=== PATIENT | male | born 1945 | race Caucasian/White ===

== ENCOUNTER 2022-08-08 15:52 | Inpatient (IN) | payer MEDICARE, MEDICAID, SELFPAY ==
--- NOTE | ~2022-08-08 | XR_ITS ---
EXAMINATION: XR chest 1V CLINICAL INFORMATION: Reason for Exam shortness of breat COMPARISON: Chest radiograph 08/12/2022 TECHNIQUE: One view of the chest XR/XR chest 1V FINDINGS/IMPRESSION: * Hazy asymmetric opacification of the right lung, unclear if this could be due to patient rotation, asymmetric parenchymal opacities or small layering pleural effusion. Consider repeat PA and lateral radiographs. * Blunting of the bilateral costophrenic angles may reflect trace pleural effusions. No pneumothorax. * Unchanged cardiomediastinal silhouette. * Incidental note of upper abdominal surgical clips.
--- NOTE | ~2022-08-08 | XR_ITS ---
EXAMINATION: XR CHEST CLINICAL INFORMATION: Hypoxic COMPARISON: Chest x-ray 12/05/2016 TECHNIQUE: Frontal view of the chest was obtained. FINDINGS: No airspace consolidation. No pleural effusion or pneumothorax. Small sub-5 mm calcified granuloma in the peripheral right midlung, unchanged. Normal cardiomediastinal silhouette. No evidence of pulmonary edema. No acute osseous injury. XR/XR chest 1V IMPRESSION: 1. No acute pulmonary process.
--- NOTE | ~2022-08-08 | XR_ITS ---
EXAMINATION: XR CHEST CLINICAL INFORMATION: Hypoxia COMPARISON: Previous chest x-ray most recent 08/08/2022 TECHNIQUE: Frontal view of the chest was obtained. FINDINGS: The cardiac silhouette does not appear enlarged. The thoracic aorta is calcified. There are surgical clips at the GE junction region. Hilar and mediastinal contours are otherwise unremarkable. There is mild biapical pleural thickening.. There is a small nodule in the right mid lung that is stable. There is minimal subsegmental atelectasis at the left lateral costophrenic angle. The lungs are otherwise clear. There is no pleural effusion or pneumothorax. There are degenerative changes of the spine. XR/XR chest 1V IMPRESSION: New subsegmental atelectasis at the left lung base.
--- NOTE | ~2022-08-08 | XR_ITS ---
EXAMINATION: XR CHEST CLINICAL INFORMATION: Shortness of breath COMPARISON: 09/01/2022 TECHNIQUE: Frontal view of the chest was obtained. FINDINGS: No significant abnormality is noted involving the heart, lungs, mediastinum, bony thorax or soft tissues. XR/XR chest 1V IMPRESSION: Unremarkable examination.
--- NOTE | ~2022-08-08 | XR_ITS ---
EXAMINATION: XR CHEST CLINICAL INFORMATION: Cough and shortness of breath COMPARISON: CTA chest dated 08/10/2022 TECHNIQUE: Frontal view of the chest was obtained. FINDINGS: The emphysema. No acute pulmonary parenchymal abnormalities. Normal heart size and pulmonary vascularity. Aorta is atherosclerotic. No acute osseous abnormalities. XR/XR chest 1V IMPRESSION: No focal consolidation.
--- NOTE | ~2022-08-08 | CT_ITS ---
EXAMINATION: CT CHEST ANGIOGRAM PE PROTOCOL CLINICAL INFORMATION: , Reason for Exam Hypoxia. Elevated D-dimer COMPARISON: None TECHNIQUE: Volumetric imaging was performed through the chest. Reformatted coronal and sagittal imaging was performed. 3-D MIP images performed at a dedicated separate workstation. This CT examination was performed using dose optimization techniques as appropriate, variously including the following: *Automated exposure control *Adjustment of mA and/or kV according to patient size (this includes techniques or standardized protocols for targeted exams where dose is matched to indication/reason for exam; i.e. extremities or head) *Use of iterative reconstruction technique CONTRAST: Approximately 65 mL Omnipaque 350 injected DLP: 429 FINDINGS: PULMONARY ARTERIES: There is proper opacification of the pulmonary artery and its main branches. No CT evidence of pulmonary emboli. LINES/TUBES: None LUNGS: Lung Parenchyma: Mild pulmonary emphysema right apical pleural-based scarring, no infiltrates or failure. Lung Nodules:No lung mass or suspicious spiculated nodules, there are few scattered tiny nonspecific calcified and noncalcified lung nodular densities measuring up to 3 mm or less. AIRWAYS: Trachea and bronchi are normal. PLEURA: No pleural effusion or pneumothorax. MEDIASTINUM AND KRYS: The visualized thyroid gland is unremarkable. No mediastinal, hilar or axillary lymphadenopathy. There is no mediastinal mass. VESSELS: Thoracic aorta is normal in size. HEART AND PERICARDIUM: Heart is normal in size. There is no pericardial effusion. There are coronary calcifications. CHEST WALL, LOWER NECK, SURROUNDING SOFT TISSUES: Normal VISUALIZED ABDOMEN: Unremarkable BONES: The visualized bony thorax is within normal limits. CT/CT angio chest PE protocol IMPRESSION: 1. No CT evidence of pulmonary emboli. 2. No lung mass or suspicious spiculated nodules, there are few scattered tiny nonspecific lung calcified and noncalcified nodular densities measuring up to 3 mm or less. 3. Coronary calcifications. 4. Pulmonary emphysema. Various management parameters for solitary pulmonary nodules are in the literature. According to the UPDATED 2017 Fleischner Society recommendations, the advised follow-up imaging for solid nodules < 6 mm is: LOW RISK PATIENT: No routine follow-up. HIGH RISK PATIENT: Optional CT at 12 months. Reference: Guidelines for Management of Incidental Pulmonary Nodules Detected on CT Images: From the Fleischner Society 2017.
--- NOTE | ~2022-08-08 | XR_ITS ---
EXAMINATION: XR CHEST CLINICAL INFORMATION: SOB COMPARISON: Chest 08/31/2022 TECHNIQUE: Frontal view of the chest was obtained. FINDINGS: The lungs are well-expanded and clear with no acute pneumonic process seen. The heart size and pulmonary vascularity is normal. There is no gross bony abnormality. XR/XR chest 1V IMPRESSION: Unremarkable chest examination.
[2022-08-08 16:09] VITALS: BP 144/96; BP 154/90; PULSE 100; PULSE 94; RESP 12; TEMP 36.9; O2SAT 94; BMI 28.3
[2022-08-08 16:15] VITALS: BP 142/61; PULSE 90; RESP 24; TEMP 36.9; O2SAT 94
--- NOTE | 2022-08-08 16:29 | ED.AMS ---
HPI - Altered Mental Status General Chief Complaint: Altered Mental Status Stated Complaint: section 12 Time Seen by Provider: 08/08/22 16:08 Source: patient Mode of arrival: ambulatory Limitations: no limitations History of Present Illness HPI narrative: 76-year-old male history of bipolar disorder schizophrenia at a senior care has had increased agitation aggression towards staff and other members of the senior care. Was sent here they state that his ammonia level will get elevated there is no documented history liver disease he does not take any medications that would elevate his ammonia level they also stated that his sodium consumption hives be abnormal as well. MD complaint: altered mental status and confusion Related Data Allergies Allergy/AdvReac Type Severity Reaction Status Date / Time Penicillins [PENICILLINS] Allergy Intermediate RASH Unverified 08/02/20 16:41 Iodinated Contrast Media Allergy Mild HIVES Unverified 08/02/20 16:41 [IV Dye, Iodine Containing Contrast ] penicillin V Allergy Unknown Verified 07/05/18 00:00 Review of Systems Review of Systems: Review of systems: General: Patient denies any fever chills recent illness or falls Musculoskeletal: Denies back pain or body aches or other injuries HEENT: denies headache, runny nose, ear pain Respiratory: denies shortness of breath, cough Cardiovascular: no chest pain or palpitations : denies dysuria, frequency Abdomen: no nausea vomiting denies abdominal pain Extremities: no swelling, no pain Skin: no diaphoresis Yes all other systems are reviewed and are negative PMFSH Social History Social History Advance Directives: No Advance Directives Information Provided: Yes Physical Exam ED Vital Signs: Vital Signs - 24 hr 08/08/22 16:09 08/08/22 16:15 Temperature 98.5 F 98.5 F Pulse Rate 94 90 Respiratory Rate 12 24 H Blood Pressure 154/90 H 142/61 H Pulse Oximetry 94 94 Oxygen Delivery Method Room Air Room Air BMI result Body Mass Index 28.3 Neurological exam: CN II- XII tested. Patient is alert and oriented to person place and time. Patient has no dysphagia or dysarthia, denies good vision in all four vision smith no nystagmus on exam, good strength to upper and lower extremities with normal reflexes to brachioradialis, wrist, patella and achilles.? Negative romberg, good finger to nose and heel to ortiz.?? General: Well-appearing well-nourished in no signs of distress HEENT: Normocephalic atraumatic? Neck: No signs of JVD, no masses no tenderness or lymphadenopathy Cardiovascular: Regular rate and rhythm Respiratory: Clear to auscultation bilaterally Abdomen: Soft nontender no masses Extremities: Normal pedal pulses no signs of edema Skin: Dry warm no rashes Back: No tenderness full ROM Patient is minimally redirectable continually seeing states that his knee hurt has no other new injuries. The past he immediately upon arrival to bed. MDM - Altered Mental Status MDM Narrative Medical decision making narrative: 76-year-old with specific request check his sodium ammonia level which will be sent items he resume his ammonia level be elevated his abdominal labs were labs were reason but since he was specifically requested I will send off an ammonia level. I will check the labs if I get the patient medically cleared Patient shows signs of dehydration with mildly elevated BUN and creatinine will give patient a L of fluids patient's O2 does not appear to be to elevate I do not have history of his labs he has never been here before so concerned this new patient with her food repeat his BMP. After one liter of fluid he is eating and drinking and closer to baseline. I will medically clear the patient. Differential Diagnosis Differential diagnosis: Likely altered mental status, delirium, encephalopathy, hypoglycemia, hyponatremia and renal failure Medical Records Attestation: I reviewed the patient's medical records. Lab Data Attestation: I reviewed the patient's lab results. Result diagrams: 08/08/22 16:57 08/08/22 21:59 Labs: Lab Results 08/08/22 08/08/22 08/08/22 Range/Units 16:57 16:57 16:57 WBC 15.4 H (4.8-10.8) X10*3/uL RBC 4.13 L (4.60-5.80) X10*6/uL Hgb 13.1 L (14.0-18.0) g/dl Hct 38.4 L (42.0-52.0) % MCV 93.0 (80.0-98.0) fL MCH 31.7 (27.0-33.0) pg MCHC 34.1 (31.0-36.0) g/dl RDW 13.2 (11.0-16.0) % Plt Count 254 (160-400) X10*3/uL MPV 9.2 L (9.4-12.4) fL Immature Gran % (Auto) 4.1 H (0.0-0.4) % Neut % (Auto) 68.4 (45-73) % Lymph % (Auto) 16.8 L (20-40) % [place] % (Auto) 9.2 (2-11) % Eos % (Auto) 1.0 (0-4) % Baso % (Auto) 0.5 (0-2) % Lymph # (Auto) 2.6 (1.2-4.9) X10*3/uL [place] # (Auto) 1.4 H (0.1-1.2) X10*3/uL Eos # (Auto) 0.2 (0.0-0.4) X10*3/uL Baso # (Auto) 0.1 (0.0-0.2) X10*3/uL Abs Immat Gran (auto) 0.63 H (0.00-0.03) X10*3/uL Absolute Neuts (auto) 10.5 H (2.0-8.3) x10*3/uL Absolute Nucleated RBC 0.000 (0.0-0.012) X10*3/uL Nucleated RBC % (auto) 0.0 (0.0-0.2) /100WBC Sodium 129 L (135-145) mmol/L Potassium 5.6 H (3.3-5.1) mmol/L Chloride 93 L (96-108) mmol/L Carbon Dioxide 25 (22-29) mmol/L Anion Gap 17 (12-20) BUN 31 H (9-16) mg/dL Creatinine 1.62 H (0.5-1.4) mg/dL Estim Creat Clear Calc 36.5 Estimated GFR 42 Random Glucose 127 H (60-115) mg/dL Calcium 8.7 (8.4-10.2) mg/dL Total Bilirubin 0.3 (0.0-1.0) mg/dL Direct Bilirubin < 0.2 (0.0-0.5) mg/dL AST 24 (5-37) U/L ALT 23 (0-40) U/L Alkaline Phosphatase 101 (39-117) U/L Ammonia 49 (13-55) umol/L Total Protein 6.8 (6.5-8.0) g/dL Albumin 4.1 (3.5-5.0) g/dL Lipase 50 (8-78) U/L Urine Color Urine Appearance Urine pH (5.0-9.0) Ur Specific [place] (1.005-1.025) Urine Protein (Neg-Trace) mg/dL Urine Glucose (UA) (Negative) mg/dL Urine Ketones (Negative) mg/dL Urine Blood (Negative) Urine Nitrite (Negative) Ur Leukocyte Esterase (Negative) Urine RBC (0-2) /HPF Urine WBC (0-5) /HPF Ur Squamous Epith Cells (0-2) /HPF Urine Bacteria (None Seen) Hyaline Casts (0-2) /LPF Urine Opiates Screen (Not Detect) Urine Fentanyl Screen (Not Detect) Ur Barbiturates Screen (Not Detect) Ur Phencyclidine Scrn (Not Detect) Ur Amphetamines Screen (Not Detect) U Benzodiazepines Scrn (Not Detect) Urine Cocaine Screen (Not Detect) U Marijuana (THC) Screen (Not Detect) COVID-19 (MISTY) (Negative) COVID-19 Clin Com 08/08/22 08/08/22 08/08/22 Range/Units 17:19 18:20 18:20 WBC (4.8-10.8) X10*3/uL RBC (4.60-5.80) X10*6/uL Hgb (14.0-18.0) g/dl Hct (42.0-52.0) % MCV (80.0-98.0) fL MCH (27.0-33.0) pg MCHC (31.0-36.0) g/dl RDW (11.0-16.0) % Plt Count (160-400) X10*3/uL MPV (9.4-12.4) fL Immature Gran % (Auto) (0.0-0.4) % Neut % (Auto) (45-73) % Lymph % (Auto) (20-40) % [place] % (Auto) (2-11) % Eos % (Auto) (0-4) % Baso % (Auto) (0-2) % Lymph # (Auto) (1.2-4.9) X10*3/uL [place] # (Auto) (0.1-1.2) X10*3/uL Eos # (Auto) (0.0-0.4) X10*3/uL Baso # (Auto) (0.0-0.2) X10*3/uL Abs Immat Gran (auto) (0.00-0.03) X10*3/uL Absolute Neuts (auto) (2.0-8.3) x10*3/uL Absolute Nucleated RBC (0.0-0.012) X10*3/uL Nucleated RBC % (auto) (0.0-0.2) /100WBC Sodium (135-145) mmol/L Potassium (3.3-5.1) mmol/L Chloride (96-108) mmol/L Carbon Dioxide (22-29) mmol/L Anion Gap (12-20) BUN (9-16) mg/dL Creatinine (0.5-1.4) mg/dL Estim Creat Clear Calc Estimated GFR Random Glucose (60-115) mg/dL Calcium (8.4-10.2) mg/dL Total Bilirubin (0.0-1.0) mg/dL Direct Bilirubin (0.0-0.5) mg/dL AST (5-37) U/L ALT (0-40) U/L Alkaline Phosphatase (39-117) U/L Ammonia (13-55) umol/L Total Protein (6.5-8.0) g/dL Albumin (3.5-5.0) g/dL Lipase (8-78) U/L Urine Color RED Urine Appearance Hazy Urine pH 7.0 (5.0-9.0) Ur Specific [place] <= 1.005 (1.005-1.025) Urine Protein 30 (1+) H (Neg-Trace) mg/dL Urine Glucose (UA) Negative (Negative) mg/dL Urine Ketones Negative (Negative) mg/dL Urine Blood Large (3+) H (Negative) Urine Nitrite Negative (Negative) Ur Leukocyte Esterase Trace H (Negative) Urine RBC >20 H (0-2) /HPF Urine WBC 0-5 (0-5) /HPF Ur Squamous Epith Cells 0-2 (0-2) /HPF Urine Bacteria None Seen (None Seen) Hyaline Casts 0-2 (0-2) /LPF Urine Opiates Screen Not Detected (Not Detect) Urine Fentanyl Screen Not Detected (Not Detect) Ur Barbiturates Screen Not Detected (Not Detect) Ur Phencyclidine Scrn Not Detected (Not Detect) Ur Amphetamines Screen Not Detected (Not Detect) U Benzodiazepines Scrn Not Detected (Not Detect) Urine Cocaine Screen Not Detected (Not Detect) U Marijuana (THC) Screen Not Detected (Not Detect) COVID-19 (MISTY) Negative (Negative) COVID-19 Clin Com See Note 08/08/22 Range/Units 21:59 WBC (4.8-10.8) X10*3/uL RBC (4.60-5.80) X10*6/uL Hgb (14.0-18.0) g/dl Hct (42.0-52.0) % MCV (80.0-98.0) fL MCH (27.0-33.0) pg MCHC (31.0-36.0) g/dl RDW (11.0-16.0) % Plt Count (160-400) X10*3/uL MPV (9.4-12.4) fL Immature Gran % (Auto) (0.0-0.4) % Neut % (Auto) (45-73) % Lymph % (Auto) (20-40) % [place] % (Auto) (2-11) % Eos % (Auto) (0-4) % Baso % (Auto) (0-2) % Lymph # (Auto) (1.2-4.9) X10*3/uL [place] # (Auto) (0.1-1.2) X10*3/uL Eos # (Auto) (0.0-0.4) X10*3/uL Baso # (Auto) (0.0-0.2) X10*3/uL Abs Immat Gran (auto) (0.00-0.03) X10*3/uL Absolute Neuts (auto) (2.0-8.3) x10*3/uL Absolute Nucleated RBC (0.0-0.012) X10*3/uL Nucleated RBC % (auto) (0.0-0.2) /100WBC Sodium 130 L (135-145) mmol/L Potassium 5.4 H (3.3-5.1) mmol/L Chloride 95 L (96-108) mmol/L Carbon Dioxide 25 (22-29) mmol/L Anion Gap 15 (12-20) BUN 26 H (9-16) mg/dL Creatinine 1.22 (0.5-1.4) mg/dL Estim Creat Clear Calc 48.5 Estimated GFR 58 Random Glucose 107 (60-115) mg/dL Calcium 8.6 (8.4-10.2) mg/dL Total Bilirubin (0.0-1.0) mg/dL Direct Bilirubin (0.0-0.5) mg/dL AST (5-37) U/L ALT (0-40) U/L Alkaline Phosphatase (39-117) U/L Ammonia (13-55) umol/L Total Protein (6.5-8.0) g/dL Albumin (3.5-5.0) g/dL Lipase (8-78) U/L Urine Color Urine Appearance Urine pH (5.0-9.0) Ur Specific [place] (1.005-1.025) Urine Protein (Neg-Trace) mg/dL Urine Glucose (UA) (Negative) mg/dL Urine Ketones (Negative) mg/dL Urine Blood (Negative) Urine Nitrite (Negative) Ur Leukocyte Esterase (Negative) Urine RBC (0-2) /HPF Urine WBC (0-5) /HPF Ur Squamous Epith Cells (0-2) /HPF Urine Bacteria (None Seen) Hyaline Casts (0-2) /LPF Urine Opiates Screen (Not Detect) Urine Fentanyl Screen (Not Detect) Ur Barbiturates Screen (Not Detect) Ur Phencyclidine Scrn (Not Detect) Ur Amphetamines Screen (Not Detect) U Benzodiazepines Scrn (Not Detect) Urine Cocaine Screen (Not Detect) U Marijuana (THC) Screen (Not Detect) COVID-19 (MISTY) (Negative) COVID-19 Clin Com ECG Data ECG #1: Attestation: I personally reviewed and interpreted this ECG as follows: ECG interpretation date: 08/08/22 ECG interpretation time: 18:37 Interpretation: Rate 101 sinus tachycardia normal intervals no peaked T-waves Procedures EJ/Peripheral Line Arm R: Time Out Performed: Yes Skin Cleansed in Sterile Fashion: Yes Size (gauge): 20 IV Secured and Dressing Applied: Yes Patient Tolerated Procedure: well Additional Comments: Attempted 2 times on the left and 3 times longer before securing a right AC line patient tolerated procedure well IV was placed under ultrasound guidance Discharge Plan Discharge Clinical Impression: Dementia, Schizophrenia, Acute dehydration, Acute kidney failure, Acute hyperkalemia Patient Disposition: Still a Patient
[2022-08-08 17:02] LABS: MANUAL DIFF FLAG NO
[2022-08-08 17:03] LABS: Basophils Absolute Auto 0.1 X10*3/uL (0.0-0.2); Basophils Percent Auto 0.5 % (0-2); Eosinophils Absolute Auto 0.2 X10*3/uL (0.0-0.4); Hematocrit 38.4 % (42.0-52.0); Hemoglobin 13.1 g/dl (14.0-18.0); Imm Gran Abs Auto 0.63 X10*3/uL (0.00-0.03); Imm Gran Pct Auto 4.1 % (0.0-0.4); Lymphocytes Absolute Auto 2.6 X10*3/uL (1.2-4.9); Lymphocytes Percent Auto 16.8 % (20-40); Mean Corpuscular HGB Conc 34.1 g/dl (31.0-36.0); Mean Corpuscular Hemoglobin 31.7 pg (27.0-33.0); Mean Platelet Volume 9.2 fL (9.4-12.4); Monocytes Absolute Auto 1.4 X10*3/uL (0.1-1.2); Monocytes Percent Auto 9.2 % (2-11); Neutrophils Absolute Auto 10.5 x10*3/uL (2.0-8.3); Neutrophils Percent Auto 68.4 % (45-73); Platelet Count 254 X10*3/uL (160-400); Red Blood Count 4.13 X10*6/uL (4.60-5.80); Red Cell Distribution Width 13.2 % (11.0-16.0); White Blood Count 15.4 X10*3/uL (4.8-10.8)
[2022-08-08 17:14] LABS: Ammonia 49 umol/L (13-55)
--- NOTE | 2022-08-08 17:15 | PC.NURSE ---
PATIENT CAME IN ,DRENCH OF URINE ,CARE GIVEN AND BEDDING CHANGE .
[2022-08-08 17:22] LABS: Alanine Aminotransferase 23 U/L (0-40); Albumin Level 4.1 g/dL (3.5-5.0); Alkaline Phosphatase 101 U/L (39-117); Anion Gap 17 (12-20); Aspartate Amino Transferase 24 U/L (5-37); Bilirubin Direct < 0.2 mg/dL (0.0-0.5); Bilirubin Total 0.3 mg/dL (0.0-1.0); Blood Urea Nitrogen 31 mg/dL (9-16); Calcium 8.7 mg/dL (8.4-10.2); Carbon Dioxide 25 mmol/L (22-29); Chloride 93 mmol/L (96-108); Creatinine Clr Calc Pharmacy 36.5; Estimated Glomerular Filt Rate 42; Glucose Random 127 mg/dL (60-115); Lipase 50 U/L (8-78); Potassium 5.6 mmol/L (3.3-5.1); Sodium 129 mmol/L (135-145); Total Protein 6.8 g/dL (6.5-8.0)
[2022-08-08 17:41] LABS: COVID-19 Test Negative (Negative); IDNOW Serial# 55D5AD1C
--- NOTE | 2022-08-08 17:46 | ECG_ITS ---
Test Reason : AMS Blood Pressure : / mmHG Vent. Rate : 101 BPM Atrial Rate : 101 BPM P-R Int : 138 ms QRS Dur : 130 ms QT Int : 358 ms P-R-T Axes : 085 -60 058 degrees QTc Int : 464 ms Sinus tachycardia Right bundle branch block Left anterior fascicular block Bifascicular block Abnormal ECG When compared with ECG of 03-APR-2017 06:50, (RBBB and left anterior fascicular block) is now Present Heart rate has increased Referred By: Bertin Valencia Electronically Signed By:KRISTOPHER VALERO
[2022-08-08 18:29] LABS: Appearance Urine Hazy; Color Urine RED; Glucose Urine UA Negative (Negative); Leukocyte Esterase Urine Trace (Negative); Nitrite Urine Negative (Negative); Specific Gravity - Urine <= 1.005 (1.005-1.025); UMIC TRIGGER UACC YES; Urine Blood Large (3+) (Negative); Urine Ketones Negative (Negative); Urine Protein 30 (1+) mg/dL (Neg-Trace)
[2022-08-08 18:43] LABS: RBC Urine >20 /HPF (0-2); Squamous Epithelial Cell Urine 0-2 /HPF (0-2); WBC Urine 0-5 /HPF (0-5)
[2022-08-08 18:44] LABS: Bacteria Urine None Seen (None Seen); Hyaline Casts Urine 0-2 /LPF (0-2)
[2022-08-08 18:46] LABS: Amphetamine Screen Urine Not Detected (Not Detect); Barbiturates, Urine Not Detected (Not Detect); Benzodiazepines Screen Urine Not Detected (Not Detect); Cannabinoid Screen Urine Not Detected (Not Detect); Cocaine Screen Urine Not Detected (Not Detect); Fentanyl, urine Not Detected (Not Detect); Opiate Screen Urine Not Detected (Not Detect); Phencyclidine Screen Urine Not Detected (Not Detect)
[2022-08-08] MEDS: 0.9 % Sodium Chloride 1,000 ML 999 ML IV (20:31)
--- NOTE | 2022-08-08 22:10 | PC.NURSE ---
No IV access, after many attempts.
[2022-08-08 22:19] LABS: Anion Gap 15 (12-20); Blood Urea Nitrogen 26 mg/dL (9-16); Calcium 8.6 mg/dL (8.4-10.2); Carbon Dioxide 25 mmol/L (22-29); Chloride 95 mmol/L (96-108); Creatinine Clr Calc Pharmacy 48.5; Estimated Glomerular Filt Rate 58; Glucose Random 107 mg/dL (60-115); Potassium 5.4 mmol/L (3.3-5.1); Sodium 130 mmol/L (135-145)
[2022-08-08 22:32] VITALS: BP 171/67; PULSE 89; RESP 16; O2SAT 93
[2022-08-09] VITALS (9 sets, daily range): BP systolic 101–191; BP diastolic 63–76; PULSE 71–88; RESP 15–20; TEMP 36.2–37.2; O2SAT 92–97
--- NOTE | 2022-08-09 05:42 | PC.NURSE ---
[facility] referral completed.
--- NOTE | 2022-08-09 08:51 | PC.NURSE ---
[facility] Director Rachel iL needs to be notified if discharged. Health Care Proxy:Tia Arellano,
[2022-08-09 11:47] LABS: MANUAL DIFF FLAG NO
[2022-08-09 11:51] LABS: Basophils Absolute Auto 0.1 X10*3/uL (0.0-0.2); Basophils Percent Auto 0.4 % (0-2); Eosinophils Absolute Auto 0.1 X10*3/uL (0.0-0.4); Eosinophils Percent Auto 0.4 % (0-4); Hematocrit 38.2 % (42.0-52.0); Hemoglobin 12.9 g/dl (14.0-18.0); Imm Gran Pct Auto 3.6 % (0.0-0.4); Lymphocytes Absolute Auto 2.2 X10*3/uL (1.2-4.9); Lymphocytes Percent Auto 15.6 % (20-40); Mean Corpuscular HGB Conc 33.8 g/dl (31.0-36.0); Mean Corpuscular Hemoglobin 31.9 pg (27.0-33.0); Mean Corpuscular Volume 94.3 fL (80.0-98.0); Mean Platelet Volume 9.2 fL (9.4-12.4); Monocytes Absolute Auto 1.2 X10*3/uL (0.1-1.2); Monocytes Percent Auto 8.3 % (2-11); Neutrophils Percent Auto 71.7 % (45-73); Platelet Count 284 X10*3/uL (160-400); Red Blood Count 4.05 X10*6/uL (4.60-5.80); Red Cell Distribution Width 13.2 % (11.0-16.0); White Blood Count 13.9 X10*3/uL (4.8-10.8)
[2022-08-09] MEDS: Labetalol HCL 100 MG/20 ML VIAL 10 MG IVPUSH (14:41)
[2022-08-09] MEDS: cloNIDine HCL 0.1 MG TABLET PO (14:42)
[2022-08-09] MEDS: amLODIPine Besylate 5 MG TABLET PO (14:42)
[2022-08-09] MEDS: lisinopriL 10 MG TABLET PO (14:42)
[2022-08-09 15:26] LABS: Alanine Aminotransferase 21 U/L (0-40); Albumin Level 4.1 g/dL (3.5-5.0); Alkaline Phosphatase 104 U/L (39-117); Anion Gap 17 (12-20); Aspartate Amino Transferase 22 U/L (5-37); Bilirubin Total 0.3 mg/dL (0.0-1.0); Blood Urea Nitrogen 19 mg/dL (9-16); Calcium 8.9 mg/dL (8.4-10.2); Carbon Dioxide 23 mmol/L (22-29); Chloride 95 mmol/L (96-108); Estimated Glomerular Filt Rate > 60; Glucose Random 121 mg/dL (60-115); Potassium 5.3 mmol/L (3.3-5.1); Sodium 130 mmol/L (135-145); Total Protein 6.9 g/dL (6.5-8.0)
[2022-08-09] MEDS: 0.9 % Sodium Chloride 1,000 ML 999 ML IVCONT (17:00)
[2022-08-09] MEDS: Sodium Polystyrene Sulfon/Sorb 15 GM/60 ML ORAL.SUSP 45 GM PO (18:11)
--- NOTE | 2022-08-09 21:56 | PC.NURSE ---
Pt was incontinent of stool and urine, cleaned up, repositioned and all new linen was placed @[id number]
[2022-08-10] VITALS (10 sets, daily range): BP systolic 121–177; BP diastolic 53–74; PULSE 69–114; RESP 14–20; TEMP 36.7–36.9; O2SAT 89–96
[2022-08-10] MEDS: QUEtiapine Fumarate 50 MG TABLET PO ×3 (07:34→20:45)
--- NOTE | 2022-08-10 10:02 | PC.NURSE ---
[facility] came to re evaluate patient, remains gretel bed search.
[2022-08-10 11:08] LABS: MANUAL DIFF FLAG NO
[2022-08-10 11:10] LABS: Basophils Percent Auto 0.3 % (0-2); Eosinophils Absolute Auto 0.1 X10*3/uL (0.0-0.4); Eosinophils Percent Auto 0.7 % (0-4); Hemoglobin 12.2 g/dl (14.0-18.0); Imm Gran Pct Auto 2.3 % (0.0-0.4); Lymphocytes Absolute Auto 2.3 X10*3/uL (1.2-4.9); Lymphocytes Percent Auto 17.6 % (20-40); Mean Corpuscular Hemoglobin 31.5 pg (27.0-33.0); Mean Corpuscular Volume 95.6 fL (80.0-98.0); Mean Platelet Volume 8.8 fL (9.4-12.4); Monocytes Percent Auto 7.7 % (2-11); Neutrophils Absolute Auto 9.3 x10*3/uL (2.0-8.3); Neutrophils Percent Auto 71.4 % (45-73); Platelet Count 250 X10*3/uL (160-400); Red Blood Count 3.87 X10*6/uL (4.60-5.80); Red Cell Distribution Width 13.2 % (11.0-16.0)
[2022-08-10 11:18] LABS: D Dimer High Sensitivity 267 NG/ML
[2022-08-10 11:23] LABS: Anion Gap 15 (12-20); Blood Urea Nitrogen 18 mg/dL (9-16); Calcium 8.2 mg/dL (8.4-10.2); Carbon Dioxide 24 mmol/L (22-29); Chloride 99 mmol/L (96-108); Creatinine Clr Calc Pharmacy 68.1; Estimated Glomerular Filt Rate > 60; Glucose Random 110 mg/dL (60-115); Sodium 134 mmol/L (135-145)
[2022-08-10] MEDS: Albuterol/Iprat 2.5/0.5MG 3 ML AMPUL.NEB INHALE ×2 (11:26→14:35)
[2022-08-10] MEDS: methylPREDNISolone Sod Succ 125 MG/2 ML VIAL IVPUSH (13:30)
[2022-08-10] MEDS: diphenhydrAMINE HCL 50 MG/ML VIAL IVPUSH (13:30)
[2022-08-10 13:54] LABS: B Type Natriuretic Peptide 19 pg/mL (<100)
[2022-08-10] MEDS: Albuterol Sulfate 2.5 MG/0.5 ML VIAL.NEB 5 MG INHALE (14:35)
[2022-08-10] MEDS: iohexoL 350 MG/ML 100 ML INFUS..BTL IV (14:37)
[2022-08-10] MEDS: cefEPime HCl 2 GM in 0.9 % Sodium Chloride 50 ML IV (16:38)
--- NOTE | 2022-08-10 17:03 | PM.EVENT ---
Event Note Date of Service: 08/10/22 Event Note: call to admit patient was initially seen in the emergency room on 08/05 waiting for [facility] placement today noted to have a hypoxia 91% on room air with no prior history of COPD or O2 requirement a chest x-ray showed atelectasis is CT chest showed no PE PA called to admit patient for hypoxia with finger oximetry of 89% went to see patient he is awake alert denies shortness of breath denies chest pain denies nausea vomiting, no headache no dizziness lungs diminished breath sound at bases general no acute distress oxygenation 91% on room air blood pressure 167/53, heart rate 103 no hypoxia noted most likely low oxygenation related to atelectasis ordered incentive spirometry reviewed med reconciliation patient is on clonidine 0.1 mg t.i.d., amlodipine 5 mg daily, lisinopril 10 mg daily and multiple other psych medication spoke with patient's ER provider Layla Mendez recommended her to resume home antihypertensive medications, spoke with respiratory therapist recommended incentive spirometry informed ER provider the patient at this time does not qualify for hospitalization continue [facility] search.
[2022-08-10] MEDS: Albuterol Sulfate (0.083%) 2.5 MG/3 ML VIAL.NEB INHALE (17:10)
--- NOTE | 2022-08-10 19:24 | PC.NURSE ---
assumed care of pt at 1900. report received from Krystyna NORMAN. pt sitting up eating dinner. no apparent distress. will continue to monitor
[2022-08-10] MEDS: Tamsulosin HCL 0.4 MG CAPSULE PO ×2 (20:45)
[2022-08-11] VITALS (7 sets, daily range): BP systolic 144–181; BP diastolic 58–79; PULSE 100–109; RESP 16–20; TEMP 36.8–37.4; O2SAT 87–95
[2022-08-11] MEDS: QUEtiapine Fumarate 50 MG TABLET PO ×2 (08:11→22:02)
--- NOTE | 2022-08-11 08:43 | PC.NURSE ---
wash patient clean room
--- NOTE | 2022-08-11 20:52 | PC.NURSE ---
Assumed care of pt. at 1900. Pt. awaiting transfer to health system, resting quietly in hines stretcher.
[2022-08-11] MEDS: Clindamycin HCL 150 MG CAPSULE 450 MG PO (22:02)
[2022-08-11] MEDS: Tamsulosin HCL 0.4 MG CAPSULE PO (22:03)
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
[2022-08-12] MEDS: Clindamycin HCL 150 MG CAPSULE 450 MG PO ×2 (04:15→10:30)
[2022-08-12 08:15] LABS: Estimated Average Glucose 123 mg/dL; Hemoglobin A1c % 5.9 %
[2022-08-12 08:24] LABS: Cholesterol 147 mg/dL; HDL Cholesterol 63 mg/dL; LDL Cholesterol Calculated 74 mg/dl; Triglycerides 52 mg/dL
[2022-08-12 08:47] LABS: Free T4 (Free Thyroxine) 1.25 ng/dL (0.71-1.85); Thyroid Stimulating Hormone 2.08 uIU/mL (0.32-4.0)
--- NOTE | 2022-08-12 09:00 | ECG_ITS ---
Test Reason : hypoxia Blood Pressure : / mmHG Vent. Rate : 111 BPM Atrial Rate : 111 BPM P-R Int : 130 ms QRS Dur : 126 ms QT Int : 354 ms P-R-T Axes : 085 -66 074 degrees QTc Int : 481 ms Sinus tachycardia Right bundle branch block Left anterior fascicular block Bifascicular block Minimal voltage criteria for LVH, may be normal variant ( R in aVL ) Abnormal ECG When compared with ECG of 08-AUG-2022 18:28, No significant change was found Referred By: Adriana Bentley Electronically Signed By:KRISTOPHER VALERO
[2022-08-12 09:12] LABS: Folate 6.3 ng/mL (> or = 4.0); Vitamin B12 308 pg/mL (200-900)
[2022-08-12 09:30] VITALS: BP 179/73; PULSE 98; RESP 18; TEMP 36.8; O2SAT 96
[2022-08-12] MEDS: QUEtiapine Fumarate 50 MG TABLET PO ×2 (09:40→20:56)
--- NOTE | 2022-08-12 11:38 | HO.PM.IMCN ---
History of Present Illness Data of Consult Service Date: 08/12/22 Requesting physician: Adriana Bentley Primary Care Provider: Unknown Physician HPI Reason for consult: hypoxia and skin eval 76 year old male with history htn, COPD, BPH, schizophrenia, and dementia admitted to psychiatry being consulted on for sob and for skin evaluation. Pt boarded in ED for 4 days prior to admission to Geripsych unit. He was incontinent while in ED per nursing and developed dusky hypopigmentation on the buttock. He also had oximetry down to 91% in ED. CXR showed left base atelectasis. Pt started on cefuroxime. CTA chest negative for PE, suspicious nodules, focal consolidations, but did show pulmonary emphysema. Has had intermittent tachycardia to 111 yesterday. Last WBC was 13.0 two days ago. Today, pt is reporting some sob. Currently 96% on RA, however is noted to desaturate to 88% on ambulation. He has been using incentive spirometry to improve lung volumes. He is afebrile. Review of Systems Review of Systems: General: No fevers, malaise, unintentional weight loss Cardiovascular: No chest pain, palpitations, or leg edema Respiratory: +sob, +cough. No wheezing GI: No abdominal pain, nausea, vomiting, diarrhea, constipation, melena, hematochezia : +incontinence. No dysuria, hematuria Neuro: No headaches, weakness, paresthesias Skin: +skin discoloration. No other rashes or lesions PMFSH Social History Household Members: Unknown / Unable to assess Housing: Assisted Living Facility Do you presently have visiting nurse or other home services: No Unable to assess alcohol history related to: Unable to respond and Unknown Patient Tobacco Use Status: Current everyday Tobacco user Cigarettes Per Day: 2 Smoked in Last 30 Days: Yes Patient Interested in Nicotine Replacement: Yes Patient Given Instructions on How to Stop Smoking: No Use of substances other than those prescribed or required for medical reasons: Unable to respond Currently Displaying Signs/Symptoms of Drug Intoxication Withdrawal: No Advance Directives: No Advance Directives Information Provided: Yes Do you have thoughts of harming others: None Do you have a plan to hurt others: No Plan Recently lost weight without trying: Unsure How much weight loss: Unsure Eating poorly because of decreased appetite: No Nutrition screen score: 4 Nutrition Risks: No Nutritional Risk service: No Sexual orientation: Straight/Heterosexual Meds Allergies Allergy/AdvReac Type Severity Reaction Status Date / Time Penicillins [PENICILLINS] Allergy Intermediate RASH Unverified 08/02/20 16:41 Iodinated Contrast Media Allergy Mild HIVES Unverified 08/02/20 16:41 [IV Dye, Iodine Containing Contrast ] penicillin V Allergy Unknown Verified 07/05/18 00:00 Active Medications: Current Medications Acetaminophen (Acetaminophen 325 Mg Tablet) 650 mg PO Q6H PRN PRN Reason: Headache/Pain Mild Scale (1-3) Al Hydroxide/Mg Hydroxide (Magnesium Hydrox/Alum Hydrox 30 Ml Oral.Susp) 30 ml PO Q6H PRN PRN Reason: Heartburn/Nausea Cefuroxime Axetil (Cefuroxime Axetil 500 Mg Tablet) 500 mg PO BID [facility] Last Admin: 08/12/22 09:40 Dose: 500 mg Clindamycin HCl (Clindamycin Hcl 150 Mg Capsule) 450 mg PO Q8H [facility] Stop: 08/18/22 17:59 Last Admin: 08/12/22 10:30 Dose: 450 mg Magnesium Hydroxide (Milk Of Magnesia 30 Ml Oral.Susp) 30 ml PO DAILY PRN PRN Reason: Constipation Pharmacy Consult (Consult Rx Perform Med Rec) 1 each MISCELLANE ONCE PRN PRN Reason: Consult order Quetiapine Fumarate (Quetiapine Fumarate 50 Mg Tablet) 50 mg PO BID [facility] Last Admin: 08/12/22 09:40 Dose: 50 mg Tamsulosin HCl (Tamsulosin Hcl 0.4 Mg Capsule) 0.4 mg PO BEDTIME [facility] Last Admin: 08/11/22 22:03 Dose: 0.4 mg Home Medications Medication Instructions Recorded Confirmed Last Taken Type amlodipine 5 mg tablet 1 tab PO DAILY 08/09/22 08/09/22 Unknown History aripiprazole 20 mg tablet 1 tab PO DAILY 08/09/22 08/09/22 Unknown History atorvastatin 20 mg tablet 1 tab PO BEDTIME 08/09/22 08/09/22 Unknown History clonidine HCl 0.1 mg tablet 1 tab PO TID 08/09/22 08/09/22 Unknown History fluticasone fur. 200 mcg-umeclid 1 puff inhalation DAILY 08/09/22 08/09/22 Unknown History 62.5 mcg-vilant 25 mcg inhalat.powder (Trelegy Ellipta) lisinopril 10 mg tablet 1 tab PO DAILY 08/09/22 08/09/22 Unknown History oxcarbazepine 300 mg tablet 1 tab PO BID 08/09/22 08/09/22 Unknown History quetiapine 50 mg tablet 1 tab PO BID 08/09/22 08/09/22 Unknown History tamsulosin 0.4 mg capsule 1 cap PO BEDTIME 08/09/22 08/09/22 Unknown History Vitamin D3 50,000 unit PO QMONTH 08/12/22 08/12/22 Unknown History acetaminophen 650 mg PO Q6H PRN Pain 08/12/22 08/12/22 Unknown History Physical Exam Vital Signs and Narrative: Vital Signs: Last Vital Signs Temp 98.2 F 08/12/22 09:30 Pulse 98 08/12/22 09:30 Resp 18 08/12/22 09:30 BP 179/73 H 08/12/22 09:30 Pulse Ox 96 08/12/22 09:30 O2 Del Method 08/12/22 09:30 O2 Flow Rate 2 08/10/22 10:10 BMI result Body Mass Index 28.3 Constitutional - Awake and Alert, No apparent distress Eyes - PERRLA, EOMI Cardiovascular - S1S2, RRR, No edema Respiratory - Scattered wheezing with rhonchi lll. Normal lung expansion, Normal respiratory effort, No respiratory distress Gastrointestinal - NT / ND; +BS; No rebound or guarding Extremities - no calf tenderness bilaterally, no swelling Skin - Warm/Dry. Slight dusky erythema around the gluteal cleft b/l, see photo Neurological - Alert & oriented x3, No focal deficit Psychological - Appropriate affect Results Labs CBC and Chem 7: 08/22/22 15:44 08/25/22 17:13 Labs: Laboratory Results - last 24 hr 08/12/22 08/12/22 08/12/22 07:53 07:53 07:53 Estimat Average Glucose 123 Hemoglobin A1c % 5.9 Triglycerides 52 Cholesterol 147 LDL Cholesterol, Calc 74 HDL Cholesterol 63 Vitamin B12 308 Folate 6.3 TSH 2.08 Free T4 1.25 Imaging Radiologist's Impressions: Impressions Chest X-Ray 08/12/22 03:50 IMPRESSION: No focal consolidation. Assessment and Plan (1) Schizophrenia: Status: Acute (2) Dementia: Status: Acute Plan 76 year old male with history htn, COPD, BPH, schizophrenia, and dementia admitted to psychiatry with consult placed for SOB, hypoxia with ambulation, and skin evaluation. 1-Schizophrenia -plan per psychiatry 2- Dementia -Plan per psycyhiatry 3-Ambulatory hypoxia- likely secondary to low lung volumes vs COPD exaceration -Oximetry 96% currently -CXR and CTA chest negative for pneumonia -Continue oximetry -Treat COPD exacerbation as above 4-Acute COPD exacerbation -No hypoxia at rest. Desat to 86-88% on ambulation -Recheck CBC. Leukocytosis several days ago in ED. Monitor vitals -Resume home trelegy ellipta -CXR and CTA negative for pneumonia. Dc cefuroxime and clindamycin. Start doxycline -Duonebs q4h x5 days -Prednisone 40mg x5 days -COVID-19 negative in ED. Recheck COVID-19 and influenza and RSV 5-Pulmonary nodules seen on chest CT -Needs outpt follow up CT in 1 year 6-Skin discoloration -Mild erythema around gluteal cleft likely from being bed bound in ED with urinary incontinence. No evidence of pressure ulceration. Discoloration is already resolving. Recommend barrier cream, changing brief often if urinary incontinence, and getting out of bed at least every shift Recommend all home bp meds be resumed. Will continue to follow.
[2022-08-12] MEDS: predniSONE 20 MG TABLET 40 MG PO (12:55)
[2022-08-12 13:20] LABS: MANUAL DIFF FLAG NO
[2022-08-12 13:25] LABS: Basophils Percent Auto 0.2 % (0-2); Eosinophils Absolute Auto 0.1 X10*3/uL (0.0-0.4); Eosinophils Percent Auto 0.5 % (0-4); Hemoglobin 11.5 g/dl (14.0-18.0); Imm Gran Abs Auto 0.36 X10*3/uL (0.00-0.03); Imm Gran Pct Auto 2.1 % (0.0-0.4); Lymphocytes Absolute Auto 2.9 X10*3/uL (1.2-4.9); Lymphocytes Percent Auto 16.9 % (20-40); Mean Corpuscular HGB Conc 32.9 g/dl (31.0-36.0); Mean Corpuscular Hemoglobin 31.4 pg (27.0-33.0); Mean Corpuscular Volume 95.6 fL (80.0-98.0); Mean Platelet Volume 9.2 fL (9.4-12.4); Monocytes Absolute Auto 1.1 X10*3/uL (0.1-1.2); Monocytes Percent Auto 6.2 % (2-11); Neutrophils Absolute Auto 12.7 x10*3/uL (2.0-8.3); Neutrophils Percent Auto 74.1 % (45-73); Platelet Count 283 X10*3/uL (160-400); Red Blood Count 3.66 X10*6/uL (4.60-5.80); Red Cell Distribution Width 13.2 % (11.0-16.0); White Blood Count 17.2 X10*3/uL (4.8-10.8)
[2022-08-12 14:19] VITALS: PULSE 103; RESP 20; O2SAT 93
[2022-08-12 14:53] LABS: Influenza A PCR NEGATIVE (Negative); Influenza B PCR NEGATIVE (Negative); Resp Syncy Virus RNA Qual PCR NEGATIVE (Negative); SARS COV2 PCR INHOUSE NEGATIVE (Negative)
--- NOTE | 2022-08-12 15:54 | P.HPPS_ITS ---
HPI Date of Service: 08/12/22 Chief Complaint: Schizophrenia,Dementia Sources of Information: patient interviewed, chart reviewed and crisis/core team assessment reviewed HPI Subjective Notes: [place] Warning and Conditional Voluntary Narrative: The patient is a 76-year-old [place] Citizen male, resident of a ch[facility] referred to the emergency room for exacerbation of psychosis, disorganized behavior and threatening staff in the ch[facility]. The patient carries a diagnosis of schizoaffective disorder bipolar type and he has several admissions into the hospital for similar presentations. According to staff of the chcf, Trileptal was discontinue recently. On interview, the patient was a very poor historian he was pleasant and cooperative, he was mostly Citizen [place]-speaking and stated that he was doing fine. He was unable to disclose why he was brought here, he denies active suicidal ideation and he was able to contract for safety. The patient was unable to disclose what can on medications he was taking. Past Psychiatric History: Several admissions into the hospital for psychotic decompensation, the patient has been placed on an a [facility]. Medical Evaluation Reviewed: Yes PMFSH Family History: Denies Social History: chronically mentally ill, recently placing a chcf. According to the chart the patient was to have several step children, he denies having biological children. Unemployed on disability. Substance History: Denies Trauma History: unknown Diagnostics Vital Signs (24Hr): Vital Signs - 24 hr 08/11/22 20:30 08/11/22 21:54 08/11/22 23:18 Temperature 99.4 F 98.3 F Pulse Rate 109 H 100 Respiratory Rate 19 20 Blood Pressure 163/79 H 144/77 H Pulse Oximetry 92 87 L 91 L Oxygen Delivery Method Room Air Room Air 08/12/22 09:30 08/12/22 14:19 Temperature 98.2 F Pulse Rate 98 103 H Respiratory Rate 18 20 Blood Pressure 179/73 H Pulse Oximetry 96 Oxygen Delivery Method Room Air BMI result Body Mass Index 28.3 Labs Results: 08/12/22 13:14 08/10/22 11:04 Labs: Laboratory Results - last 48 hr 08/12/22 08/12/22 08/12/22 07:53 07:53 07:53 WBC RBC Hgb Hct MCV MCH MCHC RDW Plt Count MPV Immature Gran % (Auto) Neut % (Auto) Lymph % (Auto) [place] % (Auto) Eos % (Auto) Baso % (Auto) Lymph # (Auto) [place] # (Auto) Eos # (Auto) Baso # (Auto) Abs Immat Gran (auto) Absolute Neuts (auto) Absolute Nucleated RBC Nucleated RBC % (auto) Estimat Average Glucose 123 Hemoglobin A1c % 5.9 Triglycerides 52 Cholesterol 147 LDL Cholesterol, Calc 74 HDL Cholesterol 63 Vitamin B12 308 Folate 6.3 TSH 2.08 Free T4 1.25 Influenza Type A (PCR) Influenza Type B (PCR) RSV RNA Qual (PCR) SARS-CoV-2 RNA (RT-PCR) 08/12/22 08/12/22 13:14 14:00 WBC 17.2 H RBC 3.66 L Hgb 11.5 L Hct 35.0 L MCV 95.6 MCH 31.4 MCHC 32.9 RDW 13.2 Plt Count 283 MPV 9.2 L Immature Gran % (Auto) 2.1 H Neut % (Auto) 74.1 H Lymph % (Auto) 16.9 L [place] % (Auto) 6.2 Eos % (Auto) 0.5 Baso % (Auto) 0.2 Lymph # (Auto) 2.9 [place] # (Auto) 1.1 Eos # (Auto) 0.1 Baso # (Auto) 0.0 Abs Immat Gran (auto) 0.36 H Absolute Neuts (auto) 12.7 H Absolute Nucleated RBC 0.000 Nucleated RBC % (auto) 0.0 Estimat Average Glucose Hemoglobin A1c % Triglycerides Cholesterol LDL Cholesterol, Calc HDL Cholesterol Vitamin B12 Folate TSH Free T4 Influenza Type A (PCR) NEGATIVE Influenza Type B (PCR) NEGATIVE RSV RNA Qual (PCR) NEGATIVE SARS-CoV-2 RNA (RT-PCR) NEGATIVE Imaging Radiology Impressions: ITS Impressions Chest X-Ray 08/08/22 16:36 IMPRESSION: 1. No acute pulmonary process. Chest X-Ray 08/10/22 10:25 IMPRESSION: New subsegmental atelectasis at the left lung base. Chest CTA 08/10/22 14:35 IMPRESSION: 1. No CT evidence of pulmonary emboli. 2. No lung mass or suspicious spiculated nodules, there are few scattered tiny nonspecific lung calcified and noncalcified nodular densities measuring up to 3 mm or less. 3. Coronary calcifications. 4. Pulmonary emphysema. Various management parameters for solitary pulmonary nodules are in the literature. According to the UPDATED 2017 Fleischner Society recommendations, the advised follow-up imaging for solid nodules < 6 mm is: LOW RISK PATIENT: No routine follow-up. HIGH RISK PATIENT: Optional CT at 12 months. Reference: Guidelines for Management of Incidental Pulmonary Nodules Detected on CT Images: From the Fleischner Society 2017. Chest X-Ray 08/12/22 03:50 IMPRESSION: No focal consolidation. Meds/Allergies Meds Home Medications Medication Instructions Recorded Confirmed Type amlodipine 5 mg tablet 1 tab PO DAILY 08/09/22 08/09/22 History aripiprazole 20 mg tablet 1 tab PO DAILY 08/09/22 08/09/22 History atorvastatin 20 mg tablet 1 tab PO BEDTIME 08/09/22 08/09/22 History clonidine HCl 0.1 mg tablet 1 tab PO TID 08/09/22 08/09/22 History fluticasone fur. 200 mcg-umeclid 1 puff inhalation DAILY 08/09/22 08/09/22 History 62.5 mcg-vilant 25 mcg inhalat.powder (Trelegy Ellipta) lisinopril 10 mg tablet 1 tab PO DAILY 08/09/22 08/09/22 History oxcarbazepine 300 mg tablet 1 tab PO BID 08/09/22 08/09/22 History quetiapine 50 mg tablet 1 tab PO BID 08/09/22 08/09/22 History tamsulosin 0.4 mg capsule 1 cap PO BEDTIME 08/09/22 08/09/22 History Vitamin D3 50,000 unit PO QMONTH 08/12/22 08/12/22 History acetaminophen 650 mg PO Q6H PRN Pain 08/12/22 08/12/22 History Allergies Allergies Allergy/AdvReac Type Severity Reaction Status Date / Time Penicillins [PENICILLINS] Allergy Intermediate RASH Unverified 08/02/20 16:41 Iodinated Contrast Media Allergy Mild HIVES Unverified 08/02/20 16:41 [IV Dye, Iodine Containing Contrast ] penicillin V Allergy Unknown Verified 07/05/18 00:00 Mental Status Exam Mental Status Exam Patient Appearance: Appropriate Patient Orientation: Person Level of Consciousness: Awake Patient Behavior: Guarded and Passive Mood Description: Withdrawn Affect Description: Calm Patient Cognition Impaired: Yes Ability to Follow Directions: Fair Speech Pattern: Clear Hallucinations: None Delusions: Paranoid Ideation Thought Process: Distracted Thought Content: positive for Disoriented and positive for [place] Judgement: Poor Assessment & Plan Assessment & Plan (1) Schizophrenia: Status: Acute Code(s): F20.9 - Schizophrenia, unspecified (2) Dementia: Status: Acute Code(s): F03.90 - Unspecified dementia without behavioral disturbance (3) Acute dehydration: Status: Acute Code(s): E86.0 - Dehydration Plan the patient is an elderly male with a long history of psychosis admitted for exacerbation of violence and disorganized behavior. The patient has been chronically institutionalized and he is impaired, and unable to provide further details. Plan 1. Gather collateral information, we will contact staff of his ch[facility] to find out any changes recently on his medication management or stressors. 2. Continue same treatment as medication reconciliation form. Patient educated on: therapeutic strategies Informed Consent: further education needed Reason for continued inpatient stay Substantial Risk for: harm to others, inability to function, rapid decompensation and med/psych decompensation
[2022-08-12 16:50] VITALS: BP 188/79; PULSE 92; O2SAT 94
[2022-08-12] MEDS: cloNIDine HCL 0.1 MG TABLET PO ×2 (16:54→20:56)
[2022-08-12] MEDS: lisinopriL 10 MG TABLET PO (16:55)
[2022-08-12] MEDS: amLODIPine Besylate 5 MG TABLET PO (16:55)
[2022-08-12 18:00] VITALS: BP 152/60; PULSE 92; RESP 16; TEMP 37.3; O2SAT 92
[2022-08-12] MEDS: Atorvastatin Calcium 20 MG TABLET PO (20:56)
[2022-08-12] MEDS: Tamsulosin HCL 0.4 MG CAPSULE PO (20:56)
--- NOTE | 2022-08-12 21:15 | PC.NURSE ---
Patient received flu vaccine this shift. Administered L deltoid. Patient consent was given.
[2022-08-13] MEDS: Acetaminophen 325 MG TABLET 650 MG PO (01:38)
[2022-08-13 08:06] LABS: Basophils Percent Auto 0.2 % (0-2); Eosinophils Percent Auto 0.2 % (0-4); Hemoglobin 11.9 g/dl (14.0-18.0); Imm Gran Abs Auto 0.57 X10*3/uL (0.00-0.03); Imm Gran Pct Auto 3.2 % (0.0-0.4); Lymphocytes Absolute Auto 2.6 X10*3/uL (1.2-4.9); Lymphocytes Percent Auto 14.8 % (20-40); MANUAL DIFF FLAG SCAN; Mean Corpuscular Hemoglobin 31.5 pg (27.0-33.0); Mean Corpuscular Volume 92.6 fL (80.0-98.0); Monocytes Absolute Auto 1.5 X10*3/uL (0.1-1.2); Monocytes Percent Auto 8.2 % (2-11); Neutrophils Absolute Auto 12.9 x10*3/uL (2.0-8.3); Neutrophils Percent Auto 73.4 % (45-73); PLT CLUMP 1; Red Blood Count 3.78 X10*6/uL (4.60-5.80); Red Cell Distribution Width 12.8 % (11.0-16.0); SCAN SMEAR FLAG 1
[2022-08-13 08:58] LABS: Platelet Count 322 X10*3/uL (160-400); SLIDE REVIEW VERIFIED; White Blood Count 17.6 X10*3/uL (4.8-10.8)
[2022-08-13] MEDS: Albuterol/Iprat 2.5/0.5MG 3 ML AMPUL.NEB INHALE (09:13)
[2022-08-13 09:16] VITALS: PULSE 111; RESP 18; O2SAT 91
[2022-08-13] MEDS: lisinopriL 10 MG TABLET PO (09:40)
[2022-08-13] MEDS: predniSONE 20 MG TABLET 40 MG PO (09:40)
[2022-08-13] MEDS: QUEtiapine Fumarate 50 MG TABLET PO ×4 (09:40→20:31)
[2022-08-13] MEDS: ARIPiprazole 20 MG TABLET PO (09:41)
[2022-08-13] MEDS: amLODIPine Besylate 5 MG TABLET PO (09:41)
[2022-08-13] MEDS: cloNIDine HCL 0.1 MG TABLET PO ×3 (09:41→20:31)
[2022-08-13 10:56] VITALS: BP 168/75; PULSE 105; RESP 20; TEMP 36.9; O2SAT 93
--- NOTE | 2022-08-13 13:35 | MHC.CLN ---
NUTRITION ALERTED BY SMOKING PIPE COATER THAT PATIENT IS PICKING AT FOOD OR REFUSING TO EAT. ADDING ENSURE TID TO PROMOTE NUTRITIONAL INTAKE. PROVIDES ADDITIONAL 1050 KCALS, 60 G PROTEIN. FOLLOW FOR SMOKING PIPE COATER RECS AND INTAKE.
--- NOTE | 2022-08-13 13:40 | MHC.SLORD ---
Addendum entered and electronically signed by Rubina Evans MA, [facility]CANDY DECORATOR 08/13/22 16:12: D.S. Original Note: Speech Language Pathology Order Status: CANDY DECORATOR attempted to see pt for bedside swallow evaluation. Pt was awake and sitting up in bed upon arrival. CANDY DECORATOR introduced herself, the reason for the visit, and what would happen. Pt immediately stated no. CANDY DECORATOR attempted oral mech. Pt followed command to stick out tongue and responded no to other commands. Pt presents with reduced lingual ROM anteriorly. Pt did not open mouth to allow CANDY DECORATOR to observe dentition. Pt reports he has all his teeth. Staff reports pt has dentures. Pt was offered yogurt, applesauce, juice, water. Initially, pt responded no and then inquired about the yogurt. Pt willingly took container of yogurt from CANDY DECORATOR. CANDY DECORATOR offered spoon and pt declined. Pt took one sip of yogurt and refused additional PO. Pt was cued to open mouth to check for residue, pt responded no. Pt reported ya comi (I already ate) and reported eating a sandwich. Staff reports pt did not eat lunch. Staff reports pt is not really eating much and is not providing insight on what he wants to eat. Reports that pt picks at food (ate tomato and lettuce off burger, tore up meat into small pieces, left the bun). Staff reports no coughing with liquids. CANDY DECORATOR will continue to follow and evaluate when appropriate.
--- NOTE | 2022-08-13 14:25 | HO.PSYCHPN ---
Subjective Subjective Date of Service: 08/13/22 Reason For Visit: Schizophrenia,Dementia Subjective Notes: Conditional Voluntary Interim History: the nursing staff reported the patient has been more confused in the afternoon. The staff has noticed that he has been placing everyone in the unit and he looked confused at times. He slept only 4 hours last night. On interview the patient denies new symptoms he is pleasantly confused and cheerful at times. We will try to gather collateral information. The social security benefits interviewer contacted the staff of her senior living and he had electrolyte imbalance due to Trileptal. Mental Status Exam Mental Status Exam Patient Appearance: Well Grooomed Patient Orientation: Person Level of Consciousness: Awake Patient Behavior: Cooperative Mood Description: Calm Affect Description: Labile Patient Cognition Impaired: Yes Ability to Follow Directions: Good Speech Pattern: Clear Hallucinations: None Delusions: Not Present Thought Process: Distracted and Evasive Thought Content: positive for Poverty of Content Judgement: Fair Diagnostics Vital Signs (24Hr): Vital Signs - 24 hr 08/12/22 16:50 08/12/22 18:00 08/13/22 09:16 Temperature 99.1 F Pulse Rate 92 92 111 H Respiratory Rate 16 18 Blood Pressure 188/79 H 152/60 H Pulse Oximetry 94 92 Oxygen Delivery Method Room Air Room Air 08/13/22 10:56 Temperature 98.4 F Pulse Rate 105 H Respiratory Rate 20 Blood Pressure 168/75 H Pulse Oximetry 93 Oxygen Delivery Method Room Air BMI result Body Mass Index 28.3 Labs Results: 08/13/22 07:59 08/10/22 11:04 Labs: Laboratory Results - last 48 hr 08/12/22 08/12/22 08/12/22 07:53 07:53 07:53 WBC RBC Hgb Hct MCV MCH MCHC RDW Plt Count MPV Immature Gran % (Auto) Neut % (Auto) Lymph % (Auto) [place] % (Auto) Eos % (Auto) Baso % (Auto) Lymph # (Auto) [place] # (Auto) Eos # (Auto) Baso # (Auto) Abs Immat Gran (auto) Absolute Neuts (auto) Absolute Nucleated RBC Nucleated RBC % (auto) Smear Tech's Comments Estimat Average Glucose 123 Hemoglobin A1c % 5.9 Triglycerides 52 Cholesterol 147 LDL Cholesterol, Calc 74 HDL Cholesterol 63 Vitamin B12 308 Folate 6.3 TSH 2.08 Free T4 1.25 Influenza Type A (PCR) Influenza Type B (PCR) RSV RNA Qual (PCR) SARS-CoV-2 RNA (RT-PCR) 08/12/22 08/12/22 08/13/22 13:14 14:00 07:59 WBC 17.2 H 17.6 H RBC 3.66 L 3.78 L Hgb 11.5 L 11.9 L Hct 35.0 L 35.0 L MCV 95.6 92.6 MCH 31.4 31.5 MCHC 32.9 34.0 RDW 13.2 12.8 Plt Count 283 322 MPV 9.2 L Not Reportable Immature Gran % (Auto) 2.1 H 3.2 H Neut % (Auto) 74.1 H 73.4 H Lymph % (Auto) 16.9 L 14.8 L [place] % (Auto) 6.2 8.2 Eos % (Auto) 0.5 0.2 Baso % (Auto) 0.2 0.2 Lymph # (Auto) 2.9 2.6 [place] # (Auto) 1.1 1.5 H Eos # (Auto) 0.1 0.0 Baso # (Auto) 0.0 0.0 Abs Immat Gran (auto) 0.36 H 0.57 H Absolute Neuts (auto) 12.7 H 12.9 H Absolute Nucleated RBC 0.000 0.000 Nucleated RBC % (auto) 0.0 0.0 Smear Tech's Comments VERIFIED Estimat Average Glucose Hemoglobin A1c % Triglycerides Cholesterol LDL Cholesterol, Calc HDL Cholesterol Vitamin B12 Folate TSH Free T4 Influenza Type A (PCR) NEGATIVE Influenza Type B (PCR) NEGATIVE RSV RNA Qual (PCR) NEGATIVE SARS-CoV-2 RNA (RT-PCR) NEGATIVE Imaging Radiology Impressions: ITS Impressions Chest X-Ray 08/08/22 16:36 IMPRESSION: 1. No acute pulmonary process. Chest X-Ray 08/10/22 10:25 IMPRESSION: New subsegmental atelectasis at the left lung base. Chest CTA 08/10/22 14:35 IMPRESSION: 1. No CT evidence of pulmonary emboli. 2. No lung mass or suspicious spiculated nodules, there are few scattered tiny nonspecific lung calcified and noncalcified nodular densities measuring up to 3 mm or less. 3. Coronary calcifications. 4. Pulmonary emphysema. Various management parameters for solitary pulmonary nodules are in the literature. According to the UPDATED 2017 Fleischner Society recommendations, the advised follow-up imaging for solid nodules < 6 mm is: LOW RISK PATIENT: No routine follow-up. HIGH RISK PATIENT: Optional CT at 12 months. Reference: Guidelines for Management of Incidental Pulmonary Nodules Detected on CT Images: From the Fleischner Society 2017. Chest X-Ray 08/12/22 03:50 IMPRESSION: No focal consolidation. Medications Medications Current Medications Acetaminophen (Acetaminophen 325 Mg Tablet) 650 mg PO Q6H PRN PRN Reason: Headache/Pain Mild Scale (1-3) Last Admin: 08/13/22 01:38 Dose: 650 mg Al Hydroxide/Mg Hydroxide (Magnesium Hydrox/Alum Hydrox 30 Ml Oral.Susp) 30 ml PO Q6H PRN PRN Reason: Heartburn/Nausea Albuterol/Ipratropium (Albuterol/Iprat 2.5/0.5mg 3 Ml Ampul.Neb) 3 ml INHALE RQ6H WHILE AWAKE PRN PRN Reason: Wheezing Last Admin: 08/13/22 09:13 Dose: 3 ml Amlodipine Besylate (Amlodipine Besylate 5 Mg Tablet) 5 mg PO DAILY [facility]; Protocol Last Admin: 08/13/22 09:41 Dose: 5 mg Aripiprazole (Aripiprazole 20 Mg Tablet) 20 mg PO DAILY [facility] Last Admin: 08/13/22 09:41 Dose: 20 mg Atorvastatin Calcium (Atorvastatin Calcium 20 Mg Tablet) 20 mg PO BEDTIME [facility] Last Admin: 08/12/22 20:56 Dose: 20 mg Clonidine HCl (Clonidine Hcl 0.1 Mg Tablet) 0.1 mg PO TID [facility]; Protocol Last Admin: 08/13/22 09:41 Dose: 0.1 mg Doxycycline Hyclate (Doxycycline Hyclate 100 Mg Tablet) 100 mg PO Q12H [facility] Last Admin: 08/13/22 05:08 Dose: 100 mg Lisinopril (Lisinopril 10 Mg Tablet) 10 mg PO DAILY [facility]; Protocol Last Admin: 08/13/22 09:40 Dose: 10 mg Magnesium Hydroxide (Milk Of Magnesia 30 Ml Oral.Susp) 30 ml PO DAILY PRN PRN Reason: Constipation Non-Formulary Medication ([id number] [Trelegy Ellipta]) 1 puff INHALE DAILY [facility] Non-Formulary Medication (Vitamin D3) 50,000 unit PO Q30D [facility] Pharmacy Consult (Consult Rx Perform Med Rec) 1 each MISCELLANE ONCE PRN PRN Reason: Consult order Prednisone (Prednisone 20 Mg Tablet) 40 mg PO DAILY [facility] Stop: 08/16/22 09:01 Last Admin: 08/13/22 09:40 Dose: 40 mg Quetiapine Fumarate (Quetiapine Fumarate 50 Mg Tablet) 50 mg PO BID [facility] Last Admin: 08/13/22 09:40 Dose: 50 mg Tamsulosin HCl (Tamsulosin Hcl 0.4 Mg Capsule) 0.4 mg PO BEDTIME [facility] Last Admin: 08/12/22 20:56 Dose: 0.4 mg Allergies Allergies Allergy/AdvReac Type Severity Reaction Status Date / Time Penicillins [PENICILLINS] Allergy Intermediate RASH Unverified 08/02/20 16:41 Iodinated Contrast Media Allergy Mild HIVES Unverified 08/02/20 16:41 [IV Dye, Iodine Containing Contrast ] penicillin V Allergy Unknown Verified 07/05/18 00:00 Assessment & Plan Assessment & Plan (1) Schizophrenia: Status: Acute Code(s): F20.9 - Schizophrenia, unspecified (2) Dementia: Status: Acute Code(s): F03.90 - Unspecified dementia without behavioral disturbance (3) Acute dehydration: Status: Acute Code(s): E86.0 - Dehydration Plan the patient is an elderly male with a long history of psychosis admitted for exacerbation of violence and disorganized behavior. The patient has been chronically institutionalized and he is impaired, and unable to provide further details. Plan 1. Gather collateral information, we will contact staff of his senior living to find out any changes recently on his medication management or stressors. 2. Continue same treatment as medication reconciliation form. I spent ___20___ minutes with the patient and/or on the patient floor today, greater than?50% of which was spent counseling/coordinating care. Reason for contiued inpatient stay Substantial Risk for: inability to function, rapid decompensation and med/psych decompensation
--- NOTE | 2022-08-13 16:12 | P.PNIM_ITS ---
Subjective Subjective Date of Service: 08/13/22 <PADMINI Cox - Last Filed: 08/13/22 16:26> 08/31/22 <Eugene Alfaro MD - Last Filed: 08/31/22 16:44> Interval History: Pt seen in follow up for COPD exacerbation. The patient is confused and initially refuses examination. However, upon reexamination, denies cough, sob, wheezing. Nursing staff reports he has had some productive cough following nebulizer treatments. <PADMINI Cox - Last Filed: 08/13/22 16:26> Review of Systems Pt not reliable historian but does provide some ROS General: No fevers, malaise Cardiovascular: No chest pain, palpitations, or leg edema Respiratory: No shortness of breath, wheezing, cough <PADMINI Cox - Last Filed: 08/13/22 16:26> Physical Exam Vital Signs: Vital Signs: Last Vital Signs Temp 98.4 F 08/13/22 10:56 Pulse 105 H 08/13/22 10:56 Resp 20 08/13/22 10:56 BP 168/75 H 08/13/22 10:56 Pulse Ox 93 08/13/22 10:56 O2 Del Method 08/13/22 10:56 O2 Flow Rate 2 08/10/22 10:10 BMI result Body Mass Index 28.3 <PADMINI Cox - Last Filed: 08/13/22 16:26> Constitutional - Awake and Alert, No apparent distress Eyes - PERRLA, EOMI Cardiovascular - S1S2, RRR, No edema Respiratory - Normal lung expansion, Normal respiratory effort, No respiratory distress, CTA bilaterally Extremities - no calf tenderness bilaterally, no swelling Skin - Warm/Dry Neurological - Alert & oriented and place <PADMINI Cox - Last Filed: 08/13/22 16:26> Objective Data Active Medications Acetaminophen (Acetaminophen 325 Mg Tablet) 650 mg PO Q6H PRN PRN Reason: Headache/Pain Mild Scale (1-3) Last Admin: 08/13/22 01:38 Dose: 650 mg Documented By: MOISE Al Hydroxide/Mg Hydroxide (Magnesium Hydrox/Alum Hydrox 30 Ml Oral.Susp) 30 ml PO Q6H PRN PRN Reason: Heartburn/Nausea Albuterol/Ipratropium (Albuterol/Iprat 2.5/0.5mg 3 Ml Ampul.Neb) 3 ml INHALE RQ6H WHILE AWAKE PRN PRN Reason: Wheezing Last Admin: 08/13/22 09:13 Dose: 3 ml Documented By: JONI Amlodipine Besylate (Amlodipine Besylate 5 Mg Tablet) 5 mg PO DAILY [facility]; Protocol Last Admin: 08/13/22 09:41 Dose: 5 mg Documented By: JAMAR Aripiprazole (Aripiprazole 20 Mg Tablet) 20 mg PO DAILY [facility] Last Admin: 08/13/22 09:41 Dose: 20 mg Documented By: JAMAR Atorvastatin Calcium (Atorvastatin Calcium 20 Mg Tablet) 20 mg PO BEDTIME [facility] Last Admin: 08/12/22 20:56 Dose: 20 mg Documented By: CARMEN Clonidine HCl (Clonidine Hcl 0.1 Mg Tablet) 0.1 mg PO TID [facility]; Protocol Last Admin: 08/13/22 09:41 Dose: 0.1 mg Documented By: JAMAR Doxycycline Hyclate (Doxycycline Hyclate 100 Mg Tablet) 100 mg PO Q12H [facility] Last Admin: 08/13/22 05:08 Dose: 100 mg Documented By: MOISE Lisinopril (Lisinopril 10 Mg Tablet) 10 mg PO DAILY [facility]; Protocol Last Admin: 08/13/22 09:40 Dose: 10 mg Documented By: JAMAR Magnesium Hydroxide (Milk Of Magnesia 30 Ml Oral.Susp) 30 ml PO DAILY PRN PRN Reason: Constipation Non-Formulary Medication (Eoothwpzcqd-Xufmboiqo-Ojfkmrgs [Trelegy Ellipta]) 1 puff INHALE DAILY [facility] Non-Formulary Medication (Vitamin D3) 50,000 unit PO Q30D [facility] Pharmacy Consult (Consult Rx Perform Med Rec) 1 each MISCELLANE ONCE PRN PRN Reason: Consult order Prednisone (Prednisone 20 Mg Tablet) 40 mg PO DAILY [facility] Stop: 08/16/22 09:01 Last Admin: 08/13/22 09:40 Dose: 40 mg Documented By: JAMAR Quetiapine Fumarate (Quetiapine Fumarate 50 Mg Tablet) 50 mg PO BID [facility] Last Admin: 08/13/22 09:40 Dose: 50 mg Documented By: JAMAR Tamsulosin HCl (Tamsulosin Hcl 0.4 Mg Capsule) 0.4 mg PO BEDTIME [facility] Last Admin: 08/12/22 20:56 Dose: 0.4 mg Documented By: CARMEN <PADMINI Cox - Last Filed: 08/13/22 16:26> Labs CBC & Chem 7: : 08/22/22 15:44 08/25/22 17:13 <PADMINI Cox - Last Filed: 08/13/22 16:26> Labs: Laboratory Results - last 24 hr 08/13/22 07:59 MCV 92.6 MCH 31.5 MCHC 34.0 RDW 12.8 Plt Count 322 MPV Not Reportable Immature Gran % (Auto) 3.2 H Neut % (Auto) 73.4 H Lymph % (Auto) 14.8 L [place] % (Auto) 8.2 Eos % (Auto) 0.2 Baso % (Auto) 0.2 Lymph # (Auto) 2.6 [place] # (Auto) 1.5 H Eos # (Auto) 0.0 Baso # (Auto) 0.0 Abs Immat Gran (auto) 0.57 H Absolute Neuts (auto) 12.9 H Absolute Nucleated RBC 0.000 Nucleated RBC % (auto) 0.0 Smear Tech's Comments VERIFIED <PADMINI Cox - Last Filed: 08/13/22 16:26> Assessment and Plan (1) Schizophrenia: Status: Acute <PADMINI Cox - Last Filed: 08/13/22 16:26> (2) Dementia: Status: Acute <PADMINI Cox - Last Filed: 08/13/22 16:26> Assessment and Plan: 76 year old male with history htn, COPD, BPH, schizophrenia, and dementia admitted to psychiatry with consult placed for COPD exacerbation. Acute COPD exacerbation- -Clinically improving. Lungs clear -HR 80 when checked manually on exam. Continue following HR. Mild intermittent tachycardia possibly r/t anxiety vs albuterol use -Leukocytosis 17.6 on prednisone. Has remained stable. Continue following CBC -Continue doxycycline -Continue prednisone -Duonebs prn -Last CXR negative, CTA chest negative for PE. Will continue to follow. <PADMINI Cox - Last Filed: 08/13/22 16:26> Quality Stroke Does the patient have a stroke diagnosis?: No <PADMINI Cox - Last Filed: 08/13/22 16:26> VTE Prior VTE?: No <PADMINI Cox - Last Filed: 08/13/22 16:26> VTE Risk Level:: Medical - low <PADMINI Cox - Last Filed: 08/13/22 16:26> VTE Device Contraindication: Treatment Not Indicated <PADMINI Cox - Last Filed: 08/13/22 16:26> VTE Drug Contraindication: Treatment Not Indicated <PADMINI Cox - Last Filed: 08/13/22 16:26>
[2022-08-13 18:00] VITALS: BP 158/64; PULSE 93; RESP 16; TEMP 36.4
--- NOTE | 2022-08-13 18:19 | PC.ADMIT ---
Isolative to room at lunch time. Irritable when approached by Karen Gibbs LIBRARY AIDE to listen to lung sounds. Refused to allow auscultation. Refused to participate in swallow evaluation by Speech. Remained isolative to room and approached again at supper time. Incontinent of urine and agitation noted when staff attempted to assist with change of clothing. Attempted to strike at female staff member. Threw all linen and toiletries on floor for staff to remove from room. interpreter for the deaf utilized and pt stated he was not afraid/paranoid of staff. Stated he would change himself. Pt has been in pleasant, cooperative mood since admission. Hx of aggressive behaviors in [facility] prior to admission and in ED prior to admission. Prednisone started yesterday by Karen Gibbs LIBRARY AIDE for respiratory status. Dr Aponte and Karen Gibbs notified of agitation, hx of agitation and recent Prednisone order. Seroquel 50 mg prn ordered by Dr Aponte and given at 1745 with effects pending.
[2022-08-13] MEDS: LORazepam 1 MG TABLET PO (19:38)
[2022-08-13] MEDS: diphenhydrAMINE HCL 25 MG TABLET 50 MG PO (19:38)
--- NOTE | 2022-08-13 19:43 | PC.NURSE ---
Continued agitation noted. Pulled call novak alarm white box from wall and refused to give to staff. Call novak continued ringing due to being removed from wall. Pt attempting to strike staff who attempted to retrieve. Pt left to calm, Dr Aponte informed at 192. Now orders received for Ativan 1mg, Seroquel 5o mg, Benadryl 50 mg po. Pt accepted po meds at 193 with effects pending.
[2022-08-13] MEDS: Atorvastatin Calcium 20 MG TABLET PO (20:31)
[2022-08-13] MEDS: Tamsulosin HCL 0.4 MG CAPSULE PO (20:31)
[2022-08-14 07:00] VITALS: BMI 27.6
--- NOTE | 2022-08-14 08:09 | P.PNIM_ITS ---
Subjective Subjective Date of Service: 08/14/22 <PADMINI Cox - Last Filed: 08/14/22 11:04> 08/31/22 <Eugene Alfaro MD - Last Filed: 08/31/22 16:45> Interval History: Pt seen in follow up for COPD exacerbation. The patient is confused but tells me he is doing well, denies sob. Nursing staff reported some aggitation yesterday, pt throwing incentive spirometer which was subsequently taken away. <PADMINI Cox - Last Filed: 08/14/22 11:04> Review of Systems Pt not reliable historian but does provide some ROS General: No fevers, malaise Cardiovascular: No chest pain, palpitations, or leg edema Respiratory: No shortness of breath, wheezing, cough <PADMINI Cox - Last Filed: 08/14/22 11:04> Physical Exam Vital Signs: Vital Signs: Last Vital Signs Temp 97.6 F 08/13/22 18:00 Pulse 93 08/13/22 18:00 Resp 16 08/13/22 18:00 BP 158/64 H 08/13/22 18:00 Pulse Ox 93 08/13/22 10:56 O2 Del Method 08/13/22 10:56 O2 Flow Rate 2 08/10/22 10:10 BMI result Body Mass Index 28.3 <PADMINI Cox - Last Filed: 08/14/22 11:04> Constitutional - Awake and Alert, No apparent distress Eyes - PERRLA, EOMI Cardiovascular - S1S2, RRR, No edema Respiratory - Normal lung expansion, Normal respiratory effort, No respiratory distress, CTA bilaterally Extremities - no calf tenderness bilaterally, no swelling Skin - Warm/Dry Neurological - Alert & oriented self and place <PADMINI Cox - Last Filed: 08/14/22 11:04> Objective Data Active Medications Acetaminophen (Acetaminophen 325 Mg Tablet) 650 mg PO Q6H PRN PRN Reason: Headache/Pain Mild Scale (1-3) Last Admin: 08/13/22 01:38 Dose: 650 mg Documented By: MOISE Al Hydroxide/Mg Hydroxide (Magnesium Hydrox/Alum Hydrox 30 Ml Oral.Susp) 30 ml PO Q6H PRN PRN Reason: Heartburn/Nausea Albuterol/Ipratropium (Albuterol/Iprat 2.5/0.5mg 3 Ml Ampul.Neb) 3 ml INHALE RQ6H WHILE AWAKE PRN PRN Reason: Wheezing Last Admin: 08/13/22 09:13 Dose: 3 ml Documented By: JONI Amlodipine Besylate (Amlodipine Besylate 5 Mg Tablet) 5 mg PO DAILY [facility]; Protocol Last Admin: 08/13/22 09:41 Dose: 5 mg Documented By: JAMAR Aripiprazole (Aripiprazole 20 Mg Tablet) 20 mg PO DAILY [facility] Last Admin: 08/13/22 09:41 Dose: 20 mg Documented By: JAMAR Atorvastatin Calcium (Atorvastatin Calcium 20 Mg Tablet) 20 mg PO BEDTIME [facility] Last Admin: 08/13/22 20:31 Dose: 20 mg Documented By: HILDA Clonidine HCl (Clonidine Hcl 0.1 Mg Tablet) 0.1 mg PO TID [facility]; Protocol Last Admin: 08/13/22 20:31 Dose: 0.1 mg Documented By: HILDA Doxycycline Hyclate (Doxycycline Hyclate 100 Mg Tablet) 100 mg PO Q12H [facility] Last Admin: 08/14/22 05:31 Dose: 100 mg Documented By: HILDA Lisinopril (Lisinopril 10 Mg Tablet) 10 mg PO DAILY [facility]; Protocol Last Admin: 08/13/22 09:40 Dose: 10 mg Documented By: JAMAR Magnesium Hydroxide (Milk Of Magnesia 30 Ml Oral.Susp) 30 ml PO DAILY PRN PRN Reason: Constipation Non-Formulary Medication (Dsddpdxkdxv-Aohgfofda-Qwhpybvo [Trelegy Ellipta]) 1 puff INHALE DAILY [facility] Non-Formulary Medication (Vitamin D3) 50,000 unit PO Q30D [facility] Prednisone (Prednisone 20 Mg Tablet) 40 mg PO DAILY [facility] Stop: 08/16/22 09:01 Last Admin: 08/13/22 09:40 Dose: 40 mg Documented By: JAMAR Quetiapine Fumarate (Quetiapine Fumarate 50 Mg Tablet) 50 mg PO BID [facility] Last Admin: 08/13/22 20:31 Dose: 50 mg Documented By: HILDA Quetiapine Fumarate (Quetiapine Fumarate 50 Mg Tablet) 50 mg PO Q6H PRN PRN Reason: agitation Last Admin: 08/13/22 17:45 Dose: 50 mg Documented By: JAMAR Tamsulosin HCl (Tamsulosin Hcl 0.4 Mg Capsule) 0.4 mg PO BEDTIME [facility] Last Admin: 08/13/22 20:31 Dose: 0.4 mg Documented By: HILDA <PADMINI Cox - Last Filed: 08/14/22 11:04> Labs CBC & Chem 7: : 08/22/22 15:44 08/25/22 17:13 <PADMINI Cox - Last Filed: 08/14/22 11:04> Labs: Laboratory Results - last 24 hr 08/13/22 07:59 MCV 92.6 MCH 31.5 MCHC 34.0 RDW 12.8 Plt Count 322 MPV Not Reportable Immature Gran % (Auto) 3.2 H Neut % (Auto) 73.4 H Lymph % (Auto) 14.8 L [place] % (Auto) 8.2 Eos % (Auto) 0.2 Baso % (Auto) 0.2 Lymph # (Auto) 2.6 [place] # (Auto) 1.5 H Eos # (Auto) 0.0 Baso # (Auto) 0.0 Abs Immat Gran (auto) 0.57 H Absolute Neuts (auto) 12.9 H Absolute Nucleated RBC 0.000 Nucleated RBC % (auto) 0.0 Smear Tech's Comments VERIFIED <PADMINI Cox - Last Filed: 08/14/22 11:04> Assessment and Plan (1) Schizophrenia: Status: Acute <PADMINI Cox - Last Filed: 08/14/22 11:04> (2) Dementia: Status: Acute <PADMINI Cox - Last Filed: 08/14/22 11:04> Assessment and Plan: 76 year old male with history htn, COPD, BPH, schizophrenia, and dementia admitted to psychiatry with consult placed for COPD exacerbation. Acute COPD exacerbation- -Clinically improving, no hypoxia. Lungs clear -HR 80 when checked manually on exam. HR fluctuates greatly, has had tachycardia. Likely more from anxiety rather than infection Continue following HR. Mild intermittent tachycardia possibly r/t anxiety vs albuterol use -Leukocytosis 17.6 on prednisone. Has remained stable. Continue following CBC -Continue doxycycline -Continue prednisone -Duonebs prn -Last CXR negative, CTA chest negative for PE. -Continue incentive spirometry with supervision Will continue to follow. <PADMINI Cox - Last Filed: 08/14/22 11:04> Quality Stroke Does the patient have a stroke diagnosis?: No <PADMINI Cox - Last Filed: 08/14/22 11:04> VTE Prior VTE?: No <PADMINI Cox - Last Filed: 08/14/22 11:04> VTE Risk Level:: Medical - low <PADMINI Cox - Last Filed: 08/14/22 11:04> VTE Device Contraindication: Treatment Not Indicated <PADMINI Cox - Last Filed: 08/14/22 11:04> VTE Drug Contraindication: Treatment Not Indicated <PADMINI Cox - Last Filed: 08/14/22 11:04>
[2022-08-14] MEDS: predniSONE 20 MG TABLET 40 MG PO (08:21)
[2022-08-14] MEDS: ARIPiprazole 20 MG TABLET PO (08:21)
[2022-08-14] MEDS: lisinopriL 10 MG TABLET PO (08:21)
[2022-08-14] MEDS: cloNIDine HCL 0.1 MG TABLET PO ×3 (08:22→20:43)
[2022-08-14] MEDS: QUEtiapine Fumarate 50 MG TABLET PO ×2 (08:22→20:43)
[2022-08-14] MEDS: amLODIPine Besylate 5 MG TABLET PO (08:22)
[2022-08-14 08:45] VITALS: BP 174/74; PULSE 80; RESP 14; TEMP 36.6; O2SAT 95
--- NOTE | 2022-08-14 10:41 | PC.NURSE ---
Pt. declines nicotine replacement at this time.
[2022-08-14 10:48] LABS: Appearance Urine Clear; Color Urine Yellow; Glucose Urine UA Negative (Negative); Leukocyte Esterase Urine Negative (Negative); Nitrite Urine Negative (Negative); Specific Gravity - Urine 1.015 (1.005-1.025); UMIC TRIGGER UACC YES; Urine Blood Moderate (2+) (Negative); Urine Ketones Negative (Negative); Urine Protein 100 (2+) mg/dL (Neg-Trace)
[2022-08-14 10:50] LABS: Bacteria Urine None Seen (None Seen); Hyaline Casts Urine 0-2 /LPF (0-2); Squamous Epithelial Cell Urine 0-2 /HPF (0-2); WBC Urine 0-5 /HPF (0-5)
--- NOTE | 2022-08-14 13:01 | P.PNPSI_ITS ---
Subjective Subjective Date of Service: 08/14/22 Reason For Visit: Schizophrenia,Dementia Subjective Notes: Conditional Voluntary Interim History: the nursing staff reported the patient refused to participate in this patient's all way evaluation. She has been resistant to care at times and he has been disorganized ripping papers but redirectable. He has been med compliant. According to the chart, the emergency department a started on prednisone for COPD. The social media executive talk with the [facility] staff and apparently they want him back on Trileptal since his behavior was better on this medication but they had to stop it due to hyponatremia. I discussed with the patient treatment options and he agreed to rechallenge Trileptal. We will do blood work with basic metabolic panel next Thursday. Mental Status Exam Mental Status Exam Patient Appearance: Well Grooomed Patient Orientation: Person and Situation Level of Consciousness: Awake Patient Behavior: Cooperative Mood Description: Constricted Affect Description: Calm Patient Cognition Impaired: Yes Ability to Follow Directions: Good Speech Pattern: Appropriate Hallucinations: None Delusions: Paranoid Ideation Thought Process: Distracted Thought Content: positive for Disoriented Judgement: Poor Diagnostics Vital Signs (24Hr): Vital Signs - 24 hr 08/13/22 18:00 08/14/22 08:45 Temperature 97.6 F 97.9 F Pulse Rate 93 80 Respiratory Rate 16 14 Blood Pressure 158/64 H 174/74 H Pulse Oximetry 95 Oxygen Delivery Method Room Air BMI result Body Mass Index 28.3 Labs Results: 08/13/22 07:59 08/10/22 11:04 Labs: Laboratory Results - last 48 hr 08/12/22 08/12/22 08/13/22 13:14 14:00 07:59 WBC 17.2 H 17.6 H RBC 3.66 L 3.78 L Hgb 11.5 L 11.9 L Hct 35.0 L 35.0 L MCV 95.6 92.6 MCH 31.4 31.5 MCHC 32.9 34.0 RDW 13.2 12.8 Plt Count 283 322 MPV 9.2 L Not Reportable Immature Gran % (Auto) 2.1 H 3.2 H Neut % (Auto) 74.1 H 73.4 H Lymph % (Auto) 16.9 L 14.8 L [place] % (Auto) 6.2 8.2 Eos % (Auto) 0.5 0.2 Baso % (Auto) 0.2 0.2 Lymph # (Auto) 2.9 2.6 [place] # (Auto) 1.1 1.5 H Eos # (Auto) 0.1 0.0 Baso # (Auto) 0.0 0.0 Abs Immat Gran (auto) 0.36 H 0.57 H Absolute Neuts (auto) 12.7 H 12.9 H Absolute Nucleated RBC 0.000 0.000 Nucleated RBC % (auto) 0.0 0.0 Smear Tech's Comments VERIFIED Urine Color Urine Appearance Urine pH Ur Specific [place] Urine Protein Urine Glucose (UA) Urine Ketones Urine Blood Urine Nitrite Ur Leukocyte Esterase Urine RBC Urine WBC Ur Squamous Epith Cells Urine Bacteria Hyaline Casts Influenza Type A (PCR) NEGATIVE Influenza Type B (PCR) NEGATIVE RSV RNA Qual (PCR) NEGATIVE SARS-CoV-2 RNA (RT-PCR) NEGATIVE 08/14/22 10:15 WBC RBC Hgb Hct MCV MCH MCHC RDW Plt Count MPV Immature Gran % (Auto) Neut % (Auto) Lymph % (Auto) [place] % (Auto) Eos % (Auto) Baso % (Auto) Lymph # (Auto) [place] # (Auto) Eos # (Auto) Baso # (Auto) Abs Immat Gran (auto) Absolute Neuts (auto) Absolute Nucleated RBC Nucleated RBC % (auto) Smear Tech's Comments Urine Color Yellow Urine Appearance Clear Urine pH 6.0 Ur Specific [place] 1.015 Urine Protein 100 (2+) H Urine Glucose (UA) Negative Urine Ketones Negative Urine Blood Moderate (2+) H Urine Nitrite Negative Ur Leukocyte Esterase Negative Urine RBC 6-10 H Urine WBC 0-5 Ur Squamous Epith Cells 0-2 Urine Bacteria None Seen Hyaline Casts 0-2 Influenza Type A (PCR) Influenza Type B (PCR) RSV RNA Qual (PCR) SARS-CoV-2 RNA (RT-PCR) Imaging Radiology Impressions: ITS Impressions Chest X-Ray 08/08/22 16:36 IMPRESSION: 1. No acute pulmonary process. Chest X-Ray 08/10/22 10:25 IMPRESSION: New subsegmental atelectasis at the left lung base. Chest CTA 08/10/22 14:35 IMPRESSION: 1. No CT evidence of pulmonary emboli. 2. No lung mass or suspicious spiculated nodules, there are few scattered tiny nonspecific lung calcified and noncalcified nodular densities measuring up to 3 mm or less. 3. Coronary calcifications. 4. Pulmonary emphysema. Various management parameters for solitary pulmonary nodules are in the literature. According to the UPDATED 2017 Fleischner Society recommendations, the advised follow-up imaging for solid nodules < 6 mm is: LOW RISK PATIENT: No routine follow-up. HIGH RISK PATIENT: Optional CT at 12 months. Reference: Guidelines for Management of Incidental Pulmonary Nodules Detected on CT Images: From the Fleischner Society 2017. Chest X-Ray 08/12/22 03:50 IMPRESSION: No focal consolidation. Medications Medications Current Medications Acetaminophen (Acetaminophen 325 Mg Tablet) 650 mg PO Q6H PRN PRN Reason: Headache/Pain Mild Scale (1-3) Last Admin: 08/13/22 01:38 Dose: 650 mg Al Hydroxide/Mg Hydroxide (Magnesium Hydrox/Alum Hydrox 30 Ml Oral.Susp) 30 ml PO Q6H PRN PRN Reason: Heartburn/Nausea Albuterol/Ipratropium (Albuterol/Iprat 2.5/0.5mg 3 Ml Ampul.Neb) 3 ml INHALE RQ6H WHILE AWAKE PRN PRN Reason: Wheezing Last Admin: 08/13/22 09:13 Dose: 3 ml Amlodipine Besylate (Amlodipine Besylate 5 Mg Tablet) 5 mg PO DAILY [facility]; Protocol Last Admin: 08/14/22 08:22 Dose: 5 mg Aripiprazole (Aripiprazole 20 Mg Tablet) 20 mg PO DAILY [facility] Last Admin: 08/14/22 08:21 Dose: 20 mg Atorvastatin Calcium (Atorvastatin Calcium 20 Mg Tablet) 20 mg PO BEDTIME [facility] Last Admin: 08/13/22 20:31 Dose: 20 mg Clonidine HCl (Clonidine Hcl 0.1 Mg Tablet) 0.1 mg PO TID [facility]; Protocol Last Admin: 08/14/22 08:22 Dose: 0.1 mg Doxycycline Hyclate (Doxycycline Hyclate 100 Mg Tablet) 100 mg PO Q12H [facility] Last Admin: 08/14/22 05:31 Dose: 100 mg Lisinopril (Lisinopril 10 Mg Tablet) 10 mg PO DAILY [facility]; Protocol Last Admin: 08/14/22 08:21 Dose: 10 mg Magnesium Hydroxide (Milk Of Magnesia 30 Ml Oral.Susp) 30 ml PO DAILY PRN PRN Reason: Constipation Non-Formulary Medication (Vwspxmnjprl-Okyuflyts-Nzfadnap [Trelegy Ellipta]) 1 puff INHALE DAILY [facility] Non-Formulary Medication (Vitamin D3) 50,000 unit PO Q30D [facility] Oxcarbazepine (Oxcarbazepine 150 Mg Tablet) 150 mg PO BID [facility] Prednisone (Prednisone 20 Mg Tablet) 40 mg PO DAILY [facility] Stop: 08/16/22 09:01 Last Admin: 08/14/22 08:21 Dose: 40 mg Quetiapine Fumarate (Quetiapine Fumarate 50 Mg Tablet) 50 mg PO BID [facility] Last Admin: 08/14/22 08:22 Dose: 50 mg Quetiapine Fumarate (Quetiapine Fumarate 50 Mg Tablet) 50 mg PO Q6H PRN PRN Reason: agitation Last Admin: 08/13/22 17:45 Dose: 50 mg Tamsulosin HCl (Tamsulosin Hcl 0.4 Mg Capsule) 0.4 mg PO BEDTIME [facility] Last Admin: 08/13/22 20:31 Dose: 0.4 mg Allergies Allergies Allergy/AdvReac Type Severity Reaction Status Date / Time Penicillins [PENICILLINS] Allergy Intermediate RASH Unverified 08/02/20 16:41 Iodinated Contrast Media Allergy Mild HIVES Unverified 08/02/20 16:41 [IV Dye, Iodine Containing Contrast ] penicillin V Allergy Unknown Verified 07/05/18 00:00 Assessment & Plan Assessment & Plan (1) Schizophrenia: Status: Acute Code(s): F20.9 - Schizophrenia, unspecified (2) Dementia: Status: Acute Code(s): F03.90 - Unspecified dementia without behavioral disturbance Plan 76 year old male with history htn, COPD, BPH, schizophrenia, and dementia admitted to psychiatry with consult placed for COPD exacerbation. Acute COPD exacerbation- -Clinically improving, no hypoxia. Lungs clear -HR 80 when checked manually on exam. HR fluctuates greatly, has had tachycardia. Likely more from anxiety rather than infection Continue following HR. Mild intermittent tachycardia possibly r/t anxiety vs albuterol use -Leukocytosis 17.6 on prednisone. Has remained stable. Continue following CBC -Continue doxycycline -Continue prednisone -Duonebs prn -Last CXR negative, CTA chest negative for PE. -Continue incentive spirometry with supervision Psychiatry Trileptal 150 mg p.o. b.i.d.. Basic metabolic panel for next Thursday. We will called Rachel Vega at [phone] for further details I spent ___20___ minutes with the patient and/or on the patient floor today, greater than?50% of which was spent counseling/coordinating care. Reason for contiued inpatient stay Substantial Risk for: inability to function, rapid decompensation and med/psych decompensation
[2022-08-14 15:30] VITALS: BP 224/96; PULSE 111
[2022-08-14 16:08] VITALS: BP 170/68; PULSE 80
--- NOTE | 2022-08-14 17:30 | MHC.SL.SWA ---
Speech Pathologist Impression: Risk of Aspiration Due to: Poor PO Intake Dysphasia Diet Status: Liquid Consistency and Strategies for Safe Swallow: Liquid Intake Recommendation: Thin Liquid Intake Strategies: Small Sips Solid Food Consistency: Dietary Recommendations: Chopped/Advanced (NDD3) Additional Modifications to Solid Foods: Patient would benefit from supervision during meal, assistance with opening containers, encouragement to eat. Oral Medication Intake: Whole with Puree Please contact the pharmacy regarding appropriate crushable or liquid drug formulations that are available whenever modified delivery is recommended. Compensatory Strategies and Precautions to be Taken for Safe Swallow: Sitting Upright (90 deg) Liquids from Cup Small Bites and Sips Alternate Liquids/Solids Supervision While Eating and Drinking for Safe Swallow: Total Supervision (1:1) Foods to Avoid: Avoid hard, difficult to chew solids Swallowing Recommended Treatments: Compens. Strategy Educat. Recommendation for Speech: Inpatient Speech Therapy Comment: Patient presents, generally, with swallow WFL, however patient demonstrated highly unusual behavior while eating, including wretching/regurgitating up partially swallowed food and spitting it out (hard solids observed X 2 during meal). Patient also evidenced confusion, impulsiveness during meal, and ultimately ate very little of large amount of food that was presented during the lunch meal observed. Question if there is esophogeal/upper GI issue that is source of regurgitation issue v. behavioral source. Recommend downgrading diet to Chopped/Advanced for easier management of meal. Recommend medical team consider GI consult to rule out esophogeal/upper GI issue. Recommendations communicated by secure text to JOSH PARRISH and given in person to nursing. POSITION DESCRIPTION MANAGER to F/U one time to assess toleration of diet. Frequency/Duration: 1 f/u Date Range for Service Req: Timeline to reassess: Test Kitchen Home Economist Clinican/Clinical Fellow: No Supervisory Statement: I have reviewed and agree with the student/clinical fellow's documentation: N/A Speech Language Pathologist: Bridgette Marcos M.A., CCC-POSITION DESCRIPTION MANAGER
[2022-08-14 18:00] VITALS: BP 183/86; PULSE 102; RESP 19; TEMP 36.7; O2SAT 93
[2022-08-14] MEDS: Atorvastatin Calcium 20 MG TABLET PO (20:42)
[2022-08-14] MEDS: OXcarbazepine 150 MG TABLET PO (20:43)
[2022-08-14] MEDS: Tamsulosin HCL 0.4 MG CAPSULE PO (20:44)
[2022-08-15 07:30] VITALS: BP 206/85; PULSE 112; RESP 14; TEMP 36.9; O2SAT 93
[2022-08-15 08:14] VITALS: BP 144/80
[2022-08-15 08:47] LABS: Basophils Percent Auto 0.3 % (0-2); Eosinophils Percent Auto 0.2 % (0-4); Hematocrit 34.9 % (42.0-52.0); Hemoglobin 11.8 g/dl (14.0-18.0); Imm Gran Abs Auto 0.62 X10*3/uL (0.00-0.03); Imm Gran Pct Auto 4.2 % (0.0-0.4); Lymphocytes Absolute Auto 2.2 X10*3/uL (1.2-4.9); Lymphocytes Percent Auto 15.3 % (20-40); Mean Corpuscular HGB Conc 33.8 g/dl (31.0-36.0); Mean Corpuscular Hemoglobin 31.8 pg (27.0-33.0); Mean Corpuscular Volume 94.1 fL (80.0-98.0); Mean Platelet Volume 9.3 fL (9.4-12.4); Monocytes Absolute Auto 0.8 X10*3/uL (0.1-1.2); Monocytes Percent Auto 5.6 % (2-11); Neutrophils Absolute Auto 10.9 x10*3/uL (2.0-8.3); Neutrophils Percent Auto 74.4 % (45-73); Platelet Count 331 X10*3/uL (160-400); Red Blood Count 3.71 X10*6/uL (4.60-5.80); Red Cell Distribution Width 12.7 % (11.0-16.0); White Blood Count 14.6 X10*3/uL (4.8-10.8)
[2022-08-15 08:50] LABS: MANUAL DIFF FLAG NO
[2022-08-15] MEDS: Fluticasone/Vilanterol 200/25 BLST.W.DEV 1 PUFF INHALE (09:23)
[2022-08-15] MEDS: amLODIPine Besylate 5 MG TABLET PO (09:25)
[2022-08-15] MEDS: ARIPiprazole 20 MG TABLET PO (09:25)
[2022-08-15] MEDS: predniSONE 20 MG TABLET 40 MG PO (09:25)
[2022-08-15] MEDS: lisinopriL 10 MG TABLET PO (09:25)
[2022-08-15] MEDS: cloNIDine HCL 0.1 MG TABLET PO ×2 (09:25→21:34)
[2022-08-15] MEDS: QUEtiapine Fumarate 50 MG TABLET PO ×2 (09:26→21:34)
--- NOTE | 2022-08-15 12:22 | MHC.CLN ---
F/U SEEN BY DIABETES MANAGER WITH CONSISTENCY CHANGE TO NDD3. CONTINUE ENSURE TID TO PROMOTE NUTRITIONAL INTAKE. PROVIDES ADDITIONAL 1050 KCALS, 60 G PROTEIN. CONTINUES TO EAT SMALL AMOUNTS. FOLLOW UP WEEKLY FOR INTAKE.
--- NOTE | 2022-08-15 14:26 | HO.PSYCHPN ---
Subjective Subjective Date of Service: 08/15/22 Reason For Visit: Schizophrenia,Dementia Subjective Notes: Conditional Voluntary Interim History: the nursing staff reported the patient has been compliant with treatment, he denies new symptoms. He was started on treatment for COPD exacerbation with corticoids and so far he is doing much better. On interview he denies new symptoms he states that he is doing fine. Mental Status Exam Mental Status Exam Patient Appearance: Well Grooomed Patient Orientation: Person and Situation Level of Consciousness: Awake Patient Behavior: Cooperative Mood Description: Constricted Affect Description: Labile Patient Cognition Impaired: Yes Ability to Follow Directions: Good Speech Pattern: Appropriate Hallucinations: None Delusions: Not Present Thought Process: Illogical Judgement: Fair Diagnostics Vital Signs (24Hr): Vital Signs - 24 hr 08/14/22 15:30 08/14/22 16:08 08/14/22 18:00 Temperature 98.1 F Pulse Rate 111 H 80 102 H Respiratory Rate 19 Blood Pressure 224/96 H 170/68 H 183/86 H Pulse Oximetry 93 Oxygen Delivery Method Room Air 08/15/22 07:30 08/15/22 08:14 Temperature 98.5 F Pulse Rate 112 H Respiratory Rate 14 Blood Pressure 206/85 H 144/80 H Pulse Oximetry 93 Oxygen Delivery Method Room Air BMI result Body Mass Index 27.6 Labs Results: 08/15/22 08:39 08/10/22 11:04 Labs: Laboratory Results - last 48 hr 08/14/22 08/15/22 10:15 08:39 WBC 14.6 H RBC 3.71 L Hgb 11.8 L Hct 34.9 L MCV 94.1 MCH 31.8 MCHC 33.8 RDW 12.7 Plt Count 331 MPV 9.3 L Immature Gran % (Auto) 4.2 H Neut % (Auto) 74.4 H Lymph % (Auto) 15.3 L [place] % (Auto) 5.6 Eos % (Auto) 0.2 Baso % (Auto) 0.3 Lymph # (Auto) 2.2 [place] # (Auto) 0.8 Eos # (Auto) 0.0 Baso # (Auto) 0.0 Abs Immat Gran (auto) 0.62 H Absolute Neuts (auto) 10.9 H Absolute Nucleated RBC 0.000 Nucleated RBC % (auto) 0.0 Urine Color Yellow Urine Appearance Clear Urine pH 6.0 Ur Specific [place] 1.015 Urine Protein 100 (2+) H Urine Glucose (UA) Negative Urine Ketones Negative Urine Blood Moderate (2+) H Urine Nitrite Negative Ur Leukocyte Esterase Negative Urine RBC 6-10 H Urine WBC 0-5 Ur Squamous Epith Cells 0-2 Urine Bacteria None Seen Hyaline Casts 0-2 Imaging Radiology Impressions: ITS Impressions Chest X-Ray 08/08/22 16:36 IMPRESSION: 1. No acute pulmonary process. Chest X-Ray 08/10/22 10:25 IMPRESSION: New subsegmental atelectasis at the left lung base. Chest CTA 08/10/22 14:35 IMPRESSION: 1. No CT evidence of pulmonary emboli. 2. No lung mass or suspicious spiculated nodules, there are few scattered tiny nonspecific lung calcified and noncalcified nodular densities measuring up to 3 mm or less. 3. Coronary calcifications. 4. Pulmonary emphysema. Various management parameters for solitary pulmonary nodules are in the literature. According to the UPDATED 2017 Fleischner Society recommendations, the advised follow-up imaging for solid nodules < 6 mm is: LOW RISK PATIENT: No routine follow-up. HIGH RISK PATIENT: Optional CT at 12 months. Reference: Guidelines for Management of Incidental Pulmonary Nodules Detected on CT Images: From the Fleischner Society 2017. Chest X-Ray 08/12/22 03:50 IMPRESSION: No focal consolidation. Medications Medications Current Medications Acetaminophen (Acetaminophen 325 Mg Tablet) 650 mg PO Q6H PRN PRN Reason: Headache/Pain Mild Scale (1-3) Last Admin: 08/13/22 01:38 Dose: 650 mg Al Hydroxide/Mg Hydroxide (Magnesium Hydrox/Alum Hydrox 30 Ml Oral.Susp) 30 ml PO Q6H PRN PRN Reason: Heartburn/Nausea Albuterol/Ipratropium (Albuterol/Iprat 2.5/0.5mg 3 Ml Ampul.Neb) 3 ml INHALE RQ6H WHILE AWAKE PRN PRN Reason: Wheezing Last Admin: 08/13/22 09:13 Dose: 3 ml Amlodipine Besylate (Amlodipine Besylate 5 Mg Tablet) 5 mg PO DAILY [facility]; Protocol Last Admin: 08/15/22 09:25 Dose: 5 mg Aripiprazole (Aripiprazole 20 Mg Tablet) 20 mg PO DAILY [facility] Last Admin: 08/15/22 09:25 Dose: 20 mg Atorvastatin Calcium (Atorvastatin Calcium 20 Mg Tablet) 20 mg PO BEDTIME [facility] Last Admin: 08/14/22 20:42 Dose: 20 mg Clonidine HCl (Clonidine Hcl 0.1 Mg Tablet) 0.1 mg PO TID [facility]; Protocol Last Admin: 08/15/22 09:25 Dose: 0.1 mg Doxycycline Hyclate (Doxycycline Hyclate 100 Mg Tablet) 100 mg PO Q12H [facility] Last Admin: 08/15/22 09:26 Dose: 100 mg Fluticasone/Vilanterol (Fluticasone/Vilanterol 200/25 Blst.W.Dev) 1 puff INHALE RDAILY [facility] Last Admin: 08/15/22 09:23 Dose: 1 puff Lisinopril (Lisinopril 10 Mg Tablet) 10 mg PO DAILY [facility]; Protocol Last Admin: 08/15/22 09:25 Dose: 10 mg Magnesium Hydroxide (Milk Of Magnesia 30 Ml Oral.Susp) 30 ml PO DAILY PRN PRN Reason: Constipation Oxcarbazepine (Oxcarbazepine 150 Mg Tablet) 150 mg PO BID [facility] Last Admin: 08/14/22 20:43 Dose: 150 mg Prednisone (Prednisone 20 Mg Tablet) 40 mg PO DAILY [facility] Stop: 08/16/22 09:01 Last Admin: 08/15/22 09:25 Dose: 40 mg Quetiapine Fumarate (Quetiapine Fumarate 50 Mg Tablet) 50 mg PO BID [facility] Last Admin: 08/15/22 09:26 Dose: 50 mg Quetiapine Fumarate (Quetiapine Fumarate 50 Mg Tablet) 50 mg PO Q6H PRN PRN Reason: agitation Last Admin: 08/13/22 17:45 Dose: 50 mg Tamsulosin HCl (Tamsulosin Hcl 0.4 Mg Capsule) 0.4 mg PO BEDTIME [facility] Last Admin: 08/14/22 20:44 Dose: 0.4 mg Tiotropium [place] (Tiotropium [place] 18 Mcg Cap.W.Dev) 1 puff INHALE RDAILY [facility] Last Admin: 08/15/22 09:23 Dose: 1 puff Allergies Allergies Allergy/AdvReac Type Severity Reaction Status Date / Time Penicillins [PENICILLINS] Allergy Intermediate RASH Unverified 08/02/20 16:41 Iodinated Contrast Media Allergy Mild HIVES Unverified 08/02/20 16:41 [IV Dye, Iodine Containing Contrast ] penicillin V Allergy Unknown Verified 07/05/18 00:00 Assessment & Plan Assessment & Plan (1) Schizophrenia: Status: Acute Code(s): F20.9 - Schizophrenia, unspecified (2) Dementia: Status: Acute Code(s): F03.90 - Unspecified dementia without behavioral disturbance Plan 76 year old male with history htn, COPD, BPH, schizophrenia, and dementia admitted to psychiatry with consult placed for COPD exacerbation. Acute COPD exacerbation- -Clinically improving, no hypoxia. Lungs clear -HR 80 when checked manually on exam. HR fluctuates greatly, has had tachycardia. Likely more from anxiety rather than infection Continue following HR. Mild intermittent tachycardia possibly r/t anxiety vs albuterol use -Leukocytosis 17.6 on prednisone. Has remained stable. Continue following CBC -Continue doxycycline -Continue prednisone -Duonebs prn -Last CXR negative, CTA chest negative for PE. -Continue incentive spirometry with supervision Psychiatry Trileptal 150 mg p.o. b.i.d.. Basic metabolic panel for next Thursday. We will called Rachel Vega at [phone] for further details I spent ___20___ minutes with the patient and/or on the patient floor today, greater than?50% of which was spent counseling/coordinating care. Reason for contiued inpatient stay Substantial Risk for: inability to function, rapid decompensation and med/psych decompensation
--- NOTE | 2022-08-15 17:12 | P.PNIM_ITS ---
Subjective Subjective Date of Service: 08/15/22 Interval History: seen and examined this morning follow up for copd exacerbation denies sob, cough Review of Systems Review of Systems: Yes all other systems are reviewed and are negative Constitutional Constitutional: Denies chills and Denies fever(s) Cardiovascular Cardiovascular: Denies chest pain, Denies palpitations and Denies dyspnea Respiratory Respiratory: Denies cough and Denies dyspnea Endocrine Endocrine: Denies palpitations Physical Exam Vital Signs: Vital Signs: Last Vital Signs Temp 98.5 F 08/15/22 07:30 Pulse 112 H 08/15/22 07:30 Resp 14 08/15/22 07:30 BP 144/80 H 08/15/22 08:14 Pulse Ox 93 08/15/22 07:30 O2 Del Method 08/15/22 07:30 O2 Flow Rate 2 08/10/22 10:10 BMI result Body Mass Index 27.6 Const: General: no acute distress, alert and awake Nutritional Appearance: average body habitus Resp: Effort & Inspection: normal respiratory effort and able to speak in complete sentences Auscultation: clear to auscultation bilaterally Cardio: Rate: regular rate Heart sounds: S1 normal heart sound present and S2 normal heart sound present GI: Inspection: No distended Palpation (GI): Soft to palpation Extrem: General: Yes no pedal edema Objective Data Active Medications Acetaminophen (Acetaminophen 325 Mg Tablet) 650 mg PO Q6H PRN PRN Reason: Headache/Pain Mild Scale (1-3) Last Admin: 08/13/22 01:38 Dose: 650 mg Documented By: MOISE Al Hydroxide/Mg Hydroxide (Magnesium Hydrox/Alum Hydrox 30 Ml Oral.Susp) 30 ml PO Q6H PRN PRN Reason: Heartburn/Nausea Albuterol/Ipratropium (Albuterol/Iprat 2.5/0.5mg 3 Ml Ampul.Neb) 3 ml INHALE RQ6H WHILE AWAKE PRN PRN Reason: Wheezing Last Admin: 08/13/22 09:13 Dose: 3 ml Documented By: JONI Amlodipine Besylate (Amlodipine Besylate 5 Mg Tablet) 5 mg PO DAILY [facility]; Protocol Last Admin: 08/15/22 09:25 Dose: 5 mg Documented By: RUMA Aripiprazole (Aripiprazole 20 Mg Tablet) 20 mg PO DAILY [facility] Last Admin: 08/15/22 09:25 Dose: 20 mg Documented By: RUMA Atorvastatin Calcium (Atorvastatin Calcium 20 Mg Tablet) 20 mg PO BEDTIME [facility] Last Admin: 08/14/22 20:42 Dose: 20 mg Documented By: MOISE Clonidine HCl (Clonidine Hcl 0.1 Mg Tablet) 0.1 mg PO TID [facility]; Protocol Last Admin: 08/15/22 09:25 Dose: 0.1 mg Documented By: RUMA Doxycycline Hyclate (Doxycycline Hyclate 100 Mg Tablet) 100 mg PO Q12H [facility] Last Admin: 08/15/22 09:26 Dose: 100 mg Documented By: RUMA Fluticasone/Vilanterol (Fluticasone/Vilanterol 200/25 Blst.W.Dev) 1 puff INHALE RDAILY [facility] Last Admin: 08/15/22 09:23 Dose: 1 puff Documented By: RUMA Lisinopril (Lisinopril 10 Mg Tablet) 10 mg PO DAILY [facility]; Protocol Last Admin: 08/15/22 09:25 Dose: 10 mg Documented By: RUMA Magnesium Hydroxide (Milk Of Magnesia 30 Ml Oral.Susp) 30 ml PO DAILY PRN PRN Reason: Constipation Oxcarbazepine (Oxcarbazepine 150 Mg Tablet) 150 mg PO BID [facility] Last Admin: 08/14/22 20:43 Dose: 150 mg Documented By: MOISE Prednisone (Prednisone 20 Mg Tablet) 40 mg PO DAILY [facility] Stop: 08/16/22 09:01 Last Admin: 08/15/22 09:25 Dose: 40 mg Documented By: RUMA Quetiapine Fumarate (Quetiapine Fumarate 50 Mg Tablet) 50 mg PO BID [facility] Last Admin: 08/15/22 09:26 Dose: 50 mg Documented By: RUMA Quetiapine Fumarate (Quetiapine Fumarate 50 Mg Tablet) 50 mg PO Q6H PRN PRN Reason: agitation Last Admin: 08/13/22 17:45 Dose: 50 mg Documented By: JAMAR Tamsulosin HCl (Tamsulosin Hcl 0.4 Mg Capsule) 0.4 mg PO BEDTIME [facility] Last Admin: 08/14/22 20:44 Dose: 0.4 mg Documented By: MOISE Tiotropium [place] (Tiotropium [place] 18 Mcg Cap.W.Dev) 1 puff INHALE RDAILY [facility] Last Admin: 08/15/22 09:23 Dose: 1 puff Documented By: RUMA Labs CBC & Chem 7: 08/15/22 08:39 08/10/22 11:04 Labs: Laboratory Results - last 24 hr 08/15/22 08:39 MCV 94.1 MCH 31.8 MCHC 33.8 RDW 12.7 Plt Count 331 MPV 9.3 L Immature Gran % (Auto) 4.2 H Neut % (Auto) 74.4 H Lymph % (Auto) 15.3 L [place] % (Auto) 5.6 Eos % (Auto) 0.2 Baso % (Auto) 0.3 Lymph # (Auto) 2.2 [place] # (Auto) 0.8 Eos # (Auto) 0.0 Baso # (Auto) 0.0 Abs Immat Gran (auto) 0.62 H Absolute Neuts (auto) 10.9 H Absolute Nucleated RBC 0.000 Nucleated RBC % (auto) 0.0 Assessment and Plan (1) COPD exacerbation: Status: Acute Plan 76 year old male with history htn, COPD, BPH, schizophrenia, and dementia admitted to psychiatry with consult placed for COPD exacerbation. Acute COPD exacerbation- Clinically improving, no hypoxia. Lungs clear CXR negative, CTA negative for PE Leukocytosis trending down, likely from steroid use -Continue doxycycline x 5 days total of antibiotics -Continue prednisone x 5 days -Duonebs prn -Continue incentive spirometry with supervision -continue home inhalers - recommend outpatient follow up with PCP HTN, uncontrolled would increase norvasc to 10 mg daily continue lisionopril will sign off at this time. Quality Stroke Does the patient have a stroke diagnosis?: No VTE Prior VTE?: No VTE Risk Level:: Medical - low VTE Device Contraindication: Treatment Not Indicated VTE Drug Contraindication: Treatment Not Indicated
[2022-08-15 18:00] VITALS: BP 164/77; PULSE 87; RESP 18; TEMP 36.6; O2SAT 94
[2022-08-15] MEDS: Tamsulosin HCL 0.4 MG CAPSULE PO (21:34)
[2022-08-15] MEDS: Atorvastatin Calcium 20 MG TABLET PO (21:34)
[2022-08-15] MEDS: OXcarbazepine 150 MG TABLET PO (21:34)
[2022-08-16 08:40] VITALS: BP 180/69; PULSE 97; RESP 16; TEMP 36.9; O2SAT 94
[2022-08-16] MEDS: Fluticasone/Vilanterol 200/25 BLST.W.DEV 1 PUFF INHALE (08:41)
--- NOTE | 2022-08-16 08:41 | HO.PSYCHPN ---
Subjective Subjective Date of Service: 08/16/22 Reason For Visit: Schizophrenia,Dementia Subjective Notes: Conditional Voluntary Interim History: The nursing staff reported that he has been slightly level in the evening. He has been incontinent of urine last night. Today in the morning he was pleasant and cooperative, able to understand why he is in the hospital. He gave a urine sample at am, so far, no vesical residue as per doppler scanning Mental Status Exam Mental Status Exam Patient Appearance: Appropriate Patient Orientation: Person and Situation Level of Consciousness: Alert Patient Behavior: Cooperative Mood Description: Withdrawn Affect Description: Labile Patient Cognition Impaired: Yes Ability to Follow Directions: Good Speech Pattern: Clear Hallucinations: None Delusions: Paranoid Ideation Thought Process: Distracted Thought Content: positive for [place] Judgement: Fair Diagnostics Vital Signs (24Hr): Vital Signs - 24 hr 08/15/22 18:00 Temperature 98 F Pulse Rate 87 Respiratory Rate 18 Blood Pressure 164/77 H Pulse Oximetry 94 Oxygen Delivery Method Room Air BMI result Body Mass Index 27.6 Labs Results: 08/15/22 08:39 08/10/22 11:04 Labs: Laboratory Results - last 48 hr 08/14/22 08/15/22 10:15 08:39 WBC 14.6 H RBC 3.71 L Hgb 11.8 L Hct 34.9 L MCV 94.1 MCH 31.8 MCHC 33.8 RDW 12.7 Plt Count 331 MPV 9.3 L Immature Gran % (Auto) 4.2 H Neut % (Auto) 74.4 H Lymph % (Auto) 15.3 L [place] % (Auto) 5.6 Eos % (Auto) 0.2 Baso % (Auto) 0.3 Lymph # (Auto) 2.2 [place] # (Auto) 0.8 Eos # (Auto) 0.0 Baso # (Auto) 0.0 Abs Immat Gran (auto) 0.62 H Absolute Neuts (auto) 10.9 H Absolute Nucleated RBC 0.000 Nucleated RBC % (auto) 0.0 Urine Color Yellow Urine Appearance Clear Urine pH 6.0 Ur Specific [place] 1.015 Urine Protein 100 (2+) H Urine Glucose (UA) Negative Urine Ketones Negative Urine Blood Moderate (2+) H Urine Nitrite Negative Ur Leukocyte Esterase Negative Urine RBC 6-10 H Urine WBC 0-5 Ur Squamous Epith Cells 0-2 Urine Bacteria None Seen Hyaline Casts 0-2 Imaging Radiology Impressions: ITS Impressions Chest X-Ray 08/08/22 16:36 IMPRESSION: 1. No acute pulmonary process. Chest X-Ray 08/10/22 10:25 IMPRESSION: New subsegmental atelectasis at the left lung base. Chest CTA 08/10/22 14:35 IMPRESSION: 1. No CT evidence of pulmonary emboli. 2. No lung mass or suspicious spiculated nodules, there are few scattered tiny nonspecific lung calcified and noncalcified nodular densities measuring up to 3 mm or less. 3. Coronary calcifications. 4. Pulmonary emphysema. Various management parameters for solitary pulmonary nodules are in the literature. According to the UPDATED 2017 Fleischner Society recommendations, the advised follow-up imaging for solid nodules < 6 mm is: LOW RISK PATIENT: No routine follow-up. HIGH RISK PATIENT: Optional CT at 12 months. Reference: Guidelines for Management of Incidental Pulmonary Nodules Detected on CT Images: From the Fleischner Society 2017. Chest X-Ray 08/12/22 03:50 IMPRESSION: No focal consolidation. Medications Medications Current Medications Acetaminophen (Acetaminophen 325 Mg Tablet) 650 mg PO Q6H PRN PRN Reason: Headache/Pain Mild Scale (1-3) Last Admin: 08/13/22 01:38 Dose: 650 mg Al Hydroxide/Mg Hydroxide (Magnesium Hydrox/Alum Hydrox 30 Ml Oral.Susp) 30 ml PO Q6H PRN PRN Reason: Heartburn/Nausea Albuterol/Ipratropium (Albuterol/Iprat 2.5/0.5mg 3 Ml Ampul.Neb) 3 ml INHALE RQ6H WHILE AWAKE PRN PRN Reason: Wheezing Last Admin: 08/13/22 09:13 Dose: 3 ml Amlodipine Besylate (Amlodipine Besylate 10 Mg Tablet) 10 mg PO DAILY [facility]; Protocol Aripiprazole (Aripiprazole 20 Mg Tablet) 20 mg PO DAILY [facility] Last Admin: 08/15/22 09:25 Dose: 20 mg Atorvastatin Calcium (Atorvastatin Calcium 20 Mg Tablet) 20 mg PO BEDTIME [facility] Last Admin: 08/15/22 21:34 Dose: 20 mg Clonidine HCl (Clonidine Hcl 0.1 Mg Tablet) 0.1 mg PO TID [facility]; Protocol Last Admin: 08/15/22 21:34 Dose: 0.1 mg Doxycycline Hyclate (Doxycycline Hyclate 100 Mg Tablet) 100 mg PO Q12H [facility] Last Admin: 08/15/22 21:35 Dose: 100 mg Fluticasone/Vilanterol (Fluticasone/Vilanterol 200/25 Blst.W.Dev) 1 puff INHALE RDAILY [facility] Last Admin: 08/15/22 09:23 Dose: 1 puff Lisinopril (Lisinopril 10 Mg Tablet) 10 mg PO DAILY [facility]; Protocol Last Admin: 08/15/22 09:25 Dose: 10 mg Magnesium Hydroxide (Milk Of Magnesia 30 Ml Oral.Susp) 30 ml PO DAILY PRN PRN Reason: Constipation Oxcarbazepine (Oxcarbazepine 150 Mg Tablet) 150 mg PO BID [facility] Last Admin: 08/15/22 21:34 Dose: 150 mg Prednisone (Prednisone 20 Mg Tablet) 40 mg PO DAILY [facility] Stop: 08/16/22 09:01 Last Admin: 08/15/22 09:25 Dose: 40 mg Quetiapine Fumarate (Quetiapine Fumarate 50 Mg Tablet) 50 mg PO BID [facility] Last Admin: 08/15/22 21:34 Dose: 50 mg Quetiapine Fumarate (Quetiapine Fumarate 50 Mg Tablet) 50 mg PO Q6H PRN PRN Reason: agitation Last Admin: 08/13/22 17:45 Dose: 50 mg Tamsulosin HCl (Tamsulosin Hcl 0.4 Mg Capsule) 0.4 mg PO BEDTIME [facility] Last Admin: 08/15/22 21:34 Dose: 0.4 mg Tiotropium [place] (Tiotropium [place] 18 Mcg Cap.W.Dev) 1 puff INHALE RDAILY [facility] Last Admin: 08/15/22 09:23 Dose: 1 puff Allergies Allergies Allergy/AdvReac Type Severity Reaction Status Date / Time Penicillins [PENICILLINS] Allergy Intermediate RASH Unverified 08/02/20 16:41 Iodinated Contrast Media Allergy Mild HIVES Unverified 08/02/20 16:41 [IV Dye, Iodine Containing Contrast ] penicillin V Allergy Unknown Verified 07/05/18 00:00 Assessment & Plan Assessment & Plan (1) COPD exacerbation: Status: Acute Code(s): J44.1 - Chronic obstructive pulmonary disease with (acute) exacerbation Plan 76 year old male with history htn, COPD, BPH, schizophrenia, and dementia admitted to psychiatry with consult placed for COPD exacerbation. Acute COPD exacerbation- Clinically improving, no hypoxia. Lungs clear CXR negative, CTA negative for PE Leukocytosis trending down, likely from steroid use -Continue doxycycline x 5 days total of antibiotics -Continue prednisone x 5 days -Duonebs prn -Continue incentive spirometry with supervision -continue home inhalers - recommend outpatient follow up with PCP HTN, uncontrolled would increase norvasc to 10 mg daily continue lisionopril Psychiatry Restarted on Trileptal 150 p.o. b.i.d. Basic metabolic panel for Thursday I spent ___20___ minutes with the patient and/or on the patient floor today, greater than?50% of which was spent counseling/coordinating care. Reason for contiued inpatient stay Substantial Risk for: inability to function, rapid decompensation and med/psych decompensation
[2022-08-16] MEDS: OXcarbazepine 150 MG TABLET PO ×3 (08:42→20:01)
[2022-08-16] MEDS: lisinopriL 10 MG TABLET PO (08:43)
[2022-08-16] MEDS: QUEtiapine Fumarate 50 MG TABLET PO ×2 (08:43→20:00)
[2022-08-16] MEDS: ARIPiprazole 20 MG TABLET PO (08:43)
[2022-08-16] MEDS: predniSONE 20 MG TABLET 40 MG PO (08:43)
[2022-08-16] MEDS: cloNIDine HCL 0.1 MG TABLET PO ×3 (08:43→19:59)
[2022-08-16] MEDS: amLODIPine Besylate 10 MG TABLET PO (08:44)
[2022-08-16 10:04] LABS: Appearance Urine Clear; Color Urine Yellow; Glucose Urine UA Negative (Negative); Leukocyte Esterase Urine Trace (Negative); Nitrite Urine Negative (Negative); PH 6.5 (5.0-9.0); Specific Gravity - Urine 1.015 (1.005-1.025); UMIC TRIGGER UACC YES; Urine Blood Negative (Negative); Urine Ketones Trace mg/dL (Negative); Urine Protein 100 (2+) mg/dL (Neg-Trace)
[2022-08-16 10:06] LABS: Bacteria Urine None Seen (None Seen); Hyaline Casts Urine 0-2 /LPF (0-2); RBC Urine 0-2 /HPF (0-2); Squamous Epithelial Cell Urine 0-2 /HPF (0-2); WBC Urine 0-5 /HPF (0-5)
[2022-08-16] MEDS: Acetaminophen 325 MG TABLET 650 MG PO ×2 (12:01→20:50)
[2022-08-16] MEDS: QUEtiapine Fumarate 100 MG TABLET PO (16:35)
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
[2022-08-16 18:00] VITALS: BP 118/58; PULSE 96; RESP 16; TEMP 36.6; O2SAT 93
[2022-08-16] MEDS: Atorvastatin Calcium 20 MG TABLET PO (20:00)
[2022-08-16] MEDS: Tamsulosin HCL 0.4 MG CAPSULE PO (20:01)
[2022-08-17] MEDS: Acetaminophen 325 MG TABLET 650 MG PO (06:02)
[2022-08-17] MEDS: QUEtiapine Fumarate 50 MG TABLET PO ×4 (06:03→19:46)
[2022-08-17 08:00] VITALS: BP 131/60; PULSE 97; RESP 18; TEMP 36.3; O2SAT 94
[2022-08-17] MEDS: ARIPiprazole 20 MG TABLET PO (08:18)
[2022-08-17] MEDS: OXcarbazepine 150 MG TABLET PO ×2 (08:19→19:46)
[2022-08-17] MEDS: lisinopriL 10 MG TABLET PO (08:19)
[2022-08-17] MEDS: cloNIDine HCL 0.1 MG TABLET PO ×3 (08:19→19:46)
[2022-08-17] MEDS: Fluticasone/Vilanterol 200/25 BLST.W.DEV 1 PUFF INHALE (08:20)
[2022-08-17] MEDS: amLODIPine Besylate 10 MG TABLET PO (08:20)
--- NOTE | 2022-08-17 10:54 | HO.PSYCHPN ---
Subjective Subjective Date of Service: 08/17/22 Reason For Visit: Schizophrenia,Dementia Subjective Notes: Conditional Voluntary Interim History: The nursing staff reported the patient was angry and irritable he threw the [employer] meter to the staff. He needed to be medicated with Seroquel p.r.n.. He slept 5 hours. On interview he was pleasant and cooperative and explained him that he cannot assault staff. We will do blood work tomorrow morning to see if there is hyponatremia with the reintroduction of Trileptal. Mental Status Exam Mental Status Exam Patient Appearance: Well Grooomed Patient Orientation: Person Level of Consciousness: Awake Patient Behavior: Cooperative Mood Description: Constricted Affect Description: Labile Patient Cognition Impaired: Yes Ability to Follow Directions: Good Speech Pattern: Clear Hallucinations: None Delusions: Not Present Thought Content: positive for [place] Depressive Symptoms: Increased Anxiety Judgement: Poor Diagnostics Vital Signs (24Hr): Vital Signs - 24 hr 08/16/22 18:00 08/17/22 08:00 Temperature 97.8 F 97.4 F Pulse Rate 96 97 Respiratory Rate 16 18 Blood Pressure 118/58 L 131/60 Pulse Oximetry 93 94 Oxygen Delivery Method Room Air Room Air BMI result Body Mass Index 27.6 Labs Results: 08/15/22 08:39 08/10/22 11:04 Labs: Laboratory Results - last 48 hr 08/16/22 09:35 Urine Color Yellow Urine Appearance Clear Urine pH 6.5 Ur Specific [place] 1.015 Urine Protein 100 (2+) H Urine Glucose (UA) Negative Urine Ketones Trace Urine Blood Negative Urine Nitrite Negative Ur Leukocyte Esterase Trace H Urine RBC 0-2 Urine WBC 0-5 Ur Squamous Epith Cells 0-2 Urine Bacteria None Seen Hyaline Casts 0-2 Imaging Radiology Impressions: ITS Impressions Chest X-Ray 08/08/22 16:36 IMPRESSION: 1. No acute pulmonary process. Chest X-Ray 08/10/22 10:25 IMPRESSION: New subsegmental atelectasis at the left lung base. Chest CTA 08/10/22 14:35 IMPRESSION: 1. No CT evidence of pulmonary emboli. 2. No lung mass or suspicious spiculated nodules, there are few scattered tiny nonspecific lung calcified and noncalcified nodular densities measuring up to 3 mm or less. 3. Coronary calcifications. 4. Pulmonary emphysema. Various management parameters for solitary pulmonary nodules are in the literature. According to the UPDATED 2017 Fleischner Society recommendations, the advised follow-up imaging for solid nodules < 6 mm is: LOW RISK PATIENT: No routine follow-up. HIGH RISK PATIENT: Optional CT at 12 months. Reference: Guidelines for Management of Incidental Pulmonary Nodules Detected on CT Images: From the Fleischner Society 2017. Chest X-Ray 08/12/22 03:50 IMPRESSION: No focal consolidation. Medications Medications Current Medications Acetaminophen (Acetaminophen 325 Mg Tablet) 650 mg PO Q6H PRN PRN Reason: Headache/Pain Mild Scale (1-3) Last Admin: 08/17/22 06:02 Dose: 650 mg Al Hydroxide/Mg Hydroxide (Magnesium Hydrox/Alum Hydrox 30 Ml Oral.Susp) 30 ml PO Q6H PRN PRN Reason: Heartburn/Nausea Albuterol/Ipratropium (Albuterol/Iprat 2.5/0.5mg 3 Ml Ampul.Neb) 3 ml INHALE RQ6H WHILE AWAKE PRN PRN Reason: Wheezing Last Admin: 08/13/22 09:13 Dose: 3 ml Amlodipine Besylate (Amlodipine Besylate 10 Mg Tablet) 10 mg PO DAILY [facility]; Protocol Last Admin: 08/17/22 08:20 Dose: 10 mg Aripiprazole (Aripiprazole 20 Mg Tablet) 20 mg PO DAILY [facility] Last Admin: 08/17/22 08:18 Dose: 20 mg Atorvastatin Calcium (Atorvastatin Calcium 20 Mg Tablet) 20 mg PO BEDTIME [facility] Last Admin: 08/16/22 20:00 Dose: 20 mg Clonidine HCl (Clonidine Hcl 0.1 Mg Tablet) 0.1 mg PO TID [facility]; Protocol Last Admin: 08/17/22 08:19 Dose: 0.1 mg Doxycycline Hyclate (Doxycycline Hyclate 100 Mg Tablet) 100 mg PO Q12H [facility] Last Admin: 08/17/22 08:19 Dose: 100 mg Fluticasone/Vilanterol (Fluticasone/Vilanterol 200/25 Blst.W.Dev) 1 puff INHALE RDAILY [facility] Last Admin: 08/17/22 08:20 Dose: 1 puff Lisinopril (Lisinopril 10 Mg Tablet) 10 mg PO DAILY [facility]; Protocol Last Admin: 08/17/22 08:19 Dose: 10 mg Magnesium Hydroxide (Milk Of Magnesia 30 Ml Oral.Susp) 30 ml PO DAILY PRN PRN Reason: Constipation Oxcarbazepine (Oxcarbazepine 150 Mg Tablet) 150 mg PO BID [facility] Last Admin: 08/17/22 08:19 Dose: 150 mg Quetiapine Fumarate (Quetiapine Fumarate 50 Mg Tablet) 50 mg PO BID [facility] Last Admin: 08/17/22 08:19 Dose: 50 mg Quetiapine Fumarate (Quetiapine Fumarate 50 Mg Tablet) 50 mg PO Q6H PRN PRN Reason: agitation Last Admin: 08/17/22 06:03 Dose: 50 mg Tamsulosin HCl (Tamsulosin Hcl 0.4 Mg Capsule) 0.4 mg PO BEDTIME [facility] Last Admin: 08/16/22 20:01 Dose: 0.4 mg Tiotropium [place] (Tiotropium [place] 18 Mcg Cap.W.Dev) 1 puff INHALE RDAILY [facility] Last Admin: 08/17/22 08:25 Dose: 1 puff Allergies Allergies Allergy/AdvReac Type Severity Reaction Status Date / Time Penicillins [PENICILLINS] Allergy Intermediate RASH Unverified 08/02/20 16:41 Iodinated Contrast Media Allergy Mild HIVES Unverified 08/02/20 16:41 [IV Dye, Iodine Containing Contrast ] penicillin V Allergy Unknown Verified 07/05/18 00:00 Assessment & Plan Assessment & Plan (1) COPD exacerbation: Status: Acute Code(s): J44.1 - Chronic obstructive pulmonary disease with (acute) exacerbation Plan 76 year old male with history htn, COPD, BPH, schizophrenia, and dementia admitted to psychiatry with consult placed for COPD exacerbation. Acute COPD exacerbation- Clinically improving, no hypoxia. Lungs clear CXR negative, CTA negative for PE Leukocytosis trending down, likely from steroid use -Continue doxycycline x 5 days total of antibiotics -Continue prednisone x 5 days -Duonebs prn -Continue incentive spirometry with supervision -continue home inhalers - recommend outpatient follow up with PCP HTN, uncontrolled would increase norvasc to 10 mg daily continue lisionopril Psychiatry Restarted on Trileptal 150 p.o. b.i.d. Basic metabolic panel for Thursday I spent __20____ minutes with the patient and/or on the patient floor today, greater than?50% of which was spent counseling/coordinating care. Reason for contiued inpatient stay Substantial Risk for: inability to function, rapid decompensation and med/psych decompensation
[2022-08-17 15:28] VITALS: BP 191/96; PULSE 95; RESP 20; TEMP 37.1; O2SAT 95
[2022-08-17 18:00] VITALS: BP 110/55; PULSE 71; RESP 16; TEMP 36.6; O2SAT 93
[2022-08-17] MEDS: Atorvastatin Calcium 20 MG TABLET PO (19:46)
[2022-08-17] MEDS: Tamsulosin HCL 0.4 MG CAPSULE PO (19:46)
[2022-08-18] MEDS: QUEtiapine Fumarate 50 MG TABLET PO ×3 (01:18→20:40)
[2022-08-18] MEDS: Acetaminophen 325 MG TABLET 650 MG PO ×2 (01:46→08:26)
[2022-08-18] MEDS: cloNIDine HCL 0.1 MG TABLET PO ×2 (08:26→20:40)
[2022-08-18] MEDS: ARIPiprazole 20 MG TABLET PO (08:26)
[2022-08-18] MEDS: lisinopriL 10 MG TABLET PO (08:27)
[2022-08-18] MEDS: OXcarbazepine 150 MG TABLET PO ×2 (08:27→20:40)
--- NOTE | 2022-08-18 15:26 | P.PNPSI_ITS ---
Subjective Subjective Date of Service: 08/18/22 Reason For Visit: Schizophrenia,Dementia Subjective Notes: Conditional Voluntary Interim History: The nursing staff reported the patient slept poorly, his attention seeking and he reports some pain on his back. On interview the patient denies new symptoms he looks pleasantly confused. He refused blood work today in the morning. Mental Status Exam Mental Status Exam Patient Appearance: Well Grooomed Patient Orientation: Person Level of Consciousness: Alert Patient Behavior: Guarded and Passive Mood Description: Withdrawn Affect Description: Labile Patient Cognition Impaired: Yes Ability to Follow Directions: Good Speech Pattern: Clear Hallucinations: None Delusions: Paranoid Ideation Thought Process: Distracted Thought Content: positive for [place] Judgement: Fair Diagnostics Vital Signs (24Hr): Vital Signs - 24 hr 08/17/22 15:28 08/17/22 18:00 Temperature 98.8 F 97.8 F Pulse Rate 95 71 Respiratory Rate 20 16 Blood Pressure 191/96 H 110/55 L Pulse Oximetry 95 93 Oxygen Delivery Method Room Air Room Air BMI result Body Mass Index 27.6 Labs Results: 08/15/22 08:39 08/10/22 11:04 Imaging Radiology Impressions: ITS Impressions Chest X-Ray 08/08/22 16:36 IMPRESSION: 1. No acute pulmonary process. Chest X-Ray 08/10/22 10:25 IMPRESSION: New subsegmental atelectasis at the left lung base. Chest CTA 08/10/22 14:35 IMPRESSION: 1. No CT evidence of pulmonary emboli. 2. No lung mass or suspicious spiculated nodules, there are few scattered tiny nonspecific lung calcified and noncalcified nodular densities measuring up to 3 mm or less. 3. Coronary calcifications. 4. Pulmonary emphysema. Various management parameters for solitary pulmonary nodules are in the literature. According to the UPDATED 2017 Fleischner Society recommendations, the advised follow-up imaging for solid nodules < 6 mm is: LOW RISK PATIENT: No routine follow-up. HIGH RISK PATIENT: Optional CT at 12 months. Reference: Guidelines for Management of Incidental Pulmonary Nodules Detected on CT Images: From the Fleischner Society 2017. Chest X-Ray 08/12/22 03:50 IMPRESSION: No focal consolidation. Medications Medications Current Medications Acetaminophen (Acetaminophen 325 Mg Tablet) 650 mg PO Q6H PRN PRN Reason: Headache/Pain Mild Scale (1-3) Last Admin: 08/18/22 08:26 Dose: 650 mg Al Hydroxide/Mg Hydroxide (Magnesium Hydrox/Alum Hydrox 30 Ml Oral.Susp) 30 ml PO Q6H PRN PRN Reason: Heartburn/Nausea Albuterol/Ipratropium (Albuterol/Iprat 2.5/0.5mg 3 Ml Ampul.Neb) 3 ml INHALE RQ6H WHILE AWAKE PRN PRN Reason: Wheezing Last Admin: 08/13/22 09:13 Dose: 3 ml Amlodipine Besylate (Amlodipine Besylate 10 Mg Tablet) 10 mg PO DAILY [facility]; Protocol Last Admin: 08/17/22 08:20 Dose: 10 mg Aripiprazole (Aripiprazole 20 Mg Tablet) 20 mg PO DAILY [facility] Last Admin: 08/18/22 08:26 Dose: 20 mg Atorvastatin Calcium (Atorvastatin Calcium 20 Mg Tablet) 20 mg PO BEDTIME [facility] Last Admin: 08/17/22 19:46 Dose: 20 mg Clonidine HCl (Clonidine Hcl 0.1 Mg Tablet) 0.1 mg PO TID [facility]; Protocol Last Admin: 08/18/22 08:26 Dose: 0.1 mg Doxycycline Hyclate (Doxycycline Hyclate 100 Mg Tablet) 100 mg PO Q12H [facility] Last Admin: 08/18/22 08:27 Dose: 100 mg Fluticasone/Vilanterol (Fluticasone/Vilanterol 200/25 Blst.W.Dev) 1 puff INHALE RDAILY [facility] Last Admin: 08/18/22 10:38 Dose: Not Given Lisinopril (Lisinopril 10 Mg Tablet) 10 mg PO DAILY [facility]; Protocol Last Admin: 08/18/22 08:27 Dose: 10 mg Magnesium Hydroxide (Milk Of Magnesia 30 Ml Oral.Susp) 30 ml PO DAILY PRN PRN Reason: Constipation Oxcarbazepine (Oxcarbazepine 150 Mg Tablet) 150 mg PO BID [facility] Last Admin: 08/18/22 08:27 Dose: 150 mg Quetiapine Fumarate (Quetiapine Fumarate 50 Mg Tablet) 50 mg PO BID [facility] Last Admin: 08/18/22 08:26 Dose: 50 mg Quetiapine Fumarate (Quetiapine Fumarate 50 Mg Tablet) 50 mg PO Q6H PRN PRN Reason: agitation Last Admin: 08/18/22 01:18 Dose: 50 mg Tamsulosin HCl (Tamsulosin Hcl 0.4 Mg Capsule) 0.4 mg PO BEDTIME [facility] Last Admin: 08/17/22 19:46 Dose: 0.4 mg Tiotropium [place] (Tiotropium [place] 18 Mcg Cap.W.Dev) 1 puff INHALE RDAILY [facility] Last Admin: 08/17/22 08:25 Dose: 1 puff Allergies Allergies Allergy/AdvReac Type Severity Reaction Status Date / Time Penicillins [PENICILLINS] Allergy Intermediate RASH Unverified 08/02/20 16:41 Iodinated Contrast Media Allergy Mild HIVES Unverified 08/02/20 16:41 [IV Dye, Iodine Containing Contrast ] penicillin V Allergy Unknown Verified 07/05/18 00:00 Assessment & Plan Assessment & Plan (1) COPD exacerbation: Status: Acute Code(s): J44.1 - Chronic obstructive pulmonary disease with (acute) exacerbation Plan 76 year old male with history htn, COPD, BPH, schizophrenia, and dementia admitted to psychiatry with consult placed for COPD exacerbation. Acute COPD exacerbation- Clinically improving, no hypoxia. Lungs clear CXR negative, CTA negative for PE Leukocytosis trending down, likely from steroid use -Continue doxycycline x 5 days total of antibiotics -Continue prednisone x 5 days -Duonebs prn -Continue incentive spirometry with supervision -continue home inhalers - recommend outpatient follow up with PCP HTN, uncontrolled would increase norvasc to 10 mg daily continue lisionopril Psychiatry Restarted on Trileptal 150 p.o. b.i.d. Basic metabolic panel for tomorrow I spent ___20___ minutes with the patient and/or on the patient floor today, greater than?50% of which was spent counseling/coordinating care. Reason for contiued inpatient stay Substantial Risk for: inability to function, rapid decompensation and med/psych decompensation
[2022-08-18 20:00] VITALS: BP 137/83; PULSE 92; RESP 16; TEMP 36.9; O2SAT 95
[2022-08-18] MEDS: Atorvastatin Calcium 20 MG TABLET PO (20:40)
[2022-08-18] MEDS: Tamsulosin HCL 0.4 MG CAPSULE PO (20:40)
[2022-08-19] MEDS: OXcarbazepine 150 MG TABLET PO (07:41)
[2022-08-19] MEDS: amLODIPine Besylate 10 MG TABLET PO (07:41)
[2022-08-19] MEDS: Fluticasone/Vilanterol 200/25 BLST.W.DEV 1 PUFF INHALE (07:41)
[2022-08-19] MEDS: QUEtiapine Fumarate 50 MG TABLET PO ×2 (07:41→21:20)
[2022-08-19] MEDS: lisinopriL 10 MG TABLET PO (07:42)
[2022-08-19] MEDS: ARIPiprazole 20 MG TABLET PO (07:42)
[2022-08-19] MEDS: cloNIDine HCL 0.1 MG TABLET PO ×2 (07:42→21:19)
[2022-08-19 07:46] VITALS: BP 130/70; PULSE 104; RESP 16; TEMP 36.6; O2SAT 94
[2022-08-19 09:08] LABS: Anion Gap 20 (12-20); Blood Urea Nitrogen 19 mg/dL (9-16); Calcium 8.6 mg/dL (8.4-10.2); Carbon Dioxide 18 mmol/L (22-29); Chloride 93 mmol/L (96-108); Estimated Glomerular Filt Rate > 60; Glucose Random 107 mg/dL (60-115); Potassium 5.1 mmol/L (3.3-5.1); Sodium 126 mmol/L (135-145)
--- NOTE | 2022-08-19 12:33 | MHC.SLORD ---
Speech Language Pathology Order Status: Attempted to see patient for follow up/toleration of diet at lunch today. Patient was in room, refusing to leave to come to lunch. Nursing assisted with encouraging Patient to leave room for lunch, patient continuing to refuse. Will re-attempt when patient cooperative with meal.
--- NOTE | 2022-08-19 15:18 | P.PNPSI_ITS ---
Subjective Subjective Date of Service: 08/19/22 Reason For Visit: Schizophrenia,Dementia Subjective Notes: Conditional Voluntary Interim History: The nursing staff reported the patient slept only 2 hours. He has been incontinent with urine and he has been irritable. Today, his blood work showed hyponatremia with Trileptal 150 p.o. b.i.d.. We discussed risks benefits, side-effects and alternatives and he agreed increase Seroquel up to 100 mg at night and start Depakote 125 p.o. t.i.d.. He stated that he did well with Depakote in the past. We will do a UA for tomorrow morning. Mental Status Exam Mental Status Exam Patient Appearance: Well Grooomed Patient Orientation: Person and Situation Level of Consciousness: Appropriate Patient Behavior: Cooperative Mood Description: Calm Affect Description: Labile Patient Cognition Impaired: Yes Ability to Follow Directions: Fair Speech Pattern: Clear Hallucinations: None Delusions: Not Present Thought Process: Distracted Thought Content: positive for [place] Judgement: Poor Diagnostics Vital Signs (24Hr): Vital Signs - 24 hr 08/18/22 20:00 08/19/22 07:46 Temperature 98.4 F 97.8 F Pulse Rate 92 104 H Respiratory Rate 16 16 Blood Pressure 137/83 130/70 Pulse Oximetry 95 94 Oxygen Delivery Method Room Air Room Air BMI result Body Mass Index 27.6 Labs Results: 08/15/22 08:39 08/19/22 08:49 Labs: Laboratory Results - last 48 hr 08/19/22 08:49 Sodium 126 L Potassium 5.1 D Chloride 93 L Carbon Dioxide 18 L Anion Gap 20 BUN 19 H Creatinine 1.01 Estim Creat Clear Calc 58.0 Estimated GFR > 60 Random Glucose 107 Calcium 8.6 Imaging Radiology Impressions: ITS Impressions Chest X-Ray 08/08/22 16:36 IMPRESSION: 1. No acute pulmonary process. Chest X-Ray 08/10/22 10:25 IMPRESSION: New subsegmental atelectasis at the left lung base. Chest CTA 08/10/22 14:35 IMPRESSION: 1. No CT evidence of pulmonary emboli. 2. No lung mass or suspicious spiculated nodules, there are few scattered tiny nonspecific lung calcified and noncalcified nodular densities measuring up to 3 mm or less. 3. Coronary calcifications. 4. Pulmonary emphysema. Various management parameters for solitary pulmonary nodules are in the literature. According to the UPDATED 2017 Fleischner Society recommendations, the advised follow-up imaging for solid nodules < 6 mm is: LOW RISK PATIENT: No routine follow-up. HIGH RISK PATIENT: Optional CT at 12 months. Reference: Guidelines for Management of Incidental Pulmonary Nodules Detected on CT Images: From the Fleischner Society 2017. Chest X-Ray 08/12/22 03:50 IMPRESSION: No focal consolidation. Medications Medications Current Medications Acetaminophen (Acetaminophen 325 Mg Tablet) 650 mg PO Q6H PRN PRN Reason: Headache/Pain Mild Scale (1-3) Last Admin: 08/18/22 08:26 Dose: 650 mg Al Hydroxide/Mg Hydroxide (Magnesium Hydrox/Alum Hydrox 30 Ml Oral.Susp) 30 ml PO Q6H PRN PRN Reason: Heartburn/Nausea Amlodipine Besylate (Amlodipine Besylate 10 Mg Tablet) 10 mg PO DAILY [facility]; Protocol Last Admin: 08/19/22 07:41 Dose: 10 mg Aripiprazole (Aripiprazole 20 Mg Tablet) 20 mg PO DAILY [facility] Last Admin: 08/19/22 07:42 Dose: 20 mg Atorvastatin Calcium (Atorvastatin Calcium 20 Mg Tablet) 20 mg PO BEDTIME [facility] Last Admin: 08/18/22 20:40 Dose: 20 mg Clonidine HCl (Clonidine Hcl 0.1 Mg Tablet) 0.1 mg PO TID [facility]; Protocol Last Admin: 08/19/22 07:42 Dose: 0.1 mg Doxycycline Hyclate (Doxycycline Hyclate 100 Mg Tablet) 100 mg PO Q12H [facility] Last Admin: 08/19/22 07:42 Dose: 100 mg Fluticasone/Vilanterol (Fluticasone/Vilanterol 200/25 Blst.W.Dev) 1 puff INHALE RDAILY [facility] Last Admin: 08/19/22 07:41 Dose: 1 puff Lisinopril (Lisinopril 10 Mg Tablet) 10 mg PO DAILY [facility]; Protocol Last Admin: 08/19/22 07:42 Dose: 10 mg Magnesium Hydroxide (Milk Of Magnesia 30 Ml Oral.Susp) 30 ml PO DAILY PRN PRN Reason: Constipation Oxcarbazepine (Oxcarbazepine 150 Mg Tablet) 150 mg PO BID [facility] Last Admin: 08/19/22 07:41 Dose: 150 mg Quetiapine Fumarate (Quetiapine Fumarate 50 Mg Tablet) 50 mg PO BID [facility] Last Admin: 08/19/22 07:41 Dose: 50 mg Quetiapine Fumarate (Quetiapine Fumarate 50 Mg Tablet) 50 mg PO Q6H PRN PRN Reason: agitation Last Admin: 08/18/22 01:18 Dose: 50 mg Tamsulosin HCl (Tamsulosin Hcl 0.4 Mg Capsule) 0.4 mg PO BEDTIME [facility] Last Admin: 08/18/22 20:40 Dose: 0.4 mg Tiotropium [place] (Tiotropium [place] 18 Mcg Cap.W.Dev) 1 puff INHALE RDAILY [facility] Last Admin: 08/19/22 07:43 Dose: 1 puff Allergies Allergies Allergy/AdvReac Type Severity Reaction Status Date / Time Penicillins [PENICILLINS] Allergy Intermediate RASH Unverified 08/02/20 16:41 Iodinated Contrast Media Allergy Mild HIVES Unverified 08/02/20 16:41 [IV Dye, Iodine Containing Contrast ] penicillin V Allergy Unknown Verified 07/05/18 00:00 Assessment & Plan Assessment & Plan (1) COPD exacerbation: Status: Acute Code(s): J44.1 - Chronic obstructive pulmonary disease with (acute) exacerbation Plan 76 year old male with history htn, COPD, BPH, schizophrenia, and dementia admitted to psychiatry with consult placed for COPD exacerbation. Acute COPD exacerbation- Clinically improving, no hypoxia. Lungs clear CXR negative, CTA negative for PE Leukocytosis trending down, likely from steroid use -Continue doxycycline x 5 days total of antibiotics -Continue prednisone x 5 days -Duonebs prn -Continue incentive spirometry with supervision -continue home inhalers - recommend outpatient follow up with PCP HTN, uncontrolled would increase norvasc to 10 mg daily continue lisionopril Psychiatry 1. Discontinue Trileptal right now. 2. Start Depakote 125 p.o. t.i.d.. 3. Add Seroquel 100 mg p.o. q.h.s. since he is not sleeping and still has level mood. 4. UA I spent __20____ minutes with the patient and/or on the patient floor today, greater than?50% of which was spent counseling/coordinating care. Reason for contiued inpatient stay Substantial Risk for: inability to function, rapid decompensation and med/psych decompensation
[2022-08-19 16:28] VITALS: BP 177/89; PULSE 94; RESP 18; TEMP 36.8
[2022-08-19] MEDS: QUEtiapine Fumarate 100 MG TABLET PO (21:20)
[2022-08-19] MEDS: Atorvastatin Calcium 20 MG TABLET PO (21:20)
[2022-08-19] MEDS: Divalproex Sodium 250 MG TABLET.DR 125 MG PO (21:20)
[2022-08-19] MEDS: Tamsulosin HCL 0.4 MG CAPSULE PO (21:20)
[2022-08-20] MEDS: Acetaminophen 325 MG TABLET 650 MG PO (03:18)
[2022-08-20] MEDS: QUEtiapine Fumarate 50 MG TABLET PO ×4 (03:18→21:01)
[2022-08-20 03:55] LABS: Appearance Urine Clear; Color Urine Yellow; Glucose Urine UA Negative (Negative); Leukocyte Esterase Urine Trace (Negative); Nitrite Urine Negative (Negative); UMIC TRIGGER UACC YES; Urine Blood Negative (Negative); Urine Ketones 15 mg/dL (Negative); Urine Protein 30 (1+) mg/dL (Neg-Trace)
[2022-08-20 04:00] LABS: Bacteria Urine None Seen (None Seen); Hyaline Casts Urine 0-2 /LPF (0-2); RBC Urine 0-2 /HPF (0-2); Squamous Epithelial Cell Urine 0-2 /HPF (0-2); WBC Urine 0-5 /HPF (0-5)
[2022-08-20 08:00] VITALS: BP 112/91; PULSE 91; RESP 18; TEMP 36.6; O2SAT 95
[2022-08-20] MEDS: cloNIDine HCL 0.1 MG TABLET PO ×3 (09:19→21:01)
[2022-08-20] MEDS: ARIPiprazole 20 MG TABLET PO (09:19)
[2022-08-20] MEDS: amLODIPine Besylate 10 MG TABLET PO (09:20)
[2022-08-20] MEDS: lisinopriL 10 MG TABLET PO (09:20)
[2022-08-20] MEDS: Divalproex Sodium Sprinkles 125 MG CAP.DR.SPR PO (09:21)
[2022-08-20] MEDS: Fluticasone/Vilanterol 200/25 BLST.W.DEV 1 PUFF INHALE (09:21)
--- NOTE | 2022-08-20 12:34 | P.PNPSI_ITS ---
Subjective Subjective Date of Service: 08/20/22 Reason For Visit: Schizophrenia,Dementia Subjective Notes: Conditional Voluntary Interim History: The nursing staff reported the patient complained of distended the abdomen and he was more irritable in the evening. Security needed to be called yesterday in the afternoon since he was disrespectful with female staff. It was been noticed by the staff that the patient responded very well to male security staff. On interview the patient denies new symptoms no side effects with any recent changes in his medications. Today we talked with no ME, her healthcare proxy at [phone] and we informed about the new changes that we are doing Mental Status Exam Mental Status Exam Patient Appearance: Appropriate Patient Orientation: Person and Situation Level of Consciousness: Awake Patient Behavior: Cooperative Mood Description: Withdrawn Affect Description: Constricted Patient Cognition Impaired: Yes Ability to Follow Directions: Good Speech Pattern: Clear Hallucinations: None Delusions: Paranoid Ideation Thought Process: Distracted Thought Content: positive for [place] Judgement: Fair Diagnostics Vital Signs (24Hr): Vital Signs - 24 hr 08/19/22 16:28 08/20/22 08:00 Temperature 98.2 F 98 F Pulse Rate 94 91 Respiratory Rate 18 18 Blood Pressure 177/89 H 112/91 H Pulse Oximetry 95 Oxygen Delivery Method Room Air BMI result Body Mass Index 27.6 Labs Results: 08/15/22 08:39 08/19/22 08:49 Labs: Laboratory Results - last 48 hr 08/19/22 08/20/22 08:49 02:30 Sodium 126 L Potassium 5.1 D Chloride 93 L Carbon Dioxide 18 L Anion Gap 20 BUN 19 H Creatinine 1.01 Estim Creat Clear Calc 58.0 Estimated GFR > 60 Random Glucose 107 Calcium 8.6 Urine Color Yellow Urine Appearance Clear Urine pH 6.0 Ur Specific [place] 1.010 Urine Protein 30 (1+) H Urine Glucose (UA) Negative Urine Ketones 15 Urine Blood Negative Urine Nitrite Negative Ur Leukocyte Esterase Trace H Urine RBC 0-2 Urine WBC 0-5 Ur Squamous Epith Cells 0-2 Urine Bacteria None Seen Hyaline Casts 0-2 Imaging Radiology Impressions: ITS Impressions Chest X-Ray 08/08/22 16:36 IMPRESSION: 1. No acute pulmonary process. Chest X-Ray 08/10/22 10:25 IMPRESSION: New subsegmental atelectasis at the left lung base. Chest CTA 08/10/22 14:35 IMPRESSION: 1. No CT evidence of pulmonary emboli. 2. No lung mass or suspicious spiculated nodules, there are few scattered tiny nonspecific lung calcified and noncalcified nodular densities measuring up to 3 mm or less. 3. Coronary calcifications. 4. Pulmonary emphysema. Various management parameters for solitary pulmonary nodules are in the literature. According to the UPDATED 2017 Fleischner Society recommendations, the advised follow-up imaging for solid nodules < 6 mm is: LOW RISK PATIENT: No routine follow-up. HIGH RISK PATIENT: Optional CT at 12 months. Reference: Guidelines for Management of Incidental Pulmonary Nodules Detected on CT Images: From the Fleischner Society 2017. Chest X-Ray 08/12/22 03:50 IMPRESSION: No focal consolidation. Medications Medications Current Medications Acetaminophen (Acetaminophen 325 Mg Tablet) 650 mg PO Q6H PRN PRN Reason: Headache/Pain Mild Scale (1-3) Last Admin: 08/20/22 03:18 Dose: 650 mg Al Hydroxide/Mg Hydroxide (Magnesium Hydrox/Alum Hydrox 30 Ml Oral.Susp) 30 ml PO Q6H PRN PRN Reason: Heartburn/Nausea Amlodipine Besylate (Amlodipine Besylate 10 Mg Tablet) 10 mg PO DAILY [facility]; Protocol Last Admin: 08/20/22 09:20 Dose: 10 mg Aripiprazole (Aripiprazole 20 Mg Tablet) 20 mg PO DAILY [facility] Last Admin: 08/20/22 09:19 Dose: 20 mg Atorvastatin Calcium (Atorvastatin Calcium 20 Mg Tablet) 20 mg PO BEDTIME [facility] Last Admin: 08/19/22 21:20 Dose: 20 mg Clonidine HCl (Clonidine Hcl 0.1 Mg Tablet) 0.1 mg PO TID [facility]; Protocol Last Admin: 08/20/22 09:19 Dose: 0.1 mg Divalproex Sodium (Divalproex Sodium Sprinkles 125 Mg Jonathan.) 125 mg PO TID [facility] Last Admin: 08/20/22 09:21 Dose: 125 mg Doxycycline Hyclate (Doxycycline Hyclate 100 Mg Tablet) 100 mg PO Q12H [facility] Last Admin: 08/20/22 09:19 Dose: 100 mg Fluticasone/Vilanterol (Fluticasone/Vilanterol 200/25 Blst.W.Dev) 1 puff INHALE RDAILY [facility] Last Admin: 08/20/22 09:21 Dose: 1 puff Lisinopril (Lisinopril 10 Mg Tablet) 10 mg PO DAILY [facility]; Protocol Last Admin: 08/20/22 09:20 Dose: 10 mg Magnesium Hydroxide (Milk Of Magnesia 30 Ml Oral.Susp) 30 ml PO DAILY PRN PRN Reason: Constipation Quetiapine Fumarate (Quetiapine Fumarate 50 Mg Tablet) 50 mg PO BID [facility] Last Admin: 08/20/22 09:19 Dose: 50 mg Quetiapine Fumarate (Quetiapine Fumarate 50 Mg Tablet) 50 mg PO Q6H PRN PRN Reason: agitation Last Admin: 08/20/22 11:56 Dose: 50 mg Quetiapine Fumarate (Quetiapine Fumarate 100 Mg Tablet) 100 mg PO BEDTIME [facility] Last Admin: 08/19/22 21:20 Dose: 100 mg Tamsulosin HCl (Tamsulosin Hcl 0.4 Mg Capsule) 0.4 mg PO BEDTIME [facility] Last Admin: 08/19/22 21:20 Dose: 0.4 mg Tiotropium [place] (Tiotropium [place] 18 Mcg Cap.W.Dev) 1 puff INHALE RDAILY [facility] Last Admin: 08/20/22 09:26 Dose: 1 puff Allergies Allergies Allergy/AdvReac Type Severity Reaction Status Date / Time Penicillins [PENICILLINS] Allergy Intermediate RASH Unverified 08/02/20 16:41 Iodinated Contrast Media Allergy Mild HIVES Unverified 08/02/20 16:41 [IV Dye, Iodine Containing Contrast ] penicillin V Allergy Unknown Verified 07/05/18 00:00 Assessment & Plan Assessment & Plan (1) COPD exacerbation: Status: Acute Code(s): J44.1 - Chronic obstructive pulmonary disease with (acute) exacerbation Plan 76 year old male with history htn, COPD, BPH, schizophrenia, and dementia admitted to psychiatry with consult placed for COPD exacerbation. Acute COPD exacerbation- Clinically improving, no hypoxia. Lungs clear CXR negative, CTA negative for PE Leukocytosis trending down, likely from steroid use -Continue doxycycline x 5 days total of antibiotics -Continue prednisone x 5 days -Duonebs prn -Continue incentive spirometry with supervision -continue home inhalers - recommend outpatient follow up with PCP HTN, uncontrolled would increase norvasc to 10 mg daily continue lisionopril Psychiatry 1. Discontinue Trileptal right now. 2. Increase Depakote up to 250 p.o. t.i.d.. 3. Increase Seroquel up to 150 mg p.o. q.h.s. since he is not sleeping and still has labile mood. 4. UA came back with protein in urine I spent __20____ minutes with the patient and/or on the patient floor today, gr eater than?50% of which was spent counseling/coordinating care. Reason for contiued inpatient stay Substantial Risk for: inability to function, rapid decompensation and med/psych decompensation
[2022-08-20] MEDS: Divalproex Sodium Sprinkles 125 MG CAP.DR.SPR 250 MG PO ×2 (15:42→21:01)
--- NOTE | 2022-08-20 16:43 | MHC.SLORD ---
Addendum entered and electronically signed by Rubina Evans MA, CCC-IMPROVEMENT ANALYST 08/20/22 16:55: D.S. Original Note: Speech Language Pathology Order Status: IMPROVEMENT ANALYST attempted to see pt for PO trials. Pt was sitting at dining room table upon arrival. Pt observed to have 1/2 sandwich on plate, small piece of sandwich crust on table, and empty container of ice cream. Pt refused taking additional bites of sandwich or any other food for IMPROVEMENT ANALYST. IMPROVEMENT ANALYST encouraged pt to take water, took 1 sip. Pt observed to cough shortly after sip of water. Pt refused additional sips of liquid. Staff reports pt has baseline cough d/t COPD. Staff reports no coughing episodes observed w/ pt during PO. Staff report pt appears anxious to eat when others are watching. Staff report pt consumes a lot of water, with no observed immediate coughing noted. IMPROVEMENT ANALYST attempted to observe IMPROVEMENT ANALYST at a distance while talking w/ RN. Pt took a few sips of water with no coughing immediately following a sip observed. IMPROVEMENT ANALYST to continue to follow.
[2022-08-20 18:00] VITALS: BP 152/66; PULSE 80; RESP 18; TEMP 36.6; O2SAT 93
[2022-08-20] MEDS: Atorvastatin Calcium 20 MG TABLET PO (21:01)
[2022-08-20] MEDS: Tamsulosin HCL 0.4 MG CAPSULE PO (21:02)
[2022-08-20] MEDS: QUEtiapine Fumarate 50 MG TABLET 150 MG PO (21:02)
[2022-08-21 06:00] VITALS: BP 184/77; PULSE 103; RESP 17; TEMP 36.3; O2SAT 94
[2022-08-21] MEDS: Divalproex Sodium Sprinkles 125 MG CAP.DR.SPR 250 MG PO (09:39)
[2022-08-21] MEDS: amLODIPine Besylate 10 MG TABLET PO (09:39)
[2022-08-21] MEDS: lisinopriL 10 MG TABLET PO (09:39)
[2022-08-21] MEDS: cloNIDine HCL 0.1 MG TABLET PO ×2 (09:39→21:43)
[2022-08-21] MEDS: QUEtiapine Fumarate 50 MG TABLET PO ×3 (09:40→21:43)
--- NOTE | 2022-08-21 15:40 | HO.PSYCHPN ---
Subjective Subjective Date of Service: 08/21/22 Reason For Visit: Schizophrenia,Dementia Subjective Notes: Conditional Voluntary Interim History: The nursing staff reported the patient needed security to be called since he was restless in the evening. Still with lowered mood. On interview the patient denies new symptoms he looks dysphoric and labile at times. Mental Status Exam Mental Status Exam Patient Appearance: Well Grooomed Patient Orientation: Person Level of Consciousness: Awake Patient Behavior: Cooperative Mood Description: Withdrawn Affect Description: Constricted Patient Cognition Impaired: Yes Ability to Follow Directions: Good Speech Pattern: Clear Hallucinations: None Delusions: Paranoid Ideation Thought Process: Distracted and Confusion Thought Content: positive for [place] Judgement: Poor Diagnostics Vital Signs (24Hr): Vital Signs - 24 hr 08/20/22 18:00 08/21/22 06:00 Temperature 98 F 97.4 F Pulse Rate 80 103 H Respiratory Rate 18 17 Blood Pressure 152/66 H 184/77 H Pulse Oximetry 93 94 Oxygen Delivery Method Room Air Room Air BMI result Body Mass Index 27.6 Labs Results: 08/15/22 08:39 08/19/22 08:49 Labs: Laboratory Results - last 48 hr 08/20/22 02:30 Urine Color Yellow Urine Appearance Clear Urine pH 6.0 Ur Specific [place] 1.010 Urine Protein 30 (1+) H Urine Glucose (UA) Negative Urine Ketones 15 Urine Blood Negative Urine Nitrite Negative Ur Leukocyte Esterase Trace H Urine RBC 0-2 Urine WBC 0-5 Ur Squamous Epith Cells 0-2 Urine Bacteria None Seen Hyaline Casts 0-2 Imaging Radiology Impressions: ITS Impressions Chest X-Ray 08/08/22 16:36 IMPRESSION: 1. No acute pulmonary process. Chest X-Ray 08/10/22 10:25 IMPRESSION: New subsegmental atelectasis at the left lung base. Chest CTA 08/10/22 14:35 IMPRESSION: 1. No CT evidence of pulmonary emboli. 2. No lung mass or suspicious spiculated nodules, there are few scattered tiny nonspecific lung calcified and noncalcified nodular densities measuring up to 3 mm or less. 3. Coronary calcifications. 4. Pulmonary emphysema. Various management parameters for solitary pulmonary nodules are in the literature. According to the UPDATED 2017 Fleischner Society recommendations, the advised follow-up imaging for solid nodules < 6 mm is: LOW RISK PATIENT: No routine follow-up. HIGH RISK PATIENT: Optional CT at 12 months. Reference: Guidelines for Management of Incidental Pulmonary Nodules Detected on CT Images: From the Fleischner Society 2017. Chest X-Ray 08/12/22 03:50 IMPRESSION: No focal consolidation. Medications Medications Current Medications Acetaminophen (Acetaminophen 325 Mg Tablet) 650 mg PO Q6H PRN PRN Reason: Headache/Pain Mild Scale (1-3) Last Admin: 08/20/22 03:18 Dose: 650 mg Al Hydroxide/Mg Hydroxide (Magnesium Hydrox/Alum Hydrox 30 Ml Oral.Susp) 30 ml PO Q6H PRN PRN Reason: Heartburn/Nausea Amlodipine Besylate (Amlodipine Besylate 10 Mg Tablet) 10 mg PO DAILY [facility]; Protocol Last Admin: 08/21/22 09:39 Dose: 10 mg Aripiprazole (Aripiprazole 20 Mg Tablet) 20 mg PO DAILY [facility] Last Admin: 08/20/22 09:19 Dose: 20 mg Atorvastatin Calcium (Atorvastatin Calcium 20 Mg Tablet) 20 mg PO BEDTIME [facility] Last Admin: 08/20/22 21:01 Dose: 20 mg Clonidine HCl (Clonidine Hcl 0.1 Mg Tablet) 0.1 mg PO TID [facility]; Protocol Last Admin: 08/21/22 09:39 Dose: 0.1 mg Divalproex Sodium (Divalproex Sodium Er 500 Mg Tab.Er.24h) 1,000 mg PO BEDTIME [facility] Doxycycline Hyclate (Doxycycline Hyclate 100 Mg Tablet) 100 mg PO Q12H [facility] Last Admin: 08/21/22 09:39 Dose: 100 mg Fluticasone/Vilanterol (Fluticasone/Vilanterol 200/25 Blst.W.Dev) 1 puff INHALE RDAILY [facility] Last Admin: 08/21/22 09:43 Dose: Not Given Lisinopril (Lisinopril 10 Mg Tablet) 10 mg PO DAILY [facility]; Protocol Last Admin: 08/21/22 09:39 Dose: 10 mg Magnesium Hydroxide (Milk Of Magnesia 30 Ml Oral.Susp) 30 ml PO DAILY PRN PRN Reason: Constipation Quetiapine Fumarate (Quetiapine Fumarate 50 Mg Tablet) 50 mg PO BID [facility] Last Admin: 08/21/22 09:40 Dose: 50 mg Quetiapine Fumarate (Quetiapine Fumarate 50 Mg Tablet) 50 mg PO Q6H PRN PRN Reason: agitation Last Admin: 08/20/22 11:56 Dose: 50 mg Quetiapine Fumarate (Quetiapine Fumarate 50 Mg Tablet) 150 mg PO BEDTIME [facility] Last Admin: 08/20/22 21:02 Dose: 150 mg Tamsulosin HCl (Tamsulosin Hcl 0.4 Mg Capsule) 0.4 mg PO BEDTIME [facility] Last Admin: 08/20/22 21:02 Dose: 0.4 mg Tiotropium [place] (Tiotropium [place] 18 Mcg Cap.W.Dev) 1 puff INHALE RDAILY [facility] Last Admin: 08/21/22 09:43 Dose: 1 puff Allergies Allergies Allergy/AdvReac Type Severity Reaction Status Date / Time Penicillins [PENICILLINS] Allergy Intermediate RASH Unverified 08/02/20 16:41 Iodinated Contrast Media Allergy Mild HIVES Unverified 08/02/20 16:41 [IV Dye, Iodine Containing Contrast ] penicillin V Allergy Unknown Verified 07/05/18 00:00 Assessment & Plan Assessment & Plan (1) COPD exacerbation: Status: Acute Code(s): J44.1 - Chronic obstructive pulmonary disease with (acute) exacerbation Plan 76 year old male with history htn, COPD, BPH, schizophrenia, and dementia admitted to psychiatry with consult placed for COPD exacerbation. Acute COPD exacerbation- Clinically improving, no hypoxia. Lungs clear CXR negative, CTA negative for PE Leukocytosis trending down, likely from steroid use -Continue doxycycline x 5 days total of antibiotics -Continue prednisone x 5 days -Duonebs prn -Continue incentive spirometry with supervision -continue home inhalers - recommend outpatient follow up with PCP HTN, uncontrolled would increase norvasc to 10 mg daily continue lisionopril Psychiatry 1. Discontinue Trileptal right now. 2. Increase Depakote up to 1000 qhs 3. Increase Seroquel up to 200 mg p.o. q.h.s. since he is not sleeping and still has labile mood. 4. UA came back with protein in urine I spent ___20___ minutes with the patient and/or on the patient floor today, greater than?50% of which was spent counseling/coordinating care. Reason for contiued inpatient stay Substantial Risk for: inability to function, rapid decompensation and med/psych decompensation
[2022-08-21 18:00] VITALS: BP 116/56; PULSE 90; RESP 18; TEMP 36.6; O2SAT 95
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
[2022-08-21] MEDS: Atorvastatin Calcium 20 MG TABLET PO (21:43)
[2022-08-21] MEDS: QUEtiapine Fumarate 200 MG TABLET PO (21:43)
[2022-08-21] MEDS: Divalproex Sodium ER 500 MG TAB.ER.24H 1000 MG PO (21:43)
[2022-08-21] MEDS: Tamsulosin HCL 0.4 MG CAPSULE PO (21:43)
[2022-08-22 06:00] VITALS: BP 148/70; PULSE 88; RESP 18; TEMP 36.7; O2SAT 98
[2022-08-22] MEDS: ARIPiprazole 20 MG TABLET PO (10:08)
[2022-08-22] MEDS: cloNIDine HCL 0.1 MG TABLET PO ×2 (10:08→15:22)
[2022-08-22] MEDS: amLODIPine Besylate 10 MG TABLET PO (10:09)
[2022-08-22] MEDS: lisinopriL 10 MG TABLET PO (10:09)
[2022-08-22] MEDS: QUEtiapine Fumarate 50 MG TABLET PO (10:09)
--- NOTE | 2022-08-22 11:30 | HO.PSYCHPN ---
Subjective Subjective Date of Service: 08/22/22 Reason For Visit: Schizophrenia,Dementia Subjective Notes: Conditional Voluntary Interim History: Pt sitting in chair. Pt denies SI/HI. Pt with bright affect, smiles often. When asked if sad, he states of course not, life is beautiful. He denies mood as good. He denies any pain. Asks this principal technical writer to help him brush teeth, redirected to ask staff. Per nursing, pt slept through the night. No aggression. ordered repeat CMP- check hyponatremia and urine sodium and osmolality. Medication Compliance: Yes Review of Systems Review of Systems Pt not reliable historian but does provide some ROS General: No fevers, malaise Cardiovascular: No chest pain, palpitations, or leg edema Respiratory: No shortness of breath, wheezing, cough Yes all other systems are reviewed and are negative Constitutional: Denies chills and Denies fever(s) Cardiovascular: Denies chest pain, Denies palpitations and Denies dyspnea Respiratory: Denies cough and Denies dyspnea Endocrine: Denies palpitations Mental Status Exam Mental Status Exam Patient Appearance: Well Grooomed Patient Orientation: Person and Place Level of Consciousness: Awake and Appropriate Patient Behavior: Cooperative Mood Description: Happy Affect Description: Constricted Patient Cognition Impaired: Yes Ability to Follow Directions: Good Speech Pattern: Clear Diagnostics Vital Signs (24Hr): Vital Signs - 24 hr 08/22/22 18:00 Temperature 98.1 F Pulse Rate 94 Respiratory Rate 22 H Blood Pressure 154/57 H Pulse Oximetry 93 Oxygen Delivery Method Room Air BMI result Body Mass Index 27.6 Labs Results: 08/22/22 15:44 08/22/22 15:44 Labs: Laboratory Results - last 48 hr 08/22/22 08/22/22 08/22/22 15:44 15:44 15:44 WBC 14.4 H RBC 3.68 L Hgb 11.9 L Hct 34.6 L MCV 94.0 MCH 32.3 MCHC 34.4 RDW 13.0 Plt Count 263 MPV 9.5 Immature Gran % (Auto) 4.7 H Neut % (Auto) 72.3 Lymph % (Auto) 14.9 L [place] % (Auto) 7.2 Eos % (Auto) 0.3 Baso % (Auto) 0.6 Lymph # (Auto) 2.1 [place] # (Auto) 1.0 Eos # (Auto) 0.1 Baso # (Auto) 0.1 Abs Immat Gran (auto) 0.68 H Absolute Neuts (auto) 10.4 H Absolute Nucleated RBC 0.000 Nucleated RBC % (auto) 0.0 Sodium 125 L Potassium 5.2 H Chloride 94 L Carbon Dioxide 20 L Anion Gap 16 BUN 30 H D Creatinine 1.10 Estim Creat Clear Calc 53.3 Estimated GFR > 60 Random Glucose 92 Osmolality 263 L Calcium 8.5 Total Bilirubin 0.5 AST 28 ALT 22 Alkaline Phosphatase 92 Total Protein 6.3 L Albumin 4.0 Imaging Radiology Impressions: ITS Impressions Chest X-Ray 08/08/22 16:36 IMPRESSION: 1. No acute pulmonary process. Chest X-Ray 08/10/22 10:25 IMPRESSION: New subsegmental atelectasis at the left lung base. Chest CTA 08/10/22 14:35 IMPRESSION: 1. No CT evidence of pulmonary emboli. 2. No lung mass or suspicious spiculated nodules, there are few scattered tiny nonspecific lung calcified and noncalcified nodular densities measuring up to 3 mm or less. 3. Coronary calcifications. 4. Pulmonary emphysema. Various management parameters for solitary pulmonary nodules are in the literature. According to the UPDATED 2017 Fleischner Society recommendations, the advised follow-up imaging for solid nodules < 6 mm is: LOW RISK PATIENT: No routine follow-up. HIGH RISK PATIENT: Optional CT at 12 months. Reference: Guidelines for Management of Incidental Pulmonary Nodules Detected on CT Images: From the Fleischner Society 2017. Chest X-Ray 08/12/22 03:50 IMPRESSION: No focal consolidation. Medications Medications Current Medications Acetaminophen (Acetaminophen 325 Mg Tablet) 650 mg PO Q6H PRN PRN Reason: Headache/Pain Mild Scale (1-3) Last Admin: 08/22/22 16:11 Dose: 650 mg Al Hydroxide/Mg Hydroxide (Magnesium Hydrox/Alum Hydrox 30 Ml Oral.Susp) 30 ml PO Q6H PRN PRN Reason: Heartburn/Nausea Amlodipine Besylate (Amlodipine Besylate 10 Mg Tablet) 10 mg PO DAILY [facility]; Protocol Last Admin: 08/22/22 10:09 Dose: 10 mg Aripiprazole (Aripiprazole 20 Mg Tablet) 20 mg PO DAILY [facility] Last Admin: 08/22/22 10:08 Dose: 20 mg Atorvastatin Calcium (Atorvastatin Calcium 20 Mg Tablet) 20 mg PO BEDTIME [facility] Last Admin: 08/22/22 22:17 Dose: Not Given Clonidine HCl (Clonidine Hcl 0.1 Mg Tablet) 0.1 mg PO TID [facility]; Protocol Last Admin: 08/22/22 22:17 Dose: Not Given Divalproex Sodium (Divalproex Sodium Er 500 Mg Tab.Er.24h) 1,000 mg PO BEDTIME [facility] Last Admin: 08/22/22 22:17 Dose: Not Given Doxycycline Hyclate (Doxycycline Hyclate 100 Mg Tablet) 100 mg PO Q12H [facility] Last Admin: 08/22/22 22:17 Dose: Not Given Fluticasone/Vilanterol (Fluticasone/Vilanterol 200/25 Blst.W.Dev) 1 puff INHALE RDAILY [facility] Last Admin: 08/22/22 10:09 Dose: Not Given Magnesium Hydroxide (Milk Of Magnesia 30 Ml Oral.Susp) 30 ml PO DAILY PRN PRN Reason: Constipation Quetiapine Fumarate (Quetiapine Fumarate 50 Mg Tablet) 50 mg PO BID [facility] Last Admin: 08/22/22 22:17 Dose: Not Given Quetiapine Fumarate (Quetiapine Fumarate 50 Mg Tablet) 50 mg PO Q6H PRN PRN Reason: agitation Last Admin: 08/21/22 21:43 Dose: 50 mg Quetiapine Fumarate (Quetiapine Fumarate 200 Mg Tablet) 200 mg PO BEDTIME [facility] Last Admin: 08/22/22 22:18 Dose: Not Given Tamsulosin HCl (Tamsulosin Hcl 0.4 Mg Capsule) 0.4 mg PO BEDTIME [facility] Last Admin: 08/22/22 22:18 Dose: Not Given Tiotropium [place] (Tiotropium [place] 18 Mcg Cap.W.Dev) 1 puff INHALE RDAILY [facility] Last Admin: 08/22/22 10:09 Dose: Not Given Allergies Allergies Allergy/AdvReac Type Severity Reaction Status Date / Time Penicillins [PENICILLINS] Allergy Intermediate RASH Unverified 08/02/20 16:41 Iodinated Contrast Media Allergy Mild HIVES Unverified 08/02/20 16:41 [IV Dye, Iodine Containing Contrast ] penicillin V Allergy Unknown Verified 07/05/18 00:00 Assessment & Plan Assessment & Plan (1) Schizophrenia: Status: Acute Code(s): F20.9 - Schizophrenia, unspecified Plan 76 year old male with history htn, COPD, BPH, schizophrenia, and dementia admitted to psychiatry with consult placed for COPD exacerbation. Acute COPD exacerbation- Clinically improving, no hypoxia. Lungs clear CXR negative, CTA negative for PE Leukocytosis trending down, likely from steroid use -Continue doxycycline x 5 days total of antibiotics -Continue prednisone x 5 days -Duonebs prn -Continue incentive spirometry with supervision -continue home inhalers - recommend outpatient follow up with PCP HTN, uncontrolled would increase norvasc to 10 mg daily continue lisionopril 08/23/2022- continue current medications, ordered new CMP, continues to show hyponatremia, pending urine sodium/osmolality, fluid restriction of 1500cc, slight hyperkalemia, hold lisinopril and recheck. ?chronic leukocitosys as pt does not appear with active infection. I spent minutes with the patient and/or on the patient floor today, greater than?50% of which was spent counseling/coordinating care. Reason for contiued inpatient stay Substantial Risk for: inability to function
[2022-08-22 16:08] LABS: MANUAL DIFF FLAG NO
[2022-08-22] MEDS: Acetaminophen 325 MG TABLET 650 MG PO (16:11)
[2022-08-22 16:12] LABS: Basophils Absolute Auto 0.1 X10*3/uL (0.0-0.2); Basophils Percent Auto 0.6 % (0-2); Eosinophils Absolute Auto 0.1 X10*3/uL (0.0-0.4); Eosinophils Percent Auto 0.3 % (0-4); Hematocrit 34.6 % (42.0-52.0); Hemoglobin 11.9 g/dl (14.0-18.0); Imm Gran Abs Auto 0.68 X10*3/uL (0.00-0.03); Imm Gran Pct Auto 4.7 % (0.0-0.4); Lymphocytes Absolute Auto 2.1 X10*3/uL (1.2-4.9); Lymphocytes Percent Auto 14.9 % (20-40); Mean Corpuscular HGB Conc 34.4 g/dl (31.0-36.0); Mean Corpuscular Hemoglobin 32.3 pg (27.0-33.0); Mean Platelet Volume 9.5 fL (9.4-12.4); Monocytes Percent Auto 7.2 % (2-11); Neutrophils Absolute Auto 10.4 x10*3/uL (2.0-8.3); Neutrophils Percent Auto 72.3 % (45-73); Platelet Count 263 X10*3/uL (160-400); Red Blood Count 3.68 X10*6/uL (4.60-5.80); White Blood Count 14.4 X10*3/uL (4.8-10.8)
[2022-08-22 16:18] LABS: Osmolality, Serum 263 mosm/kg (281-305)
[2022-08-22 16:28] LABS: Alanine Aminotransferase 22 U/L (0-40); Alkaline Phosphatase 92 U/L (39-117); Aspartate Amino Transferase 28 U/L (5-37); Bilirubin Total 0.5 mg/dL (0.0-1.0); Blood Urea Nitrogen 30 mg/dL (9-16); Calcium 8.5 mg/dL (8.4-10.2); Creatinine Clr Calc Pharmacy 53.3; Estimated Glomerular Filt Rate > 60; Glucose Random 92 mg/dL (60-115); Total Protein 6.3 g/dL (6.5-8.0)
[2022-08-22 16:35] LABS: Anion Gap 16 (12-20); Carbon Dioxide 20 mmol/L (22-29); Chloride 94 mmol/L (96-108); Potassium 5.2 mmol/L (3.3-5.1); Sodium 125 mmol/L (135-145)
[2022-08-22 18:00] VITALS: BP 154/57; PULSE 94; RESP 22; TEMP 36.7; O2SAT 93
[2022-08-23 13:44] VITALS: BP 136/62; PULSE 100; RESP 16; TEMP 36.7; O2SAT 94
[2022-08-23] MEDS: amLODIPine Besylate 10 MG TABLET PO (14:25)
[2022-08-23] MEDS: cloNIDine HCL 0.1 MG TABLET PO ×2 (14:25→21:03)
[2022-08-23] MEDS: QUEtiapine Fumarate 50 MG TABLET PO ×2 (14:25→21:03)
[2022-08-23] MEDS: ARIPiprazole 20 MG TABLET PO (14:25)
[2022-08-23] MEDS: Fluticasone/Vilanterol 200/25 BLST.W.DEV 1 PUFF INHALE (14:26)
[2022-08-23 18:00] VITALS: BP 125/57; PULSE 92; RESP 20; TEMP 36.6; O2SAT 93
[2022-08-23] MEDS: QUEtiapine Fumarate 200 MG TABLET PO (21:03)
[2022-08-23] MEDS: Atorvastatin Calcium 20 MG TABLET PO (21:03)
[2022-08-23] MEDS: Tamsulosin HCL 0.4 MG CAPSULE PO (21:04)
[2022-08-23] MEDS: Divalproex Sodium ER 500 MG TAB.ER.24H 1000 MG PO (21:04)
--- NOTE | 2022-08-23 22:52 | HO.PSYCHPN ---
Subjective Subjective Date of Service: 08/23/22 Reason For Visit: Schizophrenia,Dementia Interim History: Patient is calm and pleasant but disorganized. Asking the same question repeatedly. No behavioral problems; patient adherent with medication. Previous provider ordered urine osmolarity due to hyponatremia however patient too disorganized to urinate in a cup as he is already wearing depends. Patient's fluid is restricted to 1500 cc. Will retake serum sodium level and consult hospitalist whether dx requires patient to be straight cathed or not Mental Status Exam Mental Status Exam Patient Appearance: Well Grooomed Patient Orientation: Person and Place Level of Consciousness: Awake and Appropriate Patient Behavior: Cooperative Mood Description: Calm and Appropriate Affect Description: Constricted Patient Cognition Impaired: Yes Ability to Follow Directions: Poor (behavioraly ok, but cannot follow some basic directions such as to urinate in cup) Speech Pattern: Clear Hallucinations: None Delusions: Not Present Thought Process: Goal Oriented (but also disorganized) Thought Content: positive for [place], positive for Tangential, positive for Disorganized, positive for Suicidal Ideation (denies) and positive for Homicidal Ideation (denies) Judgement: Poor Judgement and Insight: impaired Diagnostics Vital Signs (24Hr): Vital Signs - 24 hr 08/23/22 13:44 08/23/22 18:00 Temperature 98.1 F 97.9 F Pulse Rate 100 92 Respiratory Rate 16 20 Blood Pressure 136/62 125/57 L Pulse Oximetry 94 93 Oxygen Delivery Method Room Air Room Air BMI result Body Mass Index 27.6 Labs Results: 08/22/22 15:44 08/22/22 15:44 Labs: Laboratory Results - last 48 hr 08/22/22 08/22/22 08/22/22 15:44 15:44 15:44 WBC 14.4 H RBC 3.68 L Hgb 11.9 L Hct 34.6 L MCV 94.0 MCH 32.3 MCHC 34.4 RDW 13.0 Plt Count 263 MPV 9.5 Immature Gran % (Auto) 4.7 H Neut % (Auto) 72.3 Lymph % (Auto) 14.9 L [place] % (Auto) 7.2 Eos % (Auto) 0.3 Baso % (Auto) 0.6 Lymph # (Auto) 2.1 [place] # (Auto) 1.0 Eos # (Auto) 0.1 Baso # (Auto) 0.1 Abs Immat Gran (auto) 0.68 H Absolute Neuts (auto) 10.4 H Absolute Nucleated RBC 0.000 Nucleated RBC % (auto) 0.0 Sodium 125 L Potassium 5.2 H Chloride 94 L Carbon Dioxide 20 L Anion Gap 16 BUN 30 H D Creatinine 1.10 Estim Creat Clear Calc 53.3 Estimated GFR > 60 Random Glucose 92 Osmolality 263 L Calcium 8.5 Total Bilirubin 0.5 AST 28 ALT 22 Alkaline Phosphatase 92 Total Protein 6.3 L Albumin 4.0 Imaging Radiology Impressions: ITS Impressions Chest X-Ray 08/08/22 16:36 IMPRESSION: 1. No acute pulmonary process. Chest X-Ray 08/10/22 10:25 IMPRESSION: New subsegmental atelectasis at the left lung base. Chest CTA 08/10/22 14:35 IMPRESSION: 1. No CT evidence of pulmonary emboli. 2. No lung mass or suspicious spiculated nodules, there are few scattered tiny nonspecific lung calcified and noncalcified nodular densities measuring up to 3 mm or less. 3. Coronary calcifications. 4. Pulmonary emphysema. Various management parameters for solitary pulmonary nodules are in the literature. According to the UPDATED 2017 Fleischner Society recommendations, the advised follow-up imaging for solid nodules < 6 mm is: LOW RISK PATIENT: No routine follow-up. HIGH RISK PATIENT: Optional CT at 12 months. Reference: Guidelines for Management of Incidental Pulmonary Nodules Detected on CT Images: From the Fleischner Society 2017. Chest X-Ray 08/12/22 03:50 IMPRESSION: No focal consolidation. Medications Medications Current Medications Acetaminophen (Acetaminophen 325 Mg Tablet) 650 mg PO Q6H PRN PRN Reason: Headache/Pain Mild Scale (1-3) Last Admin: 08/22/22 16:11 Dose: 650 mg Al Hydroxide/Mg Hydroxide (Magnesium Hydrox/Alum Hydrox 30 Ml Oral.Susp) 30 ml PO Q6H PRN PRN Reason: Heartburn/Nausea Amlodipine Besylate (Amlodipine Besylate 10 Mg Tablet) 10 mg PO DAILY [facility]; Protocol Last Admin: 08/23/22 14:25 Dose: 10 mg Aripiprazole (Aripiprazole 20 Mg Tablet) 20 mg PO DAILY [facility] Last Admin: 08/23/22 14:25 Dose: 20 mg Atorvastatin Calcium (Atorvastatin Calcium 20 Mg Tablet) 20 mg PO BEDTIME [facility] Last Admin: 08/23/22 21:03 Dose: 20 mg Clonidine HCl (Clonidine Hcl 0.1 Mg Tablet) 0.1 mg PO TID [facility]; Protocol Last Admin: 08/23/22 21:03 Dose: 0.1 mg Divalproex Sodium (Divalproex Sodium Er 500 Mg Tab.Er.24h) 1,000 mg PO BEDTIME [facility] Last Admin: 08/23/22 21:04 Dose: 1,000 mg Doxycycline Hyclate (Doxycycline Hyclate 100 Mg Tablet) 100 mg PO Q12H [facility] Last Admin: 08/23/22 21:04 Dose: 100 mg Fluticasone/Vilanterol (Fluticasone/Vilanterol 200/25 Blst.W.Dev) 1 puff INHALE RDAILY [facility] Last Admin: 08/23/22 14:26 Dose: 1 puff Magnesium Hydroxide (Milk Of Magnesia 30 Ml Oral.Susp) 30 ml PO DAILY PRN PRN Reason: Constipation Quetiapine Fumarate (Quetiapine Fumarate 50 Mg Tablet) 50 mg PO BID [facility] Last Admin: 08/23/22 21:03 Dose: 50 mg Quetiapine Fumarate (Quetiapine Fumarate 50 Mg Tablet) 50 mg PO Q6H PRN PRN Reason: agitation Last Admin: 08/21/22 21:43 Dose: 50 mg Quetiapine Fumarate (Quetiapine Fumarate 200 Mg Tablet) 200 mg PO BEDTIME [facility] Last Admin: 08/23/22 21:03 Dose: 200 mg Tamsulosin HCl (Tamsulosin Hcl 0.4 Mg Capsule) 0.4 mg PO BEDTIME [facility] Last Admin: 08/23/22 21:04 Dose: 0.4 mg Tiotropium [place] (Tiotropium [place] 18 Mcg Cap.W.Dev) 1 puff INHALE RDAILY [facility] Last Admin: 08/23/22 14:26 Dose: 1 puff Allergies Allergies Allergy/AdvReac Type Severity Reaction Status Date / Time Penicillins [PENICILLINS] Allergy Intermediate RASH Unverified 08/02/20 16:41 Iodinated Contrast Media Allergy Mild HIVES Unverified 08/02/20 16:41 [IV Dye, Iodine Containing Contrast ] penicillin V Allergy Unknown Verified 07/05/18 00:00 Assessment & Plan Assessment & Plan (1) Schizophrenia: Status: Acute Code(s): F20.9 - Schizophrenia, unspecified Plan 76 year old male with history htn, COPD, BPH, schizophrenia, and dementia admitted to psychiatry with consult placed for COPD exacerbation. Acute COPD exacerbation- Clinically improving, no hypoxia. Lungs clear CXR negative, CTA negative for PE Leukocytosis trending down, likely from steroid use -Continue doxycycline x 5 days total of antibiotics -Continue prednisone x 5 days -Duonebs prn -Continue incentive spirometry with supervision -continue home inhalers - recommend outpatient follow up with PCP HTN, uncontrolled would increase norvasc to 10 mg daily continue lisionopril (08/22/22 ???)08/23/2022- continue current medications, ordered new CMP, continues to show hyponatremia, pending urine sodium/osmolality, fluid restriction of 1500cc, slight hyperkalemia, hold lisinopril and recheck. ?chronic leukocitosys as pt does not appear with active infection. 08/23 Previous provider ordered urine osmolarity due to hyponatremia however patient too disorganized to urinate in a cup as he is already wearing depends. Patient's fluid is restricted to 1500 cc. Will retake serum sodium level and consult hospitalist whether dx requires patient to be straight cathed or not I spent minutes with the patient and/or on the patient floor today, greater than?50% of which was spent counseling/coordinating care. Patient educated on: medical condition Informed Consent: does not understand and further education needed Reason for contiued inpatient stay Substantial Risk for: inability to function
[2022-08-24 09:30] VITALS: BP 148/67; PULSE 100; RESP 16; TEMP 36.8; O2SAT 93
[2022-08-24] MEDS: Fluticasone/Vilanterol 200/25 BLST.W.DEV 1 PUFF INHALE (09:56)
[2022-08-24] MEDS: cloNIDine HCL 0.1 MG TABLET PO ×3 (09:57→22:22)
[2022-08-24] MEDS: amLODIPine Besylate 10 MG TABLET PO (09:57)
[2022-08-24] MEDS: QUEtiapine Fumarate 50 MG TABLET PO ×2 (09:57→22:23)
[2022-08-24] MEDS: ARIPiprazole 20 MG TABLET PO (09:57)
[2022-08-24 12:25] LABS: Anion Gap 16 (12-20); Blood Urea Nitrogen 19 mg/dL (9-16); Carbon Dioxide 18 mmol/L (22-29); Chloride 95 mmol/L (96-108); Creatinine Clr Calc Pharmacy 52.8; Estimated Glomerular Filt Rate > 60; Potassium 4.7 mmol/L (3.3-5.1); Sodium 124 mmol/L (135-145)
[2022-08-24 15:15] VITALS: BP 135/77
[2022-08-24 18:00] VITALS: BP 108/51; PULSE 83; RESP 16; TEMP 36.8; O2SAT 93
--- NOTE | 2022-08-24 18:41 | HO.PSYCHPN ---
Subjective Subjective Date of Service: 08/24/22 Reason For Visit: Schizophrenia,Dementia Interim History: Patient remains disorganized. On approach patient very much wants to show adjusto writer operator's arm however when asked about it with German-speaking staff he cannot say what his intention is and has no clear question about. Staff reports that patient is hardly eating however he is drinking copious amounts of fluid. Floor staff was unaware that there was a fluid restriction placed on patient. Mental Status Exam Mental Status Exam Patient Appearance: Well Grooomed Patient Orientation: Person Level of Consciousness: Awake Patient Behavior: Cooperative (on most things; also disorganized) Mood Description: Appropriate and Anxious Affect Description: Constricted and Anxious Patient Cognition Impaired: Yes Ability to Follow Directions: Poor (behavioraly ok, but cannot follow some basic directions such as to urinate in cup) Speech Pattern: Clear Hallucinations: None Delusions: Not Present Thought Process: Goal Oriented (but also disorganized) Thought Content: positive for [place], positive for Tangential, positive for Disorganized, positive for Suicidal Ideation (denies) and positive for Homicidal Ideation (denies) Judgement: Poor Judgement and Insight: impaired Diagnostics Vital Signs (24Hr): Vital Signs - 24 hr 08/24/22 09:30 08/24/22 15:15 Temperature 98.3 F Pulse Rate 100 Respiratory Rate 16 Blood Pressure 148/67 H 135/77 Pulse Oximetry 93 Oxygen Delivery Method Room Air BMI result Body Mass Index 27.6 Labs Results: 08/22/22 15:44 08/24/22 11:32 Labs: Laboratory Results - last 48 hr 08/24/22 11:32 Sodium 124 L Potassium 4.7 Chloride 95 L Carbon Dioxide 18 L Anion Gap 16 BUN 19 H Creatinine 1.11 Estim Creat Clear Calc 52.8 Estimated GFR > 60 Imaging Radiology Impressions: ITS Impressions Chest X-Ray 08/08/22 16:36 IMPRESSION: 1. No acute pulmonary process. Chest X-Ray 08/10/22 10:25 IMPRESSION: New subsegmental atelectasis at the left lung base. Chest CTA 08/10/22 14:35 IMPRESSION: 1. No CT evidence of pulmonary emboli. 2. No lung mass or suspicious spiculated nodules, there are few scattered tiny nonspecific lung calcified and noncalcified nodular densities measuring up to 3 mm or less. 3. Coronary calcifications. 4. Pulmonary emphysema. Various management parameters for solitary pulmonary nodules are in the literature. According to the UPDATED 2017 Fleischner Society recommendations, the advised follow-up imaging for solid nodules < 6 mm is: LOW RISK PATIENT: No routine follow-up. HIGH RISK PATIENT: Optional CT at 12 months. Reference: Guidelines for Management of Incidental Pulmonary Nodules Detected on CT Images: From the Fleischner Society 2017. Chest X-Ray 08/12/22 03:50 IMPRESSION: No focal consolidation. Medications Medications Current Medications Acetaminophen (Acetaminophen 325 Mg Tablet) 650 mg PO Q6H PRN PRN Reason: Headache/Pain Mild Scale (1-3) Last Admin: 08/22/22 16:11 Dose: 650 mg Al Hydroxide/Mg Hydroxide (Magnesium Hydrox/Alum Hydrox 30 Ml Oral.Susp) 30 ml PO Q6H PRN PRN Reason: Heartburn/Nausea Amlodipine Besylate (Amlodipine Besylate 10 Mg Tablet) 10 mg PO DAILY [facility]; Protocol Last Admin: 08/24/22 09:57 Dose: 10 mg Aripiprazole (Aripiprazole 20 Mg Tablet) 20 mg PO DAILY [facility] Last Admin: 08/24/22 09:57 Dose: 20 mg Atorvastatin Calcium (Atorvastatin Calcium 20 Mg Tablet) 20 mg PO BEDTIME [facility] Last Admin: 08/23/22 21:03 Dose: 20 mg Clonidine HCl (Clonidine Hcl 0.1 Mg Tablet) 0.1 mg PO TID [facility]; Protocol Last Admin: 08/24/22 15:16 Dose: 0.1 mg Divalproex Sodium (Divalproex Sodium Er 500 Mg Tab.Er.24h) 1,000 mg PO BEDTIME [facility] Last Admin: 08/23/22 21:04 Dose: 1,000 mg Doxycycline Hyclate (Doxycycline Hyclate 100 Mg Tablet) 100 mg PO Q12H [facility] Last Admin: 08/24/22 09:57 Dose: 100 mg Fluticasone/Vilanterol (Fluticasone/Vilanterol 200/25 Blst.W.Dev) 1 puff INHALE RDAILY [facility] Last Admin: 08/24/22 09:56 Dose: 1 puff Magnesium Hydroxide (Milk Of Magnesia 30 Ml Oral.Susp) 30 ml PO DAILY PRN PRN Reason: Constipation Quetiapine Fumarate (Quetiapine Fumarate 50 Mg Tablet) 50 mg PO BID [facility] Last Admin: 08/24/22 09:57 Dose: 50 mg Quetiapine Fumarate (Quetiapine Fumarate 50 Mg Tablet) 50 mg PO Q6H PRN PRN Reason: agitation Last Admin: 08/21/22 21:43 Dose: 50 mg Quetiapine Fumarate (Quetiapine Fumarate 200 Mg Tablet) 200 mg PO BEDTIME [facility] Last Admin: 08/23/22 21:03 Dose: 200 mg Tamsulosin HCl (Tamsulosin Hcl 0.4 Mg Capsule) 0.4 mg PO BEDTIME [facility] Last Admin: 08/23/22 21:04 Dose: 0.4 mg Tiotropium [place] (Tiotropium [place] 18 Mcg Cap.W.Dev) 1 puff INHALE RDAILY [facility] Last Admin: 08/24/22 09:56 Dose: 1 puff Allergies Allergies Allergy/AdvReac Type Severity Reaction Status Date / Time Penicillins [PENICILLINS] Allergy Intermediate RASH Unverified 08/02/20 16:41 Iodinated Contrast Media Allergy Mild HIVES Unverified 08/02/20 16:41 [IV Dye, Iodine Containing Contrast ] penicillin V Allergy Unknown Verified 07/05/18 00:00 Assessment & Plan Assessment & Plan (1) Schizophrenia: Status: Acute Code(s): F20.9 - Schizophrenia, unspecified Plan 76 year old male with history htn, COPD, BPH, schizophrenia, and dementia admitted to psychiatry with consult placed for COPD exacerbation. Acute COPD exacerbation- Clinically improving, no hypoxia. Lungs clear CXR negative, CTA negative for PE Leukocytosis trending down, likely from steroid use -Continue doxycycline x 5 days total of antibiotics -Continue prednisone x 5 days -Duonebs prn -Continue incentive spirometry with supervision -continue home inhalers - recommend outpatient follow up with PCP HTN, uncontrolled would increase norvasc to 10 mg daily continue lisionopril (08/22/22 ???)08/23/2022- continue current medications, ordered new CMP, continues to show hyponatremia, pending urine sodium/osmolality, fluid restriction of 1500cc, slight hyperkalemia, hold lisinopril and recheck. ?chronic leukocitosys as pt does not appear with active infection. 08/23 Previous provider ordered urine osmolarity due to hyponatremia however patient too disorganized to urinate in a cup as he is already wearing depends. Patient's fluid is restricted to 1500 cc. Will retake serum sodium level and consult hospitalist whether dx requires patient to be straight cathed or not 08/23 continue same regimen Hyponatremia: -repeat labs show continued hyponatremia however it is stabilized -although patient was Supposed to be fluid restricted to 1500 cc, but miscommunication occurred and patient has continued to drink copious amounts of water likely accounting for hyponatremia. This has been corrected and all staff seems to be on board and will restrict patient's fluid intake. Will recheck sodium. Staff can continue to attempt to get him to urinate in a cup (thus far proved impossible), however currently adjusto writer operator does not see need to straight cath patient for urine sodium. Will continue to assess I spent minutes with the patient and/or on the patient floor today, greater than?50% of which was spent counseling/coordinating care. Informed Consent: does not understand Reason for contiued inpatient stay Substantial Risk for: inability to function
[2022-08-24] MEDS: QUEtiapine Fumarate 200 MG TABLET PO (22:21)
[2022-08-24] MEDS: Tamsulosin HCL 0.4 MG CAPSULE PO (22:23)
[2022-08-25 07:30] VITALS: BP 136/61; PULSE 106; RESP 16; TEMP 36.4; O2SAT 93
[2022-08-25] MEDS: Fluticasone/Vilanterol 200/25 BLST.W.DEV 1 PUFF INHALE (10:58)
[2022-08-25] MEDS: ARIPiprazole 20 MG TABLET PO (11:00)
[2022-08-25] MEDS: cloNIDine HCL 0.1 MG TABLET PO ×2 (11:00→20:33)
--- NOTE | 2022-08-25 16:28 | HO.PSYCHPN ---
Subjective Subjective Date of Service: 08/25/22 Reason For Visit: Schizophrenia,Dementia Interim History: Disorganized speech and behavior; staff able to keep patient limited to 1500 cc fluid Mental Status Exam Mental Status Exam Patient Appearance: Well Grooomed Patient Orientation: Person Level of Consciousness: Awake Patient Behavior: Cooperative (on most things; also disorganized) Mood Description: Appropriate and Anxious Affect Description: Constricted and Anxious Patient Cognition Impaired: Yes Ability to Follow Directions: Poor (behavioraly ok, but cannot follow some basic directions such as to urinate in cup) Speech Pattern: Clear Hallucinations: None Delusions: Not Present Thought Process: Goal Oriented (but also disorganized) Thought Content: positive for [place], positive for Tangential, positive for Disorganized, positive for Suicidal Ideation (denies) and positive for Homicidal Ideation (denies) Judgement: Poor Judgement and Insight: impaired Diagnostics Vital Signs (24Hr): Vital Signs - 24 hr 08/24/22 18:00 08/25/22 07:30 Temperature 98.2 F 97.5 F Pulse Rate 83 106 H Respiratory Rate 16 16 Blood Pressure 108/51 L 136/61 Pulse Oximetry 93 93 Oxygen Delivery Method Room Air Room Air BMI result Body Mass Index 27.6 Labs Results: 08/22/22 15:44 08/25/22 17:13 Labs: Laboratory Results - last 48 hr 08/24/22 11:32 Sodium 124 L Potassium 4.7 Chloride 95 L Carbon Dioxide 18 L Anion Gap 16 BUN 19 H Creatinine 1.11 Estim Creat Clear Calc 52.8 Estimated GFR > 60 Imaging Radiology Impressions: ITS Impressions Chest X-Ray 08/08/22 16:36 IMPRESSION: 1. No acute pulmonary process. Chest X-Ray 08/10/22 10:25 IMPRESSION: New subsegmental atelectasis at the left lung base. Chest CTA 08/10/22 14:35 IMPRESSION: 1. No CT evidence of pulmonary emboli. 2. No lung mass or suspicious spiculated nodules, there are few scattered tiny nonspecific lung calcified and noncalcified nodular densities measuring up to 3 mm or less. 3. Coronary calcifications. 4. Pulmonary emphysema. Various management parameters for solitary pulmonary nodules are in the literature. According to the UPDATED 2017 Fleischner Society recommendations, the advised follow-up imaging for solid nodules < 6 mm is: LOW RISK PATIENT: No routine follow-up. HIGH RISK PATIENT: Optional CT at 12 months. Reference: Guidelines for Management of Incidental Pulmonary Nodules Detected on CT Images: From the Fleischner Society 2017. Chest X-Ray 08/12/22 03:50 IMPRESSION: No focal consolidation. Medications Medications Current Medications Acetaminophen (Acetaminophen 325 Mg Tablet) 650 mg PO Q6H PRN PRN Reason: Headache/Pain Mild Scale (1-3) Last Admin: 08/22/22 16:11 Dose: 650 mg Al Hydroxide/Mg Hydroxide (Magnesium Hydrox/Alum Hydrox 30 Ml Oral.Susp) 30 ml PO Q6H PRN PRN Reason: Heartburn/Nausea Amlodipine Besylate (Amlodipine Besylate 10 Mg Tablet) 10 mg PO DAILY [facility]; Protocol Last Admin: 08/25/22 12:12 Dose: Not Given Aripiprazole (Aripiprazole 20 Mg Tablet) 20 mg PO DAILY [facility] Last Admin: 08/25/22 11:00 Dose: 20 mg Atorvastatin Calcium (Atorvastatin Calcium 20 Mg Tablet) 20 mg PO BEDTIME [facility] Last Admin: 08/24/22 22:52 Dose: Not Given Clonidine HCl (Clonidine Hcl 0.1 Mg Tablet) 0.1 mg PO TID [facility]; Protocol Last Admin: 08/25/22 11:00 Dose: 0.1 mg Divalproex Sodium (Divalproex Sodium Sprinkles 125 Mg Cap.Spr) 375 mg PO BID [facility] Fluticasone/Vilanterol (Fluticasone/Vilanterol 200/25 Blst.W.Dev) 1 puff INHALE RDAILY [facility] Last Admin: 08/25/22 10:58 Dose: 1 puff Magnesium Hydroxide (Milk Of Magnesia 30 Ml Oral.Susp) 30 ml PO DAILY PRN PRN Reason: Constipation Quetiapine Fumarate (Quetiapine Fumarate 50 Mg Tablet) 50 mg PO BID [facility] Last Admin: 08/25/22 12:12 Dose: Not Given Quetiapine Fumarate (Quetiapine Fumarate 50 Mg Tablet) 50 mg PO Q6H PRN PRN Reason: agitation Last Admin: 08/21/22 21:43 Dose: 50 mg Quetiapine Fumarate (Quetiapine Fumarate 200 Mg Tablet) 200 mg PO BEDTIME [facility] Last Admin: 08/24/22 22:21 Dose: 200 mg Tamsulosin HCl (Tamsulosin Hcl 0.4 Mg Capsule) 0.4 mg PO BEDTIME [facility] Last Admin: 08/24/22 22:23 Dose: 0.4 mg Tiotropium [place] (Tiotropium [place] 18 Mcg Cap.W.Dev) 1 puff INHALE RDAILY [facility] Last Admin: 08/25/22 10:57 Dose: 1 puff Allergies Allergies Allergy/AdvReac Type Severity Reaction Status Date / Time Penicillins [PENICILLINS] Allergy Intermediate RASH Unverified 08/02/20 16:41 Iodinated Contrast Media Allergy Mild HIVES Unverified 08/02/20 16:41 [IV Dye, Iodine Containing Contrast ] penicillin V Allergy Unknown Verified 07/05/18 00:00 Assessment & Plan Assessment & Plan (1) Schizophrenia: Status: Acute Code(s): F20.9 - Schizophrenia, unspecified Plan 76 year old male with history htn, COPD, BPH, schizophrenia, and dementia admitted to psychiatry with consult placed for COPD exacerbation. Acute COPD exacerbation- Clinically improving, no hypoxia. Lungs clear CXR negative, CTA negative for PE Leukocytosis trending down, likely from steroid use -Continue doxycycline x 5 days total of antibiotics -Continue prednisone x 5 days -Duonebs prn -Continue incentive spirometry with supervision -continue home inhalers - recommend outpatient follow up with PCP HTN, uncontrolled would increase norvasc to 10 mg daily continue lisionopril (08/22/22 ???)08/23/2022- continue current medications, ordered new CMP, continues to show hyponatremia, pending urine sodium/osmolality, fluid restriction of 1500cc, slight hyperkalemia, hold lisinopril and recheck. ?chronic leukocitosys as pt does not appear with active infection. 08/23 Previous provider ordered urine osmolarity due to hyponatremia however patient too disorganized to urinate in a cup as he is already wearing depends. Patient's fluid is restricted to 1500 cc. Will retake serum sodium level and consult hospitalist whether dx requires patient to be straight cathed or not 08/24 continue same regimen Hyponatremia: -repeat labs show continued hyponatremia however it is stabilized -although patient was Supposed to be fluid restricted to 1500 cc, but miscommunication occurred and patient has continued to drink copious amounts of water likely accounting for hyponatremia. This has been corrected and all staff seems to be on board and will restrict patient's fluid intake. Will recheck sodium. Staff can continue to attempt to get him to urinate in a cup (thus far proved impossible), however currently press writer does not see need to straight cath patient for urine sodium. Will continue to assess 08/25 Sodium improved to 129 with patient actually restricted of 1500 cc fluid Continue restriction Concern for penile yeast infection. Patient will not tolerate topical so will order fluconazole 150 mg 1 time dose I spent minutes with the patient and/or on the patient floor today, greater than?50% of which was spent counseling/coordinating care. Patient educated on: diagnosis Informed Consent: does not understand Reason for contiued inpatient stay Substantial Risk for: inability to function
[2022-08-25 17:34] LABS: Anion Gap 17 (12-20); Carbon Dioxide 20 mmol/L (22-29); Chloride 96 mmol/L (96-108); Potassium 5.1 mmol/L (3.3-5.1); Sodium 128 mmol/L (135-145)
[2022-08-25 18:00] VITALS: RESP 16
[2022-08-25] MEDS: Tamsulosin HCL 0.4 MG CAPSULE PO (20:32)
[2022-08-25] MEDS: Divalproex Sodium Sprinkles 125 MG CAP.DR.SPR 375 MG PO (20:33)
[2022-08-25] MEDS: QUEtiapine Fumarate 200 MG TABLET PO (20:33)
[2022-08-25] MEDS: QUEtiapine Fumarate 50 MG TABLET PO (20:34)
--- NOTE | 2022-08-26 17:19 | HO.PSYCHPN ---
Subjective Subjective Date of Service: 08/26/22 Reason For Visit: Schizophrenia,Dementia Subjective Notes: Conditional Voluntary Interim History: The nursing staff reported the patient was isolative inappropriate in the abdomen evening and swearing and visible in the unit. He has been confused and he has not attend to groups. Over the weekend his fluid intake was restricted to 1500 cc a day since his sodium was low. Sodium of today is 128. The social service agency director talk with the healthcare proxy and explained the situation. On interview the patient denies new symptoms he looks confused but it seems that his impulsivity has lowered with Depakote. Over the weekend the Depakote was lowered to 750 mg a day Mental Status Exam Mental Status Exam Patient Appearance: Well Grooomed Patient Orientation: Person and Situation Level of Consciousness: Awake Patient Behavior: Cooperative Mood Description: Constricted Affect Description: Withdrawn Patient Cognition Impaired: Yes Ability to Follow Directions: Good Speech Pattern: Clear Hallucinations: None Delusions: Not Present Thought Process: Distracted Thought Content: positive for Circumstantial Judgement: Poor Diagnostics Vital Signs (24Hr): Vital Signs - 24 hr 08/25/22 18:00 Respiratory Rate 16 BMI result Body Mass Index 27.6 Labs Results: 08/22/22 15:44 08/25/22 17:13 Labs: Laboratory Results - last 48 hr 08/25/22 17:13 Sodium 128 L Potassium 5.1 Chloride 96 Carbon Dioxide 20 L Anion Gap 17 Imaging Radiology Impressions: ITS Impressions Chest X-Ray 08/08/22 16:36 IMPRESSION: 1. No acute pulmonary process. Chest X-Ray 08/10/22 10:25 IMPRESSION: New subsegmental atelectasis at the left lung base. Chest CTA 08/10/22 14:35 IMPRESSION: 1. No CT evidence of pulmonary emboli. 2. No lung mass or suspicious spiculated nodules, there are few scattered tiny nonspecific lung calcified and noncalcified nodular densities measuring up to 3 mm or less. 3. Coronary calcifications. 4. Pulmonary emphysema. Various management parameters for solitary pulmonary nodules are in the literature. According to the UPDATED 2017 Fleischner Society recommendations, the advised follow-up imaging for solid nodules < 6 mm is: LOW RISK PATIENT: No routine follow-up. HIGH RISK PATIENT: Optional CT at 12 months. Reference: Guidelines for Management of Incidental Pulmonary Nodules Detected on CT Images: From the Fleischner Society 2017. Chest X-Ray 08/12/22 03:50 IMPRESSION: No focal consolidation. Medications Medications Current Medications Acetaminophen (Acetaminophen 325 Mg Tablet) 650 mg PO Q6H PRN PRN Reason: Headache/Pain Mild Scale (1-3) Last Admin: 08/22/22 16:11 Dose: 650 mg Al Hydroxide/Mg Hydroxide (Magnesium Hydrox/Alum Hydrox 30 Ml Oral.Susp) 30 ml PO Q6H PRN PRN Reason: Heartburn/Nausea Amlodipine Besylate (Amlodipine Besylate 10 Mg Tablet) 10 mg PO DAILY [facility]; Protocol Last Admin: 08/26/22 10:42 Dose: Not Given Aripiprazole (Aripiprazole 20 Mg Tablet) 20 mg PO DAILY [facility] Last Admin: 08/26/22 10:42 Dose: Not Given Atorvastatin Calcium (Atorvastatin Calcium 20 Mg Tablet) 20 mg PO BEDTIME [facility] Last Admin: 08/25/22 20:40 Dose: Not Given Clonidine HCl (Clonidine Hcl 0.1 Mg Tablet) 0.1 mg PO TID [facility]; Protocol Last Admin: 08/26/22 15:56 Dose: Not Given Divalproex Sodium (Divalproex Sodium Sprinkles 125 Mg Cap.Dr.Spr) 375 mg PO BID [facility] Last Admin: 08/26/22 10:43 Dose: Not Given Fluticasone/Vilanterol (Fluticasone/Vilanterol 200/25 Blst.W.Dev) 1 puff INHALE RDAILY [facility] Last Admin: 08/26/22 10:41 Dose: Not Given Magnesium Hydroxide (Milk Of Magnesia 30 Ml Oral.Susp) 30 ml PO DAILY PRN PRN Reason: Constipation Quetiapine Fumarate (Quetiapine Fumarate 50 Mg Tablet) 50 mg PO BID [facility] Last Admin: 08/26/22 10:43 Dose: Not Given Quetiapine Fumarate (Quetiapine Fumarate 50 Mg Tablet) 50 mg PO Q6H PRN PRN Reason: agitation Last Admin: 08/21/22 21:43 Dose: 50 mg Quetiapine Fumarate (Quetiapine Fumarate 200 Mg Tablet) 200 mg PO BEDTIME [facility] Last Admin: 08/25/22 20:33 Dose: 200 mg Tamsulosin HCl (Tamsulosin Hcl 0.4 Mg Capsule) 0.4 mg PO BEDTIME [facility] Last Admin: 08/25/22 20:32 Dose: 0.4 mg Tiotropium [place] (Tiotropium [place] 18 Mcg Cap.W.Dev) 1 puff INHALE RDAILY [facility] Last Admin: 08/26/22 10:41 Dose: Not Given Allergies Allergies Allergy/AdvReac Type Severity Reaction Status Date / Time Penicillins [PENICILLINS] Allergy Intermediate RASH Unverified 08/02/20 16:41 Iodinated Contrast Media Allergy Mild HIVES Unverified 08/02/20 16:41 [IV Dye, Iodine Containing Contrast ] penicillin V Allergy Unknown Verified 07/05/18 00:00 Assessment & Plan Assessment & Plan (1) Schizophrenia: Status: Acute Code(s): F20.9 - Schizophrenia, unspecified Plan 76 year old male with history htn, COPD, BPH, schizophrenia, and dementia admitted to psychiatry with consult placed for COPD exacerbation. Acute COPD exacerbation- Clinically improving, no hypoxia. Lungs clear CXR negative, CTA negative for PE Leukocytosis trending down, likely from steroid use -Continue doxycycline x 5 days total of antibiotics -Continue prednisone x 5 days -Duonebs prn -Continue incentive spirometry with supervision -continue home inhalers - recommend outpatient follow up with PCP HTN, uncontrolled would increase norvasc to 10 mg daily continue lisionopril Psychiatry Continue with Depakote, Seroquel and Abilify. I spent __20____ minutes with the patient and/or on the patient floor today, greater than?50% of which was spent counseling/coordinating care. Reason for contiued inpatient stay Substantial Risk for: inability to function, rapid decompensation and med/psych decompensation
[2022-08-26 19:00] VITALS: BP 180/84; PULSE 101; RESP 18; TEMP 36.6; O2SAT 95
[2022-08-26] MEDS: Tamsulosin HCL 0.4 MG CAPSULE PO (20:24)
[2022-08-26] MEDS: QUEtiapine Fumarate 200 MG TABLET PO (20:24)
[2022-08-26] MEDS: QUEtiapine Fumarate 50 MG TABLET PO (20:24)
[2022-08-26] MEDS: Acetaminophen 325 MG TABLET 650 MG PO (20:25)
[2022-08-27] MEDS: Fluticasone/Vilanterol 200/25 BLST.W.DEV 1 PUFF INHALE (10:16)
[2022-08-27] MEDS: Divalproex Sodium Sprinkles 125 MG CAP.DR.SPR 375 MG PO (10:17)
[2022-08-27] MEDS: QUEtiapine Fumarate 50 MG TABLET PO (10:18)
[2022-08-27] MEDS: amLODIPine Besylate 10 MG TABLET PO (10:18)
[2022-08-27] MEDS: cloNIDine HCL 0.1 MG TABLET PO ×2 (10:18→16:52)
[2022-08-27] MEDS: ARIPiprazole 20 MG TABLET PO (10:18)
--- NOTE | 2022-08-27 13:11 | P.PNPSI_ITS ---
Subjective Subjective Date of Service: 08/27/22 Reason For Visit: Schizophrenia,Dementia Subjective Notes: Conditional Voluntary Interim History: The nursing staff reported the patient refused all his meds yesterday he only took Seroquel at night. The social services analyst we called them image changes staff to look about his mental status. We review and discuss the case with the hospitalist and we will order urine osmolarity, sodium urine and a basic metabolic panel for tomorrow morning to rule out if it is SIADH or any other hyponatremic syndrome. On interview the patient remains pleasantly confused.. Mental Status Exam Mental Status Exam Patient Appearance: Well Grooomed Patient Orientation: Person and Situation Level of Consciousness: Awake Patient Behavior: Guarded and Passive Mood Description: Calm Affect Description: Constricted Patient Cognition Impaired: Yes Ability to Follow Directions: Good Speech Pattern: Clear Hallucinations: None Delusions: Paranoid Ideation Thought Process: Illogical and Distracted Thought Content: positive for Circumstantial Judgement: Poor Diagnostics Vital Signs (24Hr): Vital Signs - 24 hr 08/26/22 19:00 Temperature 97.9 F Pulse Rate 101 H Respiratory Rate 18 Blood Pressure 180/84 H Pulse Oximetry 95 Oxygen Delivery Method Room Air BMI result Body Mass Index 27.6 Labs Results: 08/22/22 15:44 08/25/22 17:13 Labs: Laboratory Results - last 48 hr 08/25/22 17:13 Sodium 128 L Potassium 5.1 Chloride 96 Carbon Dioxide 20 L Anion Gap 17 Imaging Radiology Impressions: ITS Impressions Chest X-Ray 08/08/22 16:36 IMPRESSION: 1. No acute pulmonary process. Chest X-Ray 08/10/22 10:25 IMPRESSION: New subsegmental atelectasis at the left lung base. Chest CTA 08/10/22 14:35 IMPRESSION: 1. No CT evidence of pulmonary emboli. 2. No lung mass or suspicious spiculated nodules, there are few scattered tiny nonspecific lung calcified and noncalcified nodular densities measuring up to 3 mm or less. 3. Coronary calcifications. 4. Pulmonary emphysema. Various management parameters for solitary pulmonary nodules are in the literature. According to the UPDATED 2017 Fleischner Society recommendations, the advised follow-up imaging for solid nodules < 6 mm is: LOW RISK PATIENT: No routine follow-up. HIGH RISK PATIENT: Optional CT at 12 months. Reference: Guidelines for Management of Incidental Pulmonary Nodules Detected on CT Images: From the Fleischner Society 2017. Chest X-Ray 08/12/22 03:50 IMPRESSION: No focal consolidation. Medications Medications Current Medications Acetaminophen (Acetaminophen 325 Mg Tablet) 650 mg PO Q6H PRN PRN Reason: Headache/Pain Mild Scale (1-3) Last Admin: 08/26/22 20:25 Dose: 650 mg Al Hydroxide/Mg Hydroxide (Magnesium Hydrox/Alum Hydrox 30 Ml Oral.Susp) 30 ml PO Q6H PRN PRN Reason: Heartburn/Nausea Amlodipine Besylate (Amlodipine Besylate 10 Mg Tablet) 10 mg PO DAILY [facility]; Protocol Last Admin: 08/27/22 10:18 Dose: 10 mg Aripiprazole (Aripiprazole 20 Mg Tablet) 20 mg PO DAILY [facility] Last Admin: 08/27/22 10:18 Dose: 20 mg Atorvastatin Calcium (Atorvastatin Calcium 20 Mg Tablet) 20 mg PO BEDTIME [facility] Last Admin: 08/26/22 23:48 Dose: Not Given Clonidine HCl (Clonidine Hcl 0.1 Mg Tablet) 0.1 mg PO TID [facility]; Protocol Last Admin: 08/27/22 10:18 Dose: 0.1 mg Divalproex Sodium (Divalproex Sodium Sprinkles 125 Mg Cap.Spr) 375 mg PO BID [facility] Last Admin: 08/27/22 10:17 Dose: 375 mg Fluticasone/Vilanterol (Fluticasone/Vilanterol 200/25 Blst.W.Dev) 1 puff INHALE RDAILY [facility] Last Admin: 08/27/22 10:16 Dose: 1 puff Magnesium Hydroxide (Milk Of Magnesia 30 Ml Oral.Susp) 30 ml PO DAILY PRN PRN Reason: Constipation Quetiapine Fumarate (Quetiapine Fumarate 50 Mg Tablet) 50 mg PO BID [facility] Last Admin: 08/27/22 10:18 Dose: 50 mg Quetiapine Fumarate (Quetiapine Fumarate 50 Mg Tablet) 50 mg PO Q6H PRN PRN Reason: agitation Last Admin: 08/26/22 20:24 Dose: 50 mg Quetiapine Fumarate (Quetiapine Fumarate 200 Mg Tablet) 200 mg PO BEDTIME [facility] Last Admin: 08/26/22 20:24 Dose: 200 mg Tamsulosin HCl (Tamsulosin Hcl 0.4 Mg Capsule) 0.4 mg PO BEDTIME [facility] Last Admin: 08/26/22 20:24 Dose: 0.4 mg Tiotropium [place] (Tiotropium [place] 18 Mcg Cap.W.Dev) 1 puff INHALE RDAILY [facility] Last Admin: 08/27/22 10:16 Dose: 1 puff Allergies Allergies Allergy/AdvReac Type Severity Reaction Status Date / Time Penicillins [PENICILLINS] Allergy Intermediate RASH Unverified 08/02/20 16:41 Iodinated Contrast Media Allergy Mild HIVES Unverified 08/02/20 16:41 [IV Dye, Iodine Containing Contrast ] penicillin V Allergy Unknown Verified 07/05/18 00:00 Assessment & Plan Assessment & Plan (1) Schizophrenia: Status: Acute Code(s): F20.9 - Schizophrenia, unspecified Plan 76 year old male with history htn, COPD, BPH, schizophrenia, and dementia admitted to psychiatry with consult placed for COPD exacerbation. Acute COPD exacerbation- Clinically improving, no hypoxia. Lungs clear CXR negative, CTA negative for PE Leukocytosis trending down, likely from steroid use -Continue doxycycline x 5 days total of antibiotics -Continue prednisone x 5 days -Duonebs prn -Continue incentive spirometry with supervision -continue home inhalers - recommend outpatient follow up with PCP HTN, uncontrolled would increase norvasc to 10 mg daily continue lisionopril Psychiatry Continue with Depakote, Seroquel and Abilify. Urine osmolarity, sodium in urine and basic metabolic panel for tomorrow. I spent ___20___ minutes with the patient and/or on the patient floor today, greater than?50% of which was spent counseling/coordinating care. Reason for contiued inpatient stay Substantial Risk for: inability to function, rapid decompensation and med/psych decompensation
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
[2022-08-28 06:00] VITALS: BP 119/69; PULSE 104; RESP 20; TEMP 37.2; O2SAT 94
[2022-08-28] MEDS: Fluticasone/Vilanterol 200/25 BLST.W.DEV 1 PUFF INHALE (10:07)
[2022-08-28 12:45] LABS: Appearance Urine Clear; Color Urine Yellow; Glucose Urine UA Negative (Negative); Leukocyte Esterase Urine Trace (Negative); Nitrite Urine Negative (Negative); PH 5.5 (5.0-9.0); Specific Gravity - Urine 1.015 (1.005-1.025); UMIC TRIGGER UACC YES; Urine Blood Negative (Negative); Urine Ketones 40 mg/dL (Negative); Urine Protein 30 (1+) mg/dL (Neg-Trace)
[2022-08-28 12:50] LABS: Bacteria Urine None Seen (None Seen); Hyaline Casts Urine 0-2 /LPF (0-2); RBC Urine 0-2 /HPF (0-2); Squamous Epithelial Cell Urine 0-2 /HPF (0-2); WBC Urine 0-5 /HPF (0-5)
[2022-08-28 13:03] LABS: Osmolality Urine 444 mosm/kg (373-1093)
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
[2022-08-28 20:00] VITALS: BP 185/90; PULSE 99; RESP 18; TEMP 36.9; O2SAT 94
[2022-08-29 08:15] VITALS: BP 186/79; PULSE 100; RESP 20; TEMP 37; O2SAT 333
[2022-08-29] MEDS: ARIPiprazole 20 MG TABLET PO (08:38)
[2022-08-29] MEDS: QUEtiapine Fumarate 50 MG TABLET PO (08:38)
--- NOTE | 2022-08-29 13:47 | HO.PSYCHPN ---
Subjective Subjective Date of Service: 08/29/22 Reason For Visit: Schizophrenia,Dementia Subjective Notes: Conditional Voluntary Interim History: The nursing staff reported the patient had been more confused and refusing medications. He slept well last night he has not be eating or drinking he states most of the time in his room. On interview the patient looks pleasantly confused and I advised him to follow the treatment. We ordered a CT scan today. Mental Status Exam Mental Status Exam Patient Appearance: Well Grooomed Patient Orientation: Person Level of Consciousness: Awake Mood Description: Constricted Affect Description: Labile Patient Cognition Impaired: Yes Ability to Follow Directions: Good Speech Pattern: Clear Hallucinations: None Delusions: Not Present Thought Process: Illogical Thought Content: positive for [place] Judgement: Poor Diagnostics Vital Signs (24Hr): Vital Signs - 24 hr 08/28/22 20:00 08/29/22 08:15 Temperature 98.4 F 98.6 F Pulse Rate 99 100 Respiratory Rate 18 20 Blood Pressure 185/90 H 186/79 H Pulse Oximetry 94 333 H Oxygen Delivery Method Room Air Room Air BMI result Body Mass Index 27.6 Labs Results: 08/22/22 15:44 08/25/22 17:13 Labs: Laboratory Results - last 48 hr 08/28/22 08/28/22 08/28/22 11:50 11:50 11:50 Urine Color Yellow Urine Appearance Clear Urine pH 5.5 Ur Specific [place] 1.015 Urine Protein 30 (1+) H Urine Glucose (UA) Negative Urine Ketones 40 Urine Blood Negative Urine Nitrite Negative Ur Leukocyte Esterase Trace H Urine RBC 0-2 Urine WBC 0-5 Ur Squamous Epith Cells 0-2 Urine Bacteria None Seen Hyaline Casts 0-2 Urine Osmolality 444 Ur Random Sodium 29.0 Imaging Radiology Impressions: ITS Impressions Chest X-Ray 08/08/22 16:36 IMPRESSION: 1. No acute pulmonary process. Chest X-Ray 08/10/22 10:25 IMPRESSION: New subsegmental atelectasis at the left lung base. Chest CTA 08/10/22 14:35 IMPRESSION: 1. No CT evidence of pulmonary emboli. 2. No lung mass or suspicious spiculated nodules, there are few scattered tiny nonspecific lung calcified and noncalcified nodular densities measuring up to 3 mm or less. 3. Coronary calcifications. 4. Pulmonary emphysema. Various management parameters for solitary pulmonary nodules are in the literature. According to the UPDATED 2017 Fleischner Society recommendations, the advised follow-up imaging for solid nodules < 6 mm is: LOW RISK PATIENT: No routine follow-up. HIGH RISK PATIENT: Optional CT at 12 months. Reference: Guidelines for Management of Incidental Pulmonary Nodules Detected on CT Images: From the Fleischner Society 2017. Chest X-Ray 08/12/22 03:50 IMPRESSION: No focal consolidation. Medications Medications Current Medications Acetaminophen (Acetaminophen 325 Mg Tablet) 650 mg PO Q6H PRN PRN Reason: Headache/Pain Mild Scale (1-3) Last Admin: 08/26/22 20:25 Dose: 650 mg Al Hydroxide/Mg Hydroxide (Magnesium Hydrox/Alum Hydrox 30 Ml Oral.Susp) 30 ml PO Q6H PRN PRN Reason: Heartburn/Nausea Amlodipine Besylate (Amlodipine Besylate 10 Mg Tablet) 10 mg PO DAILY [facility]; Protocol Last Admin: 08/29/22 08:52 Dose: Not Given Aripiprazole (Aripiprazole 20 Mg Tablet) 20 mg PO DAILY [facility] Last Admin: 08/29/22 08:38 Dose: 20 mg Atorvastatin Calcium (Atorvastatin Calcium 20 Mg Tablet) 20 mg PO BEDTIME [facility] Last Admin: 08/28/22 21:52 Dose: Not Given Clonidine HCl (Clonidine Hcl 0.1 Mg Tablet) 0.1 mg PO TID [facility]; Protocol Last Admin: 08/29/22 08:56 Dose: Not Given Divalproex Sodium (Divalproex Sodium Sprinkles 125 Mg Cap.) 375 mg PO BID [facility] Last Admin: 08/29/22 08:46 Dose: Not Given Fluticasone/Vilanterol (Fluticasone/Vilanterol 200/25 Blst.W.Dev) 1 puff INHALE RDAILY [facility] Last Admin: 08/29/22 08:45 Dose: Not Given Magnesium Hydroxide (Milk Of Magnesia 30 Ml Oral.Susp) 30 ml PO DAILY PRN PRN Reason: Constipation Quetiapine Fumarate (Quetiapine Fumarate 50 Mg Tablet) 50 mg PO BID [facility] Last Admin: 08/29/22 08:38 Dose: 50 mg Quetiapine Fumarate (Quetiapine Fumarate 50 Mg Tablet) 50 mg PO Q6H PRN PRN Reason: agitation Last Admin: 08/26/22 20:24 Dose: 50 mg Quetiapine Fumarate (Quetiapine Fumarate 200 Mg Tablet) 200 mg PO BEDTIME [facility] Last Admin: 08/28/22 21:53 Dose: Not Given Tamsulosin HCl (Tamsulosin Hcl 0.4 Mg Capsule) 0.4 mg PO BEDTIME [facility] Last Admin: 08/28/22 21:53 Dose: Not Given Tiotropium [place] (Tiotropium [place] 18 Mcg Cap.W.Dev) 1 puff INHALE RDAILY [facility] Last Admin: 08/29/22 08:45 Dose: Not Given Allergies Allergies Allergy/AdvReac Type Severity Reaction Status Date / Time Penicillins [PENICILLINS] Allergy Intermediate RASH Unverified 08/02/20 16:41 Iodinated Contrast Media Allergy Mild HIVES Unverified 08/02/20 16:41 [IV Dye, Iodine Containing Contrast ] penicillin V Allergy Unknown Verified 07/05/18 00:00 Assessment & Plan Assessment & Plan (1) Schizophrenia: Status: Acute Code(s): F20.9 - Schizophrenia, unspecified Plan 76 year old male with history htn, COPD, BPH, schizophrenia, and dementia admitted to psychiatry with consult placed for COPD exacerbation. Acute COPD exacerbation- Clinically improving, no hypoxia. Lungs clear CXR negative, CTA negative for PE Leukocytosis trending down, likely from steroid use -Continue doxycycline x 5 days total of antibiotics -Continue prednisone x 5 days -Duonebs prn -Continue incentive spirometry with supervision -continue home inhalers - recommend outpatient follow up with PCP HTN, uncontrolled would increase norvasc to 10 mg daily continue lisionopril Psychiatry Continue with Depakote, Seroquel and Abilify. Urine osmolarity, sodium in urine and basic metabolic panel for tomorrow. I spent ___20___ minutes with the patient and/or on the patient floor today, greater than?50% of which was spent counseling/coordinating care. Reason for contiued inpatient stay Substantial Risk for: inability to function, rapid decompensation and med/psych decompensation
--- NOTE | 2022-08-29 15:46 | MHC.CLN ---
F/U DIET=REGULAR, NDD3, WITH ENSURE TID. SUPPLEMENT PROVIDES ADDITIONAL 1050 KCALS, 60 G PROTEIN. CONTINUES TO EAT SMALL AMOUNTS. GRQENP=959 (LOW) ON 08/25. HX OF REFUSING TO BE WEIGHED. ENCOURAGE INTAKE AT MEALS AND SUPPLEMENT ABLE. FOLLOW UP WEEKLY FOR INTAKE.
[2022-08-29 16:56] VITALS: BMI 25.1
[2022-08-29 18:30] VITALS: BP 156/76
[2022-08-29] MEDS: cloNIDine HCL 0.1 MG TABLET PO (18:36)
[2022-08-30] MEDS: Acetaminophen 325 MG TABLET 650 MG PO (09:39)
--- NOTE | 2022-08-30 11:42 | HO.PSYCHPN ---
Subjective Subjective Date of Service: 08/30/22 Reason For Visit: Schizophrenia,Dementia Interim History: damon wolfe bed, azeri only. RN translates. apparently not making very much sense, replying to questions with non-sequiturs, generally saying he is well but then complains of his socks' bothering him. per staff, on fluid restriction due to hyponatremia. refusing head CT. refusing medications now as well. appears less well thatn at previous admissions per RN. Mental Status Exam Mental Status Exam Patient Appearance: Well Grooomed Patient Orientation: Person Level of Consciousness: Awake Mood Description: Constricted Affect Description: Constricted and Labile Patient Cognition Impaired: Yes Ability to Follow Directions: Good Speech Pattern: Clear Hallucinations: None Delusions: Not Present Thought Process: Illogical Thought Content: positive for [place] Judgement: Poor Diagnostics Vital Signs (24Hr): Vital Signs - 24 hr 08/29/22 18:30 Blood Pressure 156/76 H BMI result Body Mass Index 25.1 Labs Results: 08/22/22 15:44 08/25/22 17:13 Labs: Laboratory Results - last 48 hr 08/28/22 08/28/22 08/28/22 11:50 11:50 11:50 Urine Color Yellow Urine Appearance Clear Urine pH 5.5 Ur Specific [place] 1.015 Urine Protein 30 (1+) H Urine Glucose (UA) Negative Urine Ketones 40 Urine Blood Negative Urine Nitrite Negative Ur Leukocyte Esterase Trace H Urine RBC 0-2 Urine WBC 0-5 Ur Squamous Epith Cells 0-2 Urine Bacteria None Seen Hyaline Casts 0-2 Urine Osmolality 444 Ur Random Sodium 29.0 Imaging Radiology Impressions: ITS Impressions Chest X-Ray 08/08/22 16:36 IMPRESSION: 1. No acute pulmonary process. Chest X-Ray 08/10/22 10:25 IMPRESSION: New subsegmental atelectasis at the left lung base. Chest CTA 08/10/22 14:35 IMPRESSION: 1. No CT evidence of pulmonary emboli. 2. No lung mass or suspicious spiculated nodules, there are few scattered tiny nonspecific lung calcified and noncalcified nodular densities measuring up to 3 mm or less. 3. Coronary calcifications. 4. Pulmonary emphysema. Various management parameters for solitary pulmonary nodules are in the literature. According to the UPDATED 2017 Fleischner Society recommendations, the advised follow-up imaging for solid nodules < 6 mm is: LOW RISK PATIENT: No routine follow-up. HIGH RISK PATIENT: Optional CT at 12 months. Reference: Guidelines for Management of Incidental Pulmonary Nodules Detected on CT Images: From the Fleischner Society 2017. Chest X-Ray 08/12/22 03:50 IMPRESSION: No focal consolidation. Medications Medications Current Medications Acetaminophen (Acetaminophen 325 Mg Tablet) 650 mg PO Q6H PRN PRN Reason: Headache/Pain Mild Scale (1-3) Last Admin: 08/30/22 09:39 Dose: 650 mg Al Hydroxide/Mg Hydroxide (Magnesium Hydrox/Alum Hydrox 30 Ml Oral.Susp) 30 ml PO Q6H PRN PRN Reason: Heartburn/Nausea Amlodipine Besylate (Amlodipine Besylate 10 Mg Tablet) 10 mg PO DAILY [facility]; Protocol Last Admin: 08/30/22 10:01 Dose: Not Given Aripiprazole (Aripiprazole 20 Mg Tablet) 20 mg PO DAILY [facility] Last Admin: 08/30/22 10:01 Dose: Not Given Atorvastatin Calcium (Atorvastatin Calcium 20 Mg Tablet) 20 mg PO BEDTIME [facility] Last Admin: 08/30/22 01:30 Dose: Not Given Clonidine HCl (Clonidine Hcl 0.1 Mg Tablet) 0.1 mg PO TID [facility]; Protocol Last Admin: 08/30/22 10:01 Dose: Not Given Divalproex Sodium (Divalproex Sodium Sprinkles 125 Mg ) 375 mg PO BID [facility] Last Admin: 08/30/22 10:01 Dose: Not Given Fluticasone/Vilanterol (Fluticasone/Vilanterol 200/25 Blst.W.Dev) 1 puff INHALE RDAILY [facility] Last Admin: 08/30/22 10:01 Dose: Not Given Magnesium Hydroxide (Milk Of Magnesia 30 Ml Oral.Susp) 30 ml PO DAILY PRN PRN Reason: Constipation Quetiapine Fumarate (Quetiapine Fumarate 50 Mg Tablet) 50 mg PO BID [facility] Last Admin: 08/30/22 10:02 Dose: Not Given Quetiapine Fumarate (Quetiapine Fumarate 50 Mg Tablet) 50 mg PO Q6H PRN PRN Reason: agitation Last Admin: 08/26/22 20:24 Dose: 50 mg Quetiapine Fumarate (Quetiapine Fumarate 200 Mg Tablet) 200 mg PO BEDTIME [facility] Last Admin: 08/30/22 01:34 Dose: Not Given Tamsulosin HCl (Tamsulosin Hcl 0.4 Mg Capsule) 0.4 mg PO BEDTIME [facility] Last Admin: 08/30/22 01:34 Dose: Not Given Tiotropium [place] (Tiotropium [place] 18 Mcg Cap.W.Dev) 1 puff INHALE RDAILY [facility] Last Admin: 08/30/22 10:01 Dose: Not Given Allergies Allergies Allergy/AdvReac Type Severity Reaction Status Date / Time Penicillins [PENICILLINS] Allergy Intermediate RASH Unverified 08/02/20 16:41 Iodinated Contrast Media Allergy Mild HIVES Unverified 08/02/20 16:41 [IV Dye, Iodine Containing Contrast ] penicillin V Allergy Unknown Verified 07/05/18 00:00 Assessment & Plan Assessment & Plan (1) Schizophrenia: Status: Acute Code(s): F20.9 - Schizophrenia, unspecified Plan 76 year old male with history htn, COPD, BPH, schizophrenia, and dementia admitted to psychiatry with consult placed for COPD exacerbation. Acute COPD exacerbation- Clinically improving, no hypoxia. Lungs clear CXR negative, CTA negative for PE Leukocytosis trending down, likely from steroid use -Continue doxycycline x 5 days total of antibiotics -Continue prednisone x 5 days -Duonebs prn -Continue incentive spirometry with supervision -continue home inhalers - recommend outpatient follow up with PCP HTN, uncontrolled would increase norvasc to 10 mg daily continue lisionopril Psychiatry Continue with Depakote, Seroquel and Abilify. 08/30: labs to R/O worsened hypo-Na or infection. otherwise continue previous regimen. baseline unclear, concerning for delirium. I spent ___15___ minutes with the patient and/or on the patient floor today, greater than?50% of which was spent counseling/coordinating care. Reason for contiued inpatient stay Substantial Risk for: inability to function
--- NOTE | 2022-08-30 12:04 | MHC.CLN ---
F/U PATIENT WEIGHT ON 08/29=68.6 KG. SHOWS SIGNIFICANT WEIGHT LOSS SINCE 08/08 OF 11%. DIET=REGULAR, NDD3. SUPPLEMENT IN PLACE ENSURE TID. PROVIDES ADDITIONAL 1050 KCALS, 60 G PROTEIN. STAFF REPORTS POOR PO INTAKE. MD ALERTED OF WEIGHT LOSS VIA TEXT.
[2022-08-30] MEDS: QUEtiapine Fumarate 50 MG TABLET PO ×2 (13:12→20:32)
[2022-08-30 13:13] VITALS: BP 151/68; PULSE 88; TEMP 36.9; O2SAT 92
[2022-08-30] MEDS: ARIPiprazole 20 MG TABLET PO (13:13)
[2022-08-30 13:16] VITALS: RESP 24; O2SAT 94
[2022-08-30] MEDS: cloNIDine HCL 0.1 MG TABLET PO ×2 (17:34→20:31)
[2022-08-30 18:00] VITALS: RESP 16
[2022-08-30] MEDS: Atorvastatin Calcium 20 MG TABLET PO (20:31)
[2022-08-30] MEDS: QUEtiapine Fumarate 200 MG TABLET PO (20:31)
[2022-08-30] MEDS: Divalproex Sodium Sprinkles 125 MG CAP.DR.SPR 375 MG PO (20:31)
[2022-08-30] MEDS: Tamsulosin HCL 0.4 MG CAPSULE PO (20:32)
[2022-08-31 06:00] VITALS: BP 130/73; PULSE 85; RESP 18; TEMP 36.7; O2SAT 94
--- NOTE | 2022-08-31 12:02 | P.PNPSI_ITS ---
Subjective Subjective Date of Service: 08/31/22 Reason For Visit: Schizophrenia,Dementia Interim History: pt appears to indicate lower back pain. no other complaints or requests. per staff, pt appears more medically ill than prior. he is refusing labs and is more SOB when walking, doing more coughing. per staff, he is on fluid restriction due to hypo-Na. refusing labs, refusing head CT. Mental Status Exam Mental Status Exam Patient Appearance: Well Grooomed Patient Orientation: Person Level of Consciousness: Awake Mood Description: Constricted Affect Description: Constricted Patient Cognition Impaired: Yes Ability to Follow Directions: Good Speech Pattern: Clear Hallucinations: None Delusions: Not Present Thought Process: Illogical Thought Content: positive for [place] Judgement: Poor Diagnostics Vital Signs (24Hr): Vital Signs - 24 hr 08/30/22 13:13 08/30/22 13:16 08/30/22 18:00 Temperature 98.4 F Pulse Rate 88 Respiratory Rate 24 H 16 Blood Pressure 151/68 H Pulse Oximetry 92 94 Oxygen Delivery Method Room Air Room Air BMI result Body Mass Index 25.1 Labs Results: 08/22/22 15:44 08/25/22 17:13 Imaging Radiology Impressions: ITS Impressions Chest X-Ray 08/08/22 16:36 IMPRESSION: 1. No acute pulmonary process. Chest X-Ray 08/10/22 10:25 IMPRESSION: New subsegmental atelectasis at the left lung base. Chest CTA 08/10/22 14:35 IMPRESSION: 1. No CT evidence of pulmonary emboli. 2. No lung mass or suspicious spiculated nodules, there are few scattered tiny nonspecific lung calcified and noncalcified nodular densities measuring up to 3 mm or less. 3. Coronary calcifications. 4. Pulmonary emphysema. Various management parameters for solitary pulmonary nodules are in the literature. According to the UPDATED 2017 Fleischner Society recommendations, the advised follow-up imaging for solid nodules < 6 mm is: LOW RISK PATIENT: No routine follow-up. HIGH RISK PATIENT: Optional CT at 12 months. Reference: Guidelines for Management of Incidental Pulmonary Nodules Detected on CT Images: From the Fleischner Society 2017. Chest X-Ray 08/12/22 03:50 IMPRESSION: No focal consolidation. Medications Medications Current Medications Acetaminophen (Acetaminophen 325 Mg Tablet) 650 mg PO Q6H PRN PRN Reason: Headache/Pain Mild Scale (1-3) Last Admin: 08/30/22 09:39 Dose: 650 mg Al Hydroxide/Mg Hydroxide (Magnesium Hydrox/Alum Hydrox 30 Ml Oral.Susp) 30 ml PO Q6H PRN PRN Reason: Heartburn/Nausea Amlodipine Besylate (Amlodipine Besylate 10 Mg Tablet) 10 mg PO DAILY [facility]; Protocol Last Admin: 08/31/22 09:05 Dose: Not Given Aripiprazole (Aripiprazole 20 Mg Tablet) 20 mg PO DAILY [facility] Last Admin: 08/31/22 09:05 Dose: Not Given Atorvastatin Calcium (Atorvastatin Calcium 20 Mg Tablet) 20 mg PO BEDTIME [facility] Last Admin: 08/30/22 20:31 Dose: 20 mg Clonidine HCl (Clonidine Hcl 0.1 Mg Tablet) 0.1 mg PO TID [facility]; Protocol Last Admin: 08/31/22 09:05 Dose: Not Given Divalproex Sodium (Divalproex Sodium Sprinkles 125 Mg Cap.DrJohnnySpr) 375 mg PO BID [facility] Last Admin: 08/31/22 09:06 Dose: Not Given Fluticasone/Vilanterol (Fluticasone/Vilanterol 200/25 Blst.W.Dev) 1 puff INHALE RDAILY [facility] Last Admin: 08/31/22 09:06 Dose: Not Given Magnesium Hydroxide (Milk Of Magnesia 30 Ml Oral.Susp) 30 ml PO DAILY PRN PRN Reason: Constipation Quetiapine Fumarate (Quetiapine Fumarate 50 Mg Tablet) 50 mg PO BID [facility] Last Admin: 08/31/22 09:06 Dose: Not Given Quetiapine Fumarate (Quetiapine Fumarate 50 Mg Tablet) 50 mg PO Q6H PRN PRN Reason: agitation Last Admin: 08/30/22 13:12 Dose: 50 mg Quetiapine Fumarate (Quetiapine Fumarate 200 Mg Tablet) 200 mg PO BEDTIME [facility] Last Admin: 08/30/22 20:31 Dose: 200 mg Tamsulosin HCl (Tamsulosin Hcl 0.4 Mg Capsule) 0.4 mg PO BEDTIME [facility] Last Admin: 08/30/22 20:32 Dose: 0.4 mg Tiotropium [place] (Tiotropium [place] 18 Mcg Cap.W.Dev) 1 puff INHALE RDAILY [facility] Last Admin: 08/31/22 09:06 Dose: Not Given Allergies Allergies Allergy/AdvReac Type Severity Reaction Status Date / Time Penicillins [PENICILLINS] Allergy Intermediate RASH Unverified 08/02/20 16:41 Iodinated Contrast Media Allergy Mild HIVES Unverified 08/02/20 16:41 [IV Dye, Iodine Containing Contrast ] penicillin V Allergy Unknown Verified 07/05/18 00:00 Assessment & Plan Assessment & Plan (1) Schizophrenia: Status: Acute Code(s): F20.9 - Schizophrenia, unspecified Plan 76 year old male with history htn, COPD, BPH, schizophrenia, and dementia admitted to psychiatry with consult placed for COPD exacerbation. Acute COPD exacerbation- Clinically improving, no hypoxia. Lungs clear CXR negative, CTA negative for PE Leukocytosis trending down, likely from steroid use -Continue doxycycline x 5 days total of antibiotics -Continue prednisone x 5 days -Duonebs prn -Continue incentive spirometry with supervision -continue home inhalers - recommend outpatient follow up with PCP HTN, uncontrolled would increase norvasc to 10 mg daily continue lisionopril Psychiatry Continue with Depakote, Seroquel and Abilify. 08/30: labs to R/O worsened hypo-Na or infection. otherwise continue previous regimen. baseline unclear, concerning for delirium. 08/31: refusing labs and head CT. more SOB when walking and coughing more, per nursing staff. unclear if pt is becoming delirious and if so what the cause is (see hypo-Na versus infection). hospitalist consult placed for evaluation and recommendations. I spent ___25___ minutes with the patient and/or on the patient floor today, greater than?50% of which was spent counseling/coordinating care. Reason for contiued inpatient stay Substantial Risk for: inability to function and rapid decompensation
[2022-08-31 15:04] LABS: COVID-19 Test Negative (Negative); IDNOW Serial# 55D5AD1C
[2022-08-31] MEDS: Acetaminophen 325 MG TABLET 650 MG PO (15:11)
[2022-08-31] MEDS: cloNIDine HCL 0.1 MG TABLET PO (15:12)
--- NOTE | 2022-08-31 16:45 | HO.PM.IMPN ---
Subjective Subjective Date of Service: 08/31/22 Interval History: Asked to see patient because he is refusing lab draws and is more short of breath. Patient has history of COPD and underlying and history of chronic hyponatremia for which he's supposed to be on fluid restriction, Last sodium on 08/30 was 128 well within his baseline. He reportely has refused follow up labs today. And also he's more short. When asked how he's feeling he states his body hurts and needs help going to the bathroom, he onlymentsions being short of breath when asked how's his breathing? to which he says a little short of breath, he is not wheezing and not on oxygen, he's brething rate is no more than 16 on my observation. He has no symptoms of heart failure, there is report of occasional cough, no fever, covid negative today. Review of Systems Pt not reliable historian but does provide some ROS General: No fevers, malaise Cardiovascular: No chest pain, palpitations, or leg edema Respiratory: littleshortness of breath, no wheeze, occasional cough Physical Exam Vital Signs: Vital Signs: Last Vital Signs Temp 98.1 F 08/31/22 06:00 Pulse 85 08/31/22 06:00 Resp 18 08/31/22 06:00 BP 130/73 08/31/22 06:00 Pulse Ox 94 08/31/22 06:00 O2 Del Method 08/31/22 06:00 O2 Flow Rate 2 08/10/22 10:10 BMI result Body Mass Index 25.1 Const: Other: General: Oriented to self, [facility] [place] not to date, no acute distress Resp: CTA bilateral, no accessory muslce use CVS: S1,S2,RRR GI: +BS, NT, no distention Skin: No rash--old bruses on arm Neuro: motor grossly intact Psych:flat affect Objective Data Active Medications Acetaminophen (Acetaminophen 325 Mg Tablet) 650 mg PO Q6H PRN PRN Reason: Headache/Pain Mild Scale (1-3) Last Admin: 08/31/22 15:11 Dose: 650 mg Documented By: MAKENNA Al Hydroxide/Mg Hydroxide (Magnesium Hydrox/Alum Hydrox 30 Ml Oral.Susp) 30 ml PO Q6H PRN PRN Reason: Heartburn/Nausea Amlodipine Besylate (Amlodipine Besylate 10 Mg Tablet) 10 mg PO DAILY [facility]; Protocol Last Admin: 08/31/22 09:05 Dose: Not Given Documented By: MAKENNA Non-Admin Reason: Patient Refused Aripiprazole (Aripiprazole 20 Mg Tablet) 20 mg PO DAILY [facility] Last Admin: 08/31/22 09:05 Dose: Not Given Documented By: MAKENNA Non-Admin Reason: Patient Refused Atorvastatin Calcium (Atorvastatin Calcium 20 Mg Tablet) 20 mg PO BEDTIME [facility] Last Admin: 08/30/22 20:31 Dose: 20 mg Documented By: KAYLA Clonidine HCl (Clonidine Hcl 0.1 Mg Tablet) 0.1 mg PO TID [facility]; Protocol Last Admin: 08/31/22 15:12 Dose: 0.1 mg Documented By: MAKENNA Divalproex Sodium (Divalproex Sodium Sprinkles 125 Mg Spr) 375 mg PO BID [facility] Last Admin: 08/31/22 09:06 Dose: Not Given Documented By: MAKENNA Non-Admin Reason: Patient Refused Fluticasone/Vilanterol (Fluticasone/Vilanterol 200/25 Blst.W.Dev) 1 puff INHALE RDAILY [facility] Last Admin: 08/31/22 09:06 Dose: Not Given Documented By: MAKENNA Non-Admin Reason: Patient Refused Magnesium Hydroxide (Milk Of Magnesia 30 Ml Oral.Susp) 30 ml PO DAILY PRN PRN Reason: Constipation Quetiapine Fumarate (Quetiapine Fumarate 50 Mg Tablet) 50 mg PO BID [facility] Last Admin: 08/31/22 09:06 Dose: Not Given Documented By: MAKENNA Non-Admin Reason: Patient Refused Quetiapine Fumarate (Quetiapine Fumarate 50 Mg Tablet) 50 mg PO Q6H PRN PRN Reason: agitation Last Admin: 08/30/22 13:12 Dose: 50 mg Documented By: LARRY Quetiapine Fumarate (Quetiapine Fumarate 200 Mg Tablet) 200 mg PO BEDTIME [facility] Last Admin: 08/30/22 20:31 Dose: 200 mg Documented By: KAYLA Tamsulosin HCl (Tamsulosin Hcl 0.4 Mg Capsule) 0.4 mg PO BEDTIME [facility] Last Admin: 08/30/22 20:32 Dose: 0.4 mg Documented By: KAYLA Tiotropium [place] (Tiotropium [place] 18 Mcg Cap.W.Dev) 1 puff INHALE [facility] Last Admin: 08/31/22 09:06 Dose: Not Given Documented By: MAKENNA Non-Admin Reason: Patient Refused Labs CBC & Chem 7: 08/22/22 15:44 08/25/22 17:13 Labs: Laboratory Results - last 24 hr 08/31/22 13:20 COVID-19 (MISTY) Negative COVID-19 Clin Com See Note Assessment and Plan (1) COPD exacerbation: Status: Acute Plan 76 year old male with history htn, COPD, BPH, schizophrenia, and dementia admitted to psychiatry with consult placed for COPD exacerbation. Acute COPD, ? sob, he was recently treated for exacerbation and bronchitis with Doxy, prednisone, his present condition doesn't suggest another exacerbation -no hypoxia. Lungs clear -HR 80s -Duonebs prn. We could do CXR to see if developping something not found clinically Hponatremia--he's been manaed with fluid restriction and complaining of not having more water. He should be convinced to have repeat lab done. Quality Stroke Does the patient have a stroke diagnosis?: No VTE Prior VTE?: No VTE Risk Level:: Medical - low VTE Device Contraindication: Treatment Not Indicated VTE Drug Contraindication: Treatment Not Indicated
--- NOTE | 2022-08-31 18:28 | PC.NURSE ---
Pt seen by Dr hernadez. orders recieved. pt refusing lab work to . portable chest xray done
[2022-08-31] MEDS: QUEtiapine Fumarate 200 MG TABLET PO (20:19)
[2022-08-31] MEDS: QUEtiapine Fumarate 50 MG TABLET PO (20:20)
[2022-09-01 07:30] VITALS: BP 178/82; PULSE 112; RESP 14; TEMP 37.2; O2SAT 91
[2022-09-01 08:47] LABS: Anion Gap 19 (12-20); Blood Urea Nitrogen 23 mg/dL (9-16); Calcium 8.7 mg/dL (8.4-10.2); Carbon Dioxide 21 mmol/L (22-29); Chloride 104 mmol/L (96-108); Creatinine Clr Calc Pharmacy 47.2; Estimated Glomerular Filt Rate > 60; Glucose Random 105 mg/dL (60-115); Potassium 5.1 mmol/L (3.3-5.1); Sodium 139 mmol/L (135-145)
[2022-09-01] MEDS: Fluticasone/Vilanterol 200/25 BLST.W.DEV 1 PUFF INHALE (10:58)
[2022-09-01 13:23] VITALS: BMI 25.1
--- NOTE | 2022-09-01 14:08 | HO.PSYCHPN ---
Subjective Subjective Date of Service: 09/01/22 Reason For Visit: Schizophrenia,Dementia Subjective Notes: Conditional Voluntary Interim History: The nursing staff reported the patient has refused med indications at night, he was with shortness of breath and they did a chest x-ray that came up with no changes. He was COVID-19 tested and his vital signs were slightly higher. The CT scan head was not done. On interview the patient looks pleasantly confused and he is unable to understand why we need to do medical workout at this moment. Mental Status Exam Mental Status Exam Patient Appearance: Well Grooomed Patient Orientation: Person and Situation Level of Consciousness: Awake Mood Description: Constricted Affect Description: Labile Patient Cognition Impaired: Yes Ability to Follow Directions: Good Speech Pattern: Clear Hallucinations: None Delusions: Paranoid Ideation Thought Process: Distracted Thought Content: positive for [place] Judgement: Poor Diagnostics Vital Signs (24Hr): Vital Signs - 24 hr 09/01/22 07:30 Temperature 98.9 F Pulse Rate 112 H Respiratory Rate 14 Blood Pressure 178/82 H Pulse Oximetry 91 L Oxygen Delivery Method Room Air BMI result Body Mass Index 25.1 Labs Results: 09/01/22 14:36 09/01/22 14:36 Labs: Laboratory Results - last 48 hr 08/31/22 09/01/22 13:20 07:57 Sodium 139 Potassium 5.1 Chloride 104 Carbon Dioxide 21 L Anion Gap 19 BUN 23 H Creatinine 1.14 Estim Creat Clear Calc 47.2 Estimated GFR > 60 Random Glucose 105 Calcium 8.7 COVID-19 (MISTY) Negative COVID-19 Clin Com See Note Imaging Radiology Impressions: ITS Impressions Chest X-Ray 08/08/22 16:36 IMPRESSION: 1. No acute pulmonary process. Chest X-Ray 08/10/22 10:25 IMPRESSION: New subsegmental atelectasis at the left lung base. Chest CTA 08/10/22 14:35 IMPRESSION: 1. No CT evidence of pulmonary emboli. 2. No lung mass or suspicious spiculated nodules, there are few scattered tiny nonspecific lung calcified and noncalcified nodular densities measuring up to 3 mm or less. 3. Coronary calcifications. 4. Pulmonary emphysema. Various management parameters for solitary pulmonary nodules are in the literature. According to the UPDATED 2017 Fleischner Society recommendations, the advised follow-up imaging for solid nodules < 6 mm is: LOW RISK PATIENT: No routine follow-up. HIGH RISK PATIENT: Optional CT at 12 months. Reference: Guidelines for Management of Incidental Pulmonary Nodules Detected on CT Images: From the Fleischner Society 2017. Chest X-Ray 08/12/22 03:50 IMPRESSION: No focal consolidation. Chest X-Ray 08/31/22 17:28 FINDINGS/IMPRESSION: * Hazy asymmetric opacification of the right lung, unclear if this could be due to patient rotation, asymmetric parenchymal opacities or small layering pleural effusion. Consider repeat PA and lateral radiographs. * Blunting of the bilateral costophrenic angles may reflect trace pleural effusions. No pneumothorax. * Unchanged cardiomediastinal silhouette. * Incidental note of upper abdominal surgical clips. Medications Medications Current Medications Acetaminophen (Acetaminophen 325 Mg Tablet) 650 mg PO Q6H PRN PRN Reason: Headache/Pain Mild Scale (1-3) Last Admin: 08/31/22 15:11 Dose: 650 mg Al Hydroxide/Mg Hydroxide (Magnesium Hydrox/Alum Hydrox 30 Ml Oral.Susp) 30 ml PO Q6H PRN PRN Reason: Heartburn/Nausea Amlodipine Besylate (Amlodipine Besylate 10 Mg Tablet) 10 mg PO DAILY [facility]; Protocol Last Admin: 08/31/22 09:05 Dose: Not Given Aripiprazole (Aripiprazole 20 Mg Tablet) 20 mg PO DAILY [facility] Last Admin: 08/31/22 09:05 Dose: Not Given Atorvastatin Calcium (Atorvastatin Calcium 20 Mg Tablet) 20 mg PO BEDTIME [facility] Last Admin: 08/31/22 20:29 Dose: Not Given Clonidine HCl (Clonidine Hcl 0.1 Mg Tablet) 0.1 mg PO TID [facility]; Protocol Last Admin: 08/31/22 20:29 Dose: Not Given Divalproex Sodium (Divalproex Sodium Sprinkles 125 Mg Jonathan.Spr) 375 mg PO BID [facility] Last Admin: 08/31/22 20:29 Dose: Not Given Fluticasone/Vilanterol (Fluticasone/Vilanterol 200/25 Blst.W.Dev) 1 puff INHALE RDAILY [facility] Last Admin: 09/01/22 10:58 Dose: 1 puff Magnesium Hydroxide (Milk Of Magnesia 30 Ml Oral.Susp) 30 ml PO DAILY PRN PRN Reason: Constipation Quetiapine Fumarate (Quetiapine Fumarate 50 Mg Tablet) 50 mg PO BID [facility] Last Admin: 08/31/22 20:20 Dose: 50 mg Quetiapine Fumarate (Quetiapine Fumarate 50 Mg Tablet) 50 mg PO Q6H PRN PRN Reason: agitation Last Admin: 08/30/22 13:12 Dose: 50 mg Quetiapine Fumarate (Quetiapine Fumarate 200 Mg Tablet) 200 mg PO BEDTIME [facility] Last Admin: 08/31/22 20:19 Dose: 200 mg Tamsulosin HCl (Tamsulosin Hcl 0.4 Mg Capsule) 0.4 mg PO BEDTIME [facility] Last Admin: 08/31/22 20:29 Dose: Not Given Tiotropium [place] (Tiotropium [place] 18 Mcg Cap.W.Dev) 1 puff INHALE RDAILY [facility] Last Admin: 09/01/22 10:58 Dose: 1 puff Allergies Allergies Allergy/AdvReac Type Severity Reaction Status Date / Time Penicillins [PENICILLINS] Allergy Intermediate RASH Unverified 08/02/20 16:41 Iodinated Contrast Media Allergy Mild HIVES Unverified 08/02/20 16:41 [IV Dye, Iodine Containing Contrast ] penicillin V Allergy Unknown Verified 07/05/18 00:00 Assessment & Plan Assessment & Plan (1) COPD exacerbation: Status: Acute Code(s): J44.1 - Chronic obstructive pulmonary disease with (acute) exacerbation Plan 76 year old male with history htn, COPD, BPH, schizophrenia, and dementia admitted to psychiatry with consult placed for COPD exacerbation. Acute COPD, ? sob, he was recently treated for exacerbation and bronchitis with Doxy, prednisone, his present condition doesn't suggest another exacerbation -no hypoxia. Lungs clear -HR 80s -Duonebs prn. We could do CXR to see if developping something not found clinically Hponatremia--he's been manaed with fluid restriction and complaining of not having more water. He should be convinced to have repeat lab done. New CXR I spent ___20___ minutes with the patient and/or on the patient floor today, greater than?50% of which was spent counseling/coordinating care. Reason for contiued inpatient stay Substantial Risk for: inability to function, rapid decompensation and med/psych decompensation
[2022-09-01 14:41] LABS: MANUAL DIFF FLAG NO
[2022-09-01 14:42] LABS: Basophils Percent Auto 0.4 % (0-2); Eosinophils Percent Auto 0.4 % (0-4); Hematocrit 39.8 % (42.0-52.0); Hemoglobin 13.2 g/dl (14.0-18.0); Imm Gran Abs Auto 0.25 X10*3/uL (0.00-0.03); Imm Gran Pct Auto 2.2 % (0.0-0.4); Lymphocytes Absolute Auto 2.2 X10*3/uL (1.2-4.9); Lymphocytes Percent Auto 19.8 % (20-40); Mean Corpuscular HGB Conc 33.2 g/dl (31.0-36.0); Mean Corpuscular Hemoglobin 31.6 pg (27.0-33.0); Mean Corpuscular Volume 95.2 fL (80.0-98.0); Mean Platelet Volume 9.5 fL (9.4-12.4); Monocytes Absolute Auto 0.9 X10*3/uL (0.1-1.2); Monocytes Percent Auto 8.1 % (2-11); Neutrophils Absolute Auto 7.8 x10*3/uL (2.0-8.3); Neutrophils Percent Auto 69.1 % (45-73); Platelet Count 263 X10*3/uL (160-400); Red Blood Count 4.18 X10*6/uL (4.60-5.80); Red Cell Distribution Width 13.1 % (11.0-16.0); White Blood Count 11.3 X10*3/uL (4.8-10.8)
[2022-09-01 14:54] LABS: Ammonia 28 umol/L (13-55)
[2022-09-01 14:59] LABS: Alanine Aminotransferase 14 U/L (0-40); Alkaline Phosphatase 96 U/L (39-117); Anion Gap 18 (12-20); Aspartate Amino Transferase 18 U/L (5-37); Bilirubin Total 0.4 mg/dL (0.0-1.0); Blood Urea Nitrogen 23 mg/dL (9-16); Calcium 8.5 mg/dL (8.4-10.2); Carbon Dioxide 22 mmol/L (22-29); Chloride 103 mmol/L (96-108); Creatinine Clr Calc Pharmacy 45.6; Estimated Glomerular Filt Rate 60; Glucose Random 118 mg/dL (60-115); Potassium 4.5 mmol/L (3.3-5.1); Sodium 138 mmol/L (135-145); Total Protein 6.5 g/dL (6.5-8.0)
[2022-09-01 15:05] LABS: B Type Natriuretic Peptide 32 pg/mL (<100)
--- NOTE | 2022-09-01 17:15 | PC.NURSE ---
Pt. feels warm to the touch, although thermometer does not register a fever. His face is redened, and he seems fatigued. reported to Dr. Aparicio who ordered bloodwork and chest CT. Pt. let the senior ux developer draw blood-please see labs for additional information, However, he declined to participate in the CT scan. Provider then ordered a CXR which pt. allowed to be taken-please see imaging for additional information. Pt. states that he has general malaise. Pt. has had a very limited amount of food and fluids today, stating that he does not feel well enough to consume these items.
[2022-09-01 20:00] VITALS: BP 209/84; PULSE 87; RESP 16; TEMP 37.2; O2SAT 88
[2022-09-01 22:00] VITALS: BP 185/74; PULSE 80; RESP 16; TEMP 36.2; O2SAT 91
[2022-09-02 07:30] VITALS: BP 177/74; PULSE 104; RESP 18; TEMP 36.9; O2SAT 95
[2022-09-02] MEDS: Fluticasone/Vilanterol 200/25 BLST.W.DEV 1 PUFF INHALE (08:17)
--- NOTE | 2022-09-02 12:13 | HO.PSYCHPN ---
Subjective Subjective Date of Service: 09/02/22 Reason For Visit: Schizophrenia,Dementia Subjective Notes: Conditional Voluntary Interim History: The nursing staff reported the patient has refused medications in the evening. He refused a CT scan of his chest but the chest x-ray showed no major changes. He slept well he woke up much better but he still incontinent. He is aggressive at times and resistant to care. He has been saturating over 91-95%. On interview the patient denies new symptoms he looks confused. It is clear that he can not go back [facility] because he needs more care. Mental Status Exam Mental Status Exam Patient Appearance: Well Grooomed Patient Orientation: Person Level of Consciousness: Awake Patient Behavior: Cooperative Mood Description: Calm Affect Description: Labile Patient Cognition Impaired: Yes Ability to Follow Directions: Good Speech Pattern: Clear Hallucinations: None Delusions: Not Present Thought Process: Distracted Thought Content: positive for [place] Judgement: Fair Diagnostics Vital Signs (24Hr): Vital Signs - 24 hr 09/01/22 20:00 09/01/22 22:00 Temperature 99 F 97.2 F Pulse Rate 87 80 Respiratory Rate 16 16 Blood Pressure 209/84 H 185/74 H Pulse Oximetry 88 L 91 L Oxygen Delivery Method Room Air Room Air BMI result Body Mass Index 25.1 Labs Results: 09/01/22 14:36 09/01/22 14:36 Labs: Laboratory Results - last 48 hr 08/31/22 09/01/22 09/01/22 13:20 07:57 14:36 WBC 11.3 H RBC 4.18 L Hgb 13.2 L Hct 39.8 L MCV 95.2 MCH 31.6 MCHC 33.2 RDW 13.1 Plt Count 263 MPV 9.5 Immature Gran % (Auto) 2.2 H Neut % (Auto) 69.1 Lymph % (Auto) 19.8 L Amelia % (Auto) 8.1 Eos % (Auto) 0.4 Baso % (Auto) 0.4 Lymph # (Auto) 2.2 Amelia # (Auto) 0.9 Eos # (Auto) 0.0 Baso # (Auto) 0.0 Abs Immat Gran (auto) 0.25 H Absolute Neuts (auto) 7.8 Absolute Nucleated RBC 0.000 Nucleated RBC % (auto) 0.0 Sodium 139 Potassium 5.1 Chloride 104 Carbon Dioxide 21 L Anion Gap 19 BUN 23 H Creatinine 1.14 Estim Creat Clear Calc 47.2 Estimated GFR > 60 Random Glucose 105 Calcium 8.7 Total Bilirubin AST ALT Alkaline Phosphatase Ammonia Total Creatine Kinase B-Natriuretic Peptide Total Protein Albumin COVID-19 (MISTY) Negative COVID-19 Clin Com See Note 09/01/22 09/01/22 09/01/22 14:36 14:36 14:36 WBC RBC Hgb Hct MCV MCH MCHC RDW Plt Count MPV Immature Gran % (Auto) Neut % (Auto) Lymph % (Auto) Amelia % (Auto) Eos % (Auto) Baso % (Auto) Lymph # (Auto) Amelia # (Auto) Eos # (Auto) Baso # (Auto) Abs Immat Gran (auto) Absolute Neuts (auto) Absolute Nucleated RBC Nucleated RBC % (auto) Sodium 138 Potassium 4.5 Chloride 103 Carbon Dioxide 22 Anion Gap 18 BUN 23 H Creatinine 1.18 Estim Creat Clear Calc 45.6 Estimated GFR 60 Random Glucose 118 H Calcium 8.5 Total Bilirubin 0.4 AST 18 ALT 14 Alkaline Phosphatase 96 Ammonia 28 Total Creatine Kinase 62 B-Natriuretic Peptide 32 Total Protein 6.5 Albumin 4.0 COVID-19 (MISTY) COVID-19 Clin Com Imaging Radiology Impressions: ITS Impressions Chest X-Ray 08/08/22 16:36 IMPRESSION: 1. No acute pulmonary process. Chest X-Ray 08/10/22 10:25 IMPRESSION: New subsegmental atelectasis at the left lung base. Chest CTA 08/10/22 14:35 IMPRESSION: 1. No CT evidence of pulmonary emboli. 2. No lung mass or suspicious spiculated nodules, there are few scattered tiny nonspecific lung calcified and noncalcified nodular densities measuring up to 3 mm or less. 3. Coronary calcifications. 4. Pulmonary emphysema. Various management parameters for solitary pulmonary nodules are in the literature. According to the UPDATED 2017 Fleischner Society recommendations, the advised follow-up imaging for solid nodules < 6 mm is: LOW RISK PATIENT: No routine follow-up. HIGH RISK PATIENT: Optional CT at 12 months. Reference: Guidelines for Management of Incidental Pulmonary Nodules Detected on CT Images: From the Fleischner Society 2017. Chest X-Ray 08/12/22 03:50 IMPRESSION: No focal consolidation. Chest X-Ray 08/31/22 17:28 FINDINGS/IMPRESSION: * Hazy asymmetric opacification of the right lung, unclear if this could be due to patient rotation, asymmetric parenchymal opacities or small layering pleural effusion. Consider repeat PA and lateral radiographs. * Blunting of the bilateral costophrenic angles may reflect trace pleural effusions. No pneumothorax. * Unchanged cardiomediastinal silhouette. * Incidental note of upper abdominal surgical clips. Chest X-Ray 09/01/22 16:57 IMPRESSION: Unremarkable chest examination. Medications Medications Current Medications Acetaminophen (Acetaminophen 325 Mg Tablet) 650 mg PO Q6H PRN PRN Reason: Headache/Pain Mild Scale (1-3) Last Admin: 08/31/22 15:11 Dose: 650 mg Al Hydroxide/Mg Hydroxide (Magnesium Hydrox/Alum Hydrox 30 Ml Oral.Susp) 30 ml PO Q6H PRN PRN Reason: Heartburn/Nausea Amlodipine Besylate (Amlodipine Besylate 10 Mg Tablet) 10 mg PO DAILY [facility]; Protocol Last Admin: 09/01/22 16:18 Dose: Not Given Aripiprazole (Aripiprazole 20 Mg Tablet) 20 mg PO DAILY [facility] Last Admin: 09/01/22 16:18 Dose: Not Given Atorvastatin Calcium (Atorvastatin Calcium 20 Mg Tablet) 20 mg PO BEDTIME [facility] Last Admin: 09/01/22 21:54 Dose: Not Given Clonidine HCl (Clonidine Hcl 0.1 Mg Tablet) 0.1 mg PO TID [facility]; Protocol Last Admin: 09/01/22 21:55 Dose: Not Given Divalproex Sodium (Divalproex Sodium Sprinkles 125 Mg Jonathan.) 375 mg PO BID [facility] Last Admin: 09/01/22 21:55 Dose: Not Given Fluticasone/Vilanterol (Fluticasone/Vilanterol 200/25 Blst.W.Dev) 1 puff INHALE RDAILY [facility] Last Admin: 09/02/22 08:17 Dose: 1 puff Magnesium Hydroxide (Milk Of Magnesia 30 Ml Oral.Susp) 30 ml PO DAILY PRN PRN Reason: Constipation Quetiapine Fumarate (Quetiapine Fumarate 50 Mg Tablet) 50 mg PO BID [facility] Last Admin: 09/01/22 21:55 Dose: Not Given Quetiapine Fumarate (Quetiapine Fumarate 50 Mg Tablet) 50 mg PO Q6H PRN PRN Reason: agitation Last Admin: 08/30/22 13:12 Dose: 50 mg Quetiapine Fumarate (Quetiapine Fumarate 200 Mg Tablet) 200 mg PO BEDTIME [facility] Last Admin: 09/01/22 21:55 Dose: Not Given Tamsulosin HCl (Tamsulosin Hcl 0.4 Mg Capsule) 0.4 mg PO BEDTIME [facility] Last Admin: 09/01/22 21:56 Dose: Not Given Tiotropium [place] (Tiotropium [place] 18 Mcg Cap.W.Dev) 1 puff INHALE RDAILY [facility] Last Admin: 09/02/22 08:17 Dose: 1 puff Allergies Allergies Allergy/AdvReac Type Severity Reaction Status Date / Time Penicillins [PENICILLINS] Allergy Intermediate RASH Unverified 08/02/20 16:41 Iodinated Contrast Media Allergy Mild HIVES Unverified 08/02/20 16:41 [IV Dye, Iodine Containing Contrast ] penicillin V Allergy Unknown Verified 07/05/18 00:00 Assessment & Plan Assessment & Plan (1) COPD exacerbation: Status: Acute Code(s): J44.1 - Chronic obstructive pulmonary disease with (acute) exacerbation Plan 76 year old male with history htn, COPD, BPH, schizophrenia, and dementia admitted to psychiatry with consult placed for COPD exacerbation. Acute COPD, ? sob, he was recently treated for exacerbation and bronchitis with Doxy, prednisone, his present condition doesn't suggest another exacerbation -no hypoxia. Lungs clear -HR 80s -Duonebs prn. We could do CXR to see if developping something not found clinically Hponatremia--he's been manaed with fluid restriction and complaining of not having more water. He should be convinced to have repeat lab done. New CXR . The hospitalist have seen and it seems that he had a COPD exacerbation. I spent ___20___ minutes with the patient and/or on the patient floor today, greater than?50% of which was spent counseling/coordinating care. Reason for contiued inpatient stay Substantial Risk for: inability to function, rapid decompensation and med/psych decompensation
--- NOTE | 2022-09-02 17:55 | PC.NURSE ---
Pt. continued to decline his chest CT scan that was ordered on 09/01/22.
--- NOTE | 2022-09-02 18:22 | PC.NURSE ---
This sign writer hand reached out to Dr. Aparicio via tiger text to let him know that the respiratory department has not come to provide this patient the breathing treatment that was ordered on 09/01/22. This sign writer hand also called respiratory department and left a voicemail, and wrote a tiger text to their vending supervisor. When this sign writer hand did not hear back from anyone, she then called the nursing vending supervisor computer operations analyst and let her know about this situation. Pending results now.
[2022-09-02 20:00] VITALS: BP 185/62; PULSE 74; RESP 16; TEMP 37.2; O2SAT 94
[2022-09-03] MEDS: cloNIDine HCL 0.1 MG TABLET PO ×3 (09:38→15:41)
[2022-09-03] MEDS: ARIPiprazole 20 MG TABLET PO (09:38)
[2022-09-03] MEDS: Fluticasone/Vilanterol 200/25 BLST.W.DEV 1 PUFF INHALE (09:39)
[2022-09-03] MEDS: Divalproex Sodium Sprinkles 125 MG CAP.DR.SPR 375 MG PO (09:48)
--- NOTE | 2022-09-03 10:09 | MHC.CLN ---
F/U CONTINUES WITH REGULAR, NDD3 DIET. ENSURE TID TO PROVIDE ADDITIONAL 1050 KCALS, 60 G PROTEIN. CONTINUES WITH POOR INTAKE. CONTINUE TO ENCOURAGE INTAKE AT MEALS AND SUPPLEMENT ABLE.
[2022-09-03] MEDS: QUEtiapine Fumarate 50 MG TABLET PO (10:11)
[2022-09-03 10:43] VITALS: BP 184/69; PULSE 88; RESP 16; TEMP 37.2; O2SAT 93
--- NOTE | 2022-09-03 13:46 | P.PNPSI_ITS ---
Subjective Subjective Date of Service: 09/03/22 Reason For Visit: Schizophrenia,Dementia Subjective Notes: Conditional Voluntary Interim History: The nursing staff reported the patient has been consistently refusing to take his medications at night. I reviewed the chart he took Seroquel 200 mg only a few times less than 50% he has consistently refused to take Depakote in the last 2 weeks. The nursing staff reported that he slept well last night he is stating his bed most of the time. The staff reported that probably we had a language barrier with the patient. On interview the patient is on his bed he states that he is feeling so-so and I advised him to take his medications. He remains internally preoccupied. I review his medications and apparently he has been taking Abilify 20 mg consistently. He takes most of his meds in the morning but nothing at night. Mental Status Exam Mental Status Exam Patient Appearance: Well Grooomed Patient Orientation: Person and Situation Level of Consciousness: Awake Patient Behavior: Cooperative Mood Description: Withdrawn Affect Description: Constricted Patient Cognition Impaired: Yes Ability to Follow Directions: Good Speech Pattern: Clear Hallucinations: None Delusions: Paranoid Ideation Thought Process: Distracted Thought Content: positive for [place] Judgement: Fair Diagnostics Vital Signs (24Hr): Vital Signs - 24 hr 09/02/22 20:00 09/03/22 10:43 Temperature 98.9 F 98.9 F Pulse Rate 74 88 Respiratory Rate 16 16 Blood Pressure 185/62 H 184/69 H Pulse Oximetry 94 93 Oxygen Delivery Method Room Air Room Air BMI result Body Mass Index 25.1 Labs Results: 09/01/22 14:36 09/01/22 14:36 Labs: Laboratory Results - last 48 hr 09/01/22 09/01/22 09/01/22 14:36 14:36 14:36 WBC 11.3 H RBC 4.18 L Hgb 13.2 L Hct 39.8 L MCV 95.2 MCH 31.6 MCHC 33.2 RDW 13.1 Plt Count 263 MPV 9.5 Immature Gran % (Auto) 2.2 H Neut % (Auto) 69.1 Lymph % (Auto) 19.8 L [place] % (Auto) 8.1 Eos % (Auto) 0.4 Baso % (Auto) 0.4 Lymph # (Auto) 2.2 [place] # (Auto) 0.9 Eos # (Auto) 0.0 Baso # (Auto) 0.0 Abs Immat Gran (auto) 0.25 H Absolute Neuts (auto) 7.8 Absolute Nucleated RBC 0.000 Nucleated RBC % (auto) 0.0 Sodium 138 Potassium 4.5 Chloride 103 Carbon Dioxide 22 Anion Gap 18 BUN 23 H Creatinine 1.18 Estim Creat Clear Calc 45.6 Estimated GFR 60 Random Glucose 118 H Calcium 8.5 Total Bilirubin 0.4 AST 18 ALT 14 Alkaline Phosphatase 96 Ammonia Total Creatine Kinase 62 B-Natriuretic Peptide 32 Total Protein 6.5 Albumin 4.0 09/01/22 14:36 WBC RBC Hgb Hct MCV MCH MCHC RDW Plt Count MPV Immature Gran % (Auto) Neut % (Auto) Lymph % (Auto) [place] % (Auto) Eos % (Auto) Baso % (Auto) Lymph # (Auto) [place] # (Auto) Eos # (Auto) Baso # (Auto) Abs Immat Gran (auto) Absolute Neuts (auto) Absolute Nucleated RBC Nucleated RBC % (auto) Sodium Potassium Chloride Carbon Dioxide Anion Gap BUN Creatinine Estim Creat Clear Calc Estimated GFR Random Glucose Calcium Total Bilirubin AST ALT Alkaline Phosphatase [place]ia 28 Total Creatine Kinase B-Natriuretic Peptide Total Protein Albumin Imaging Radiology Impressions: ITS Impressions Chest X-Ray 08/08/22 16:36 IMPRESSION: 1. No acute pulmonary process. Chest X-Ray 08/10/22 10:25 IMPRESSION: New subsegmental atelectasis at the left lung base. Chest CTA 08/10/22 14:35 IMPRESSION: 1. No CT evidence of pulmonary emboli. 2. No lung mass or suspicious spiculated nodules, there are few scattered tiny nonspecific lung calcified and noncalcified nodular densities measuring up to 3 mm or less. 3. Coronary calcifications. 4. Pulmonary emphysema. Various management parameters for solitary pulmonary nodules are in the literature. According to the UPDATED 2017 Fleischner Society recommendations, the advised follow-up imaging for solid nodules < 6 mm is: LOW RISK PATIENT: No routine follow-up. HIGH RISK PATIENT: Optional CT at 12 months. Reference: Guidelines for Management of Incidental Pulmonary Nodules Detected on CT Images: From the Fleischner Society 2017. Chest X-Ray 08/12/22 03:50 IMPRESSION: No focal consolidation. Chest X-Ray 08/31/22 17:28 FINDINGS/IMPRESSION: * Hazy asymmetric opacification of the right lung, unclear if this could be due to patient rotation, asymmetric parenchymal opacities or small layering pleural effusion. Consider repeat PA and lateral radiographs. * Blunting of the bilateral costophrenic angles may reflect trace pleural effusions. No pneumothorax. * Unchanged cardiomediastinal silhouette. * Incidental note of upper abdominal surgical clips. Chest X-Ray 09/01/22 16:57 IMPRESSION: Unremarkable chest examination. Medications Medications Current Medications Acetaminophen (Acetaminophen 325 Mg Tablet) 650 mg PO Q6H PRN PRN Reason: Headache/Pain Mild Scale (1-3) Last Admin: 08/31/22 15:11 Dose: 650 mg Al Hydroxide/Mg Hydroxide (Magnesium Hydrox/Alum Hydrox 30 Ml Oral.Susp) 30 ml PO Q6H PRN PRN Reason: Heartburn/Nausea Albuterol Sulfate (Albuterol Sulfate (0.042%) 1.25 Mg/3 Ml Vial.Neb) 1.25 mg INHALE RQ6H PRN PRN Reason: Shortness of Breath/Wheezing Amlodipine Besylate (Amlodipine Besylate 10 Mg Tablet) 10 mg PO DAILY [facility]; Protocol Last Admin: 09/03/22 09:47 Dose: Not Given Aripiprazole (Aripiprazole 20 Mg Tablet) 20 mg PO DAILY [facility] Last Admin: 09/03/22 09:38 Dose: 20 mg Atorvastatin Calcium (Atorvastatin Calcium 20 Mg Tablet) 20 mg PO BEDTIME [facility] Last Admin: 09/02/22 21:29 Dose: Not Given Clonidine HCl (Clonidine Hcl 0.1 Mg Tablet) 0.1 mg PO TID [facility]; Protocol Last Admin: 09/03/22 09:47 Dose: 0.1 mg Divalproex Sodium (Divalproex Sodium Sprinkles 125 Mg Cap.Dr.Spr) 375 mg PO BID [facility] Last Admin: 09/03/22 09:48 Dose: 125 mg Fluticasone/Vilanterol (Fluticasone/Vilanterol 200/25 Blst.W.Dev) 1 puff INHALE RDAILY [facility] Last Admin: 09/03/22 09:39 Dose: 1 puff Magnesium Hydroxide (Milk Of Magnesia 30 Ml Oral.Susp) 30 ml PO DAILY PRN PRN Reason: Constipation Quetiapine Fumarate (Quetiapine Fumarate 50 Mg Tablet) 50 mg PO BID [facility] Last Admin: 09/03/22 10:11 Dose: 50 mg Quetiapine Fumarate (Quetiapine Fumarate 50 Mg Tablet) 50 mg PO Q6H PRN PRN Reason: agitation Last Admin: 08/30/22 13:12 Dose: 50 mg Quetiapine Fumarate (Quetiapine Fumarate 200 Mg Tablet) 200 mg PO BEDTIME [facility] Last Admin: 09/02/22 21:30 Dose: Not Given Tamsulosin HCl (Tamsulosin Hcl 0.4 Mg Capsule) 0.4 mg PO BEDTIME [facility] Last Admin: 09/02/22 21:30 Dose: Not Given Tiotropium [place] (Tiotropium [place] 18 Mcg Cap.W.Dev) 1 puff INHALE RDAILY [facility] Last Admin: 09/03/22 09:39 Dose: 1 puff Allergies Allergies Allergy/AdvReac Type Severity Reaction Status Date / Time Penicillins [PENICILLINS] Allergy Intermediate RASH Unverified 08/02/20 16:41 Iodinated Contrast Media Allergy Mild HIVES Unverified 08/02/20 16:41 [IV Dye, Iodine Containing Contrast ] penicillin V Allergy Unknown Verified 07/05/18 00:00 Assessment & Plan Assessment & Plan (1) COPD exacerbation: Status: Acute Code(s): J44.1 - Chronic obstructive pulmonary disease with (acute) exacerbation Plan 76 year old male with history htn, COPD, BPH, schizophrenia, and dementia admitted to psychiatry with consult placed for COPD exacerbation. Acute COPD, ? sob, he was recently treated for exacerbation and bronchitis with Doxy, prednisone, his present condition doesn't suggest another exacerbation -no hypoxia. Lungs clear -HR 80s -Duonebs prn. We could do CXR to see if developping something not found clinically Hponatremia--he's been manaed with fluid restriction and complaining of not having more water. He should be convinced to have repeat lab done. New CXR . The hospitalist have seen and it seems that he had a COPD exacerbation. I spent ___20___ minutes with the patient and/or on the patient floor today, greater than?50% of which was spent counseling/coordinating care. Reason for contiued inpatient stay Substantial Risk for: inability to function, rapid decompensation and med/psych decompensation
--- NOTE | 2022-09-03 17:07 | PC.NURSE ---
Patient refused to go to ordered chest CT.
[2022-09-03 18:00] VITALS: BP 156/69; PULSE 76; RESP 16; TEMP 37.1; O2SAT 93
[2022-09-04] MEDS: QUEtiapine Fumarate 50 MG TABLET PO ×2 (09:56→22:52)
[2022-09-04] MEDS: ARIPiprazole 20 MG TABLET PO (09:56)
[2022-09-04] MEDS: cloNIDine HCL 0.1 MG TABLET PO ×3 (09:56→22:51)
[2022-09-04] MEDS: amLODIPine Besylate 10 MG TABLET PO (09:56)
--- NOTE | 2022-09-04 11:14 | P.PNPSI_ITS ---
Subjective Subjective Date of Service: 09/04/22 Reason For Visit: Schizophrenia,Dementia Interim History: The nursing staff reported the patient has been on his bed all day long. He has refused medications, he has refused vital signs and he refused a CT scan yesterday. The health social work professor reported that his healthcare proxy does not want to do this job anymore. We review the compliance of his medications and he takes less than 50% of the time his Abilify. He has been taking sporadically other medications but he has not taking Adderall Depakote or any other prescribed Seroquel at night. We discussed today on rounds the possibility of using Abilify Maintena. We will discuss that with the patient and healthcare proxy about the use of long-acting injectable atypicals. Our pharmacy doesn't carry any type of long acting Abilify Mental Status Exam Mental Status Exam Patient Appearance: Unkempt Patient Orientation: Person Level of Consciousness: Restless Patient Behavior: Passive Mood Description: Calm Affect Description: Constricted Patient Cognition Impaired: Yes Ability to Follow Directions: Good Speech Pattern: Clear Hallucinations: None Delusions: Paranoid Ideation Thought Process: Distracted Thought Content: positive for [place] of Content Judgement: Poor Diagnostics Vital Signs (24Hr): Vital Signs - 24 hr 09/03/22 18:00 Temperature 98.7 F Pulse Rate 76 Respiratory Rate 16 Blood Pressure 156/69 H Pulse Oximetry 93 Oxygen Delivery Method Room Air BMI result Body Mass Index 25.1 Labs Results: 09/01/22 14:36 09/01/22 14:36 Imaging Radiology Impressions: ITS Impressions Chest X-Ray 08/08/22 16:36 IMPRESSION: 1. No acute pulmonary process. Chest X-Ray 08/10/22 10:25 IMPRESSION: New subsegmental atelectasis at the left lung base. Chest CTA 08/10/22 14:35 IMPRESSION: 1. No CT evidence of pulmonary emboli. 2. No lung mass or suspicious spiculated nodules, there are few scattered tiny nonspecific lung calcified and noncalcified nodular densities measuring up to 3 mm or less. 3. Coronary calcifications. 4. Pulmonary emphysema. Various management parameters for solitary pulmonary nodules are in the literature. According to the UPDATED 2017 Fleischner Society recommendations, the advised follow-up imaging for solid nodules < 6 mm is: LOW RISK PATIENT: No routine follow-up. HIGH RISK PATIENT: Optional CT at 12 months. Reference: Guidelines for Management of Incidental Pulmonary Nodules Detected on CT Images: From the Fleischner Society 2017. Chest X-Ray 08/12/22 03:50 IMPRESSION: No focal consolidation. Chest X-Ray 08/31/22 17:28 FINDINGS/IMPRESSION: * Hazy asymmetric opacification of the right lung, unclear if this could be due to patient rotation, asymmetric parenchymal opacities or small layering pleural effusion. Consider repeat PA and lateral radiographs. * Blunting of the bilateral costophrenic angles may reflect trace pleural effusions. No pneumothorax. * Unchanged cardiomediastinal silhouette. * Incidental note of upper abdominal surgical clips. Chest X-Ray 09/01/22 16:57 IMPRESSION: Unremarkable chest examination. Medications Medications Current Medications Acetaminophen (Acetaminophen 325 Mg Tablet) 650 mg PO Q6H PRN PRN Reason: Headache/Pain Mild Scale (1-3) Last Admin: 08/31/22 15:11 Dose: 650 mg Al Hydroxide/Mg Hydroxide (Magnesium Hydrox/Alum Hydrox 30 Ml Oral.Susp) 30 ml PO Q6H PRN PRN Reason: Heartburn/Nausea Albuterol Sulfate (Albuterol Sulfate (0.042%) 1.25 Mg/3 Ml Vial.Neb) 1.25 mg INHALE RQ6H PRN PRN Reason: Shortness of Breath/Wheezing Amlodipine Besylate (Amlodipine Besylate 10 Mg Tablet) 10 mg PO DAILY [facility]; Protocol Last Admin: 09/04/22 09:56 Dose: 10 mg Aripiprazole (Aripiprazole 20 Mg Tablet) 20 mg PO DAILY [facility] Last Admin: 09/04/22 09:56 Dose: 20 mg Atorvastatin Calcium (Atorvastatin Calcium 20 Mg Tablet) 20 mg PO BEDTIME [facility] Last Admin: 09/03/22 21:11 Dose: Not Given Clonidine HCl (Clonidine Hcl 0.1 Mg Tablet) 0.1 mg PO TID [facility]; Protocol Last Admin: 09/04/22 09:56 Dose: 0.1 mg Fluticasone/Vilanterol (Fluticasone/Vilanterol 200/25 Blst.W.Dev) 1 puff INHALE RDAILY [facility] Last Admin: 09/03/22 09:39 Dose: 1 puff Magnesium Hydroxide (Milk Of Magnesia 30 Ml Oral.Susp) 30 ml PO DAILY PRN PRN Reason: Constipation Quetiapine Fumarate (Quetiapine Fumarate 50 Mg Tablet) 50 mg PO BID [facility] Last Admin: 09/04/22 09:56 Dose: 50 mg Quetiapine Fumarate (Quetiapine Fumarate 50 Mg Tablet) 50 mg PO Q6H PRN PRN Reason: agitation Last Admin: 08/30/22 13:12 Dose: 50 mg Quetiapine Fumarate (Quetiapine Fumarate 200 Mg Tablet) 200 mg PO BEDTIME [facility] Last Admin: 09/03/22 21:12 Dose: Not Given Tamsulosin HCl (Tamsulosin Hcl 0.4 Mg Capsule) 0.4 mg PO BEDTIME [facility] Last Admin: 09/03/22 21:12 Dose: Not Given Tiotropium [place] (Tiotropium [place] 18 Mcg Cap.W.Dev) 1 puff INHALE RDAILY [facility] Last Admin: 09/03/22 09:39 Dose: 1 puff Allergies Allergies Allergy/AdvReac Type Severity Reaction Status Date / Time Penicillins [PENICILLINS] Allergy Intermediate RASH Unverified 08/02/20 16:41 Iodinated Contrast Media Allergy Mild HIVES Unverified 08/02/20 16:41 [IV Dye, Iodine Containing Contrast ] penicillin V Allergy Unknown Verified 07/05/18 00:00 Assessment & Plan Assessment & Plan (1) COPD exacerbation: Status: Acute Code(s): J44.1 - Chronic obstructive pulmonary disease with (acute) exacerbation Plan 76 year old male with history htn, COPD, BPH, schizophrenia, and dementia admitted to psychiatry with consult placed for COPD exacerbation. Acute COPD, ? sob, he was recently treated for exacerbation and bronchitis with Doxy, prednisone, his present condition doesn't suggest another exacerbation -no hypoxia. Lungs clear -HR 80s -Duonebs prn. We could do CXR to see if developping something not found clinically Hponatremia--he's been manaed with fluid restriction and complaining of not having more water. He should be convinced to have repeat lab done. New CXR . The hospitalist have seen and it seems that he had a COPD exacerbation. I spent ___20___ minutes with the patient and/or on the patient floor today, greater than?50% of which was spent counseling/coordinating care. Reason for contiued inpatient stay Substantial Risk for: inability to function, rapid decompensation and med/psych decompensation
[2022-09-04 15:55] VITALS: BMI 24.4
[2022-09-04 18:00] VITALS: BP 150/67; PULSE 66; RESP 18; TEMP 36.8; O2SAT 94
[2022-09-04] MEDS: Atorvastatin Calcium 20 MG TABLET PO (22:51)
[2022-09-04] MEDS: Tamsulosin HCL 0.4 MG CAPSULE PO (22:51)
[2022-09-04] MEDS: QUEtiapine Fumarate 200 MG TABLET PO (22:51)
[2022-09-05] MEDS: Fluticasone/Vilanterol 200/25 BLST.W.DEV 1 PUFF INHALE (11:01)
[2022-09-05] MEDS: ARIPiprazole 20 MG TABLET PO (11:02)
[2022-09-05] MEDS: QUEtiapine Fumarate 50 MG TABLET PO (11:02)
--- NOTE | 2022-09-05 11:21 | HO.PSYCHPN ---
Subjective Subjective Date of Service: 09/05/22 Reason For Visit: Schizophrenia,Dementia Subjective Notes: Conditional Voluntary Interim History: the nursing staff reported the patient did not eat breakfast but only ate lunch. He was incontinent and needed to be taking care but he refused to care. Yesterday he was compliant with Seroquel and Abilify. Yesterday I spoke with the patient regarding the use of a bili 5 minutes 10 instead of taking the pill and he was passively in agreement. Probably he will need Abilify Maintena for long-term maintenance of antipsychotic treatment since he constantly refuses treatment. On interview he denies new symptoms and I a discussed again the use of long-term injectable. Unfortunately, the pharmacy does not carry any long-acting injectable of Abilify but her HCP will get the shot on a commercial pharmacy. Mental Status Exam Mental Status Exam Patient Appearance: Appropriate Patient Orientation: Person Level of Consciousness: Awake and Disoriented Patient Behavior: Guarded Mood Description: Withdrawn Affect Description: Labile Patient Cognition Impaired: Yes Ability to Follow Directions: Fair Speech Pattern: Soft-Spoken Hallucinations: Auditory Delusions: Paranoid Ideation Thought Process: Illogical and Evasive Thought Content: positive for [place] Judgement: Poor Diagnostics Vital Signs (24Hr): Vital Signs - 24 hr 09/04/22 18:00 Temperature 98.3 F Pulse Rate 66 Respiratory Rate 18 Blood Pressure 150/67 H Pulse Oximetry 94 Oxygen Delivery Method Room Air BMI result Body Mass Index 24.4 Labs Results: 09/01/22 14:36 09/01/22 14:36 Imaging Radiology Impressions: ITS Impressions Chest X-Ray 08/08/22 16:36 IMPRESSION: 1. No acute pulmonary process. Chest X-Ray 08/10/22 10:25 IMPRESSION: New subsegmental atelectasis at the left lung base. Chest CTA 08/10/22 14:35 IMPRESSION: 1. No CT evidence of pulmonary emboli. 2. No lung mass or suspicious spiculated nodules, there are few scattered tiny nonspecific lung calcified and noncalcified nodular densities measuring up to 3 mm or less. 3. Coronary calcifications. 4. Pulmonary emphysema. Various management parameters for solitary pulmonary nodules are in the literature. According to the UPDATED 2017 Fleischner Society recommendations, the advised follow-up imaging for solid nodules < 6 mm is: LOW RISK PATIENT: No routine follow-up. HIGH RISK PATIENT: Optional CT at 12 months. Reference: Guidelines for Management of Incidental Pulmonary Nodules Detected on CT Images: From the Fleischner Society 2017. Chest X-Ray 08/12/22 03:50 IMPRESSION: No focal consolidation. Chest X-Ray 08/31/22 17:28 FINDINGS/IMPRESSION: * Hazy asymmetric opacification of the right lung, unclear if this could be due to patient rotation, asymmetric parenchymal opacities or small layering pleural effusion. Consider repeat PA and lateral radiographs. * Blunting of the bilateral costophrenic angles may reflect trace pleural effusions. No pneumothorax. * Unchanged cardiomediastinal silhouette. * Incidental note of upper abdominal surgical clips. Chest X-Ray 09/01/22 16:57 IMPRESSION: Unremarkable chest examination. Medications Medications Current Medications Acetaminophen (Acetaminophen 325 Mg Tablet) 650 mg PO Q6H PRN PRN Reason: Headache/Pain Mild Scale (1-3) Last Admin: 08/31/22 15:11 Dose: 650 mg Al Hydroxide/Mg Hydroxide (Magnesium Hydrox/Alum Hydrox 30 Ml Oral.Susp) 30 ml PO Q6H PRN PRN Reason: Heartburn/Nausea Albuterol Sulfate (Albuterol Sulfate (0.042%) 1.25 Mg/3 Ml Vial.Neb) 1.25 mg INHALE RQ6H PRN PRN Reason: Shortness of Breath/Wheezing Amlodipine Besylate (Amlodipine Besylate 10 Mg Tablet) 10 mg PO DAILY [facility]; Protocol Last Admin: 09/05/22 11:07 Dose: Not Given Aripiprazole (Aripiprazole 20 Mg Tablet) 20 mg PO DAILY [facility] Last Admin: 09/05/22 11:02 Dose: 20 mg Atorvastatin Calcium (Atorvastatin Calcium 20 Mg Tablet) 20 mg PO BEDTIME [facility] Last Admin: 09/04/22 22:51 Dose: 20 mg Clonidine HCl (Clonidine Hcl 0.1 Mg Tablet) 0.1 mg PO TID [facility]; Protocol Last Admin: 09/05/22 11:07 Dose: Not Given Fluticasone/Vilanterol (Fluticasone/Vilanterol 200/25 Blst.W.Dev) 1 puff INHALE RDAILY [facility] Last Admin: 09/05/22 11:01 Dose: 1 puff Magnesium Hydroxide (Milk Of Magnesia 30 Ml Oral.Susp) 30 ml PO DAILY PRN PRN Reason: Constipation Quetiapine Fumarate (Quetiapine Fumarate 50 Mg Tablet) 50 mg PO BID [facility] Last Admin: 09/05/22 11:02 Dose: 50 mg Quetiapine Fumarate (Quetiapine Fumarate 50 Mg Tablet) 50 mg PO Q6H PRN PRN Reason: agitation Last Admin: 08/30/22 13:12 Dose: 50 mg Quetiapine Fumarate (Quetiapine Fumarate 200 Mg Tablet) 200 mg PO BEDTIME [facility] Last Admin: 09/04/22 22:51 Dose: 200 mg Tamsulosin HCl (Tamsulosin Hcl 0.4 Mg Capsule) 0.4 mg PO BEDTIME [facility] Last Admin: 09/04/22 22:51 Dose: 0.4 mg Tiotropium [place] (Tiotropium [place] 18 Mcg Cap.W.Dev) 1 puff INHALE RDAILY [facility] Last Admin: 09/05/22 11:00 Dose: 1 puff Allergies Allergies Allergy/AdvReac Type Severity Reaction Status Date / Time Penicillins [PENICILLINS] Allergy Intermediate RASH Unverified 08/02/20 16:41 Iodinated Contrast Media Allergy Mild HIVES Unverified 08/02/20 16:41 [IV Dye, Iodine Containing Contrast ] penicillin V Allergy Unknown Verified 07/05/18 00:00 Assessment & Plan Assessment & Plan (1) COPD exacerbation: Status: Acute Code(s): J44.1 - Chronic obstructive pulmonary disease with (acute) exacerbation Plan 76 year old male with history htn, COPD, BPH, schizophrenia, and dementia admitted to psychiatry with consult placed for COPD exacerbation. Acute COPD, ? sob, he was recently treated for exacerbation and bronchitis with Doxy, prednisone, his present condition doesn't suggest another exacerbation -no hypoxia. Lungs clear -HR 80s -Duonebs prn. We could do CXR to see if developping something not found clinically Hponatremia--he's been manaed with fluid restriction and complaining of not having more water. He should be convinced to have repeat lab done. New CXR . The hospitalist have seen and it seems that he had a COPD exacerbation. The patient had been on compliant with treatment for several days and he looks more psychotic and internally preoccupied, seclusive I spent ___20___ minutes with the patient and/or on the patient floor today, greater than?50% of which was spent counseling/coordinating care. Reason for contiued inpatient stay Substantial Risk for: inability to function, rapid decompensation and med/psych decompensation
--- NOTE | 2022-09-05 13:18 | MHC.CLN ---
F/U CONTINUES WITH REGULAR, NDD3 DIET. ENSURE TID TO PROVIDE ADDITIONAL 1050 KCALS, 60 G PROTEIN. CONTINUES WITH USUALLY POOR INTAKE. LABS REVIEWED. CONTINUE TO ENCOURAGE INTAKE AT MEALS AND SUPPLEMENT ABLE. RD TO FOLLOW WEEKLY.
[2022-09-05 18:00] VITALS: BP 136/63; PULSE 79; RESP 18; TEMP 36.8; O2SAT 90
[2022-09-06 06:00] VITALS: BP 161/73; PULSE 90; RESP 18; TEMP 36.9
[2022-09-06] MEDS: QUEtiapine Fumarate 50 MG TABLET PO ×2 (08:51→20:58)
[2022-09-06] MEDS: cloNIDine HCL 0.1 MG TABLET PO ×3 (08:51→20:57)
[2022-09-06] MEDS: ARIPiprazole 20 MG TABLET PO (08:51)
[2022-09-06] MEDS: amLODIPine Besylate 10 MG TABLET PO (08:52)
[2022-09-06] MEDS: Fluticasone/Vilanterol 200/25 BLST.W.DEV 1 PUFF INHALE (08:52)
[2022-09-06] MEDS: Albuterol Sulfate 90 MCG 8 GM INHALER 2 PUFF INHALE (17:15)
[2022-09-06 18:00] VITALS: BP 135/62; PULSE 80; RESP 22; TEMP 36.9; O2SAT 92
[2022-09-06] MEDS: Atorvastatin Calcium 20 MG TABLET PO (20:57)
[2022-09-06] MEDS: QUEtiapine Fumarate 200 MG TABLET PO (20:57)
[2022-09-06] MEDS: Tamsulosin HCL 0.4 MG CAPSULE PO (20:57)
--- NOTE | 2022-09-06 22:33 | HO.PSYCHPN ---
Subjective Subjective Date of Service: 09/06/22 Reason For Visit: Schizophrenia,Dementia Subjective Notes: [place] Warning Interim History: Met with pt's team. Spoke with pt. He is [place] speaking. Per staff, he is napping excessively. Pt complains of pain but otherwise says he is fine and slept okay. Eating well. Medication Compliance: Yes Side effects from medications: No Attending Groups: No Review of Systems Acute medical concerns: No Medical Review of Systems: unchanged Mental Status Exam Mental Status Exam Narrative: Patient Appearance: Appropriate Patient Orientation: Person Level of Consciousness: Awake and Disoriented Patient Behavior: Guarded Mood Description: Withdrawn Affect Description: Labile Patient Cognition Impaired: Yes Ability to Follow Directions: Fair Speech Pattern: Soft-Spoken Hallucinations: Auditory Delusions: Paranoid Ideation Thought Process: Illogical and Evasive Thought Content: positive for [place] Judgement: Poor Diagnostics Vital Signs (24Hr): Vital Signs - 24 hr 09/06/22 06:00 09/06/22 18:00 Temperature 98.4 F 98.4 F Pulse Rate 90 80 Respiratory Rate 18 22 H Blood Pressure 161/73 H 135/62 Pulse Oximetry 92 Oxygen Delivery Method Room Air Oxygen Flow Rate 91 BMI result Body Mass Index 24.4 Labs Results: 09/01/22 14:36 09/01/22 14:36 Imaging Radiology Impressions: ITS Impressions Chest X-Ray 08/08/22 16:36 IMPRESSION: 1. No acute pulmonary process. Chest X-Ray 08/10/22 10:25 IMPRESSION: New subsegmental atelectasis at the left lung base. Chest CTA 08/10/22 14:35 IMPRESSION: 1. No CT evidence of pulmonary emboli. 2. No lung mass or suspicious spiculated nodules, there are few scattered tiny nonspecific lung calcified and noncalcified nodular densities measuring up to 3 mm or less. 3. Coronary calcifications. 4. Pulmonary emphysema. Various management parameters for solitary pulmonary nodules are in the literature. According to the UPDATED 2017 Fleischner Society recommendations, the advised follow-up imaging for solid nodules < 6 mm is: LOW RISK PATIENT: No routine follow-up. HIGH RISK PATIENT: Optional CT at 12 months. Reference: Guidelines for Management of Incidental Pulmonary Nodules Detected on CT Images: From the Fleischner Society 2017. Chest X-Ray 08/12/22 03:50 IMPRESSION: No focal consolidation. Chest X-Ray 08/31/22 17:28 FINDINGS/IMPRESSION: * Hazy asymmetric opacification of the right lung, unclear if this could be due to patient rotation, asymmetric parenchymal opacities or small layering pleural effusion. Consider repeat PA and lateral radiographs. * Blunting of the bilateral costophrenic angles may reflect trace pleural effusions. No pneumothorax. * Unchanged cardiomediastinal silhouette. * Incidental note of upper abdominal surgical clips. Chest X-Ray 09/01/22 16:57 IMPRESSION: Unremarkable chest examination. Medications Medications Current Medications Acetaminophen (Acetaminophen 325 Mg Tablet) 650 mg PO Q6H PRN PRN Reason: Headache/Pain Mild Scale (1-3) Last Admin: 08/31/22 15:11 Dose: 650 mg Al Hydroxide/Mg Hydroxide (Magnesium Hydrox/Alum Hydrox 30 Ml Oral.Susp) 30 ml PO Q6H PRN PRN Reason: Heartburn/Nausea Albuterol Sulfate (Albuterol Sulfate 90 Mcg 8 Gm Inhaler) 2 puff INHALE RQ4H PRN PRN Reason: COPD exacerbation Last Admin: 09/06/22 17:15 Dose: 2 puff Amlodipine Besylate (Amlodipine Besylate 10 Mg Tablet) 10 mg PO DAILY [facility]; Protocol Last Admin: 09/06/22 08:52 Dose: 10 mg Aripiprazole (Aripiprazole 20 Mg Tablet) 20 mg PO DAILY [facility] Last Admin: 09/06/22 08:51 Dose: 20 mg Atorvastatin Calcium (Atorvastatin Calcium 20 Mg Tablet) 20 mg PO BEDTIME [facility] Last Admin: 09/06/22 20:57 Dose: 20 mg Clonidine HCl (Clonidine Hcl 0.1 Mg Tablet) 0.1 mg PO TID [facility]; Protocol Last Admin: 09/06/22 20:57 Dose: 0.1 mg Fluticasone/Vilanterol (Fluticasone/Vilanterol 200/25 Blst.W.Dev) 1 puff INHALE RDAILY [facility] Last Admin: 09/06/22 08:52 Dose: 1 puff Magnesium Hydroxide (Milk Of Magnesia 30 Ml Oral.Susp) 30 ml PO DAILY PRN PRN Reason: Constipation Quetiapine Fumarate (Quetiapine Fumarate 50 Mg Tablet) 50 mg PO BID [facility] Last Admin: 09/06/22 20:58 Dose: 50 mg Quetiapine Fumarate (Quetiapine Fumarate 50 Mg Tablet) 50 mg PO Q6H PRN PRN Reason: agitation Last Admin: 08/30/22 13:12 Dose: 50 mg Quetiapine Fumarate (Quetiapine Fumarate 200 Mg Tablet) 200 mg PO BEDTIME [facility] Last Admin: 09/06/22 20:57 Dose: 200 mg Tamsulosin HCl (Tamsulosin Hcl 0.4 Mg Capsule) 0.4 mg PO BEDTIME [facility] Last Admin: 09/06/22 20:57 Dose: 0.4 mg Tiotropium [place] (Tiotropium [place] 18 Mcg Cap.W.Dev) 1 puff INHALE RDAILY [facility] Last Admin: 09/06/22 08:52 Dose: 1 puff Allergies Allergies Allergy/AdvReac Type Severity Reaction Status Date / Time Penicillins [PENICILLINS] Allergy Intermediate RASH Unverified 08/02/20 16:41 Iodinated Contrast Media Allergy Mild HIVES Unverified 08/02/20 16:41 [IV Dye, Iodine Containing Contrast ] penicillin V Allergy Unknown Verified 07/05/18 00:00 Assessment & Plan Assessment & Plan (1) COPD exacerbation: Status: Acute Code(s): J44.1 - Chronic obstructive pulmonary disease with (acute) exacerbation Plan 76 year old male with history htn, COPD, BPH, schizophrenia, and dementia admitted to psychiatry with consult placed for COPD exacerbation. Acute COPD, ? sob, he was recently treated for exacerbation and bronchitis with Doxy, prednisone, his present condition doesn't suggest another exacerbation -no hypoxia. Lungs clear -HR 80s -Duonebs prn. We could do CXR to see if developping something not found clinically Hponatremia--he's been manaed with fluid restriction and complaining of not having more water. He should be convinced to have repeat lab done. New CXR . The hospitalist have seen and it seems that he had a COPD exacerbation. The patient had been on compliant with treatment for several days and he looks more psychotic and internally preoccupied, seclusive I spent minutes with the patient and/or on the patient floor today, greater than?50% of which was spent counseling/coordinating care. Patient educated on: other Reason for contiued inpatient stay Substantial Risk for: inability to function, rapid decompensation and med/psych decompensation
[2022-09-07 06:00] VITALS: BP 122/60; PULSE 73; RESP 16; TEMP 36.5; O2SAT 90
[2022-09-07] MEDS: amLODIPine Besylate 10 MG TABLET PO (08:31)
[2022-09-07] MEDS: ARIPiprazole 20 MG TABLET PO (08:31)
[2022-09-07] MEDS: cloNIDine HCL 0.1 MG TABLET PO ×3 (08:31→21:03)
[2022-09-07] MEDS: QUEtiapine Fumarate 50 MG TABLET PO ×2 (08:31→21:03)
--- NOTE | 2022-09-07 12:56 | P.PNPSI_ITS ---
Subjective Subjective Date of Service: 09/07/22 Reason For Visit: Schizophrenia,Dementia Subjective Notes: [place] Warning Interim History: Met with pt and discussed with team. He has been napping a lot. Pt says he is good, feels better, sleep is good, pain is still there, trying to eat.?No med changes. Medication Compliance: Yes Side effects from medications: No Attending Groups: No Review of Systems Acute medical concerns: No Medical Review of Systems: unchanged Mental Status Exam Mental Status Exam Narrative: Patient Appearance: Appropriate Patient Orientation: Person Level of Consciousness: Awake and Disoriented Patient Behavior: Guarded Mood Description: Withdrawn Affect Description: Labile Patient Cognition Impaired: Yes Ability to Follow Directions: Fair Speech Pattern: Soft-Spoken Hallucinations: Auditory Delusions: Paranoid Ideation Thought Process: Illogical and Evasive Thought Content: positive for [place] Judgement: Poor Diagnostics Vital Signs (24Hr): Vital Signs - 24 hr 09/06/22 18:00 09/07/22 06:00 Temperature 98.4 F 97.7 F Pulse Rate 80 73 Respiratory Rate 22 H 16 Blood Pressure 135/62 122/60 Pulse Oximetry 92 90 L Oxygen Delivery Method Room Air Room Air BMI result Body Mass Index 24.4 Labs Results: 09/01/22 14:36 09/01/22 14:36 Imaging Radiology Impressions: ITS Impressions Chest X-Ray 08/08/22 16:36 IMPRESSION: 1. No acute pulmonary process. Chest X-Ray 08/10/22 10:25 IMPRESSION: New subsegmental atelectasis at the left lung base. Chest CTA 08/10/22 14:35 IMPRESSION: 1. No CT evidence of pulmonary emboli. 2. No lung mass or suspicious spiculated nodules, there are few scattered tiny nonspecific lung calcified and noncalcified nodular densities measuring up to 3 mm or less. 3. Coronary calcifications. 4. Pulmonary emphysema. Various management parameters for solitary pulmonary nodules are in the literature. According to the UPDATED 2017 Fleischner Society recommendations, the advised follow-up imaging for solid nodules < 6 mm is: LOW RISK PATIENT: No routine follow-up. HIGH RISK PATIENT: Optional CT at 12 months. Reference: Guidelines for Management of Incidental Pulmonary Nodules Detected on CT Images: From the Fleischner Society 2017. Chest X-Ray 08/12/22 03:50 IMPRESSION: No focal consolidation. Chest X-Ray 08/31/22 17:28 FINDINGS/IMPRESSION: * Hazy asymmetric opacification of the right lung, unclear if this could be due to patient rotation, asymmetric parenchymal opacities or small layering pleural effusion. Consider repeat PA and lateral radiographs. * Blunting of the bilateral costophrenic angles may reflect trace pleural effusions. No pneumothorax. * Unchanged cardiomediastinal silhouette. * Incidental note of upper abdominal surgical clips. Chest X-Ray 09/01/22 16:57 IMPRESSION: Unremarkable chest examination. Medications Medications Current Medications Acetaminophen (Acetaminophen 325 Mg Tablet) 650 mg PO Q6H PRN PRN Reason: Headache/Pain Mild Scale (1-3) Last Admin: 08/31/22 15:11 Dose: 650 mg Al Hydroxide/Mg Hydroxide (Magnesium Hydrox/Alum Hydrox 30 Ml Oral.Susp) 30 ml PO Q6H PRN PRN Reason: Heartburn/Nausea Albuterol Sulfate (Albuterol Sulfate 90 Mcg 8 Gm Inhaler) 2 puff INHALE RQ4H PRN PRN Reason: COPD exacerbation Last Admin: 09/06/22 17:15 Dose: 2 puff Amlodipine Besylate (Amlodipine Besylate 10 Mg Tablet) 10 mg PO DAILY [facility]; Protocol Last Admin: 09/07/22 08:31 Dose: 10 mg Aripiprazole (Aripiprazole 20 Mg Tablet) 20 mg PO DAILY [facility] Last Admin: 09/07/22 08:31 Dose: 20 mg Atorvastatin Calcium (Atorvastatin Calcium 20 Mg Tablet) 20 mg PO BEDTIME [facility] Last Admin: 09/06/22 20:57 Dose: 20 mg Clonidine HCl (Clonidine Hcl 0.1 Mg Tablet) 0.1 mg PO TID [facility]; Protocol Last Admin: 09/07/22 08:31 Dose: 0.1 mg Fluticasone/Vilanterol (Fluticasone/Vilanterol 200/25 Blst.W.Dev) 1 puff INHALE RDAILY [facility] Last Admin: 09/07/22 08:34 Dose: Not Given Magnesium Hydroxide (Milk Of Magnesia 30 Ml Oral.Susp) 30 ml PO DAILY PRN PRN Reason: Constipation Quetiapine Fumarate (Quetiapine Fumarate 50 Mg Tablet) 50 mg PO BID [facility] Last Admin: 09/07/22 08:31 Dose: 50 mg Quetiapine Fumarate (Quetiapine Fumarate 50 Mg Tablet) 50 mg PO Q6H PRN PRN Reason: agitation Last Admin: 08/30/22 13:12 Dose: 50 mg Quetiapine Fumarate (Quetiapine Fumarate 200 Mg Tablet) 200 mg PO BEDTIME [facility] Last Admin: 09/06/22 20:57 Dose: 200 mg Tamsulosin HCl (Tamsulosin Hcl 0.4 Mg Capsule) 0.4 mg PO BEDTIME [facility] Last Admin: 09/06/22 20:57 Dose: 0.4 mg Tiotropium [place] (Tiotropium [place] 18 Mcg Cap.W.Dev) 1 puff INHALE RDAILY [facility] Last Admin: 09/07/22 08:31 Dose: 1 puff Allergies Allergies Allergy/AdvReac Type Severity Reaction Status Date / Time Penicillins [PENICILLINS] Allergy Intermediate RASH Unverified 08/02/20 16:41 Iodinated Contrast Media Allergy Mild HIVES Unverified 08/02/20 16:41 [IV Dye, Iodine Containing Contrast ] penicillin V Allergy Unknown Verified 07/05/18 00:00 Assessment & Plan Assessment & Plan (1) COPD exacerbation: Status: Acute Code(s): J44.1 - Chronic obstructive pulmonary disease with (acute) exacerbation Plan 76 year old male with history htn, COPD, BPH, schizophrenia, and dementia adm itted to psychiatry with consult placed for COPD exacerbation. Acute COPD, ? sob, he was recently treated for exacerbation and bronchitis with Doxy, prednisone, his present condition doesn't suggest another exacerbation -no hypoxia. Lungs clear -HR 80s -Duonebs prn. We could do CXR to see if dev elopping something not found clinically Hponatremia--he's been manaed with fluid restriction and complaining of not having more water. He should be convinced to have repeat lab done. New CXR . The hospitalist have seen and it seems that he had a COPD exacerbation. The patient had been on compliant with treatment for several days and he looks more psychotic and internally preoccupied, seclusive I spent minutes with the patient and/or on the patient floor today, greater than?50% of which was spent counseling/coordinating care. Patient educated on: diagnosis, medication risk/benefits and therapeutic strategies Reason for contiued inpatient stay Substantial Risk for: inability to function, rapid decompensation and med/psych decompensation
[2022-09-07 18:00] VITALS: BP 112/53; PULSE 76; RESP 16; TEMP 36.1; O2SAT 92
[2022-09-07] MEDS: Tamsulosin HCL 0.4 MG CAPSULE PO (21:03)
[2022-09-07] MEDS: QUEtiapine Fumarate 200 MG TABLET PO (21:03)
[2022-09-07] MEDS: Atorvastatin Calcium 20 MG TABLET PO (21:03)
[2022-09-08] MEDS: Fluticasone/Vilanterol 200/25 BLST.W.DEV 1 PUFF INHALE (10:59)
--- NOTE | 2022-09-08 13:30 | P.PNPSI_ITS ---
Subjective Subjective Date of Service: 09/08/22 Reason For Visit: Schizophrenia,Dementia Subjective Notes: Conditional Voluntary Interim History: the nursing staff reported that the patient now is on 5 minute checks. Yesterday he ate 2 meals. He had been incontinent of urine and compliance over the weekend was okay. Today, he refused to take his Abilify in the morning. On interview, the patient remains seclusive, internally preoccupied and mostly in his room. I advised him to keep taking his medications. We are waiting for the healthcare proxy to bring back Frannie Nuñez from the pharmacy and start long acting injectables for full compliance. It is clear that this moment, the patient cannot go to a long term and the most suitable place would be a assisted facility. Mental Status Exam Mental Status Exam Patient Appearance: Well Grooomed Patient Orientation: Person and Situation Level of Consciousness: Awake Patient Behavior: Cooperative Mood Description: Constricted Affect Description: Labile Patient Cognition Impaired: Yes Ability to Follow Directions: Fair Speech Pattern: Monotone and Soft-Spoken Hallucinations: None Delusions: Paranoid Ideation Thought Process: Illogical and Distracted Thought Content: positive for [place] of Content Judgement: Poor Diagnostics Vital Signs (24Hr): Vital Signs - 24 hr 09/07/22 18:00 Temperature 97 F Pulse Rate 76 Respiratory Rate 16 Blood Pressure 112/53 L Pulse Oximetry 92 Oxygen Delivery Method Room Air BMI result Body Mass Index 24.4 Labs Results: 09/01/22 14:36 09/01/22 14:36 Imaging Radiology Impressions: ITS Impressions Chest X-Ray 08/08/22 16:36 IMPRESSION: 1. No acute pulmonary process. Chest X-Ray 08/10/22 10:25 IMPRESSION: New subsegmental atelectasis at the left lung base. Chest CTA 08/10/22 14:35 IMPRESSION: 1. No CT evidence of pulmonary emboli. 2. No lung mass or suspicious spiculated nodules, there are few scattered tiny nonspecific lung calcified and noncalcified nodular densities measuring up to 3 mm or less. 3. Coronary calcifications. 4. Pulmonary emphysema. Various management parameters for solitary pulmonary nodules are in the literature. According to the UPDATED 2017 Fleischner Society recommendations, the advised follow-up imaging for solid nodules < 6 mm is: LOW RISK PATIENT: No routine follow-up. HIGH RISK PATIENT: Optional CT at 12 months. Reference: Guidelines for Management of Incidental Pulmonary Nodules Detected on CT Images: From the Fleischner Society 2017. Chest X-Ray 08/12/22 03:50 IMPRESSION: No focal consolidation. Chest X-Ray 08/31/22 17:28 FINDINGS/IMPRESSION: * Hazy asymmetric opacification of the right lung, unclear if this could be due to patient rotation, asymmetric parenchymal opacities or small layering pleural effusion. Consider repeat PA and lateral radiographs. * Blunting of the bilateral costophrenic angles may reflect trace pleural effusions. No pneumothorax. * Unchanged cardiomediastinal silhouette. * Incidental note of upper abdominal surgical clips. Chest X-Ray 09/01/22 16:57 IMPRESSION: Unremarkable chest examination. Medications Medications Current Medications Acetaminophen (Acetaminophen 325 Mg Tablet) 650 mg PO Q6H PRN PRN Reason: Headache/Pain Mild Scale (1-3) Last Admin: 08/31/22 15:11 Dose: 650 mg Al Hydroxide/Mg Hydroxide (Magnesium Hydrox/Alum Hydrox 30 Ml Oral.Susp) 30 ml PO Q6H PRN PRN Reason: Heartburn/Nausea Albuterol Sulfate (Albuterol Sulfate 90 Mcg 8 Gm Inhaler) 2 puff INHALE RQ4H PRN PRN Reason: COPD exacerbation Last Admin: 09/06/22 17:15 Dose: 2 puff Amlodipine Besylate (Amlodipine Besylate 10 Mg Tablet) 10 mg PO DAILY [facility]; Protocol Last Admin: 09/08/22 11:53 Dose: Not Given Aripiprazole (Aripiprazole 20 Mg Tablet) 20 mg PO DAILY [facility] Last Admin: 09/08/22 11:53 Dose: Not Given Atorvastatin Calcium (Atorvastatin Calcium 20 Mg Tablet) 20 mg PO BEDTIME [facility] Last Admin: 09/07/22 21:03 Dose: 20 mg Clonidine HCl (Clonidine Hcl 0.1 Mg Tablet) 0.1 mg PO TID [facility]; Protocol Last Admin: 09/08/22 11:53 Dose: Not Given Fluticasone/Vilanterol (Fluticasone/Vilanterol 200/25 Blst.W.Dev) 1 puff INHALE RDAILY [facility] Last Admin: 09/08/22 10:59 Dose: 1 puff Magnesium Hydroxide (Milk Of Magnesia 30 Ml Oral.Susp) 30 ml PO DAILY PRN PRN Reason: Constipation Quetiapine Fumarate (Quetiapine Fumarate 50 Mg Tablet) 50 mg PO BID [facility] Last Admin: 09/08/22 11:53 Dose: Not Given Quetiapine Fumarate (Quetiapine Fumarate 50 Mg Tablet) 50 mg PO Q6H PRN PRN Reason: agitation Last Admin: 08/30/22 13:12 Dose: 50 mg Quetiapine Fumarate (Quetiapine Fumarate 200 Mg Tablet) 200 mg PO BEDTIME [facility] Last Admin: 09/07/22 21:03 Dose: 200 mg Tamsulosin HCl (Tamsulosin Hcl 0.4 Mg Capsule) 0.4 mg PO BEDTIME [facility] Last Admin: 09/07/22 21:03 Dose: 0.4 mg Tiotropium [place] (Tiotropium [place] 18 Mcg Cap.W.Dev) 1 puff INHALE RDAILY [facility] Last Admin: 09/08/22 10:59 Dose: 1 puff Allergies Allergies Allergy/AdvReac Type Severity Reaction Status Date / Time Penicillins [PENICILLINS] Allergy Intermediate RASH Unverified 08/02/20 16:41 Iodinated Contrast Media Allergy Mild HIVES Unverified 08/02/20 16:41 [IV Dye, Iodine Containing Contrast ] penicillin V Allergy Unknown Verified 07/05/18 00:00 Assessment & Plan Assessment & Plan (1) COPD exacerbation: Status: Acute Code(s): J44.1 - Chronic obstructive pulmonary disease with (acute) exacerbation Plan 76 year old male with history htn, COPD, BPH, schizophrenia, and dementia admitted to psychiatry with consult placed for COPD exacerbation. Acute COPD, ? sob, he was recently treated for exacerbation and bronchitis with Doxy, prednisone, his present condition doesn't suggest another exacerbation -no hypoxia. Lungs clear -HR 80s -Duonebs prn. We could do CXR to see if developping something not found clinically Hponatremia--he's been manaed with fluid restriction and complaining of not having more water. He should be convinced to have repeat lab done. New CXR . The hospitalist have seen and it seems that he had a COPD exacerbation. Plan 1. Continue with Frannie, we will try to get Frannie Nuñez to assure compliance. 2. Continue Seroquel. 3. Consider placement on a assisted facility. I spent ___20___ minutes with the patient and/or on the patient floor today, greater than?50% of which was spent counseling/coordinating care. Reason for contiued inpatient stay Substantial Risk for: inability to function, rapid decompensation and med/psych decompensation
[2022-09-08 15:00] VITALS: BP 135/58; PULSE 89; RESP 16; TEMP 36.7; O2SAT 96
[2022-09-08] MEDS: cloNIDine HCL 0.1 MG TABLET PO ×2 (15:58→21:07)
[2022-09-08 18:00] VITALS: BP 139/86; PULSE 75; RESP 17; TEMP 36.6; O2SAT 94
[2022-09-08] MEDS: Tamsulosin HCL 0.4 MG CAPSULE PO (21:07)
[2022-09-08] MEDS: QUEtiapine Fumarate 50 MG TABLET PO (21:07)
[2022-09-08] MEDS: QUEtiapine Fumarate 200 MG TABLET PO (21:07)
[2022-09-08] MEDS: Atorvastatin Calcium 20 MG TABLET PO (21:07)
[2022-09-09] MEDS: amLODIPine Besylate 10 MG TABLET PO (09:41)
[2022-09-09] MEDS: ARIPiprazole 20 MG TABLET PO (09:41)
[2022-09-09] MEDS: cloNIDine HCL 0.1 MG TABLET PO ×3 (09:42→21:24)
[2022-09-09] MEDS: QUEtiapine Fumarate 50 MG TABLET PO ×2 (09:42→21:23)
[2022-09-09] MEDS: Fluticasone/Vilanterol 200/25 BLST.W.DEV 1 PUFF INHALE (11:41)
--- NOTE | 2022-09-09 12:23 | P.PNPSI_ITS ---
Subjective Subjective Date of Service: 09/09/22 Reason For Visit: Schizophrenia,Dementia Subjective Notes: Conditional Voluntary Interim History: The nursing staff reported the patient has been on his room most of the time, he comes out only for meals and he goes back. On interview the patient reports that he is not feeling well but his vital signs are okay. We discussed with him the possibility of Abilify Maintena and he agreed on the plan he got his injection from his regular pharmacy, his healthcare proxy brought injection to the hospital, it was really able to and I apply it today the Mental Status Exam Mental Status Exam Patient Appearance: Well Grooomed Patient Orientation: Person Level of Consciousness: Awake Patient Behavior: Cooperative Mood Description: Suspicious and Withdrawn Affect Description: Labile Patient Cognition Impaired: Yes Ability to Follow Directions: Fair Speech Pattern: Clear Hallucinations: None Delusions: Not Present Thought Process: Distracted Thought Content: positive for [place] and positive for Poverty of Content Judgement: Fair Diagnostics Vital Signs (24Hr): Vital Signs - 24 hr 09/08/22 15:00 09/08/22 18:00 Temperature 98.0 F 97.9 F Pulse Rate 89 75 Respiratory Rate 16 17 Blood Pressure 135/58 L 139/86 Pulse Oximetry 96 94 Oxygen Delivery Method Room Air Room Air BMI result Body Mass Index 24.4 Labs Results: 09/01/22 14:36 09/01/22 14:36 Imaging Radiology Impressions: ITS Impressions Chest X-Ray 08/08/22 16:36 IMPRESSION: 1. No acute pulmonary process. Chest X-Ray 08/10/22 10:25 IMPRESSION: New subsegmental atelectasis at the left lung base. Chest CTA 08/10/22 14:35 IMPRESSION: 1. No CT evidence of pulmonary emboli. 2. No lung mass or suspicious spiculated nodules, there are few scattered tiny nonspecific lung calcified and noncalcified nodular densities measuring up to 3 mm or less. 3. Coronary calcifications. 4. Pulmonary emphysema. Various management parameters for solitary pulmonary nodules are in the literature. According to the UPDATED 2017 Fleischner Society recommendations, the advised follow-up imaging for solid nodules < 6 mm is: LOW RISK PATIENT: No routine follow-up. HIGH RISK PATIENT: Optional CT at 12 months. Reference: Guidelines for Management of Incidental Pulmonary Nodules Detected on CT Images: From the Fleischner Society 2017. Chest X-Ray 08/12/22 03:50 IMPRESSION: No focal consolidation. Chest X-Ray 08/31/22 17:28 FINDINGS/IMPRESSION: * Hazy asymmetric opacification of the right lung, unclear if this could be due to patient rotation, asymmetric parenchymal opacities or small layering pleural effusion. Consider repeat PA and lateral radiographs. * Blunting of the bilateral costophrenic angles may reflect trace pleural effusions. No pneumothorax. * Unchanged cardiomediastinal silhouette. * Incidental note of upper abdominal surgical clips. Chest X-Ray 09/01/22 16:57 IMPRESSION: Unremarkable chest examination. Medications Medications Current Medications Acetaminophen (Acetaminophen 325 Mg Tablet) 650 mg PO Q6H PRN PRN Reason: Headache/Pain Mild Scale (1-3) Last Admin: 08/31/22 15:11 Dose: 650 mg Al Hydroxide/Mg Hydroxide (Magnesium Hydrox/Alum Hydrox 30 Ml Oral.Susp) 30 ml PO Q6H PRN PRN Reason: Heartburn/Nausea Albuterol Sulfate (Albuterol Sulfate 90 Mcg 8 Gm Inhaler) 2 puff INHALE RQ4H PRN PRN Reason: COPD exacerbation Last Admin: 09/06/22 17:15 Dose: 2 puff Amlodipine Besylate (Amlodipine Besylate 10 Mg Tablet) 10 mg PO DAILY [facility]; Protocol Last Admin: 09/09/22 09:41 Dose: 10 mg Aripiprazole (Aripiprazole 20 Mg Tablet) 20 mg PO DAILY [facility] Last Admin: 09/09/22 09:41 Dose: 20 mg Atorvastatin Calcium (Atorvastatin Calcium 20 Mg Tablet) 20 mg PO BEDTIME [facility] Last Admin: 09/08/22 21:07 Dose: 20 mg Clonidine HCl (Clonidine Hcl 0.1 Mg Tablet) 0.1 mg PO TID [facility]; Protocol Last Admin: 09/09/22 09:42 Dose: 0.1 mg Fluticasone/Vilanterol (Fluticasone/Vilanterol 200/25 Blst.W.Dev) 1 puff INHALE RDAILY [facility] Last Admin: 09/09/22 11:41 Dose: 1 puff Magnesium Hydroxide (Milk Of Magnesia 30 Ml Oral.Susp) 30 ml PO DAILY PRN PRN Reason: Constipation Quetiapine Fumarate (Quetiapine Fumarate 50 Mg Tablet) 50 mg PO BID [facility] Last Admin: 09/09/22 09:42 Dose: 50 mg Quetiapine Fumarate (Quetiapine Fumarate 50 Mg Tablet) 50 mg PO Q6H PRN PRN Reason: agitation Last Admin: 08/30/22 13:12 Dose: 50 mg Quetiapine Fumarate (Quetiapine Fumarate 200 Mg Tablet) 200 mg PO BEDTIME [facility] Last Admin: 09/08/22 21:07 Dose: 200 mg Tamsulosin HCl (Tamsulosin Hcl 0.4 Mg Capsule) 0.4 mg PO BEDTIME [facility] Last Admin: 09/08/22 21:07 Dose: 0.4 mg Tiotropium [place]arto (Tiotropium Esparto 18 Mcg Cap.W.Dev) 1 puff INHALE RDAILY [facility] Last Admin: 09/09/22 11:41 Dose: 1 puff Allergies Allergies Allergy/AdvReac Type Severity Reaction Status Date / Time Penicillins [PENICILLINS] Allergy Intermediate RASH Unverified 08/02/20 16:41 Iodinated Contrast Media Allergy Mild HIVES Unverified 08/02/20 16:41 [IV Dye, Iodine Containing Contrast ] penicillin V Allergy Unknown Verified 07/05/18 00:00 Assessment & Plan Assessment & Plan (1) COPD exacerbation: Status: Acute Code(s): J44.1 - Chronic obstructive pulmonary disease with (acute) exacerbation Plan 76 year old male with history htn, COPD, BPH, schizophrenia, and dementia admitted to psychiatry with consult placed for COPD exacerbation. Acute COPD, ? sob, he was recently treated for exacerbation and bronchitis with Doxy, prednisone, his present condition doesn't suggest another exacerbation -no hypoxia. Lungs clear -HR 80s -Duonebs prn. We could do CXR to see if developping something not found clinically Hponatremia--he's been manaed with fluid restriction and complaining of not having more water. He should be convinced to have repeat lab done. New CXR . The hospitalist have seen and it seems that he had a COPD exacerbation. Plan 1. Continue with Frannie, we will try to get Frannie Nuñez to assure compliance. 2. Continue Seroquel. 3. Consider placement on a half-way facility. I spent __20____ minutes with the patient and/or on the patient floor today, greater than?50% of which was spent counseling/coordinating care. Reason for contiued inpatient stay Substantial Risk for: inability to function, rapid decompensation and med/psych decompensation
--- NOTE | 2022-09-09 14:48 | PC.NURSE ---
Pt. has think sputum and has had a difficult time eating yesterday and today-he began to cough during two meals. He also began to cough while taking medications. While coughing he had a difficult time getting the phlegm out of his throat. This law writer reported this concern to Dr. Aparicio today at 1400.
[2022-09-09] MEDS: Albuterol Sulfate 90 MCG 8 GM INHALER 2 PUFF INHALE (15:35)
--- NOTE | 2022-09-09 15:35 | PC.NURSE ---
Injection of Abilify Maintena 400mg was administered today by Dr. Aparicio as witnessed by Rosemary Anthony LPN and this automatic typewriter inspector.
[2022-09-09 20:00] VITALS: BP 119/57; PULSE 89; RESP 16; TEMP 36.3; O2SAT 95
[2022-09-09] MEDS: Atorvastatin Calcium 20 MG TABLET PO (21:23)
[2022-09-09] MEDS: QUEtiapine Fumarate 200 MG TABLET PO (21:23)
[2022-09-09] MEDS: Tamsulosin HCL 0.4 MG CAPSULE PO (21:24)
[2022-09-10 09:30] VITALS: BP 129/60; PULSE 91; RESP 20; TEMP 36.7; O2SAT 92
[2022-09-10] MEDS: amLODIPine Besylate 10 MG TABLET PO (09:35)
[2022-09-10] MEDS: cloNIDine HCL 0.1 MG TABLET PO ×3 (09:36→20:25)
[2022-09-10] MEDS: QUEtiapine Fumarate 50 MG TABLET PO ×2 (09:36→20:25)
[2022-09-10] MEDS: ARIPiprazole 20 MG TABLET PO (09:36)
[2022-09-10] MEDS: Fluticasone/Vilanterol 200/25 BLST.W.DEV 1 PUFF INHALE (09:40)
[2022-09-10] MEDS: Albuterol/Iprat 2.5/0.5MG 3 ML AMPUL.NEB INHALE (11:15)
[2022-09-10 11:18] VITALS: PULSE 91; RESP 18; O2SAT 92
--- NOTE | 2022-09-10 11:26 | P.PNPSI_ITS ---
Subjective Subjective Date of Service: 09/10/22 Reason For Visit: Schizophrenia,Dementia Subjective Notes: Conditional Voluntary Interim History: The nursing staff reported the patient had been med compliant he has eating his meals out in the common areas. He complains of back called and he has some wheezing runny nose. We will use albuterol for his shortness of breath. The social media marketing manager reported the DDS called and apparently they want a meeting, the plan is to keep the patient in the community the longest possible and probably they will change to a different long term. On interview, the patient denies new symptoms he states that he does not feel w ell. Mental Status Exam Mental Status Exam Patient Appearance: Appropriate Patient Orientation: Person and Situation Level of Consciousness: Appropriate Patient Behavior: Cooperative and Passive Mood Description: Withdrawn Affect Description: Labile Patient Cognition Impaired: Yes Ability to Follow Directions: Fair Speech Pattern: Clear Hallucinations: None Delusions: Paranoid Ideation Thought Process: Distracted Thought Content: positive for [place] and positive for Circumstantial Judgement: Poor Diagnostics Vital Signs (24Hr): Vital Signs - 24 hr 09/09/22 20:00 09/10/22 09:30 09/10/22 11:18 Temperature 97.4 F 98.1 F Pulse Rate 89 91 91 Respiratory Rate 16 20 18 Blood Pressure 119/57 L 129/60 Pulse Oximetry 95 92 Oxygen Delivery Method Room Air Room Air BMI result Body Mass Index 24.4 Labs Results: 09/01/22 14:36 09/01/22 14:36 Imaging Radiology Impressions: ITS Impressions Chest X-Ray 08/08/22 16:36 IMPRESSION: 1. No acute pulmonary process. Chest X-Ray 08/10/22 10:25 IMPRESSION: New subsegmental atelectasis at the left lung base. Chest CTA 08/10/22 14:35 IMPRESSION: 1. No CT evidence of pulmonary emboli. 2. No lung mass or suspicious spiculated nodules, there are few scattered tiny nonspecific lung calcified and noncalcified nodular densities measuring up to 3 mm or less. 3. Coronary calcifications. 4. Pulmonary emphysema. Various management parameters for solitary pulmonary nodules are in the literature. According to the UPDATED 2017 Fleischner Society recommendations, the advised follow-up imaging for solid nodules < 6 mm is: LOW RISK PATIENT: No routine follow-up. HIGH RISK PATIENT: Optional CT at 12 months. Reference: Guidelines for Management of Incidental Pulmonary Nodules Detected on CT Images: From the Fleischner Society 2017. Chest X-Ray 08/12/22 03:50 IMPRESSION: No focal consolidation. Chest X-Ray 08/31/22 17:28 FINDINGS/IMPRESSION: * Hazy asymmetric opacification of the right lung, unclear if this could be due to patient rotation, asymmetric parenchymal opacities or small layering pleural effusion. Consider repeat PA and lateral radiographs. * Blunting of the bilateral costophrenic angles may reflect trace pleural effusions. No pneumothorax. * Unchanged cardiomediastinal silhouette. * Incidental note of upper abdominal surgical clips. Chest X-Ray 09/01/22 16:57 IMPRESSION: Unremarkable chest examination. Medications Medications Current Medications Acetaminophen (Acetaminophen 325 Mg Tablet) 650 mg PO Q6H PRN PRN Reason: Headache/Pain Mild Scale (1-3) Last Admin: 08/31/22 15:11 Dose: 650 mg Al Hydroxide/Mg Hydroxide (Magnesium Hydrox/Alum Hydrox 30 Ml Oral.Susp) 30 ml PO Q6H PRN PRN Reason: Heartburn/Nausea Albuterol Sulfate (Albuterol Sulfate 90 Mcg 8 Gm Inhaler) 2 puff INHALE RQ4H PRN PRN Reason: COPD exacerbation Last Admin: 09/09/22 15:35 Dose: 2 puff Albuterol/Ipratropium (Albuterol/Iprat 2.5/0.5mg 3 Ml Ampul.Neb) 3 ml INHALE RQ4H PRN PRN Reason: Shortness of Breath/Wheezing Last Admin: 09/10/22 11:15 Dose: 3 ml Amlodipine Besylate (Amlodipine Besylate 10 Mg Tablet) 10 mg PO DAILY [facility]; Protocol Last Admin: 09/10/22 09:35 Dose: 10 mg Aripiprazole (Aripiprazole 20 Mg Tablet) 20 mg PO DAILY [facility] Last Admin: 09/10/22 09:36 Dose: 20 mg Atorvastatin Calcium (Atorvastatin Calcium 20 Mg Tablet) 20 mg PO BEDTIME [facility] Last Admin: 09/09/22 21:23 Dose: 20 mg Clonidine HCl (Clonidine Hcl 0.1 Mg Tablet) 0.1 mg PO TID [facility]; Protocol Last Admin: 09/10/22 09:36 Dose: 0.1 mg Fluticasone/Vilanterol (Fluticasone/Vilanterol 200/25 Blst.W.Dev) 1 puff INHALE RDAILY [facility] Last Admin: 09/10/22 09:40 Dose: 1 puff Magnesium Hydroxide (Milk Of Magnesia 30 Ml Oral.Susp) 30 ml PO DAILY PRN PRN Reason: Constipation Quetiapine Fumarate (Quetiapine Fumarate 50 Mg Tablet) 50 mg PO BID [facility] Last Admin: 09/10/22 09:36 Dose: 50 mg Quetiapine Fumarate (Quetiapine Fumarate 50 Mg Tablet) 50 mg PO Q6H PRN PRN Reason: agitation Last Admin: 08/30/22 13:12 Dose: 50 mg Quetiapine Fumarate (Quetiapine Fumarate 200 Mg Tablet) 200 mg PO BEDTIME [facility] Last Admin: 09/09/22 21:23 Dose: 200 mg Tamsulosin HCl (Tamsulosin Hcl 0.4 Mg Capsule) 0.4 mg PO BEDTIME [facility] Last Admin: 09/09/22 21:24 Dose: 0.4 mg Tiotropium [place] (Tiotropium [place] 18 Mcg Cap.W.Dev) 1 puff INHALE RDAILY [facility] Last Admin: 09/10/22 09:39 Dose: 1 puff Allergies Allergies Allergy/AdvReac Type Severity Reaction Status Date / Time Penicillins [PENICILLINS] Allergy Intermediate RASH Unverified 08/02/20 16:41 Iodinated Contrast Media Allergy Mild HIVES Unverified 08/02/20 16:41 [IV Dye, Iodine Containing Contrast ] penicillin V Allergy Unknown Verified 07/05/18 00:00 Assessment & Plan Assessment & Plan (1) COPD exacerbation: Status: Acute Code(s): J44.1 - Chronic obstructive pulmonary disease with (acute) exacerbation Plan 76 year old male with history htn, COPD, BPH, schizophrenia, and dementia admitted to psychiatry with consult placed for COPD exacerbation. Acute COPD, ? sob, he was recently treated for exacerbation and bronchitis with Doxy, prednisone, his present condition doesn't suggest another exacerbation -no hypoxia. Lungs clear -HR 80s -Duonebs prn. We could do CXR to see if developping something not found clinically Hponatremia--he's been manaed with fluid restriction and complaining of not having more water. He should be convinced to have repeat lab done. New CXR . The hospitalist have seen and it seems that he had a COPD exacerbation. Plan 1. Continue with Abilify, we will try to get Abilify Maintena to assure compliance. Abilify Maintena was given IM on 09/10 2. Continue Seroquel. 3. Consider placement on a prison facility. we will have a family meeting with DTS for disposition I spent ___20___ minutes with the patient and/or on the patient floor today, greater than?50% of which was spent counseling/coordinating care. Reason for contiued inpatient stay Substantial Risk for: inability to function, rapid decompensation and med/psych decompensation
[2022-09-10 12:15] LABS: COVID-19 Test Negative (Negative); IDNOW Serial# 16C4AD1C
[2022-09-10 18:00] VITALS: BP 118/62; PULSE 69; RESP 18; TEMP 36.9; O2SAT 93
--- NOTE | 2022-09-10 18:38 | PC.NURSE ---
Visible in milieu for all meals with cueing meals were on unit. Appetite improving, ate 75% of meals. Fluid restriction maintained. Congested cough noted. Duoneb UDN prn ordered. Respiratory therapist up and administered UDN Rx. Respiratory stated pt sounded wet and UDN would not be of much help, but pt did accept some of UDN Rx offered. Dr Aparicio notified of Respiratory therapist report. COVID test and portable chest xray ordered and done. COVID negative. Chest xray results pending. Decreased congestion noted in period following UDN rx. Afebrile. Pt stated he did not feel well this am. Face flushed. Reported feeling better prior to lunch. Refused UDN RX offered at 1800.
[2022-09-10] MEDS: Tamsulosin HCL 0.4 MG CAPSULE PO (20:25)
[2022-09-10] MEDS: Atorvastatin Calcium 20 MG TABLET PO (20:25)
[2022-09-10] MEDS: QUEtiapine Fumarate 200 MG TABLET PO (20:25)
[2022-09-11] MEDS: ARIPiprazole 20 MG TABLET PO (10:34)
[2022-09-11] MEDS: cloNIDine HCL 0.1 MG TABLET PO ×2 (10:34→20:47)
[2022-09-11 10:35] VITALS: BP 135/59; PULSE 74; RESP 14; TEMP 36.2; O2SAT 94
[2022-09-11] MEDS: amLODIPine Besylate 10 MG TABLET PO (10:35)
[2022-09-11] MEDS: QUEtiapine Fumarate 50 MG TABLET PO ×2 (10:35→20:47)
--- NOTE | 2022-09-11 11:02 | HO.PSYCHPN ---
Subjective Subjective Date of Service: 09/11/22 Reason For Visit: Schizophrenia,Dementia Subjective Notes: Conditional Voluntary Interim History: The nursing staff reported that he is COVID negative still he is congested and he came out for meals. His chest x-ray showed no changes. He has been eating better and walking out of his room better. On interview, the patient looks dysphoric with lack of energy but he adamantly denies psychotic symptoms. He complained of chest pain and later he refused EKG. On observation, he reported that he has a bad cold and he needed his Albuterol. Mental Status Exam Mental Status Exam Patient Appearance: Well Grooomed Patient Orientation: Person and Situation Level of Consciousness: Awake Patient Behavior: Cooperative Mood Description: Withdrawn Affect Description: Labile Patient Cognition Impaired: Yes Ability to Follow Directions: Good Speech Pattern: Clear Hallucinations: None Delusions: Not Present Thought Process: Distracted Thought Content: positive for [place] and positive for Poverty of Content Judgement: Fair Diagnostics Vital Signs (24Hr): Vital Signs - 24 hr 09/10/22 11:18 09/10/22 18:00 09/11/22 10:35 Temperature 98.4 F 97.1 F Pulse Rate 91 69 74 Respiratory Rate 18 18 14 Blood Pressure 118/62 135/59 L Pulse Oximetry 93 94 Oxygen Delivery Method Room Air Room Air BMI result Body Mass Index 24.4 Labs Results: 09/01/22 14:36 09/01/22 14:36 Labs: Laboratory Results - last 48 hr 09/10/22 11:50 COVID-19 ([facility]ST[facility]) Negative COVID-19 Clin Com See Note Imaging Radiology Impressions: ITS Impressions Chest X-Ray 08/08/22 16:36 IMPRESSION: 1. No acute pulmonary process. Chest X-Ray 08/10/22 10:25 IMPRESSION: New subsegmental atelectasis at the left lung base. Chest CTA 08/10/22 14:35 IMPRESSION: 1. No CT evidence of pulmonary emboli. 2. No lung mass or suspicious spiculated nodules, there are few scattered tiny nonspecific lung calcified and noncalcified nodular densities measuring up to 3 mm or less. 3. Coronary calcifications. 4. Pulmonary emphysema. Various management parameters for solitary pulmonary nodules are in the literature. According to the UPDATED 2017 Fleischner Society recommendations, the advised follow-up imaging for solid nodules < 6 mm is: LOW RISK PATIENT: No routine follow-up. HIGH RISK PATIENT: Optional CT at 12 months. Reference: Guidelines for Management of Incidental Pulmonary Nodules Detected on CT Images: From the Fleischner Society 2017. Chest X-Ray 08/12/22 03:50 IMPRESSION: No focal consolidation. Chest X-Ray 08/31/22 17:28 FINDINGS/IMPRESSION: * Hazy asymmetric opacification of the right lung, unclear if this could be due to patient rotation, asymmetric parenchymal opacities or small layering pleural effusion. Consider repeat PA and lateral radiographs. * Blunting of the bilateral costophrenic angles may reflect trace pleural effusions. No pneumothorax. * Unchanged cardiomediastinal silhouette. * Incidental note of upper abdominal surgical clips. Chest X-Ray 09/01/22 16:57 IMPRESSION: Unremarkable chest examination. Chest X-Ray 09/10/22 12:21 IMPRESSION: Unremarkable examination. Medications Medications Current Medications Acetaminophen (Acetaminophen 325 Mg Tablet) 650 mg PO Q6H PRN PRN Reason: Headache/Pain Mild Scale (1-3) Last Admin: 08/31/22 15:11 Dose: 650 mg Al Hydroxide/Mg Hydroxide (Magnesium Hydrox/Alum Hydrox 30 Ml Oral.Susp) 30 ml PO Q6H PRN PRN Reason: Heartburn/Nausea Albuterol Sulfate (Albuterol Sulfate 90 Mcg 8 Gm Inhaler) 2 puff INHALE RQ4H PRN PRN Reason: COPD exacerbation Last Admin: 09/09/22 15:35 Dose: 2 puff Albuterol/Ipratropium (Albuterol/Iprat 2.5/0.5mg 3 Ml Ampul.Neb) 3 ml INHALE RQ4H PRN PRN Reason: Shortness of Breath/Wheezing Last Admin: 09/10/22 11:15 Dose: 3 ml Amlodipine Besylate (Amlodipine Besylate 10 Mg Tablet) 10 mg PO DAILY [facility]; Protocol Last Admin: 09/11/22 10:35 Dose: 10 mg Aripiprazole (Aripiprazole 20 Mg Tablet) 20 mg PO DAILY [facility] Last Admin: 09/11/22 10:34 Dose: 20 mg Atorvastatin Calcium (Atorvastatin Calcium 20 Mg Tablet) 20 mg PO BEDTIME [facility] Last Admin: 09/10/22 20:25 Dose: 20 mg Clonidine HCl (Clonidine Hcl 0.1 Mg Tablet) 0.1 mg PO TID [facility]; Protocol Last Admin: 09/11/22 10:34 Dose: 0.1 mg Fluticasone/Vilanterol (Fluticasone/Vilanterol 200/25 Blst.W.Dev) 1 puff INHALE RDAILY [facility] [place] Last Admin: 09/11/22 10:41 Dose: Not Given Magnesium Hydroxide (Milk Of Magnesia 30 Ml Oral.Susp) 30 ml PO DAILY PRN PRN Reason: Constipation Quetiapine Fumarate (Quetiapine Fumarate 50 Mg Tablet) 50 mg PO BID [facility] Last Admin: 09/11/22 10:35 Dose: 50 mg Quetiapine Fumarate (Quetiapine Fumarate 50 Mg Tablet) 50 mg PO Q6H PRN PRN Reason: agitation Last Admin: 08/30/22 13:12 Dose: 50 mg Quetiapine Fumarate (Quetiapine Fumarate 200 Mg Tablet) 200 mg PO BEDTIME [facility] [place] Last Admin: 09/10/22 20:25 Dose: 200 mg Tamsulosin HCl (Tamsulosin Hcl 0.4 Mg Capsule) 0.4 mg PO BEDTIME [facility] [place] Last Admin: 09/10/22 20:25 Dose: 0.4 mg Tiotropium [place]ett[place] (Tiotropium [place]ett[place] 18 Mcg Cap.W.Dev) 1 puff INHALE RDAILY [facility] [place] Last Admin: 09/11/22 10:42 Dose: Not Given Allergies Allergies Allergy/AdvReac Type Severity Reaction Status Date / Time Penicillins [PENICILLINS] Allergy Intermediate RASH Unverified 08/02/20 16:41 Iodinated Contrast Media Allergy Mild HIVES Unverified 08/02/20 16:41 [IV Dye, Iodine Containing Contrast ] penicillin V Allergy Unknown Verified 07/05/18 00:00 Assessment & Plan Assessment & Plan (1) COPD exacerbation: Status: Acute Code(s): J44.1 - Chronic obstructive pulmonary disease with (acute) exacerbation Plan 76 year old male with history htn, COPD, BPH, schizophrenia, and dementia admitted to psychiatry with consult placed for COPD exacerbation. Acute COPD, ? sob, he was recently treated for exacerbation and bronchitis with Doxy, prednisone, his present condition doesn't suggest another exacerbation -no hypoxia. Lungs clear -HR 80s -Duonebs prn. We could do CXR to see if developping something not found clinically Hponatremia--he's been manaed with fluid restriction and complaining of not having more water. He should be convinced to have repeat lab done. New CXR . The hospitalist have seen and it seems that he had a COPD exacerbation. Plan 1. Continue with Frannie, we will try to get Frannie Nuñez to assure compliance. Abilify Rktena was given IM on 09/10 2. Continue Seroquel. 3. Consider placement on a custodial facility. we had a meeting with DDS for disposition and they are planning to change the half-way, they wanted him in the community. I spent __20____ minutes with the patient and/or on the patient floor today, greater than?50% of which was spent counseling/coordinating care. Reason for contiued inpatient stay Substantial Risk for: inability to function, rapid decompensation and med/psych decompensation
[2022-09-11 13:09] VITALS: BP 112/55; PULSE 90; RESP 18; O2SAT 91
--- NOTE | 2022-09-11 13:13 | PC.NURSE ---
Patient c/o chest pain. Patient reported the pain is closer to abdomen. Pain does not radiate. Denied shortness of breath noted or reported. VSS at 112/55, HR of 90, RR 18, O2 91%. MD Todd Aparicio notified. Stat EKG ordered
[2022-09-11] MEDS: Albuterol Sulfate 90 MCG 8 GM INHALER 2 PUFF INHALE (13:24)
--- NOTE | 2022-09-11 13:24 | PC.NURSE ---
Patient refused EKG after many attempts and much encouragement. MD Aparicio notified.
[2022-09-11 20:00] VITALS: BP 157/63; PULSE 89; RESP 16; TEMP 36.6; O2SAT 94
[2022-09-11 20:02] VITALS: BP 139/63
[2022-09-11] MEDS: Atorvastatin Calcium 20 MG TABLET PO (20:46)
[2022-09-11] MEDS: Tamsulosin HCL 0.4 MG CAPSULE PO (20:46)
[2022-09-11] MEDS: QUEtiapine Fumarate 200 MG TABLET PO (20:46)
[2022-09-12] MEDS: cloNIDine HCL 0.1 MG TABLET PO ×3 (08:18→20:43)
[2022-09-12] MEDS: amLODIPine Besylate 10 MG TABLET PO (08:18)
[2022-09-12] MEDS: ARIPiprazole 20 MG TABLET PO (08:18)
[2022-09-12] MEDS: QUEtiapine Fumarate 50 MG TABLET PO ×2 (08:18→20:43)
[2022-09-12 08:20] VITALS: BP 117/58; PULSE 74; RESP 18; TEMP 36.4; O2SAT 93
--- NOTE | 2022-09-12 09:28 | MHC.CLN ---
F/U CONTINUES WITH REGULAR, NDD3 DIET. ENSURE TID TO PROVIDE ADDITIONAL 1050 KCALS, 60 G PROTEIN. IMPROVED INTAKE NOTED 09/10 WITH PATIENT CONSUMING 75% OF MEALS. PER 09/09 NOTE, SOME DIFFICULTLY EATING DUE TO COUGHING. OVERALL 13.6% WEIGHT LOSS SINCE ADMISSION. CONTINUE TO ENCOURAGE INTAKE AT MEALS AND SUPPLEMENT ABLE. FOLLOW WEIGHTS AND INTAKE. RD TO FOLLOW WEEKLY.
--- NOTE | 2022-09-12 14:05 | P.PNPSI_ITS ---
Subjective Subjective Date of Service: 09/12/22 Reason For Visit: Schizophrenia,Dementia Subjective Notes: Conditional Voluntary Interim History: The nursing staff reported the patient has been isolative in his room but he is out for meals. He took all his p.o. medications and he slept all day long. Today he was looking much better from his but called. The social insurance administrator talk with [facility] and will move him to a different jail. On interview the patient reports that she is still feeling a little weak and I advised him to use his p.r.n. albuterol. Mental Status Exam Mental Status Exam Patient Appearance: Well Grooomed Patient Orientation: Person and Situation Level of Consciousness: Awake Patient Behavior: Cooperative Mood Description: Calm Affect Description: Constricted Patient Cognition Impaired: Yes Ability to Follow Directions: Good Speech Pattern: Clear Hallucinations: None Delusions: Not Present Thought Process: Distracted Thought Content: positive for [place] Judgement: Fair Diagnostics Vital Signs (24Hr): Vital Signs - 24 hr 09/11/22 20:00 09/11/22 20:02 09/12/22 08:20 Temperature 97.8 F 97.6 F Pulse Rate 89 74 Respiratory Rate 16 18 Blood Pressure 157/63 H 139/63 117/58 L Pulse Oximetry 94 93 Oxygen Delivery Method Room Air Room Air BMI result Body Mass Index 24.4 Labs Results: 09/01/22 14:36 09/01/22 14:36 Imaging Radiology Impressions: ITS Impressions Chest X-Ray 08/08/22 16:36 IMPRESSION: 1. No acute pulmonary process. Chest X-Ray 08/10/22 10:25 IMPRESSION: New subsegmental atelectasis at the left lung base. Chest CTA 08/10/22 14:35 IMPRESSION: 1. No CT evidence of pulmonary emboli. 2. No lung mass or suspicious spiculated nodules, there are few scattered tiny nonspecific lung calcified and noncalcified nodular densities measuring up to 3 mm or less. 3. Coronary calcifications. 4. Pulmonary emphysema. Various management parameters for solitary pulmonary nodules are in the literature. According to the UPDATED 2017 Fleischner Society recommendations, the advised follow-up imaging for solid nodules < 6 mm is: LOW RISK PATIENT: No routine follow-up. HIGH RISK PATIENT: Optional CT at 12 months. Reference: Guidelines for Management of Incidental Pulmonary Nodules Detected on CT Images: From the Fleischner Society 2017. Chest X-Ray 08/12/22 03:50 IMPRESSION: No focal consolidation. Chest X-Ray 08/31/22 17:28 FINDINGS/IMPRESSION: * Hazy asymmetric opacification of the right lung, unclear if this could be due to patient rotation, asymmetric parenchymal opacities or small layering pleural effusion. Consider repeat PA and lateral radiographs. * Blunting of the bilateral costophrenic angles may reflect trace pleural effusions. No pneumothorax. * Unchanged cardiomediastinal silhouette. * Incidental note of upper abdominal surgical clips. Chest X-Ray 09/01/22 16:57 IMPRESSION: Unremarkable chest examination. Chest X-Ray 09/10/22 12:21 IMPRESSION: Unremarkable examination. Medications Medications Current Medications Acetaminophen (Acetaminophen 325 Mg Tablet) 650 mg PO Q6H PRN PRN Reason: Headache/Pain Mild Scale (1-3) Last Admin: 08/31/22 15:11 Dose: 650 mg Al Hydroxide/Mg Hydroxide (Magnesium Hydrox/Alum Hydrox 30 Ml Oral.Susp) 30 ml PO Q6H PRN PRN Reason: Heartburn/Nausea Albuterol Sulfate (Albuterol Sulfate 90 Mcg 8 Gm Inhaler) 2 puff INHALE RQ4H PRN PRN Reason: COPD exacerbation Last Admin: 09/11/22 13:24 Dose: 2 puff Albuterol/Ipratropium (Albuterol/Iprat 2.5/0.5mg 3 Ml Ampul.Neb) 3 ml INHALE RQ4H PRN PRN Reason: Shortness of Breath/Wheezing Last Admin: 09/10/22 11:15 Dose: 3 ml Amlodipine Besylate (Amlodipine Besylate 10 Mg Tablet) 10 mg PO DAILY ALONDRA; Protocol Last Admin: 09/12/22 08:18 Dose: 10 mg Aripiprazole (Aripiprazole 20 Mg Tablet) 20 mg PO DAILY ALONDRA Last Admin: 09/12/22 08:18 Dose: 20 mg Atorvastatin Calcium (Atorvastatin Calcium 20 Mg Tablet) 20 mg PO BEDTIME ALON[facility]A Last Admin: 09/11/22 20:46 Dose: 20 mg Clonidine HCl (Clonidine Hcl 0.1 Mg Tablet) 0.1 mg PO TID ALON[facility]A; Protocol Last Admin: 09/12/22 08:18 Dose: 0.1 mg Fluticasone/Vilanterol (Fluticasone/Vilanterol 200/25 Blst.W.Dev) 1 puff INHALE RDAILY [facility] Last Admin: 09/12/22 10:40 Dose: Not Given Magnesium Hydroxide (Milk Of Magnesia 30 Ml Oral.Susp) 30 ml PO DAILY PRN PRN Reason: Constipation Quetiapine Fumarate (Quetiapine Fumarate 50 Mg Tablet) 50 mg PO BID [facility] Last Admin: 09/12/22 08:18 Dose: 50 mg Quetiapine Fumarate (Quetiapine Fumarate 50 Mg Tablet) 50 mg PO Q6H PRN PRN Reason: agitation Last Admin: 08/30/22 13:12 Dose: 50 mg Quetiapine Fumarate (Quetiapine Fumarate 200 Mg Tablet) 200 mg PO BEDTIME [facility] Last Admin: 09/11/22 20:46 Dose: 200 mg Tamsulosin HCl (Tamsulosin Hcl 0.4 Mg Capsule) 0.4 mg PO BEDTIME [facility] Last Admin: 09/11/22 20:46 Dose: 0.4 mg Tiotropium [place] (Tiotropium [place] 18 Mcg Cap.W.Dev) 1 puff INHALE RDAILY [facility] Last Admin: 09/12/22 10:40 Dose: Not Given Allergies Allergies Allergy/AdvReac Type Severity Reaction Status Date / Time Penicillins [PENICILLINS] Allergy Intermediate RASH Unverified 08/02/20 16:41 Iodinated Contrast Media Allergy Mild HIVES Unverified 08/02/20 16:41 [IV Dye, Iodine Containing Contrast ] penicillin V Allergy Unknown Verified 07/05/18 00:00 Assessment & Plan Assessment & Plan (1) COPD exacerbation: Status: Acute Code(s): J44.1 - Chronic obstructive pulmonary disease with (acute) exacerbation Plan 76 year old male with history htn, COPD, BPH, schizophrenia, and dementia admitted to psychiatry with consult placed for COPD exacerbation. Acute COPD, ? sob, he was recently treated for exacerbation and bronchitis with Doxy, prednisone, his present condition doesn't suggest another exacerbation -no hypoxia. Lungs clear -HR 80s -Duonebs prn. We could do CXR to see if developping something not found clinically Hponatremia--he's been manaed with fluid restriction and complaining of not having more water. He should be convinced to have repeat lab done. New CXR . The hospitalist have seen and it seems that he had a COPD exa cerbation. Plan 1. Continue with Abilify, we will try to get Abilify Maintena to assure complia nce. Abilify Maintena was given IM on 09/10 2. Continue Seroquel. 3. Consider placement on a [facility] facility. we had a meeting with [facility] for disposition and they are planning to change the jail, they wanted him in the community. I spent ___20___ minutes with the patient and/or on the patient floor today, greater than?50% of which was spent counseling/coordinating care. Reason for contiued inpatient stay Substantial Risk for: inability to function, rapid decompensation and med/psych decompensation
[2022-09-12 20:00] VITALS: BP 131/63; PULSE 78; RESP 16; TEMP 36.6; O2SAT 95
[2022-09-12] MEDS: Atorvastatin Calcium 20 MG TABLET PO (20:43)
[2022-09-12] MEDS: QUEtiapine Fumarate 200 MG TABLET PO (20:43)
[2022-09-12] MEDS: Tamsulosin HCL 0.4 MG CAPSULE PO (20:43)
[2022-09-13 07:45] VITALS: BP 138/65; PULSE 67; RESP 16; TEMP 36.2; O2SAT 93
[2022-09-13] MEDS: ARIPiprazole 20 MG TABLET PO (09:31)
[2022-09-13] MEDS: QUEtiapine Fumarate 50 MG TABLET PO ×2 (09:32→20:44)
[2022-09-13] MEDS: amLODIPine Besylate 10 MG TABLET PO (09:33)
[2022-09-13] MEDS: cloNIDine HCL 0.1 MG TABLET PO ×3 (09:33→20:44)
[2022-09-13] MEDS: Fluticasone/Vilanterol 200/25 BLST.W.DEV 1 PUFF INHALE (11:39)
--- NOTE | 2022-09-13 17:18 | HO.PSYCHPN ---
Subjective Subjective Date of Service: 09/13/22 Reason For Visit: Schizophrenia,Dementia Interim History: Patient seen and discussed. He reports he is feeling well. He offers no complaints. He has been isolative. He sleeps well. Appetite is good. He reports no side effects to medications and denies SI. Review of Systems Review of Systems Pt not reliable historian but does provide some ROS General: No fevers, malaise Cardiovascular: No chest pain, palpitations, or leg edema Respiratory: littleshortness of breath, no wheeze, occasional cough Yes all other systems are reviewed and are negative Constitutional: Denies chills and Denies fever(s) Cardiovascular: Denies chest pain, Denies palpitations and Denies dyspnea Respiratory: Denies cough and Denies dyspnea Endocrine: Denies palpitations Mental Status Exam Mental Status Exam Narrative: Patient Appearance: Appropriate Patient Orientation: Person Level of Consciousness: Awake and Disoriented Patient Behavior: Guarded Mood Description: Withdrawn Affect Description: Labile Patient Cognition Impaired: Yes Ability to Follow Directions: Fair Speech Pattern: Soft-Spoken Hallucinations: Auditory Delusions: Paranoid Ideation Thought Process: Illogical and Evasive Thought Content: positive for [place] Judgement: Poor Patient Appearance: Well Grooomed Patient Orientation: Person and Situation Level of Consciousness: Awake Patient Behavior: Cooperative Mood Description: Calm Affect Description: Constricted Patient Cognition Impaired: Yes Ability to Follow Directions: Good Speech Pattern: Clear Diagnostics Vital Signs (24Hr): Vital Signs - 24 hr 09/12/22 20:00 Temperature 97.9 F Pulse Rate 78 Respiratory Rate 16 Blood Pressure 131/63 Pulse Oximetry 95 Oxygen Delivery Method Room Air BMI result Body Mass Index 24.4 Labs Results: 09/01/22 14:36 09/01/22 14:36 Imaging Radiology Impressions: ITS Impressions Chest X-Ray 08/08/22 16:36 IMPRESSION: 1. No acute pulmonary process. Chest X-Ray 08/10/22 10:25 IMPRESSION: New subsegmental atelectasis at the left lung base. Chest CTA 08/10/22 14:35 IMPRESSION: 1. No CT evidence of pulmonary emboli. 2. No lung mass or suspicious spiculated nodules, there are few scattered tiny nonspecific lung calcified and noncalcified nodular densities measuring up to 3 mm or less. 3. Coronary calcifications. 4. Pulmonary emphysema. Various management parameters for solitary pulmonary nodules are in the literature. According to the UPDATED 2017 Fleischner Society recommendations, the advised follow-up imaging for solid nodules < 6 mm is: LOW RISK PATIENT: No routine follow-up. HIGH RISK PATIENT: Optional CT at 12 months. Reference: Guidelines for Management of Incidental Pulmonary Nodules Detected on CT Images: From the Fleischner Society 2017. Chest X-Ray 08/12/22 03:50 IMPRESSION: No focal consolidation. Chest X-Ray 08/31/22 17:28 FINDINGS/IMPRESSION: * Hazy asymmetric opacification of the right lung, unclear if this could be due to patient rotation, asymmetric parenchymal opacities or small layering pleural effusion. Consider repeat PA and lateral radiographs. * Blunting of the bilateral costophrenic angles may reflect trace pleural effusions. No pneumothorax. * Unchanged cardiomediastinal silhouette. * Incidental note of upper abdominal surgical clips. Chest X-Ray 09/01/22 16:57 IMPRESSION: Unremarkable chest examination. Chest X-Ray 09/10/22 12:21 IMPRESSION: Unremarkable examination. Medications Medications Current Medications Acetaminophen (Acetaminophen 325 Mg Tablet) 650 mg PO Q6H PRN PRN Reason: Headache/Pain Mild Scale (1-3) Last Admin: 08/31/22 15:11 Dose: 650 mg Al Hydroxide/Mg Hydroxide (Magnesium Hydrox/Alum Hydrox 30 Ml Oral.Susp) 30 ml PO Q6H PRN PRN Reason: Heartburn/Nausea Albuterol Sulfate (Albuterol Sulfate 90 Mcg 8 Gm Inhaler) 2 puff INHALE RQ4H PRN PRN Reason: COPD exacerbation Last Admin: 09/11/22 13:24 Dose: 2 puff Albuterol/Ipratropium (Albuterol/Iprat 2.5/0.5mg 3 Ml Ampul.Neb) 3 ml INHALE RQ4H PRN PRN Reason: Shortness of Breath/Wheezing Last Admin: 09/10/22 11:15 Dose: 3 ml Amlodipine Besylate (Amlodipine Besylate 10 Mg Tablet) 10 mg PO DAILY ALONDRA; Protocol Last Admin: 09/13/22 09:33 Dose: 10 mg Aripiprazole (Aripiprazole 20 Mg Tablet) 20 mg PO DAILY [facility]ON[facility] Last Admin: 09/13/22 09:31 Dose: 20 mg Atorvastatin Calcium (Atorvastatin Calcium 20 Mg Tablet) 20 mg PO BEDTIME [facility] Last Admin: 09/12/22 20:43 Dose: 20 mg Clonidine HCl (Clonidine Hcl 0.1 Mg Tablet) 0.1 mg PO TID [facility]; Protocol Last Admin: 09/13/22 16:19 Dose: 0.1 mg Fluticasone/Vilanterol (Fluticasone/Vilanterol 200/25 Blst.W.Dev) 1 puff INHALE RDAILY [facility] Last Admin: 09/13/22 11:39 Dose: 1 puff Magnesium Hydroxide (Milk Of Magnesia 30 Ml Oral.Susp) 30 ml PO DAILY PRN PRN Reason: Constipation Quetiapine Fumarate (Quetiapine Fumarate 50 Mg Tablet) 50 mg PO BID [facility] Last Admin: 09/13/22 09:32 Dose: 50 mg Quetiapine Fumarate (Quetiapine Fumarate 50 Mg Tablet) 50 mg PO Q6H PRN PRN Reason: agitation Last Admin: 08/30/22 13:12 Dose: 50 mg Quetiapine Fumarate (Quetiapine Fumarate 200 Mg Tablet) 200 mg PO BEDTIME [facility] Last Admin: 09/12/22 20:43 Dose: 200 mg Tamsulosin HCl (Tamsulosin Hcl 0.4 Mg Capsule) 0.4 mg PO BEDTIME [facility] Last Admin: 09/12/22 20:43 Dose: 0.4 mg Tiotropium [place] (Tiotropium [place] 18 Mcg Cap.W.Dev) 1 puff INHALE RDAILY [facility] Last Admin: 09/13/22 11:39 Dose: 1 puff Allergies Allergies Allergy/AdvReac Type Severity Reaction Status Date / Time Penicillins [PENICILLINS] Allergy Intermediate RASH Unverified 08/02/20 16:41 Iodinated Contrast Media Allergy Mild HIVES Unverified 08/02/20 16:41 [IV Dye, Iodine Containing Contrast ] penicillin V Allergy Unknown Verified 07/05/18 00:00 Assessment & Plan Assessment & Plan (1) COPD exacerbation: Status: Acute Code(s): J44.1 - Chronic obstructive pulmonary disease with (acute) exacerbation Plan 76 year old male with history htn, COPD, BPH, schizophrenia, and dementia admitted to psychiatry with consult placed for COPD exacerbation. Acute COPD, ? sob, he was recently treated for exacerbation and bronchitis with Doxy, prednisone, his present condition doesn't suggest another exacerbation -no hypoxia. Lungs clear -HR 80s -Duonebs prn. We could do CXR to see if developping something not found clinically Hponatremia--he's been manaed with fluid restriction and complaining of not having more water. He should be convinced to have repeat lab done. New CXR . The hospitalist have seen and it seems that he had a COPD exacerbation. Plan 1. Continue with Abilify, we will try to get Abilify Maintena to assure compliance. Abilify Maintena was given IM on 09/10 2. Continue Seroquel. 3. Consider placement on a [facility] facility. we had a meeting with [facility] for disposition and they are planning to change the [facility], they wanted him in the community. 09/13: Continue current treatment plan. I spent minutes with the patient and/or on the patient floor today, greater than?50% of which was spent counseling/coordinating care. Reason for contiued inpatient stay Substantial Risk for: inability to function and rapid decompensation
[2022-09-13 20:00] VITALS: BP 137/61; PULSE 80; RESP 18; TEMP 36.6; O2SAT 94
[2022-09-13] MEDS: QUEtiapine Fumarate 200 MG TABLET PO (20:44)
[2022-09-13] MEDS: Atorvastatin Calcium 20 MG TABLET PO (20:44)
[2022-09-13] MEDS: Tamsulosin HCL 0.4 MG CAPSULE PO (20:44)
[2022-09-14 07:50] VITALS: BP 112/55; PULSE 81; RESP 16; TEMP 36.3; O2SAT 93
[2022-09-14] MEDS: QUEtiapine Fumarate 50 MG TABLET PO ×2 (09:16→19:48)
[2022-09-14] MEDS: amLODIPine Besylate 10 MG TABLET PO (09:16)
[2022-09-14] MEDS: ARIPiprazole 20 MG TABLET PO (09:16)
[2022-09-14] MEDS: cloNIDine HCL 0.1 MG TABLET PO ×3 (09:17→19:49)
[2022-09-14] MEDS: Fluticasone/Vilanterol 200/25 BLST.W.DEV 1 PUFF INHALE (09:51)
--- NOTE | 2022-09-14 16:33 | P.PNPSI_ITS ---
Subjective Subjective Date of Service: 09/14/22 Reason For Visit: Schizophrenia,Dementia Interim History: Patient seen and discussed. He reports he is feeling well. He offers no complaints. He has been getting out of his room some. He sleeps well. Appetite is good. He reports no side effects to medications and denies SI. Review of Systems Review of Systems Pt not reliable historian but does provide some ROS General: No fevers, malaise Cardiovascular: No chest pain, palpitations, or leg edema Respiratory: littleshortness of breath, no wheeze, occasional cough Yes all other systems are reviewed and are negative Constitutional: Denies chills and Denies fever(s) Cardiovascular: Denies chest pain, Denies palpitations and Denies dyspnea Respiratory: Denies cough and Denies dyspnea Endocrine: Denies palpitations Mental Status Exam Mental Status Exam Narrative: Patient Appearance: Appropriate Patient Orientation: Person Level of Consciousness: Awake and Disoriented Patient Behavior: Guarded Mood Description: Withdrawn Affect Description: Labile Patient Cognition Impaired: Yes Ability to Follow Directions: Fair Speech Pattern: Soft-Spoken Hallucinations: Auditory Delusions: Paranoid Ideation Thought Process: Illogical and Evasive Thought Content: positive for [place] Judgement: Poor Patient Appearance: Well Grooomed Patient Orientation: Person and Situation Level of Consciousness: Awake Patient Behavior: Cooperative Mood Description: Calm Affect Description: Constricted Patient Cognition Impaired: Yes Ability to Follow Directions: Good Speech Pattern: Clear Diagnostics Vital Signs (24Hr): Vital Signs - 24 hr 09/13/22 20:00 09/14/22 07:50 Temperature 97.9 F 97.3 F Pulse Rate 80 81 Respiratory Rate 18 16 Blood Pressure 137/61 112/55 L Pulse Oximetry 94 93 Oxygen Delivery Method Room Air Room Air BMI result Body Mass Index 24.4 Labs Results: 09/01/22 14:36 09/01/22 14:36 Imaging Radiology Impressions: ITS Impressions Chest X-Ray 08/08/22 16:36 IMPRESSION: 1. No acute pulmonary process. Chest X-Ray 08/10/22 10:25 IMPRESSION: New subsegmental atelectasis at the left lung base. Chest CTA 08/10/22 14:35 IMPRESSION: 1. No CT evidence of pulmonary emboli. 2. No lung mass or suspicious spiculated nodules, there are few scattered tiny nonspecific lung calcified and noncalcified nodular densities measuring up to 3 mm or less. 3. Coronary calcifications. 4. Pulmonary emphysema. Various management parameters for solitary pulmonary nodules are in the literature. According to the UPDATED 2017 Fleischner Society recommendations, the advised follow-up imaging for solid nodules < 6 mm is: LOW RISK PATIENT: No routine follow-up. HIGH RISK PATIENT: Optional CT at 12 months. Reference: Guidelines for Management of Incidental Pulmonary Nodules Detected on CT Images: From the Fleischner Society 2017. Chest X-Ray 08/12/22 03:50 IMPRESSION: No focal consolidation. Chest X-Ray 08/31/22 17:28 FINDINGS/IMPRESSION: * Hazy asymmetric opacification of the right lung, unclear if this could be due to patient rotation, asymmetric parenchymal opacities or small layering pleural effusion. Consider repeat PA and lateral radiographs. * Blunting of the bilateral costophrenic angles may reflect trace pleural effusions. No pneumothorax. * Unchanged cardiomediastinal silhouette. * Incidental note of upper abdominal surgical clips. Chest X-Ray 09/01/22 16:57 IMPRESSION: Unremarkable chest examination. Chest X-Ray 09/10/22 12:21 IMPRESSION: Unremarkable examination. Medications Medications Current Medications Acetaminophen (Acetaminophen 325 Mg Tablet) 650 mg PO Q6H PRN PRN Reason: Headache/Pain Mild Scale (1-3) Last Admin: 08/31/22 15:11 Dose: 650 mg Al Hydroxide/Mg Hydroxide (Magnesium Hydrox/Alum Hydrox 30 Ml Oral.Susp) 30 ml PO Q6H PRN PRN Reason: Heartburn/Nausea Albuterol Sulfate (Albuterol Sulfate 90 Mcg 8 Gm Inhaler) 2 puff INHALE RQ4H PRN PRN Reason: COPD exacerbation Last Admin: 09/11/22 13:24 Dose: 2 puff Albuterol/Ipratropium (Albuterol/Iprat 2.5/0.5mg 3 Ml Ampul.Neb) 3 ml INHALE RQ4H PRN PRN Reason: Shortness of Breath/Wheezing Last Admin: 09/10/22 11:15 Dose: 3 ml Amlodipine Besylate (Amlodipine Besylate 10 Mg Tablet) 10 mg PO DAILY [facility]ON[facility]; Protocol Last Admin: 09/14/22 09:16 Dose: 10 mg Aripiprazole (Aripiprazole 20 Mg Tablet) 20 mg PO DAILY [facility]ON[facility] Last Admin: 09/14/22 09:16 Dose: 20 mg Atorvastatin Calcium (Atorvastatin Calcium 20 Mg Tablet) 20 mg PO BEDTIME [facility] Last Admin: 09/13/22 20:44 Dose: 20 mg Clonidine HCl (Clonidine Hcl 0.1 Mg Tablet) 0.1 mg PO TID [facility]; Protocol Last Admin: 09/14/22 14:58 Dose: 0.1 mg Fluticasone/Vilanterol (Fluticasone/Vilanterol 200/25 Blst.W.Dev) 1 puff INHALE RDAILY [facility] Last Admin: 09/14/22 09:51 Dose: 1 puff Magnesium Hydroxide (Milk Of Magnesia 30 Ml Oral.Susp) 30 ml PO DAILY PRN PRN Reason: Constipation Quetiapine Fumarate (Quetiapine Fumarate 50 Mg Tablet) 50 mg PO BID [facility] Last Admin: 09/14/22 09:16 Dose: 50 mg Quetiapine Fumarate (Quetiapine Fumarate 50 Mg Tablet) 50 mg PO Q6H PRN PRN Reason: agitation Last Admin: 08/30/22 13:12 Dose: 50 mg Quetiapine Fumarate (Quetiapine Fumarate 200 Mg Tablet) 200 mg PO BEDTIME [facility] Last Admin: 09/13/22 20:44 Dose: 200 mg Tamsulosin HCl (Tamsulosin Hcl 0.4 Mg Capsule) 0.4 mg PO BEDTIME [facility] Last Admin: 09/13/22 20:44 Dose: 0.4 mg Tiotropium [place] (Tiotropium [place] 18 Mcg Cap.W.Dev) 1 puff INHALE RDAILY [facility] Last Admin: 09/14/22 09:52 Dose: 1 puff Allergies Allergies Allergy/AdvReac Type Severity Reaction Status Date / Time Penicillins [PENICILLINS] Allergy Intermediate RASH Unverified 08/02/20 16:41 Iodinated Contrast Media Allergy Mild HIVES Unverified 08/02/20 16:41 [IV Dye, Iodine Containing Contrast ] penicillin V Allergy Unknown Verified 07/05/18 00:00 Assessment & Plan Assessment & Plan (1) COPD exacerbation: Status: Acute Code(s): J44.1 - Chronic obstructive pulmonary disease with (acute) exacerbation Plan 76 year old male with history htn, COPD, BPH, schizophrenia, and dementia admitted to psychiatry with consult placed for COPD exacerbation. Acute COPD, ? sob, he was recently treated for exacerbation and bronchitis with Doxy, prednisone, his present condition doesn't suggest another exacerbation -no hypoxia. Lungs clear -HR 80s -Duonebs prn. We could do CXR to see if developping something not found clinically Hponatremia--he's been manaed with fluid restriction and complaining of not having more water. He should be convinced to have repeat lab done. New CXR . The hospitalist have seen and it seems that he had a COPD exacerbation. Plan 1. Continue with Abilify, we will try to get Abilifgee Beckmantena to assure compliance. Abilify Maintena was given IM on 09/10 2. Continue Seroquel. 3. Consider placement on a custodial facility. we had a meeting with [facility] for disposition and they are planning to change the halfway, they wanted him in the community. 09/13: Continue current treatment plan. 09/14: Continue current treatment plan. I spent minutes with the patient and/or on the patient floor today, greater than?50% of which was spent counseling/coordinating care. Reason for contiued inpatient stay Substantial Risk for: harm to self, inability to function and med/psych decompensation
[2022-09-14 18:00] VITALS: BP 111/58; PULSE 81; RESP 18; TEMP 36.3; O2SAT 93
[2022-09-14] MEDS: QUEtiapine Fumarate 200 MG TABLET PO (19:48)
[2022-09-14] MEDS: Tamsulosin HCL 0.4 MG CAPSULE PO (19:49)
[2022-09-14] MEDS: Atorvastatin Calcium 20 MG TABLET PO (19:49)
[2022-09-15 06:00] VITALS: BP 102/54; PULSE 89; RESP 16; TEMP 36.6; O2SAT 92
--- NOTE | 2022-09-15 08:01 | PM.PNGS ---
Subjective Subjective Date of Service: 09/15/22 Physical Exam Vital Signs: Vital Signs: Last Vital Signs Temp 97.4 F 09/14/22 18:00 Pulse 81 09/14/22 18:00 Resp 18 09/14/22 18:00 BP 111/58 L 09/14/22 18:00 Pulse Ox 93 09/14/22 18:00 O2 Del Method 09/14/22 18:00 O2 Flow Rate 91 09/06/22 06:00 BMI result Body Mass Index 24.4 Objective Data Active Medications Acetaminophen (Acetaminophen 325 Mg Tablet) 650 mg PO Q6H PRN PRN Reason: Headache/Pain Mild Scale (1-3) Last Admin: 08/31/22 15:11 Dose: 650 mg Documented By: MAKENNA Al Hydroxide/Mg Hydroxide (Magnesium Hydrox/Alum Hydrox 30 Ml Oral.Susp) 30 ml PO Q6H PRN PRN Reason: Heartburn/Nausea Albuterol Sulfate (Albuterol Sulfate 90 Mcg 8 Gm Inhaler) 2 puff INHALE RQ4H PRN PRN Reason: COPD exacerbation Last Admin: 09/11/22 13:24 Dose: 2 puff Documented By: AICHA Albuterol/Ipratropium (Albuterol/Iprat 2.5/0.5mg 3 Ml Ampul.Neb) 3 ml INHALE RQ4H PRN PRN Reason: Shortness of Breath/Wheezing Last Admin: 09/10/22 11:15 Dose: 3 ml Documented By: PRINCE Amlodipine Besylate (Amlodipine Besylate 10 Mg Tablet) 10 mg PO DAILY [facility]; Protocol Last Admin: 09/14/22 09:16 Dose: 10 mg Documented By: SANDEEP Aripiprazole (Aripiprazole 20 Mg Tablet) 20 mg PO DAILY [facility] Last Admin: 09/14/22 09:16 Dose: 20 mg Documented By: SANDEEP Atorvastatin Calcium (Atorvastatin Calcium 20 Mg Tablet) 20 mg PO BEDTIME [facility] Last Admin: 09/14/22 19:49 Dose: 20 mg Documented By: HILDA Clonidine HCl (Clonidine Hcl 0.1 Mg Tablet) 0.1 mg PO TID [facility]; Protocol Last Admin: 09/14/22 19:49 Dose: 0.1 mg Documented By: HILDA Fluticasone/Vilanterol (Fluticasone/Vilanterol 200/25 Blst.W.Dev) 1 puff INHALE RDAILY [facility] Last Admin: 09/14/22 09:51 Dose: 1 puff Documented By: SANDEEP Magnesium Hydroxide (Milk Of Magnesia 30 Ml Oral.Susp) 30 ml PO DAILY PRN PRN Reason: Constipation Quetiapine Fumarate (Quetiapine Fumarate 50 Mg Tablet) 50 mg PO BID [facility] Last Admin: 09/14/22 19:48 Dose: 50 mg Documented By: HILDA Quetiapine Fumarate (Quetiapine Fumarate 50 Mg Tablet) 50 mg PO Q6H PRN PRN Reason: agitation Last Admin: 08/30/22 13:12 Dose: 50 mg Quetiapine Fumarate (Quetiapine Fumarate 200 Mg Tablet) 200 mg PO BEDTIME [facility] Last Admin: 09/14/22 19:48 Dose: 200 mg Documented By: HILDA Tamsulosin HCl (Tamsulosin Hcl 0.4 Mg Capsule) 0.4 mg PO BEDTIME [facility] Last Admin: 09/14/22 19:49 Dose: 0.4 mg Documented By: HILDA Tiotropium [place] (Tiotropium [place] 18 Mcg Cap.W.Dev) 1 puff INHALE RDAILY [facility] Last Admin: 09/14/22 09:52 Dose: 1 puff Documented By: SANDEEP Labs CBC & Chem 7: 09/01/22 14:36 09/01/22 14:36 Progress Note: A&P Time Spent With Patient Time: Total time spent is greater than 50% in coordination of care (as documented) at patient's floor/unit and/or counseling patient: Quality Stroke Does the patient have a stroke diagnosis?: No VTE Prior VTE?: No VTE Risk Level:: Medical - low VTE Device Contraindication: Treatment Not Indicated VTE Drug Contraindication: Treatment Not Indicated
[2022-09-15] MEDS: Fluticasone/Vilanterol 200/25 BLST.W.DEV 1 PUFF INHALE (09:56)
[2022-09-15] MEDS: ARIPiprazole 20 MG TABLET PO (09:56)
[2022-09-15] MEDS: cloNIDine HCL 0.1 MG TABLET PO ×3 (09:56→20:36)
[2022-09-15] MEDS: QUEtiapine Fumarate 50 MG TABLET PO ×2 (09:56→20:36)
[2022-09-15] MEDS: amLODIPine Besylate 10 MG TABLET PO (09:57)
--- NOTE | 2022-09-15 12:30 | P.PNPSI_ITS ---
Subjective Subjective Date of Service: 09/15/22 Reason For Visit: Schizophrenia,Dementia Subjective Notes: Conditional Voluntary Interim History: The nursing staff reported the patient had been on his room most of the time he has been fully compliant with treatment. On interview the patient denies new symptoms he looks internally preoccupied. He denies auditory hallucinations. Mental Status Exam Mental Status Exam Patient Appearance: Appropriate Patient Orientation: Person and Situation Level of Consciousness: Awake Patient Behavior: Guarded and Passive Mood Description: Constricted Affect Description: Labile Patient Cognition Impaired: Yes Ability to Follow Directions: Good Speech Pattern: Clear Hallucinations: None Delusions: Not Present Thought Process: Distracted Thought Content: positive for [place] Judgement: Poor Diagnostics Vital Signs (24Hr): Vital Signs - 24 hr 09/14/22 18:00 09/15/22 06:00 Temperature 97.4 F 97.9 F Pulse Rate 81 89 Respiratory Rate 18 16 Blood Pressure 111/58 L 102/54 L Pulse Oximetry 93 92 Oxygen Delivery Method Room Air Room Air BMI result Body Mass Index 24.4 Labs Results: 09/01/22 14:36 09/01/22 14:36 Imaging Radiology Impressions: ITS Impressions Chest X-Ray 08/08/22 16:36 IMPRESSION: 1. No acute pulmonary process. Chest X-Ray 08/10/22 10:25 IMPRESSION: New subsegmental atelectasis at the left lung base. Chest CTA 08/10/22 14:35 IMPRESSION: 1. No CT evidence of pulmonary emboli. 2. No lung mass or suspicious spiculated nodules, there are few scattered tiny nonspecific lung calcified and noncalcified nodular densities measuring up to 3 mm or less. 3. Coronary calcifications. 4. Pulmonary emphysema. Various management parameters for solitary pulmonary nodules are in the literature. According to the UPDATED 2017 Fleischner Society recommendations, the advised follow-up imaging for solid nodules < 6 mm is: LOW RISK PATIENT: No routine follow-up. HIGH RISK PATIENT: Optional CT at 12 months. Reference: Guidelines for Management of Incidental Pulmonary Nodules Detected on CT Images: From the Fleischner Society 2017. Chest X-Ray 08/12/22 03:50 IMPRESSION: No focal consolidation. Chest X-Ray 08/31/22 17:28 FINDINGS/IMPRESSION: * Hazy asymmetric opacification of the right lung, unclear if this could be due to patient rotation, asymmetric parenchymal opacities or small layering pleural effusion. Consider repeat PA and lateral radiographs. * Blunting of the bilateral costophrenic angles may reflect trace pleural effusions. No pneumothorax. * Unchanged cardiomediastinal silhouette. * Incidental note of upper abdominal surgical clips. Chest X-Ray 09/01/22 16:57 IMPRESSION: Unremarkable chest examination. Chest X-Ray 09/10/22 12:21 IMPRESSION: Unremarkable examination. Medications Medications Current Medications Acetaminophen (Acetaminophen 325 Mg Tablet) 650 mg PO Q6H PRN PRN Reason: Headache/Pain Mild Scale (1-3) Last Admin: 08/31/22 15:11 Dose: 650 mg Al Hydroxide/Mg Hydroxide (Magnesium Hydrox/Alum Hydrox 30 Ml Oral.Susp) 30 ml PO Q6H PRN PRN Reason: Heartburn/Nausea Albuterol Sulfate (Albuterol Sulfate 90 Mcg 8 Gm Inhaler) 2 puff INHALE RQ4H PRN PRN Reason: COPD exacerbation Last Admin: 09/11/22 13:24 Dose: 2 puff Albuterol/Ipratropium (Albuterol/Iprat 2.5/0.5mg 3 Ml Ampul.Neb) 3 ml INHALE RQ4H PRN PRN Reason: Shortness of Breath/Wheezing Last Admin: 09/10/22 11:15 Dose: 3 ml Amlodipine Besylate (Amlodipine Besylate 10 Mg Tablet) 10 mg PO DAILY [facility]; Protocol Last Admin: 09/15/22 09:57 Dose: 10 mg Aripiprazole (Aripiprazole 20 Mg Tablet) 20 mg PO DAILY [facility] Last Admin: 09/15/22 09:56 Dose: 20 mg Atorvastatin Calcium (Atorvastatin Calcium 20 Mg Tablet) 20 mg PO BEDTIME [facility] Last Admin: 09/14/22 19:49 Dose: 20 mg Clonidine HCl (Clonidine Hcl 0.1 Mg Tablet) 0.1 mg PO TID [facility]; Protocol Last Admin: 09/15/22 09:56 Dose: 0.1 mg Fluticasone/Vilanterol (Fluticasone/Vilanterol 200/25 Blst.W.Dev) 1 puff INHALE RDAILY [facility] Last Admin: 09/15/22 09:56 Dose: 1 puff Magnesium Hydroxide (Milk Of Magnesia 30 Ml Oral.Susp) 30 ml PO DAILY PRN PRN Reason: Constipation Quetiapine Fumarate (Quetiapine Fumarate 50 Mg Tablet) 50 mg PO BID [facility] Last Admin: 09/15/22 09:56 Dose: 50 mg Quetiapine Fumarate (Quetiapine Fumarate 50 Mg Tablet) 50 mg PO Q6H PRN PRN Reason: agitation Last Admin: 08/30/22 13:12 Dose: 50 mg Quetiapine Fumarate (Quetiapine Fumarate 200 Mg Tablet) 200 mg PO BEDTIME [facility] Last Admin: 09/14/22 19:48 Dose: 200 mg Tamsulosin HCl (Tamsulosin Hcl 0.4 Mg Capsule) 0.4 mg PO BEDTIME [facility] Last Admin: 09/14/22 19:49 Dose: 0.4 mg Tiotropium [place] (Tiotropium [place] 18 Mcg Cap.W.Dev) 1 puff INHALE RDAILY [facility] Last Admin: 09/15/22 09:56 Dose: 1 puff Allergies Allergies Allergy/AdvReac Type Severity Reaction Status Date / Time Penicillins [PENICILLINS] Allergy Intermediate RASH Unverified 08/02/20 16:41 Iodinated Contrast Media Allergy Mild HIVES Unverified 08/02/20 16:41 [IV Dye, Iodine Containing Contrast ] penicillin V Allergy Unknown Verified 07/05/18 00:00 Assessment & Plan Assessment & Plan (1) COPD exacerbation: Status: Acute Code(s): J44.1 - Chronic obstructive pulmonary disease with (acute) exacerbation Plan Elderly male with a long history of schizoaffective disorder, chronically institutionalized, transferred from his retirement for exacerbation of agitation when Trileptal was discontinued due to hyponatremia. We tried to rechallenge the Trileptal of he develops severe hyponatremia. Plan 1. Continue with Abilify Maintena and Abilify p.o.. 2. Continue with Seroquel as a mood stabilizer and cellulitic. 3. We will schedule discharge for placement at that [facility] retirement. I spent ___20___ minutes with the patient and/or on the patient floor today, greater than?50% of which was spent counseling/coordinating care. Reason for contiued inpatient stay Substantial Risk for: inability to function, rapid decompensation and med/psych decompensation
[2022-09-15 20:00] VITALS: BP 115/52; PULSE 72; RESP 16; TEMP 36.4; O2SAT 93
[2022-09-15] MEDS: QUEtiapine Fumarate 200 MG TABLET PO (20:36)
[2022-09-15] MEDS: Atorvastatin Calcium 20 MG TABLET PO (20:36)
[2022-09-15] MEDS: Tamsulosin HCL 0.4 MG CAPSULE PO (20:36)
[2022-09-16] MEDS: amLODIPine Besylate 10 MG TABLET PO (09:59)
[2022-09-16] MEDS: ARIPiprazole 20 MG TABLET PO (09:59)
[2022-09-16] MEDS: QUEtiapine Fumarate 50 MG TABLET PO ×2 (09:59→21:01)
[2022-09-16] MEDS: cloNIDine HCL 0.1 MG TABLET PO ×3 (09:59→21:01)
--- NOTE | 2022-09-16 13:23 | P.PNPSI_ITS ---
Subjective Subjective Date of Service: 09/16/22 Reason For Visit: Schizophrenia,Dementia Subjective Notes: Conditional Voluntary Interim History: The nursing staff reported the patient showed up yesterday with a brighter affect. He has been med compliant and he has been in the common areas. At this moment he is at his baseline, with poor short-term memory but easily redirectable. On interview the patient denies new symptoms, he states that he feels better; we will start discussing of discharge planning. Mental Status Exam Mental Status Exam Patient Appearance: Well Grooomed Patient Orientation: Person and Situation Level of Consciousness: Awake Patient Behavior: Cooperative Mood Description: Depressed Affect Description: Constricted Patient Cognition Impaired: Yes Ability to Follow Directions: Good Speech Pattern: Clear Memory Description: Intact Hallucinations: None Delusions: Paranoid Ideation Thought Process: Distracted Thought Content: positive for [place] Judgement: Fair Diagnostics Vital Signs (24Hr): Vital Signs - 24 hr 09/15/22 20:00 Temperature 97.6 F Pulse Rate 72 Respiratory Rate 16 Blood Pressure 115/52 L Pulse Oximetry 93 Oxygen Delivery Method Room Air BMI result Body Mass Index 24.4 Labs Results: 09/01/22 14:36 09/01/22 14:36 Imaging Radiology Impressions: ITS Impressions Chest X-Ray 08/08/22 16:36 IMPRESSION: 1. No acute pulmonary process. Chest X-Ray 08/10/22 10:25 IMPRESSION: New subsegmental atelectasis at the left lung base. Chest CTA 08/10/22 14:35 IMPRESSION: 1. No CT evidence of pulmonary emboli. 2. No lung mass or suspicious spiculated nodules, there are few scattered tiny nonspecific lung calcified and noncalcified nodular densities measuring up to 3 mm or less. 3. Coronary calcifications. 4. Pulmonary emphysema. Various management parameters for solitary pulmonary nodules are in the literature. According to the UPDATED 2017 Fleischner Society recommendations, the advised follow-up imaging for solid nodules < 6 mm is: LOW RISK PATIENT: No routine follow-up. HIGH RISK PATIENT: Optional CT at 12 months. Reference: Guidelines for Management of Incidental Pulmonary Nodules Detected on CT Images: From the Fleischner Society 2017. Chest X-Ray 08/12/22 03:50 IMPRESSION: No focal consolidation. Chest X-Ray 08/31/22 17:28 FINDINGS/IMPRESSION: * Hazy asymmetric opacification of the right lung, unclear if this could be due to patient rotation, asymmetric parenchymal opacities or small layering pleural effusion. Consider repeat PA and lateral radiographs. * Blunting of the bilateral costophrenic angles may reflect trace pleural effusions. No pneumothorax. * Unchanged cardiomediastinal silhouette. * Incidental note of upper abdominal surgical clips. Chest X-Ray 09/01/22 16:57 IMPRESSION: Unremarkable chest examination. Chest X-Ray 09/10/22 12:21 IMPRESSION: Unremarkable examination. Medications Medications Current Medications Acetaminophen (Acetaminophen 325 Mg Tablet) 650 mg PO Q6H PRN PRN Reason: Headache/Pain Mild Scale (1-3) Last Admin: 08/31/22 15:11 Dose: 650 mg Al Hydroxide/Mg Hydroxide (Magnesium Hydrox/Alum Hydrox 30 Ml Oral.Susp) 30 ml PO Q6H PRN PRN Reason: Heartburn/Nausea Albuterol Sulfate (Albuterol Sulfate 90 Mcg 8 Gm Inhaler) 2 puff INHALE RQ4H PRN PRN Reason: COPD exacerbation Last Admin: 09/11/22 13:24 Dose: 2 puff Albuterol/Ipratropium (Albuterol/Iprat 2.5/0.5mg 3 Ml Ampul.Neb) 3 ml INHALE RQ4H PRN PRN Reason: Shortness of Breath/Wheezing Last Admin: 09/10/22 11:15 Dose: 3 ml Amlodipine Besylate (Amlodipine Besylate 10 Mg Tablet) 10 mg PO DAILY [facility]; Protocol Last Admin: 09/16/22 09:59 Dose: 10 mg Aripiprazole (Aripiprazole 20 Mg Tablet) 20 mg PO DAILY [facility] Last Admin: 09/16/22 09:59 Dose: 20 mg Atorvastatin Calcium (Atorvastatin Calcium 20 Mg Tablet) 20 mg PO BEDTIME [facility] Last Admin: 09/15/22 20:36 Dose: 20 mg Clonidine HCl (Clonidine Hcl 0.1 Mg Tablet) 0.1 mg PO TID [facility]; Protocol Last Admin: 09/16/22 09:59 Dose: 0.1 mg Fluticasone/Vilanterol (Fluticasone/Vilanterol 200/25 Blst.W.Dev) 1 puff INHALE RDAILY [facility] Last Admin: 09/16/22 11:40 Dose: Not Given Magnesium Hydroxide (Milk Of Magnesia 30 Ml Oral.Susp) 30 ml PO DAILY PRN PRN Reason: Constipation Quetiapine Fumarate (Quetiapine Fumarate 50 Mg Tablet) 50 mg PO BID [facility] Last Admin: 09/16/22 09:59 Dose: 50 mg Quetiapine Fumarate (Quetiapine Fumarate 50 Mg Tablet) 50 mg PO Q6H PRN PRN Reason: agitation Last Admin: 08/30/22 13:12 Dose: 50 mg Quetiapine Fumarate (Quetiapine Fumarate 200 Mg Tablet) 200 mg PO BEDTIME [facility] Last Admin: 09/15/22 20:36 Dose: 200 mg Tamsulosin HCl (Tamsulosin Hcl 0.4 Mg Capsule) 0.4 mg PO BEDTIME [facility] Last Admin: 09/15/22 20:36 Dose: 0.4 mg Tiotropium [place] (Tiotropium [place] 18 Mcg Cap.W.Dev) 1 puff INHALE RDAILY [facility] Last Admin: 09/16/22 11:40 Dose: Not Given Allergies Allergies Allergy/AdvReac Type Severity Reaction Status Date / Time Penicillins [PENICILLINS] Allergy Intermediate RASH Unverified 08/02/20 16:41 Iodinated Contrast Media Allergy Mild HIVES Unverified 08/02/20 16:41 [IV Dye, Iodine Containing Contrast ] penicillin V Allergy Unknown Verified 07/05/18 00:00 Assessment & Plan Assessment & Plan (1) COPD exacerbation: Status: Acute Code(s): J44.1 - Chronic obstructive pulmonary disease with (acute) exacerbation Plan Elderly male with a long history of schizoaffective disorder, chronically institutionalized, transferred from his long-term for exacerbation of agitation when Trileptal was discontinued due to hyponatremia. We tried to rechallenge the Trileptal of he develops severe hyponatremia. Plan 1. Continue with Abilify Maintena and Abilify p.o.. 2. Continue with Seroquel as a mood stabilizer and cellulitic. 3. We will schedule discharge for placement at that [facility] long-term. I spent ___20___ minutes with the patient and/or on the patient floor today, greater than?50% of which was spent counseling/coordinating care. Reason for contiued inpatient stay Substantial Risk for: inability to function, rapid decompensation and med/psych decompensation
[2022-09-16 18:00] VITALS: BP 123/60; PULSE 87; RESP 17; TEMP 36.6; O2SAT 94
[2022-09-16] MEDS: Atorvastatin Calcium 20 MG TABLET PO (21:00)
[2022-09-16] MEDS: Tamsulosin HCL 0.4 MG CAPSULE PO (21:01)
[2022-09-16] MEDS: QUEtiapine Fumarate 200 MG TABLET PO (21:01)
[2022-09-17 06:00] VITALS: BP 121/57; PULSE 73; RESP 14; TEMP 36.6; O2SAT 92
[2022-09-17] MEDS: ARIPiprazole 20 MG TABLET PO (08:41)
[2022-09-17] MEDS: amLODIPine Besylate 10 MG TABLET PO (08:41)
[2022-09-17] MEDS: cloNIDine HCL 0.1 MG TABLET PO ×3 (08:41→20:59)
[2022-09-17] MEDS: Fluticasone/Vilanterol 200/25 BLST.W.DEV 1 PUFF INHALE (08:42)
[2022-09-17] MEDS: QUEtiapine Fumarate 50 MG TABLET PO ×2 (10:06→21:01)
--- NOTE | 2022-09-17 11:36 | P.PNPSI_ITS ---
Subjective Subjective Date of Service: 09/17/22 Reason For Visit: Schizophrenia,Dementia Subjective Notes: Conditional Voluntary Interim History: The nursing staff reported that he had been out for meals, he does not participating groups due to his language barrier. He slept 7 hours and he has been compliant with treatment. On interview the patient denies new symptoms we are waiting for placement at [facility] prison. Mental Status Exam Mental Status Exam Patient Appearance: Appropriate Patient Orientation: Person and Situation Level of Consciousness: Awake Patient Behavior: Guarded and Passive Mood Description: Withdrawn Affect Description: Constricted Patient Cognition Impaired: Yes Ability to Follow Directions: Good Speech Pattern: Clear Hallucinations: None Delusions: Paranoid Ideation Thought Process: Distracted Thought Content: positive for [place] Judgement: Fair Diagnostics Vital Signs (24Hr): Vital Signs - 24 hr 09/16/22 18:00 09/17/22 06:00 Temperature 98 F 97.8 F Pulse Rate 87 73 Respiratory Rate 17 14 Blood Pressure 123/60 121/57 L Pulse Oximetry 94 92 Oxygen Delivery Method Room Air Room Air BMI result Body Mass Index 24.4 Labs Results: 09/01/22 14:36 09/01/22 14:36 Imaging Radiology Impressions: ITS Impressions Chest X-Ray 08/08/22 16:36 IMPRESSION: 1. No acute pulmonary process. Chest X-Ray 08/10/22 10:25 IMPRESSION: New subsegmental atelectasis at the left lung base. Chest CTA 08/10/22 14:35 IMPRESSION: 1. No CT evidence of pulmonary emboli. 2. No lung mass or suspicious spiculated nodules, there are few scattered tiny nonspecific lung calcified and noncalcified nodular densities measuring up to 3 mm or less. 3. Coronary calcifications. 4. Pulmonary emphysema. Various management parameters for solitary pulmonary nodules are in the literature. According to the UPDATED 2017 Fleischner Society recommendations, the advised follow-up imaging for solid nodules < 6 mm is: LOW RISK PATIENT: No routine follow-up. HIGH RISK PATIENT: Optional CT at 12 months. Reference: Guidelines for Management of Incidental Pulmonary Nodules Detected on CT Images: From the Fleischner Society 2017. Chest X-Ray 08/12/22 03:50 IMPRESSION: No focal consolidation. Chest X-Ray 08/31/22 17:28 FINDINGS/IMPRESSION: * Hazy asymmetric opacification of the right lung, unclear if this could be due to patient rotation, asymmetric parenchymal opacities or small layering pleural effusion. Consider repeat PA and lateral radiographs. * Blunting of the bilateral costophrenic angles may reflect trace pleural effusions. No pneumothorax. * Unchanged cardiomediastinal silhouette. * Incidental note of upper abdominal surgical clips. Chest X-Ray 09/01/22 16:57 IMPRESSION: Unremarkable chest examination. Chest X-Ray 09/10/22 12:21 IMPRESSION: Unremarkable examination. Medications Medications Current Medications Acetaminophen (Acetaminophen 325 Mg Tablet) 650 mg PO Q6H PRN PRN Reason: Headache/Pain Mild Scale (1-3) Last Admin: 08/31/22 15:11 Dose: 650 mg Al Hydroxide/Mg Hydroxide (Magnesium Hydrox/Alum Hydrox 30 Ml Oral.Susp) 30 ml PO Q6H PRN PRN Reason: Heartburn/Nausea Albuterol Sulfate (Albuterol Sulfate 90 Mcg 8 Gm Inhaler) 2 puff INHALE RQ4H PRN PRN Reason: COPD exacerbation Last Admin: 09/11/22 13:24 Dose: 2 puff Amlodipine Besylate (Amlodipine Besylate 10 Mg Tablet) 10 mg PO DAILY [facility]; Protocol Last Admin: 09/17/22 08:41 Dose: 10 mg Aripiprazole (Aripiprazole 20 Mg Tablet) 20 mg PO DAILY [facility] Last Admin: 09/17/22 08:41 Dose: 20 mg Atorvastatin Calcium (Atorvastatin Calcium 20 Mg Tablet) 20 mg PO BEDTIME [facility] Last Admin: 09/16/22 21:00 Dose: 20 mg Clonidine HCl (Clonidine Hcl 0.1 Mg Tablet) 0.1 mg PO TID [facility]; Protocol Last Admin: 09/17/22 08:41 Dose: 0.1 mg Fluticasone/Vilanterol (Fluticasone/Vilanterol 200/25 Blst.W.Dev) 1 puff INHALE RDAILY [facility]PL[facility] Last Admin: 09/17/22 08:42 Dose: 1 puff Magnesium Hydroxide (Milk Of Magnesia 30 Ml Oral.Susp) 30 ml PO DAILY PRN PRN Reason: Constipation Quetiapine Fumarate (Quetiapine Fumarate 50 Mg Tablet) 50 mg PO BID [facility] Last Admin: 09/17/22 10:06 Dose: 50 mg Quetiapine Fumarate (Quetiapine Fumarate 50 Mg Tablet) 50 mg PO Q6H PRN PRN Reason: agitation Last Admin: 08/30/22 13:12 Dose: 50 mg Quetiapine Fumarate (Quetiapine Fumarate 200 Mg Tablet) 200 mg PO BEDTIME [facility] Last Admin: 09/16/22 21:01 Dose: 200 mg Tamsulosin HCl (Tamsulosin Hcl 0.4 Mg Capsule) 0.4 mg PO BEDTIME [facility]PL[facility] Last Admin: 09/16/22 21:01 Dose: 0.4 mg Tiotropium [place] (Tiotropium [place] 18 Mcg Cap.W.Dev) 1 puff INHALE RDAILY REPLACED BY [facility] Last Admin: 09/17/22 08:42 Dose: 1 puff Allergies Allergies Allergy/AdvReac Type Severity Reaction Status Date / Time Penicillins [PENICILLINS] Allergy Intermediate RASH Unverified 08/02/20 16:41 Iodinated Contrast Media Allergy Mild HIVES Unverified 08/02/20 16:41 [IV Dye, Iodine Containing Contrast ] penicillin V Allergy Unknown Verified 07/05/18 00:00 Assessment & Plan Assessment & Plan (1) COPD exacerbation: Status: Acute Code(s): J44.1 - Chronic obstructive pulmonary disease with (acute) exacerbation Plan Elderly male with a long history of schizoaffective disorder, chronically institutionalized, transferred from his prison for exacerbation of agitation when Trileptal was discontinued due to hyponatremia. We tried to rechallenge the Trileptal of he develops severe hyponatremia. Plan 1. Continue with Abilify Maintena and Abilify p.o.. 2. Continue with Seroquel as a mood stabilizer and cellulitic. 3. We will schedule discharge for placement at that [facility] prison. I spent _20 minutes with the patient and/or on the patient floor today, greater than?50% of which was spent counseling/coordinating care. Reason for contiued inpatient stay Substantial Risk for: inability to function, rapid decompensation and med/psych decompensation
[2022-09-17 18:00] VITALS: BP 119/50; PULSE 76; RESP 16; TEMP 36.7; O2SAT 94
[2022-09-17] MEDS: Tamsulosin HCL 0.4 MG CAPSULE PO (21:01)
[2022-09-17] MEDS: QUEtiapine Fumarate 200 MG TABLET PO (21:01)
[2022-09-17] MEDS: Atorvastatin Calcium 20 MG TABLET PO (21:01)
[2022-09-18 06:00] VITALS: BP 116/57; PULSE 110; RESP 15; TEMP 36.5; O2SAT 93
[2022-09-18 07:00] VITALS: BMI 25.3
[2022-09-18] MEDS: Fluticasone/Vilanterol 200/25 BLST.W.DEV 1 PUFF INHALE (08:22)
[2022-09-18] MEDS: QUEtiapine Fumarate 50 MG TABLET PO ×2 (08:23→20:10)
[2022-09-18] MEDS: amLODIPine Besylate 10 MG TABLET PO (08:23)
[2022-09-18] MEDS: ARIPiprazole 20 MG TABLET PO (08:24)
[2022-09-18] MEDS: cloNIDine HCL 0.1 MG TABLET PO ×3 (08:29→20:10)
--- NOTE | 2022-09-18 13:02 | HO.PSYCHPN ---
Subjective Subjective Date of Service: 09/18/22 Reason For Visit: Schizophrenia,Dementia Subjective Notes: Conditional Voluntary Interim History: The nursing staff reported the patient ate well and he slept very well. The occupational therapist reported that the patient has attended groups and he has been more visible in the unit, smiling. The social group worker reported that we are going to talk with the healthcare proxy and start the transition is for discharge. On interview the patient denies new symptoms he looks confused but pleasant and cooperative. Mental Status Exam Mental Status Exam Patient Appearance: Well Grooomed Patient Orientation: Person and Situation Level of Consciousness: Awake Patient Behavior: Cooperative Mood Description: Calm Affect Description: Constricted Patient Cognition Impaired: Yes Ability to Follow Directions: Good Speech Pattern: Clear Hallucinations: None Delusions: Not Present Thought Process: Distracted Thought Content: positive for [place] Judgement: Fair Diagnostics Vital Signs (24Hr): Vital Signs - 24 hr 09/17/22 18:00 09/18/22 06:00 Temperature 98.1 F 97.7 F Pulse Rate 76 110 H Respiratory Rate 16 15 Blood Pressure 119/50 L 116/57 L Pulse Oximetry 94 93 Oxygen Delivery Method Room Air Room Air BMI result Body Mass Index 24.4 Labs Results: 09/01/22 14:36 09/01/22 14:36 Imaging Radiology Impressions: ITS Impressions Chest X-Ray 08/08/22 16:36 IMPRESSION: 1. No acute pulmonary process. Chest X-Ray 08/10/22 10:25 IMPRESSION: New subsegmental atelectasis at the left lung base. Chest CTA 08/10/22 14:35 IMPRESSION: 1. No CT evidence of pulmonary emboli. 2. No lung mass or suspicious spiculated nodules, there are few scattered tiny nonspecific lung calcified and noncalcified nodular densities measuring up to 3 mm or less. 3. Coronary calcifications. 4. Pulmonary emphysema. Various management parameters for solitary pulmonary nodules are in the literature. According to the UPDATED 2017 Fleischner Society recommendations, the advised follow-up imaging for solid nodules < 6 mm is: LOW RISK PATIENT: No routine follow-up. HIGH RISK PATIENT: Optional CT at 12 months. Reference: Guidelines for Management of Incidental Pulmonary Nodules Detected on CT Images: From the Fleischner Society 2017. Chest X-Ray 08/12/22 03:50 IMPRESSION: No focal consolidation. Chest X-Ray 08/31/22 17:28 FINDINGS/IMPRESSION: * Hazy asymmetric opacification of the right lung, unclear if this could be due to patient rotation, asymmetric parenchymal opacities or small layering pleural effusion. Consider repeat PA and lateral radiographs. * Blunting of the bilateral costophrenic angles may reflect trace pleural effusions. No pneumothorax. * Unchanged cardiomediastinal silhouette. * Incidental note of upper abdominal surgical clips. Chest X-Ray 09/01/22 16:57 IMPRESSION: Unremarkable chest examination. Chest X-Ray 09/10/22 12:21 IMPRESSION: Unremarkable examination. Medications Medications Current Medications Acetaminophen (Acetaminophen 325 Mg Tablet) 650 mg PO Q6H PRN PRN Reason: Headache/Pain Mild Scale (1-3) Last Admin: 08/31/22 15:11 Dose: 650 mg Al Hydroxide/Mg Hydroxide (Magnesium Hydrox/Alum Hydrox 30 Ml Oral.Susp) 30 ml PO Q6H PRN PRN Reason: Heartburn/Nausea Albuterol Sulfate (Albuterol Sulfate 90 Mcg 8 Gm Inhaler) 2 puff INHALE RQ4H PRN PRN Reason: COPD exacerbation Last Admin: 09/11/22 13:24 Dose: 2 puff Amlodipine Besylate (Amlodipine Besylate 10 Mg Tablet) 10 mg PO DAILY [facility]; Protocol Last Admin: 09/18/22 08:23 Dose: 10 mg Aripiprazole (Aripiprazole 20 Mg Tablet) 20 mg PO DAILY [facility] Last Admin: 09/18/22 08:24 Dose: 20 mg Atorvastatin Calcium (Atorvastatin Calcium 20 Mg Tablet) 20 mg PO BEDTIME [facility] Last Admin: 09/17/22 21:01 Dose: 20 mg Clonidine HCl (Clonidine Hcl 0.1 Mg Tablet) 0.1 mg PO TID [facility]; Protocol Last Admin: 09/18/22 08:29 Dose: 0.1 mg Fluticasone/Vilanterol (Fluticasone/Vilanterol 200/25 Blst.W.Dev) 1 puff INHALE RDAILY [facility] Last Admin: 09/18/22 08:22 Dose: 1 puff Magnesium Hydroxide (Milk Of Magnesia 30 Ml Oral.Susp) 30 ml PO DAILY PRN PRN Reason: Constipation Quetiapine Fumarate (Quetiapine Fumarate 50 Mg Tablet) 50 mg PO BID [facility] Last Admin: 09/18/22 08:23 Dose: 50 mg Quetiapine Fumarate (Quetiapine Fumarate 50 Mg Tablet) 50 mg PO Q6H PRN PRN Reason: agitation Last Admin: 08/30/22 13:12 Dose: 50 mg Quetiapine Fumarate (Quetiapine Fumarate 200 Mg Tablet) 200 mg PO BEDTIME [facility] Last Admin: 09/17/22 21:01 Dose: 200 mg Tamsulosin HCl (Tamsulosin Hcl 0.4 Mg Capsule) 0.4 mg PO BEDTIME [facility] Last Admin: 09/17/22 21:01 Dose: 0.4 mg Tiotropium [place] (Tiotropium [place] 18 Mcg Cap.W.Dev) 1 puff INHALE RDAILY [facility] Last Admin: 09/18/22 08:22 Dose: 1 puff Allergies Allergies Allergy/AdvReac Type Severity Reaction Status Date / Time Penicillins [PENICILLINS] Allergy Intermediate RASH Unverified 08/02/20 16:41 Iodinated Contrast Media Allergy Mild HIVES Unverified 08/02/20 16:41 [IV Dye, Iodine Containing Contrast ] penicillin V Allergy Unknown Verified 07/05/18 00:00 Assessment & Plan Assessment & Plan (1) COPD exacerbation: Status: Acute Code(s): J44.1 - Chronic obstructive pulmonary disease with (acute) exacerbation Plan Elderly male with a long history of schizoaffective disorder, chronically institutionalized, transferred from his long-term for exacerbation of agitation when Trileptal was discontinued due to hyponatremia. We tried to rechallenge the Trileptal of he develops severe hyponatremia. Plan 1. Continue with Abilify Maintena and Abilify p.o.. 2. Continue with Seroquel as a mood stabilizer and cellulitic. 3. We will schedule discharge for placement at that [facility] long-term. I spent ___20___ minutes with the patient and/or on the patient floor today, greater than?50% of which was spent counseling/coordinating care. Reason for contiued inpatient stay Substantial Risk for: inability to function, rapid decompensation and med/psych decompensation
[2022-09-18 18:00] VITALS: BP 129/56; PULSE 77; RESP 16; TEMP 36.6; O2SAT 94
[2022-09-18] MEDS: QUEtiapine Fumarate 200 MG TABLET PO (20:10)
[2022-09-18] MEDS: Atorvastatin Calcium 20 MG TABLET PO (20:10)
[2022-09-18] MEDS: Tamsulosin HCL 0.4 MG CAPSULE PO (20:11)
[2022-09-19 08:00] VITALS: BP 129/59; PULSE 95; RESP 16; O2SAT 94
[2022-09-19] MEDS: amLODIPine Besylate 10 MG TABLET PO (08:45)
[2022-09-19] MEDS: ARIPiprazole 20 MG TABLET PO (08:45)
[2022-09-19] MEDS: cloNIDine HCL 0.1 MG TABLET PO ×3 (08:46→20:01)
[2022-09-19] MEDS: QUEtiapine Fumarate 50 MG TABLET PO ×2 (08:46→20:06)
[2022-09-19] MEDS: Fluticasone/Vilanterol 200/25 BLST.W.DEV 1 PUFF INHALE (09:06)
--- NOTE | 2022-09-19 10:58 | MHC.CLN ---
F/U CONTINUES WITH REGULAR, NDD3 DIET. ENSURE TID TO PROVIDE ADDITIONAL 1050 KCALS, 60 G PROTEIN. CONTINUES WITH IMPROVED INTAKE. OUT OF ROOM FOR MEALS. SMALL, FAVORABLE WEIGHT GAIN X 2 WEEKS, +3.6%. CONTINUE TO ENCOURAGE INTAKE AT MEALS AND SUPPLEMENT. FOLLOW WEIGHTS AND INTAKE. RD TO FOLLOW WEEKLY.
--- NOTE | 2022-09-19 13:21 | HO.PSYCHPN ---
Subjective Subjective Date of Service: 09/19/22 Reason For Visit: Schizophrenia,Dementia Subjective Notes: Conditional Voluntary Interim History: The nursing staff reported the patient has been isolative, he goes out for meals and he has been medication compliant. The social science teacher called the DDS and was not clear about his disposition. On interview the patient denies new symptoms he looks much better now that he is compliant with treatment. Mental Status Exam Mental Status Exam Patient Appearance: Appropriate Patient Orientation: Person and Situation Level of Consciousness: Appropriate Patient Behavior: Cooperative Mood Description: Calm Affect Description: Constricted Patient Cognition Impaired: Yes Ability to Follow Directions: Good Speech Pattern: Clear Hallucinations: None Delusions: Not Present Thought Content: positive for [place] Judgement: Fair Diagnostics Vital Signs (24Hr): Vital Signs - 24 hr 09/18/22 18:00 09/19/22 08:00 Temperature 97.9 F Pulse Rate 77 95 Respiratory Rate 16 16 Blood Pressure 129/56 L 129/59 L Pulse Oximetry 94 94 Oxygen Delivery Method Room Air Room Air BMI result Body Mass Index 25.3 Labs Results: 09/01/22 14:36 09/01/22 14:36 Imaging Radiology Impressions: ITS Impressions Chest X-Ray 08/08/22 16:36 IMPRESSION: 1. No acute pulmonary process. Chest X-Ray 08/10/22 10:25 IMPRESSION: New subsegmental atelectasis at the left lung base. Chest CTA 08/10/22 14:35 IMPRESSION: 1. No CT evidence of pulmonary emboli. 2. No lung mass or suspicious spiculated nodules, there are few scattered tiny nonspecific lung calcified and noncalcified nodular densities measuring up to 3 mm or less. 3. Coronary calcifications. 4. Pulmonary emphysema. Various management parameters for solitary pulmonary nodules are in the literature. According to the UPDATED 2017 Fleischner Society recommendations, the advised follow-up imaging for solid nodules < 6 mm is: LOW RISK PATIENT: No routine follow-up. HIGH RISK PATIENT: Optional CT at 12 months. Reference: Guidelines for Management of Incidental Pulmonary Nodules Detected on CT Images: From the Fleischner Society 2017. Chest X-Ray 08/12/22 03:50 IMPRESSION: No focal consolidation. Chest X-Ray 08/31/22 17:28 FINDINGS/IMPRESSION: * Hazy asymmetric opacification of the right lung, unclear if this could be due to patient rotation, asymmetric parenchymal opacities or small layering pleural effusion. Consider repeat PA and lateral radiographs. * Blunting of the bilateral costophrenic angles may reflect trace pleural effusions. No pneumothorax. * Unchanged cardiomediastinal silhouette. * Incidental note of upper abdominal surgical clips. Chest X-Ray 09/01/22 16:57 IMPRESSION: Unremarkable chest examination. Chest X-Ray 09/10/22 12:21 IMPRESSION: Unremarkable examination. Medications Medications Current Medications Acetaminophen (Acetaminophen 325 Mg Tablet) 650 mg PO Q6H PRN PRN Reason: Headache/Pain Mild Scale (1-3) Last Admin: 08/31/22 15:11 Dose: 650 mg Al Hydroxide/Mg Hydroxide (Magnesium Hydrox/Alum Hydrox 30 Ml Oral.Susp) 30 ml PO Q6H PRN PRN Reason: Heartburn/Nausea Albuterol Sulfate (Albuterol Sulfate 90 Mcg 8 Gm Inhaler) 2 puff INHALE RQ4H PRN PRN Reason: COPD exacerbation Last Admin: 09/11/22 13:24 Dose: 2 puff Amlodipine Besylate (Amlodipine Besylate 10 Mg Tablet) 10 mg PO DAILY [facility]; Protocol Last Admin: 09/19/22 08:45 Dose: 10 mg Aripiprazole (Aripiprazole 20 Mg Tablet) 20 mg PO DAILY [facility] Last Admin: 09/19/22 08:45 Dose: 20 mg Atorvastatin Calcium (Atorvastatin Calcium 20 Mg Tablet) 20 mg PO BEDTIME [facility] Last Admin: 09/18/22 20:10 Dose: 20 mg Clonidine HCl (Clonidine Hcl 0.1 Mg Tablet) 0.1 mg PO TID [facility]; Protocol Last Admin: 09/19/22 08:46 Dose: 0.1 mg Fluticasone/Vilanterol (Fluticasone/Vilanterol 200/25 Blst.W.Dev) 1 puff INHALE RDAILY [facility] Last Admin: 09/19/22 09:06 Dose: 1 puff Magnesium Hydroxide (Milk Of Magnesia 30 Ml Oral.Susp) 30 ml PO DAILY PRN PRN Reason: Constipation Quetiapine Fumarate (Quetiapine Fumarate 50 Mg Tablet) 50 mg PO BID [facility] Last Admin: 09/19/22 08:46 Dose: 50 mg Quetiapine Fumarate (Quetiapine Fumarate 50 Mg Tablet) 50 mg PO Q6H PRN PRN Reason: agitation Last Admin: 08/30/22 13:12 Dose: 50 mg Quetiapine Fumarate (Quetiapine Fumarate 200 Mg Tablet) 200 mg PO BEDTIME [facility] Last Admin: 09/18/22 20:10 Dose: 200 mg Tamsulosin HCl (Tamsulosin Hcl 0.4 Mg Capsule) 0.4 mg PO BEDTIME [facility] Last Admin: 09/18/22 20:11 Dose: 0.4 mg Tiotropium [place] (Tiotropium [place] 18 Mcg Cap.W.Dev) 1 puff INHALE RDAILY [facility] Last Admin: 09/19/22 09:14 Dose: 1 puff Allergies Allergies Allergy/AdvReac Type Severity Reaction Status Date / Time Penicillins [PENICILLINS] Allergy Intermediate RASH Unverified 08/02/20 16:41 Iodinated Contrast Media Allergy Mild HIVES Unverified 08/02/20 16:41 [IV Dye, Iodine Containing Contrast ] penicillin V Allergy Unknown Verified 07/05/18 00:00 Assessment & Plan Assessment & Plan (1) COPD exacerbation: Status: Acute Code(s): J44.1 - Chronic obstructive pulmonary disease with (acute) exacerbation Plan Elderly male with a long history of schizoaffective disorder, chronically institutionalized, transferred from his shelter for exacerbation of agitation when Trileptal was discontinued due to hyponatremia. We tried to rechallenge the Trileptal of he develops severe hyponatremia. Plan 1. Continue with Abilify Maintena and Abilify p.o.. 2. Continue with Seroquel as a mood stabilizer and cellulitic. 3. We will schedule discharge for placement at that [facility] shelter. I spent ___20___ minutes with the patient and/or on the patient floor today, greater than?50% of which was spent counseling/coordinating care. Reason for contiued inpatient stay Substantial Risk for: inability to function, rapid decompensation and med/psych decompensation
[2022-09-19 15:36] VITALS: BP 135/55; PULSE 76
[2022-09-19 18:00] VITALS: BP 121/59; PULSE 79; RESP 22; TEMP 36.6; O2SAT 95
[2022-09-19] MEDS: QUEtiapine Fumarate 200 MG TABLET PO (20:01)
[2022-09-19] MEDS: Tamsulosin HCL 0.4 MG CAPSULE PO (20:01)
[2022-09-19] MEDS: Atorvastatin Calcium 20 MG TABLET PO (20:01)
[2022-09-20 07:30] VITALS: BP 127/59; PULSE 85; RESP 16; TEMP 36.7; O2SAT 93
[2022-09-20] MEDS: amLODIPine Besylate 10 MG TABLET PO (08:32)
[2022-09-20] MEDS: QUEtiapine Fumarate 50 MG TABLET PO ×2 (08:32→19:47)
[2022-09-20] MEDS: cloNIDine HCL 0.1 MG TABLET PO ×3 (08:32→19:46)
[2022-09-20] MEDS: ARIPiprazole 20 MG TABLET PO (08:32)
[2022-09-20] MEDS: Fluticasone/Vilanterol 200/25 BLST.W.DEV 1 PUFF INHALE (08:32)
--- NOTE | 2022-09-20 11:48 | HO.PSYCHPN ---
Subjective Subjective Date of Service: 09/20/22 Reason For Visit: Schizophrenia,Dementia Interim History: The nursing staff report the patient continues to be isolative. He is participating in self care more. He is toileting himslef. he is eating meals in common area. he has been medication compliant. The social science instructor called the DDS and was not clear about his disposition. Upon interview, the patient denies discomfort or new symptoms. Medication Compliance: Yes Side effects from medications: No Attending Groups: Yes Review of Systems Acute medical concerns: No Medical Review of Systems: unchanged Review of Systems Review of Systems Pt not reliable historian but does provide some ROS General: No fevers, malaise Cardiovascular: No chest pain, palpitations, or leg edema Respiratory: littleshortness of breath, no wheeze, occasional cough Yes all other systems are reviewed and are negative Constitutional: Denies chills and Denies fever(s) Cardiovascular: Denies chest pain, Denies palpitations and Denies dyspnea Respiratory: Denies cough and Denies dyspnea Endocrine: Denies palpitations Mental Status Exam Mental Status Exam Narrative: Patient Appearance: Appropriate Patient Orientation: Person Level of Consciousness: Awake and Disoriented Patient Behavior: Guarded Mood Description: Withdrawn Affect Description: Labile Patient Cognition Impaired: Yes Ability to Follow Directions: Fair Speech Pattern: Soft-Spoken Hallucinations: Auditory Delusions: Paranoid Ideation Thought Process: Illogical and Evasive Thought Content: positive for [place] Judgement: Poor Patient Appearance: Appropriate Patient Orientation: Person and Situation Level of Consciousness: Appropriate Patient Behavior: Cooperative Mood Description: Calm Affect Description: Constricted Patient Cognition Impaired: Yes Ability to Follow Directions: Good Speech Pattern: Clear Memory Description: Intact Judgement: Fair Diagnostics Vital Signs (24Hr): Vital Signs - 24 hr 09/19/22 15:36 09/19/22 18:00 09/20/22 07:30 Temperature 97.8 F 98.1 F Pulse Rate 76 79 85 Respiratory Rate 22 H 16 Blood Pressure 135/55 L 121/59 L 127/59 L Pulse Oximetry 95 93 Oxygen Delivery Method Room Air Room Air BMI result Body Mass Index 25.3 Labs Results: 09/01/22 14:36 09/01/22 14:36 Imaging Radiology Impressions: ITS Impressions Chest X-Ray 08/08/22 16:36 IMPRESSION: 1. No acute pulmonary process. Chest X-Ray 08/10/22 10:25 IMPRESSION: New subsegmental atelectasis at the left lung base. Chest CTA 08/10/22 14:35 IMPRESSION: 1. No CT evidence of pulmonary emboli. 2. No lung mass or suspicious spiculated nodules, there are few scattered tiny nonspecific lung calcified and noncalcified nodular densities measuring up to 3 mm or less. 3. Coronary calcifications. 4. Pulmonary emphysema. Various management parameters for solitary pulmonary nodules are in the literature. According to the UPDATED 2017 Fleischner Society recommendations, the advised follow-up imaging for solid nodules < 6 mm is: LOW RISK PATIENT: No routine follow-up. HIGH RISK PATIENT: Optional CT at 12 months. Reference: Guidelines for Management of Incidental Pulmonary Nodules Detected on CT Images: From the Fleischner Society 2017. Chest X-Ray 08/12/22 03:50 IMPRESSION: No focal consolidation. Chest X-Ray 08/31/22 17:28 FINDINGS/IMPRESSION: * Hazy asymmetric opacification of the right lung, unclear if this could be due to patient rotation, asymmetric parenchymal opacities or small layering pleural effusion. Consider repeat PA and lateral radiographs. * Blunting of the bilateral costophrenic angles may reflect trace pleural effusions. No pneumothorax. * Unchanged cardiomediastinal silhouette. * Incidental note of upper abdominal surgical clips. Chest X-Ray 09/01/22 16:57 IMPRESSION: Unremarkable chest examination. Chest X-Ray 09/10/22 12:21 IMPRESSION: Unremarkable examination. Medications Medications Current Medications Acetaminophen (Acetaminophen 325 Mg Tablet) 650 mg PO Q6H PRN PRN Reason: Headache/Pain Mild Scale (1-3) Last Admin: 08/31/22 15:11 Dose: 650 mg Al Hydroxide/Mg Hydroxide (Magnesium Hydrox/Alum Hydrox 30 Ml Oral.Susp) 30 ml PO Q6H PRN PRN Reason: Heartburn/Nausea Albuterol Sulfate (Albuterol Sulfate 90 Mcg 8 Gm Inhaler) 2 puff INHALE RQ4H PRN PRN Reason: COPD exacerbation Last Admin: 09/11/22 13:24 Dose: 2 puff Amlodipine Besylate (Amlodipine Besylate 10 Mg Tablet) 10 mg PO DAILY [facility]; Protocol Last Admin: 09/20/22 08:32 Dose: 10 mg Aripiprazole (Aripiprazole 20 Mg Tablet) 20 mg PO DAILY [facility] Last Admin: 09/20/22 08:32 Dose: 20 mg Atorvastatin Calcium (Atorvastatin Calcium 20 Mg Tablet) 20 mg PO BEDTIME [facility] Last Admin: 09/19/22 20:01 Dose: 20 mg Clonidine HCl (Clonidine Hcl 0.1 Mg Tablet) 0.1 mg PO TID [facility]; Protocol Last Admin: 09/20/22 08:32 Dose: 0.1 mg Fluticasone/Vilanterol (Fluticasone/Vilanterol 200/25 Blst.W.Dev) 1 puff INHALE RDAILY [facility] Last Admin: 09/20/22 08:32 Dose: 1 puff Magnesium Hydroxide (Milk Of Magnesia 30 Ml Oral.Susp) 30 ml PO DAILY PRN PRN Reason: Constipation Quetiapine Fumarate (Quetiapine Fumarate 50 Mg Tablet) 50 mg PO BID [facility] Last Admin: 09/20/22 08:32 Dose: 50 mg Quetiapine Fumarate (Quetiapine Fumarate 50 Mg Tablet) 50 mg PO Q6H PRN PRN Reason: agitation Last Admin: 08/30/22 13:12 Dose: 50 mg Quetiapine Fumarate (Quetiapine Fumarate 200 Mg Tablet) 200 mg PO BEDTIME [facility] Last Admin: 09/19/22 20:01 Dose: 200 mg Tamsulosin HCl (Tamsulosin Hcl 0.4 Mg Capsule) 0.4 mg PO BEDTIME [facility] Last Admin: 09/19/22 20:01 Dose: 0.4 mg Tiotropium [place] (Tiotropium [place] 18 Mcg Cap.W.Dev) 1 puff INHALE RDAILY [facility] Last Admin: 09/19/22 09:14 Dose: 1 puff Allergies Allergies Allergy/AdvReac Type Severity Reaction Status Date / Time Penicillins [PENICILLINS] Allergy Intermediate RASH Unverified 08/02/20 16:41 Iodinated Contrast Media Allergy Mild HIVES Unverified 08/02/20 16:41 [IV Dye, Iodine Containing Contrast ] penicillin V Allergy Unknown Verified 07/05/18 00:00 Assessment & Plan Assessment & Plan (1) COPD exacerbation: Status: Acute Code(s): J44.1 - Chronic obstructive pulmonary disease with (acute) exacerbation Plan Elderly male with a long history of schizoaffective disorder, chronically institutionalized, transferred from his [facility] for exacerbation of agitation when Trileptal was discontinued due to hyponatremia. We tried to rechallenge the Trileptal of he develops severe hyponatremia. Plan: Continue current treatment plan I spent ____10__ minutes with the patient and/or on the patient floor today, greater than?50% of which was spent counseling/coordinating care. Reason for contiued inpatient stay Substantial Risk for: inability to function and rapid decompensation
[2022-09-20 18:00] VITALS: BP 113/55; PULSE 81; RESP 20; TEMP 36.9; O2SAT 94
[2022-09-20] MEDS: Atorvastatin Calcium 20 MG TABLET PO (19:46)
[2022-09-20] MEDS: QUEtiapine Fumarate 200 MG TABLET PO (19:47)
[2022-09-20] MEDS: Tamsulosin HCL 0.4 MG CAPSULE PO (19:47)
[2022-09-21 06:00] VITALS: BP 96/60; PULSE 103; RESP 16; TEMP 36.7; O2SAT 94
[2022-09-21] MEDS: Fluticasone/Vilanterol 200/25 BLST.W.DEV 1 PUFF INHALE (08:44)
[2022-09-21] MEDS: ARIPiprazole 20 MG TABLET PO (08:44)
[2022-09-21] MEDS: amLODIPine Besylate 10 MG TABLET PO (08:44)
[2022-09-21] MEDS: QUEtiapine Fumarate 50 MG TABLET PO ×2 (08:45→19:56)
[2022-09-21] MEDS: cloNIDine HCL 0.1 MG TABLET PO ×3 (08:45→19:56)
--- NOTE | 2022-09-21 15:58 | P.PNPSI_ITS ---
Subjective Subjective Date of Service: 09/21/22 Reason For Visit: Schizophrenia,Dementia Interim History: patient continues to be isolative. Pt is much better with current meds. He is participating in self care more. He is toileting himself. he is eating meals in common area. he has been medication compliant. Upon interview, the patient denies discomfort or new symptoms. Medication Compliance: Yes Side effects from medications: No Review of Systems Acute medical concerns: No Medical Review of Systems: unchanged Review of Systems Review of Systems Pt not reliable historian but does provide some ROS General: No fevers, malaise Cardiovascular: No chest pain, palpitations, or leg edema Respiratory: littleshortness of breath, no wheeze, occasional cough Yes all other systems are reviewed and are negative Constitutional: Denies chills and Denies fever(s) Cardiovascular: Denies chest pain, Denies palpitations and Denies dyspnea Respiratory: Denies cough and Denies dyspnea Endocrine: Denies palpitations Mental Status Exam Mental Status Exam Narrative: Patient Appearance: Appropriate Patient Orientation: Person Level of Consciousness: Awake and Disoriented Patient Behavior: Guarded Mood Description: Withdrawn Affect Description: Labile Patient Cognition Impaired: Yes Ability to Follow Directions: Fair Speech Pattern: Soft-Spoken Hallucinations: Auditory Delusions: Paranoid Ideation Thought Process: Illogical and Evasive Thought Content: positive for [place] Judgement: Poor Patient Appearance: Appropriate Patient Orientation: Person and Situation Level of Consciousness: Appropriate Patient Behavior: Cooperative Mood Description: Calm Affect Description: Constricted Patient Cognition Impaired: Yes Ability to Follow Directions: Good Speech Pattern: Clear Memory Description: Intact Diagnostics Vital Signs (24Hr): Vital Signs - 24 hr 09/20/22 18:00 09/21/22 06:00 Temperature 98.4 F 98.1 F Pulse Rate 81 103 H Respiratory Rate 20 16 Blood Pressure 113/55 L 96/60 Pulse Oximetry 94 94 Oxygen Delivery Method Room Air Room Air BMI result Body Mass Index 25.3 Labs Results: 09/01/22 14:36 09/01/22 14:36 Imaging Radiology Impressions: ITS Impressions Chest X-Ray 08/08/22 16:36 IMPRESSION: 1. No acute pulmonary process. Chest X-Ray 08/10/22 10:25 IMPRESSION: New subsegmental atelectasis at the left lung base. Chest CTA 08/10/22 14:35 IMPRESSION: 1. No CT evidence of pulmonary emboli. 2. No lung mass or suspicious spiculated nodules, there are few scattered tiny nonspecific lung calcified and noncalcified nodular densities measuring up to 3 mm or less. 3. Coronary calcifications. 4. Pulmonary emphysema. Various management parameters for solitary pulmonary nodules are in the literature. According to the UPDATED 2017 Fleischner Society recommendations, the advised follow-up imaging for solid nodules < 6 mm is: LOW RISK PATIENT: No routine follow-up. HIGH RISK PATIENT: Optional CT at 12 months. Reference: Guidelines for Management of Incidental Pulmonary Nodules Detected on CT Images: From the Fleischner Society 2017. Chest X-Ray 08/12/22 03:50 IMPRESSION: No focal consolidation. Chest X-Ray 08/31/22 17:28 FINDINGS/IMPRESSION: * Hazy asymmetric opacification of the right lung, unclear if this could be due to patient rotation, asymmetric parenchymal opacities or small layering pleural effusion. Consider repeat PA and lateral radiographs. * Blunting of the bilateral costophrenic angles may reflect trace pleural effusions. No pneumothorax. * Unchanged cardiomediastinal silhouette. * Incidental note of upper abdominal surgical clips. Chest X-Ray 09/01/22 16:57 IMPRESSION: Unremarkable chest examination. Chest X-Ray 09/10/22 12:21 IMPRESSION: Unremarkable examination. Medications Medications Current Medications Acetaminophen (Acetaminophen 325 Mg Tablet) 650 mg PO Q6H PRN PRN Reason: Headache/Pain Mild Scale (1-3) Last Admin: 08/31/22 15:11 Dose: 650 mg Al Hydroxide/Mg Hydroxide (Magnesium Hydrox/Alum Hydrox 30 Ml Oral.Susp) 30 ml PO Q6H PRN PRN Reason: Heartburn/Nausea Albuterol Sulfate (Albuterol Sulfate 90 Mcg 8 Gm Inhaler) 2 puff INHALE RQ4H PRN PRN Reason: COPD exacerbation Last Admin: 09/11/22 13:24 Dose: 2 puff Amlodipine Besylate (Amlodipine Besylate 10 Mg Tablet) 10 mg PO DAILY [facility]; Protocol Last Admin: 09/21/22 08:44 Dose: 10 mg Aripiprazole (Aripiprazole 20 Mg Tablet) 20 mg PO DAILY [facility] Last Admin: 09/21/22 08:44 Dose: 20 mg Atorvastatin Calcium (Atorvastatin Calcium 20 Mg Tablet) 20 mg PO BEDTIME [facility] Last Admin: 09/20/22 19:46 Dose: 20 mg Clonidine HCl (Clonidine Hcl 0.1 Mg Tablet) 0.1 mg PO TID [facility]; Protocol Last Admin: 09/21/22 14:42 Dose: 0.1 mg Fluticasone/Vilanterol (Fluticasone/Vilanterol 200/25 Blst.W.Dev) 1 puff INHALE RDAILY [facility] Last Admin: 09/21/22 08:44 Dose: 1 puff Magnesium Hydroxide (Milk Of Magnesia 30 Ml Oral.Susp) 30 ml PO DAILY PRN PRN Reason: Constipation Quetiapine Fumarate (Quetiapine Fumarate 50 Mg Tablet) 50 mg PO BID [facility] Last Admin: 09/21/22 08:45 Dose: 50 mg Quetiapine Fumarate (Quetiapine Fumarate 50 Mg Tablet) 50 mg PO Q6H PRN PRN Reason: agitation Last Admin: 08/30/22 13:12 Dose: 50 mg Quetiapine Fumarate (Quetiapine Fumarate 200 Mg Tablet) 200 mg PO BEDTIME [facility] Last Admin: 09/20/22 19:47 Dose: 200 mg Tamsulosin HCl (Tamsulosin Hcl 0.4 Mg Capsule) 0.4 mg PO BEDTIME [facility] Last Admin: 09/20/22 19:47 Dose: 0.4 mg Tiotropium [place] (Tiotropium [place] 18 Mcg Cap.W.Dev) 1 puff INHALE RDAILY [facility] Last Admin: 09/21/22 08:44 Dose: 1 puff Allergies Allergies Allergy/AdvReac Type Severity Reaction Status Date / Time Penicillins [PENICILLINS] Allergy Intermediate RASH Unverified 08/02/20 16:41 Iodinated Contrast Media Allergy Mild HIVES Unverified 08/02/20 16:41 [IV Dye, Iodine Containing Contrast ] penicillin V Allergy Unknown Verified 07/05/18 00:00 Assessment & Plan Assessment & Plan (1) COPD exacerbation: Status: Acute Code(s): J44.1 - Chronic obstructive pulmonary disease with (acute) exacerbation Plan Elderly male with a long history of schizoaffective disorder, chronically institutionalized, transferred from his long-term for exacerbation of agitation when Trileptal was discontinued due to hyponatremia. We tried to rechallenge the Trileptal of he develops severe hyponatremia. Plan: Continue current treatment plan I spent ____10__ minutes with the patient and/or on the patient floor today, greater than?50% of which was spent counseling/coordinating care. Reason for contiued inpatient stay Substantial Risk for: inability to function and rapid decompensation
[2022-09-21 18:00] VITALS: BP 97/54; PULSE 77; RESP 14; TEMP 37.1; O2SAT 94
[2022-09-21] MEDS: Tamsulosin HCL 0.4 MG CAPSULE PO (19:56)
[2022-09-21] MEDS: Atorvastatin Calcium 20 MG TABLET PO (19:56)
[2022-09-21] MEDS: QUEtiapine Fumarate 200 MG TABLET PO (19:56)
--- NOTE | 2022-09-22 08:27 | P.PNPSI_ITS ---
Subjective Subjective Date of Service: 09/22/22 Reason For Visit: Schizophrenia,Dementia Subjective Notes: Conditional Voluntary Interim History: The nursing staff reported the patient had been much better no cough or any other symptoms. He has been pleasant and cooperative eating his meals with good mood. The social welfare research worker reported that the staff of the senior living will see him. The patient reports that he is feeling fine we are working on discharge planning now. Mental Status Exam Mental Status Exam Patient Appearance: Appropriate Patient Orientation: Person and Situation Level of Consciousness: Awake Patient Behavior: Guarded and Passive Mood Description: Withdrawn Affect Description: Labile Patient Cognition Impaired: Yes Ability to Follow Directions: Good Speech Pattern: Clear Hallucinations: None Delusions: Not Present Thought Process: Distracted Thought Content: positive for [place] Judgement: Fair Diagnostics Vital Signs (24Hr): Vital Signs - 24 hr 09/21/22 18:00 Temperature 98.8 F Pulse Rate 77 Respiratory Rate 14 Blood Pressure 97/54 L Pulse Oximetry 94 Oxygen Delivery Method Room Air BMI result Body Mass Index 25.3 Labs Results: 09/01/22 14:36 09/01/22 14:36 Imaging Radiology Impressions: ITS Impressions Chest X-Ray 08/08/22 16:36 IMPRESSION: 1. No acute pulmonary process. Chest X-Ray 08/10/22 10:25 IMPRESSION: New subsegmental atelectasis at the left lung base. Chest CTA 08/10/22 14:35 IMPRESSION: 1. No CT evidence of pulmonary emboli. 2. No lung mass or suspicious spiculated nodules, there are few scattered tiny nonspecific lung calcified and noncalcified nodular densities measuring up to 3 mm or less. 3. Coronary calcifications. 4. Pulmonary emphysema. Various management parameters for solitary pulmonary nodules are in the literature. According to the UPDATED 2017 Fleischner Society recommendations, the advised follow-up imaging for solid nodules < 6 mm is: LOW RISK PATIENT: No routine follow-up. HIGH RISK PATIENT: Optional CT at 12 months. Reference: Guidelines for Management of Incidental Pulmonary Nodules Detected on CT Images: From the Fleischner Society 2017. Chest X-Ray 08/12/22 03:50 IMPRESSION: No focal consolidation. Chest X-Ray 08/31/22 17:28 FINDINGS/IMPRESSION: * Hazy asymmetric opacification of the right lung, unclear if this could be due to patient rotation, asymmetric parenchymal opacities or small layering pleural effusion. Consider repeat PA and lateral radiographs. * Blunting of the bilateral costophrenic angles may reflect trace pleural effusions. No pneumothorax. * Unchanged cardiomediastinal silhouette. * Incidental note of upper abdominal surgical clips. Chest X-Ray 09/01/22 16:57 IMPRESSION: Unremarkable chest examination. Chest X-Ray 09/10/22 12:21 IMPRESSION: Unremarkable examination. Medications Medications Current Medications Acetaminophen (Acetaminophen 325 Mg Tablet) 650 mg PO Q6H PRN PRN Reason: Headache/Pain Mild Scale (1-3) Last Admin: 08/31/22 15:11 Dose: 650 mg Al Hydroxide/Mg Hydroxide (Magnesium Hydrox/Alum Hydrox 30 Ml Oral.Susp) 30 ml PO Q6H PRN PRN Reason: Heartburn/Nausea Albuterol Sulfate (Albuterol Sulfate 90 Mcg 8 Gm Inhaler) 2 puff INHALE RQ4H PRN PRN Reason: COPD exacerbation Last Admin: 09/11/22 13:24 Dose: 2 puff Amlodipine Besylate (Amlodipine Besylate 10 Mg Tablet) 10 mg PO DAILY [facility]; Protocol Last Admin: 09/21/22 08:44 Dose: 10 mg Aripiprazole (Aripiprazole 20 Mg Tablet) 20 mg PO DAILY [facility] Last Admin: 09/21/22 08:44 Dose: 20 mg Atorvastatin Calcium (Atorvastatin Calcium 20 Mg Tablet) 20 mg PO BEDTIME [facility] Last Admin: 09/21/22 19:56 Dose: 20 mg Clonidine HCl (Clonidine Hcl 0.1 Mg Tablet) 0.1 mg PO TID [facility]; Protocol Last Admin: 09/21/22 19:56 Dose: 0.1 mg Fluticasone/Vilanterol (Fluticasone/Vilanterol 200/25 Blst.W.Dev) 1 puff INHALE RDAILY [facility] Last Admin: 09/21/22 08:44 Dose: 1 puff Magnesium Hydroxide (Milk Of Magnesia 30 Ml Oral.Susp) 30 ml PO DAILY PRN PRN Reason: Constipation Quetiapine Fumarate (Quetiapine Fumarate 50 Mg Tablet) 50 mg PO BID [facility] Last Admin: 09/21/22 19:56 Dose: 50 mg Quetiapine Fumarate (Quetiapine Fumarate 50 Mg Tablet) 50 mg PO Q6H PRN PRN Reason: agitation Last Admin: 08/30/22 13:12 Dose: 50 mg Quetiapine Fumarate (Quetiapine Fumarate 200 Mg Tablet) 200 mg PO BEDTIME [facility] Last Admin: 09/21/22 19:56 Dose: 200 mg Tamsulosin HCl (Tamsulosin Hcl 0.4 Mg Capsule) 0.4 mg PO BEDTIME [facility] Last Admin: 09/21/22 19:56 Dose: 0.4 mg Tiotropium [place] (Tiotropium [place] 18 Mcg Cap.W.Dev) 1 puff INHALE RDAILY [facility] Last Admin: 09/21/22 08:44 Dose: 1 puff Allergies Allergies Allergy/AdvReac Type Severity Reaction Status Date / Time Penicillins [PENICILLINS] Allergy Intermediate RASH Unverified 08/02/20 16:41 Iodinated Contrast Media Allergy Mild HIVES Unverified 08/02/20 16:41 [IV Dye, Iodine Containing Contrast ] penicillin V Allergy Unknown Verified 07/05/18 00:00 Assessment & Plan Assessment & Plan (1) COPD exacerbation: Status: Acute Code(s): J44.1 - Chronic obstructive pulmonary disease with (acute) exacerbation Plan Elderly male with a long history of schizoaffective disorder, chronic ally institutionalized, transferred from his senior living for exacerbation of agitation when Trileptal was discontinued due to hyponatremia. We tried to rechallenge the Trileptal of he develops severe hyponatremia. Plan: Continue current treatment plan. Start on discharge planning I spent ___20___ minutes with the patient and/or on the patient floor today, greater than?50% of which was spent counseling/coordinating care. Reason for contiued inpatient stay Substantial Risk for: inability to function, rapid decompensation and med/psych decompensation
[2022-09-22] MEDS: cloNIDine HCL 0.1 MG TABLET PO ×3 (08:31→20:26)
[2022-09-22] MEDS: ARIPiprazole 20 MG TABLET PO (08:31)
[2022-09-22] MEDS: QUEtiapine Fumarate 50 MG TABLET PO ×2 (08:31→20:25)
[2022-09-22] MEDS: amLODIPine Besylate 10 MG TABLET PO (08:31)
[2022-09-22 18:00] VITALS: BP 133/60; PULSE 83; RESP 16; TEMP 36.6; O2SAT 94
[2022-09-22] MEDS: QUEtiapine Fumarate 200 MG TABLET PO (20:26)
[2022-09-22] MEDS: Tamsulosin HCL 0.4 MG CAPSULE PO (20:26)
[2022-09-22] MEDS: Atorvastatin Calcium 20 MG TABLET PO (20:26)
[2022-09-23 06:00] VITALS: BP 94/52; PULSE 68; RESP 18; TEMP 36.4; O2SAT 94
[2022-09-23] MEDS: QUEtiapine Fumarate 50 MG TABLET PO ×2 (10:54→20:51)
[2022-09-23] MEDS: amLODIPine Besylate 10 MG TABLET PO (10:54)
[2022-09-23] MEDS: ARIPiprazole 20 MG TABLET PO (10:55)
[2022-09-23] MEDS: cloNIDine HCL 0.1 MG TABLET PO ×3 (10:55→20:51)
[2022-09-23] MEDS: Fluticasone/Vilanterol 200/25 BLST.W.DEV 1 PUFF INHALE (10:58)
--- NOTE | 2022-09-23 15:55 | HO.PSYCHPN ---
Subjective Subjective Date of Service: 09/23/22 Reason For Visit: Schizophrenia,Dementia Subjective Notes: Conditional Voluntary Interim History: The nursing staff reported the patient slept well overnight, he has been fully compliant with treatment. The social science professor reported the [facility] staff will come today, they could not come yesterday. On interview the patient denies new symptoms he states that he visited his staff and probably will be discharging him tomorrow. He denies new symptoms Mental Status Exam Mental Status Exam Patient Appearance: Well Grooomed Patient Orientation: Person and Situation Level of Consciousness: Awake Patient Behavior: Cooperative Mood Description: Calm Affect Description: Constricted Patient Cognition Impaired: Yes Ability to Follow Directions: Good Speech Pattern: Clear Hallucinations: None Delusions: Not Present Thought Process: Distracted Thought Content: positive for [place] Judgement: Fair Diagnostics Vital Signs (24Hr): Vital Signs - 24 hr 09/22/22 18:00 09/23/22 06:00 Temperature 97.8 F 97.6 F Pulse Rate 83 68 Respiratory Rate 16 18 Blood Pressure 133/60 94/52 L Pulse Oximetry 94 94 Oxygen Delivery Method Room Air Room Air BMI result Body Mass Index 25.3 Labs Results: 09/01/22 14:36 09/01/22 14:36 Imaging Radiology Impressions: ITS Impressions Chest X-Ray 08/08/22 16:36 IMPRESSION: 1. No acute pulmonary process. Chest X-Ray 08/10/22 10:25 IMPRESSION: New subsegmental atelectasis at the left lung base. Chest CTA 08/10/22 14:35 IMPRESSION: 1. No CT evidence of pulmonary emboli. 2. No lung mass or suspicious spiculated nodules, there are few scattered tiny nonspecific lung calcified and noncalcified nodular densities measuring up to 3 mm or less. 3. Coronary calcifications. 4. Pulmonary emphysema. Various management parameters for solitary pulmonary nodules are in the literature. According to the UPDATED 2017 Fleischner Society recommendations, the advised follow-up imaging for solid nodules < 6 mm is: LOW RISK PATIENT: No routine follow-up. HIGH RISK PATIENT: Optional CT at 12 months. Reference: Guidelines for Management of Incidental Pulmonary Nodules Detected on CT Images: From the Fleischner Society 2017. Chest X-Ray 08/12/22 03:50 IMPRESSION: No focal consolidation. Chest X-Ray 08/31/22 17:28 FINDINGS/IMPRESSION: * Hazy asymmetric opacification of the right lung, unclear if this could be due to patient rotation, asymmetric parenchymal opacities or small layering pleural effusion. Consider repeat PA and lateral radiographs. * Blunting of the bilateral costophrenic angles may reflect trace pleural effusions. No pneumothorax. * Unchanged cardiomediastinal silhouette. * Incidental note of upper abdominal surgical clips. Chest X-Ray 09/01/22 16:57 IMPRESSION: Unremarkable chest examination. Chest X-Ray 09/10/22 12:21 IMPRESSION: Unremarkable examination. Medications Medications Current Medications Acetaminophen (Acetaminophen 325 Mg Tablet) 650 mg PO Q6H PRN PRN Reason: Headache/Pain Mild Scale (1-3) Last Admin: 08/31/22 15:11 Dose: 650 mg Al Hydroxide/Mg Hydroxide (Magnesium Hydrox/Alum Hydrox 30 Ml Oral.Susp) 30 ml PO Q6H PRN PRN Reason: Heartburn/Nausea Albuterol Sulfate (Albuterol Sulfate 90 Mcg 8 Gm Inhaler) 2 puff INHALE RQ4H PRN PRN Reason: COPD exacerbation Last Admin: 09/11/22 13:24 Dose: 2 puff Amlodipine Besylate (Amlodipine Besylate 10 Mg Tablet) 10 mg PO DAILY [facility]; Protocol Last Admin: 09/23/22 10:54 Dose: 10 mg Aripiprazole (Aripiprazole 20 Mg Tablet) 20 mg PO DAILY [facility] Last Admin: 09/23/22 10:55 Dose: 20 mg Atorvastatin Calcium (Atorvastatin Calcium 20 Mg Tablet) 20 mg PO BEDTIME [facility] Last Admin: 09/22/22 20:26 Dose: 20 mg Clonidine HCl (Clonidine Hcl 0.1 Mg Tablet) 0.1 mg PO TID [facility]; Protocol Last Admin: 09/23/22 10:55 Dose: 0.1 mg Fluticasone/Vilanterol (Fluticasone/Vilanterol 200/25 Blst.W.Dev) 1 puff INHALE RDAILY [facility] Last Admin: 09/23/22 10:58 Dose: 1 puff Magnesium Hydroxide (Milk Of Magnesia 30 Ml Oral.Susp) 30 ml PO DAILY PRN PRN Reason: Constipation Quetiapine Fumarate (Quetiapine Fumarate 50 Mg Tablet) 50 mg PO BID [facility] Last Admin: 09/23/22 10:54 Dose: 50 mg Quetiapine Fumarate (Quetiapine Fumarate 50 Mg Tablet) 50 mg PO Q6H PRN PRN Reason: agitation Last Admin: 08/30/22 13:12 Dose: 50 mg Quetiapine Fumarate (Quetiapine Fumarate 200 Mg Tablet) 200 mg PO BEDTIME [facility] Last Admin: 09/22/22 20:26 Dose: 200 mg Tamsulosin HCl (Tamsulosin Hcl 0.4 Mg Capsule) 0.4 mg PO BEDTIME [facility] Last Admin: 09/22/22 20:26 Dose: 0.4 mg Tiotropium [place] (Tiotropium [place] 18 Mcg Cap.W.Dev) 1 puff INHALE RDAILY [facility] Last Admin: 09/23/22 10:59 Dose: 1 puff Allergies Allergies Allergy/AdvReac Type Severity Reaction Status Date / Time Penicillins [PENICILLINS] Allergy Intermediate RASH Unverified 08/02/20 16:41 Iodinated Contrast Media Allergy Mild HIVES Unverified 08/02/20 16:41 [IV Dye, Iodine Containing Contrast ] penicillin V Allergy Unknown Verified 07/05/18 00:00 Assessment & Plan Assessment & Plan (1) COPD exacerbation: Status: Acute Code(s): J44.1 - Chronic obstructive pulmonary disease with (acute) exacerbation Plan Elderly male with a long history of schizoaffective disorder, chronically institutionalized, [facility] his [facility] for exacerbation of agitation when Trileptal was discontinued due to hyponatremia. We tried to rechallenge the Trileptal of he develops severe hyponatremia. Plan: Continue current treatment plan. Start on discharge planning I spent __20____ minutes with the patient and/or on the patient floor today, greater than?50% of which was spent counseling/coordinating care. Reason for contiued inpatient stay Substantial Risk for: inability to function, rapid decompensation and med/psych decompensation
[2022-09-23 19:00] VITALS: BP 131/63; PULSE 69; RESP 16; TEMP 36.8; O2SAT 91
[2022-09-23] MEDS: Atorvastatin Calcium 20 MG TABLET PO (20:51)
[2022-09-23] MEDS: Tamsulosin HCL 0.4 MG CAPSULE PO (20:51)
[2022-09-23] MEDS: QUEtiapine Fumarate 200 MG TABLET PO (20:51)
[2022-09-24] MEDS: cloNIDine HCL 0.1 MG TABLET PO ×3 (08:53→20:42)
[2022-09-24] MEDS: amLODIPine Besylate 10 MG TABLET PO (08:53)
[2022-09-24] MEDS: Fluticasone/Vilanterol 200/25 BLST.W.DEV 1 PUFF INHALE (08:54)
[2022-09-24] MEDS: QUEtiapine Fumarate 50 MG TABLET PO ×2 (08:54→20:42)
[2022-09-24] MEDS: ARIPiprazole 20 MG TABLET PO (08:54)
[2022-09-24] MEDS: ARIPiprazole 10 MG TABLET PO (10:38)
--- NOTE | 2022-09-24 13:13 | P.PNPSI_ITS ---
Subjective Subjective Date of Service: 09/24/22 Reason For Visit: Schizophrenia,Dementia Subjective Notes: Conditional Voluntary Interim History: The nursing staff reported the patient has been cooperative and pleasant, he comes out for meals and he looks less psychotic, interacting with peers. BLANQUITA moreno came yesterday and asked for blood work and they were thinking of probably transferring him back next week. The licensed master social worker reported that they are working on discharge plan early. On interview the patient denies new symptoms he is pleasant and cooperative. I informed him that I am lowering his Abilify to 10 mg p.o. q.h.s. since he got Abilify Maintena 400 mg 2 weeks ago. Mental Status Exam Mental Status Exam Patient Appearance: Appropriate Patient Orientation: Person and Situation Level of Consciousness: Awake and Appropriate Patient Behavior: Cooperative Mood Description: Withdrawn Affect Description: Constricted Patient Cognition Impaired: Yes Ability to Follow Directions: Good Speech Pattern: Clear Hallucinations: None Delusions: Not Present Thought Process: Distracted Thought Content: positive for [place] and positive for Circumstantial Judgement: Fair Diagnostics Vital Signs (24Hr): Vital Signs - 24 hr 09/23/22 19:00 Temperature 98.3 F Pulse Rate 69 Respiratory Rate 16 Blood Pressure 131/63 Pulse Oximetry 91 L Oxygen Delivery Method Room Air BMI result Body Mass Index 25.3 Labs Results: 09/01/22 14:36 09/01/22 14:36 Imaging Radiology Impressions: ITS Impressions Chest X-Ray 08/08/22 16:36 IMPRESSION: 1. No acute pulmonary process. Chest X-Ray 08/10/22 10:25 IMPRESSION: New subsegmental atelectasis at the left lung base. Chest CTA 08/10/22 14:35 IMPRESSION: 1. No CT evidence of pulmonary emboli. 2. No lung mass or suspicious spiculated nodules, there are few scattered tiny nonspecific lung calcified and noncalcified nodular densities measuring up to 3 mm or less. 3. Coronary calcifications. 4. Pulmonary emphysema. Various management parameters for solitary pulmonary nodules are in the literature. According to the UPDATED 2017 Fleischner Society recommendations, the advised follow-up imaging for solid nodules < 6 mm is: LOW RISK PATIENT: No routine follow-up. HIGH RISK PATIENT: Optional CT at 12 months. Reference: Guidelines for Management of Incidental Pulmonary Nodules Detected on CT Images: From the Fleischner Society 2017. Chest X-Ray 08/12/22 03:50 IMPRESSION: No focal consolidation. Chest X-Ray 08/31/22 17:28 FINDINGS/IMPRESSION: * Hazy asymmetric opacification of the right lung, unclear if this could be due to patient rotation, asymmetric parenchymal opacities or small layering pleural effusion. Consider repeat PA and lateral radiographs. * Blunting of the bilateral costophrenic angles may reflect trace pleural effusions. No pneumothorax. * Unchanged cardiomediastinal silhouette. * Incidental note of upper abdominal surgical clips. Chest X-Ray 09/01/22 16:57 IMPRESSION: Unremarkable chest examination. Chest X-Ray 09/10/22 12:21 IMPRESSION: Unremarkable examination. Medications Medications Current Medications Acetaminophen (Acetaminophen 325 Mg Tablet) 650 mg PO Q6H PRN PRN Reason: Headache/Pain Mild Scale (1-3) Last Admin: 08/31/22 15:11 Dose: 650 mg Al Hydroxide/Mg Hydroxide (Magnesium Hydrox/Alum Hydrox 30 Ml Oral.Susp) 30 ml PO Q6H PRN PRN Reason: Heartburn/Nausea Albuterol Sulfate (Albuterol Sulfate 90 Mcg 8 Gm Inhaler) 2 puff INHALE RQ4H NV N PRN Reason: COPD exacerbation Last Admin: 09/11/22 13:24 Dose: 2 puff Amlodipine Besylate (Amlodipine Besylate 10 Mg Tablet) 10 mg PO DAILY [facility]; Protocol Last Admin: 09/24/22 08:53 Dose: 10 mg Aripiprazole (Aripiprazole 10 Mg Tablet) 10 mg PO DAILY [facility] Last Admin: 09/24/22 10:38 Dose: 10 mg Atorvastatin Calcium (Atorvastatin Calcium 20 Mg Tablet) 20 mg PO BEDTIME [facility] Last Admin: 09/23/22 20:51 Dose: 20 mg Clonidine HCl (Clonidine Hcl 0.1 Mg Tablet) 0.1 mg PO TID [facility]; Protocol Last Admin: 09/24/22 08:53 Dose: 0.1 mg Fluticasone/Vilanterol (Fluticasone/Vilanterol 200/25 Blst.W.Dev) 1 puff INHALE RDAILY [facility] Last Admin: 09/24/22 08:54 Dose: 1 puff Magnesium Hydroxide (Milk Of Magnesia 30 Ml Oral.Susp) 30 ml PO DAILY PRN PRN Reason: Constipation Quetiapine Fumarate (Quetiapine Fumarate 50 Mg Tablet) 50 mg PO BID [facility] Last Admin: 09/24/22 08:54 Dose: 50 mg Quetiapine Fumarate (Quetiapine Fumarate 50 Mg Tablet) 50 mg PO Q6H PRN PRN Reason: agitation Last Admin: 08/30/22 13:12 Dose: 50 mg Quetiapine Fumarate (Quetiapine Fumarate 200 Mg Tablet) 200 mg PO BEDTIME [facility] Last Admin: 09/23/22 20:51 Dose: 200 mg Tamsulosin HCl (Tamsulosin Hcl 0.4 Mg Capsule) 0.4 mg PO BEDTIME [facility] Last Admin: 09/23/22 20:51 Dose: 0.4 mg Tiotropium [place] (Tiotropium [place] 18 Mcg Cap.W.Dev) 1 puff INHALE RDAILY [facility] Last Admin: 09/24/22 08:54 Dose: 1 puff Allergies Allergies Allergy/AdvReac Type Severity Reaction Status Date / Time Penicillins [PENICILLINS] Allergy Intermediate RASH Unverified 08/02/20 16:41 Iodinated Contrast Media Allergy Mild HIVES Unverified 08/02/20 16:41 [IV Dye, Iodine Containing Contrast ] penicillin V Allergy Unknown Verified 07/05/18 00:00 Assessment & Plan Assessment & Plan (1) COPD exacerbation: Status: Acute Code(s): J44.1 - Chronic obstructive pulmonary disease with (acute) exacerbation Plan Elderly male with a long history of schizoaffective disorder, chronically institutionalized, [facility] his [facility] for exacerbation of agitation when Trileptal was discontinued due to hyponatremia. We tried to rechallenge the Trileptal of he develops severe hyponatremia. Plan: Continue current treatment plan. Start on discharge planning Lower Abilify to 10 mg p.o. q.a.m. I spent __20____ minutes with the patient and/or on the patient floor today, greater than?50% of which was spent counseling/coordinating care. Reason for contiued inpatient stay Substantial Risk for: inability to function, rapid decompensation and med/psych decompensation
[2022-09-24 18:00] VITALS: BP 131/61; PULSE 70; RESP 16; TEMP 36.9; O2SAT 94
[2022-09-24] MEDS: Atorvastatin Calcium 20 MG TABLET PO (20:42)
[2022-09-24] MEDS: QUEtiapine Fumarate 200 MG TABLET PO (20:42)
[2022-09-24] MEDS: Tamsulosin HCL 0.4 MG CAPSULE PO (20:42)
[2022-09-25 06:00] VITALS: BP 135/84; PULSE 86; RESP 18; TEMP 36.3; O2SAT 94
[2022-09-25 07:00] VITALS: BMI 25.4
[2022-09-25 08:22] LABS: MANUAL DIFF FLAG NO
[2022-09-25 08:24] LABS: Basophils Absolute Auto 0.1 X10*3/uL (0.0-0.2); Basophils Percent Auto 0.5 % (0-2); Eosinophils Absolute Auto 0.2 X10*3/uL (0.0-0.4); Eosinophils Percent Auto 1.3 % (0-4); Hematocrit 39.5 % (42.0-52.0); Hemoglobin 13.4 g/dl (14.0-18.0); Imm Gran Abs Auto 0.61 X10*3/uL (0.00-0.03); Imm Gran Pct Auto 4.8 % (0.0-0.4); Lymphocytes Absolute Auto 2.6 X10*3/uL (1.2-4.9); Lymphocytes Percent Auto 20.3 % (20-40); Mean Corpuscular HGB Conc 33.9 g/dl (31.0-36.0); Mean Corpuscular Hemoglobin 32.4 pg (27.0-33.0); Mean Corpuscular Volume 95.4 fL (80.0-98.0); Mean Platelet Volume 9.9 fL (9.4-12.4); Monocytes Absolute Auto 0.8 X10*3/uL (0.1-1.2); Monocytes Percent Auto 6.5 % (2-11); Neutrophils Absolute Auto 8.4 x10*3/uL (2.0-8.3); Neutrophils Percent Auto 66.6 % (45-73); Platelet Count 202 X10*3/uL (160-400); Red Blood Count 4.14 X10*6/uL (4.60-5.80); White Blood Count 12.6 X10*3/uL (4.8-10.8)
[2022-09-25 08:45] LABS: Alanine Aminotransferase 19 U/L (0-40); Albumin Level 3.7 g/dL (3.5-5.0); Alkaline Phosphatase 104 U/L (39-117); Anion Gap 15 (12-20); Aspartate Amino Transferase 15 U/L (5-37); Bilirubin Direct 0.2 mg/dL (0.0-0.5); Bilirubin Total 0.6 mg/dL (0.0-1.0); Blood Urea Nitrogen 21 mg/dL (9-16); Calcium 8.5 mg/dL (8.4-10.2); Carbon Dioxide 22 mmol/L (22-29); Chloride 104 mmol/L (96-108); Creatinine Clr Calc Pharmacy 48.1; Estimated Glomerular Filt Rate > 60; Glucose Random 124 mg/dL (60-115); Sodium 136 mmol/L (135-145); Total Protein 6.3 g/dL (6.5-8.0)
[2022-09-25 08:46] LABS: Estimated Average Glucose 120 mg/dL; Hemoglobin A1c % 5.8 %
[2022-09-25] MEDS: Fluticasone/Vilanterol 200/25 BLST.W.DEV 1 PUFF INHALE (09:45)
[2022-09-25] MEDS: cloNIDine HCL 0.1 MG TABLET PO ×3 (09:46→20:41)
[2022-09-25] MEDS: QUEtiapine Fumarate 50 MG TABLET PO ×2 (09:46→20:41)
[2022-09-25] MEDS: ARIPiprazole 10 MG TABLET PO (09:47)
[2022-09-25] MEDS: amLODIPine Besylate 10 MG TABLET PO (09:47)
--- NOTE | 2022-09-25 10:25 | P.PNPSI_ITS ---
Subjective Subjective Date of Service: 09/25/22 Reason For Visit: Schizophrenia,Dementia Subjective Notes: Conditional Voluntary Interim History: The nursing staff reported the patient had been oriented, logical and pleasant in [place]. The social worker delinquency prevention reported that [facility] and [facility] are figuring out about discharge planning, they requested do blood work and so far we ordered for today. We had a meeting over the phone at 14:00 with [facility] and they don't want to take him back. The social worker delinquency prevention reported that she had done some applications for intermediate facilities and unfortunately there are no open beds at this moment. On interview the patient is pleasant cooperative with no acute symptoms. Waiting for placement at this moment, there is no evidence of psychosis or mood lability. Mental Status Exam Mental Status Exam Patient Appearance: Appropriate Patient Orientation: Person and Situation Level of Consciousness: Awake Patient Behavior: Guarded and Passive Mood Description: Calm Affect Description: Constricted Patient Cognition Impaired: Yes Ability to Follow Directions: Good Speech Pattern: Clear Hallucinations: None Delusions: Paranoid Ideation Thought Process: Distracted Thought Content: positive for [place] and positive for Circumstantial Judgement: Fair Diagnostics Vital Signs (24Hr): Vital Signs - 24 hr 09/24/22 18:00 Temperature 98.5 F Pulse Rate 70 Respiratory Rate 16 Blood Pressure 131/61 Pulse Oximetry 94 Oxygen Delivery Method Room Air BMI result Body Mass Index 25.3 Labs Results: 09/25/22 08:11 09/25/22 08:11 Labs: Laboratory Results - last 48 hr 09/25/22 09/25/22 09/25/22 08:11 08:11 08:11 WBC 12.6 H RBC 4.14 L Hgb 13.4 L Hct 39.5 L MCV 95.4 MCH 32.4 MCHC 33.9 RDW 13.0 Plt Count 202 MPV 9.9 Immature Gran % (Auto) 4.8 H Neut % (Auto) 66.6 Lymph % (Auto) 20.3 [place] % (Auto) 6.5 Eos % (Auto) 1.3 Baso % (Auto) 0.5 Lymph # (Auto) 2.6 [place] # (Auto) 0.8 Eos # (Auto) 0.2 Baso # (Auto) 0.1 Abs Immat Gran (auto) 0.61 H Absolute Neuts (auto) 8.4 H Absolute Nucleated RBC 0.000 Nucleated RBC % (auto) 0.0 Sodium 136 Potassium 5.0 Chloride 104 Carbon Dioxide 22 Anion Gap 15 BUN 21 H Creatinine 1.10 Estim Creat Clear Calc 48.1 Estimated GFR > 60 Random Glucose 124 H Estimat Average Glucose 120 Hemoglobin A1c % 5.8 Calcium 8.5 Total Bilirubin 0.6 Direct Bilirubin 0.2 AST 15 ALT 19 Alkaline Phosphatase 104 Total Protein 6.3 L Albumin 3.7 Imaging Radiology Impressions: ITS Impressions Chest X-Ray 08/08/22 16:36 IMPRESSION: 1. No acute pulmonary process. Chest X-Ray 08/10/22 10:25 IMPRESSION: New subsegmental atelectasis at the left lung base. Chest CTA 08/10/22 14:35 IMPRESSION: 1. No CT evidence of pulmonary emboli. 2. No lung mass or suspicious spiculated nodules, there are few scattered tiny nonspecific lung calcified and noncalcified nodular densities measuring up to 3 mm or less. 3. Coronary calcifications. 4. Pulmonary emphysema. Various management parameters for solitary pulmonary nodules are in the literature. According to the UPDATED 2017 Fleischner Society recommendations, the advised follow-up imaging for solid nodules < 6 mm is: LOW RISK PATIENT: No routine follow-up. HIGH RISK PATIENT: Optional CT at 12 months. Reference: Guidelines for Management of Incidental Pulmonary Nodules Detected on CT Images: From the Fleischner Society 2017. Chest X-Ray 08/12/22 03:50 IMPRESSION: No focal consolidation. Chest X-Ray 08/31/22 17:28 FINDINGS/IMPRESSION: * Hazy asymmetric opacification of the right lung, unclear if this could be due to patient rotation, asymmetric parenchymal opacities or small layering pleural effusion. Consider repeat PA and lateral radiographs. * Blunting of the bilateral costophrenic angles may reflect trace pleural effusions. No pneumothorax. * Unchanged cardiomediastinal silhouette. * Incidental note of upper abdominal surgical clips. Chest X-Ray 09/01/22 16:57 IMPRESSION: Unremarkable chest examination. Chest X-Ray 09/10/22 12:21 IMPRESSION: Unremarkable examination. Medications Medications Current Medications Acetaminophen (Acetaminophen 325 Mg Tablet) 650 mg PO Q6H PRN PRN Reason: Headache/Pain Mild Scale (1-3) Last Admin: 08/31/22 15:11 Dose: 650 mg Al Hydroxide/Mg Hydroxide (Magnesium Hydrox/Alum Hydrox 30 Ml Oral.Susp) 30 ml PO Q6H PRN PRN Reason: Heartburn/Nausea Albuterol Sulfate (Albuterol Sulfate 90 Mcg 8 Gm Inhaler) 2 puff INHALE RQ4H PRN PRN Reason: COPD exacerbation Last Admin: 09/11/22 13:24 Dose: 2 puff Amlodipine Besylate (Amlodipine Besylate 10 Mg Tablet) 10 mg PO DAILY [facility]; Protocol Last Admin: 09/25/22 09:47 Dose: 10 mg Aripiprazole (Aripiprazole 10 Mg Tablet) 10 mg PO DAILY [facility] Last Admin: 09/25/22 09:47 Dose: 10 mg Atorvastatin Calcium (Atorvastatin Calcium 20 Mg Tablet) 20 mg PO BEDTIME [facility] Last Admin: 09/24/22 20:42 Dose: 20 mg Clonidine HCl (Clonidine Hcl 0.1 Mg Tablet) 0.1 mg PO TID [facility]; Protocol Last Admin: 09/25/22 09:46 Dose: 0.1 mg Fluticasone/Vilanterol (Fluticasone/Vilanterol 200/25 Blst.W.Dev) 1 puff INHALE RDAILY [facility] Last Admin: 09/25/22 09:45 Dose: 1 puff Magnesium Hydroxide (Milk Of Magnesia 30 Ml Oral.Susp) 30 ml PO DAILY PRN PRN Reason: Constipation Quetiapine Fumarate (Quetiapine Fumarate 50 Mg Tablet) 50 mg PO BID [facility] Last Admin: 09/25/22 09:46 Dose: 50 mg Quetiapine Fumarate (Quetiapine Fumarate 50 Mg Tablet) 50 mg PO Q6H PRN PRN Reason: agitation Last Admin: 08/30/22 13:12 Dose: 50 mg Quetiapine Fumarate (Quetiapine Fumarate 200 Mg Tablet) 200 mg PO BEDTIME [facility] Last Admin: 09/24/22 20:42 Dose: 200 mg Tamsulosin HCl (Tamsulosin Hcl 0.4 Mg Capsule) 0.4 mg PO BEDTIME [facility] Last Admin: 09/24/22 20:42 Dose: 0.4 mg Tiotropium [place] (Tiotropium [place] 18 Mcg Cap.W.Dev) 1 puff INHALE RDAILY S Last Admin: 09/25/22 09:45 Dose: 1 puff Allergies Allergies Allergy/AdvReac Type Severity Reaction Status Date / Time Penicillins [PENICILLINS] Allergy Intermediate RASH Unverified 08/02/20 16:41 Iodinated Contrast Media Allergy Mild HIVES Unverified 08/02/20 16:41 [IV Dye, Iodine Containing Contrast ] penicillin V Allergy Unknown Verified 07/05/18 00:00 Assessment & Plan Assessment & Plan (1) COPD exacerbation: Status: Acute Code(s): J44.1 - Chronic obstructive pulmonary disease with (acute) exacerbation Plan Elderly male with a long history of schizoaffective disorder, chronically institutionalized, transferred from his senior care for exacerbation of agitation when Trileptal was discontinued due to hyponatremia. We tried to rechallenge the Trileptal of he develops severe hyponatremia. Plan: Continue current treatment plan. Start on discharge planning Lower Abilify to 10 mg p.o. q.a.m. I spent __20____ minutes with the patient and/or on the patient floor today, greater than?50% of which was spent counseling/coordinating care. Reason for contiued inpatient stay Substantial Risk for: inability to function, rapid decompensation and med/psych decompensation
[2022-09-25 14:50] VITALS: BP 125/60
[2022-09-25 18:00] VITALS: BP 125/59; PULSE 60; RESP 17; TEMP 36.8; O2SAT 98
[2022-09-25] MEDS: Atorvastatin Calcium 20 MG TABLET PO (20:41)
[2022-09-25] MEDS: QUEtiapine Fumarate 200 MG TABLET PO (20:41)
[2022-09-25] MEDS: Tamsulosin HCL 0.4 MG CAPSULE PO (20:41)
[2022-09-26 06:00] VITALS: BP 110/51; PULSE 76; RESP 16; TEMP 37; O2SAT 94
[2022-09-26] MEDS: cloNIDine HCL 0.1 MG TABLET PO ×2 (10:19→20:00)
[2022-09-26] MEDS: ARIPiprazole 10 MG TABLET PO (10:19)
[2022-09-26] MEDS: QUEtiapine Fumarate 50 MG TABLET PO ×2 (10:19→20:00)
[2022-09-26] MEDS: amLODIPine Besylate 10 MG TABLET PO (10:19)
[2022-09-26] MEDS: Fluticasone/Vilanterol 200/25 BLST.W.DEV 1 PUFF INHALE (10:19)
--- NOTE | 2022-09-26 13:49 | P.PNPSI_ITS ---
Subjective Subjective Date of Service: 09/26/22 Reason For Visit: Schizophrenia,Dementia Subjective Notes: Conditional Voluntary Interim History: The nursing staff reported the patient has been stable, he had the eating 100% of his meals he sleeps well, he has been fully compliant with treatment. The clinical social worker reported that she he has refer him to [facility] where he was before but at this moment there are no beds. On interview the patient denies new symptoms, he is at baseline, no evidence of psychotic symptoms at this moment Mental Status Exam Mental Status Exam Patient Appearance: Well Grooomed Patient Orientation: Person and Situation Level of Consciousness: Awake Patient Behavior: Cooperative Mood Description: Withdrawn Affect Description: Constricted Patient Cognition Impaired: Yes Ability to Follow Directions: Good Speech Pattern: Clear Hallucinations: None Delusions: Not Present Thought Process: Linear Thought Content: positive for [place] and positive for [place] of Content Judgement: Fair Diagnostics Vital Signs (24Hr): Vital Signs - 24 hr 09/25/22 14:50 09/25/22 18:00 09/26/22 06:00 Temperature 98.2 F 98.6 F Pulse Rate 60 76 Respiratory Rate 17 16 Blood Pressure 125/60 125/59 L 110/51 L Pulse Oximetry 98 94 Oxygen Delivery Method Room Air Room Air BMI result Body Mass Index 25.4 Labs Results: 09/25/22 08:11 09/25/22 08:11 Labs: Laboratory Results - last 48 hr 09/25/22 09/25/22 09/25/22 08:11 08:11 08:11 WBC 12.6 H RBC 4.14 L Hgb 13.4 L Hct 39.5 L MCV 95.4 MCH 32.4 MCHC 33.9 RDW 13.0 Plt Count 202 MPV 9.9 Immature Gran % (Auto) 4.8 H Neut % (Auto) 66.6 Lymph % (Auto) 20.3 [place] % (Auto) 6.5 Eos % (Auto) 1.3 Baso % (Auto) 0.5 Lymph # (Auto) 2.6 [place] # (Auto) 0.8 Eos # (Auto) 0.2 Baso # (Auto) 0.1 Abs Immat Gran (auto) 0.61 H Absolute Neuts (auto) 8.4 H Absolute Nucleated RBC 0.000 Nucleated RBC % (auto) 0.0 Sodium 136 Potassium 5.0 Chloride 104 Carbon Dioxide 22 Anion Gap 15 BUN 21 H Creatinine 1.10 Estim Creat Clear Calc 48.1 Estimated GFR > 60 Random Glucose 124 H Estimat Average Glucose 120 Hemoglobin A1c % 5.8 Calcium 8.5 Total Bilirubin 0.6 Direct Bilirubin 0.2 AST 15 ALT 19 Alkaline Phosphatase 104 Total Protein 6.3 L Albumin 3.7 Imaging Radiology Impressions: ITS Impressions Chest X-Ray 08/08/22 16:36 IMPRESSION: 1. No acute pulmonary process. Chest X-Ray 08/10/22 10:25 IMPRESSION: New subsegmental atelectasis at the left lung base. Chest CTA 08/10/22 14:35 IMPRESSION: 1. No CT evidence of pulmonary emboli. 2. No lung mass or suspicious spiculated nodules, there are few scattered tiny nonspecific lung calcified and noncalcified nodular densities measuring up to 3 mm or less. 3. Coronary calcifications. 4. Pulmonary emphysema. Various management parameters for solitary pulmonary nodules are in the literature. According to the UPDATED 2017 Fleischner Society recommendations, the advised follow-up imaging for solid nodules < 6 mm is: LOW RISK PATIENT: No routine follow-up. HIGH RISK PATIENT: Optional CT at 12 months. Reference: Guidelines for Management of Incidental Pulmonary Nodules Detected on CT Images: From the Fleischner Society 2017. Chest X-Ray 08/12/22 03:50 IMPRESSION: No focal consolidation. Chest X-Ray 08/31/22 17:28 FINDINGS/IMPRESSION: * Hazy asymmetric opacification of the right lung, unclear if this could be due to patient rotation, asymmetric parenchymal opacities or small layering pleural effusion. Consider repeat PA and lateral radiographs. * Blunting of the bilateral costophrenic angles may reflect trace pleural effusions. No pneumothorax. * Unchanged cardiomediastinal silhouette. * Incidental note of upper abdominal surgical clips. Chest X-Ray 09/01/22 16:57 IMPRESSION: Unremarkable chest examination. Chest X-Ray 09/10/22 12:21 IMPRESSION: Unremarkable examination. Medications Medications Current Medications Acetaminophen (Acetaminophen 325 Mg Tablet) 650 mg PO Q6H PRN PRN Reason: Headache/Pain Mild Scale (1-3) Last Admin: 08/31/22 15:11 Dose: 650 mg Al Hydroxide/Mg Hydroxide (Magnesium Hydrox/Alum Hydrox 30 Ml Oral.Susp) 30 ml PO Q6H PRN PRN Reason: Heartburn/Nausea Albuterol Sulfate (Albuterol Sulfate 90 Mcg 8 Gm Inhaler) 2 puff INHALE RQ4H PRN PRN Reason: COPD exacerbation Last Admin: 09/11/22 13:24 Dose: 2 puff Amlodipine Besylate (Amlodipine Besylate 10 Mg Tablet) 10 mg PO DAILY [facility]; Protocol Last Admin: 09/26/22 10:19 Dose: 10 mg Aripiprazole (Aripiprazole 10 Mg Tablet) 10 mg PO DAILY [facility] Last Admin: 09/26/22 10:19 Dose: 10 mg Atorvastatin Calcium (Atorvastatin Calcium 20 Mg Tablet) 20 mg PO BEDTIME [facility] Last Admin: 09/25/22 20:41 Dose: 20 mg Clonidine HCl (Clonidine Hcl 0.1 Mg Tablet) 0.1 mg PO TID [facility]; Protocol Last Admin: 09/26/22 10:19 Dose: 0.1 mg Fluticasone/Vilanterol (Fluticasone/Vilanterol 200/25 Blst.W.Dev) 1 puff INHALE RDAILY [facility] Last Admin: 09/26/22 10:19 Dose: 1 puff Magnesium Hydroxide (Milk Of Magnesia 30 Ml Oral.Susp) 30 ml PO DAILY PRN PRN Reason: Constipation Quetiapine Fumarate (Quetiapine Fumarate 50 Mg Tablet) 50 mg PO BID [facility] Last Admin: 09/26/22 10:19 Dose: 50 mg Quetiapine Fumarate (Quetiapine Fumarate 50 Mg Tablet) 50 mg PO Q6H PRN PRN Reason: agitation Last Admin: 08/30/22 13:12 Dose: 50 mg Quetiapine Fumarate (Quetiapine Fumarate 200 Mg Tablet) 200 mg PO BEDTIME [facility] Last Admin: 09/25/22 20:41 Dose: 200 mg Tamsulosin HCl (Tamsulosin Hcl 0.4 Mg Capsule) 0.4 mg PO BEDTIME [facility] Last Admin: 09/25/22 20:41 Dose: 0.4 mg Tiotropium [place] (Tiotropium [place] 18 Mcg Cap.W.Dev) 1 puff INHALE RDAILY [facility] Last Admin: 09/26/22 10:18 Dose: 1 puff Allergies Allergies Allergy/AdvReac Type Severity Reaction Status Date / Time Penicillins [PENICILLINS] Allergy Intermediate RASH Unverified 08/02/20 16:41 Iodinated Contrast Media Allergy Mild HIVES Unverified 08/02/20 16:41 [IV Dye, Iodine Containing Contrast ] penicillin V Allergy Unknown Verified 07/05/18 00:00 Assessment & Plan Assessment & Plan (1) COPD exacerbation: Status: Acute Code(s): J44.1 - Chronic obstructive pulmonary disease with (acute) exacerbation Plan Elderly male with a long history of schizoaffective disorder, chronical ly institutionalized, transferred from his nursing home for exacerbation of agitation when Trileptal was discontinued due to hyponatremia. We tried to rechallenge the Trileptal of he develops severe hyponatremia. Plan: Continue current treatment plan. Start on discharge planning Lower Abilify to 10 mg p.o. q.a.m. I spent ___20___ minutes with the patient and/or on the patient floor today, greater than?50% of which was spent counseling/coordinating care. Reason for contiued inpatient stay Substantial Risk for: inability to function, rapid decompensation and med/psych decompensation
--- NOTE | 2022-09-26 14:05 | MHC.CLN ---
F/U CONTINUES WITH REGULAR, NDD3 DIET. ENSURE TID TO PROVIDE ADDITIONAL 1050 KCALS, 60 G PROTEIN. CONTINUES WITH USUALLY GOOD INTAKE AND IS OUT OF ROOM FOR MEALS. CONTINUE TO ENCOURAGE INTAKE AT MEALS AND SUPPLEMENT. FOLLOW WEIGHTS AND INTAKE. RD TO FOLLOW WEEKLY.
--- NOTE | 2022-09-26 14:40 | PC.NURSE ---
BP 95/54. MD notified and okayed to hold clonidine scheduled at this time.
[2022-09-26 18:00] VITALS: BP 133/62; PULSE 82; RESP 16; TEMP 36.6; O2SAT 93
[2022-09-26] MEDS: Tamsulosin HCL 0.4 MG CAPSULE PO (20:00)
[2022-09-26] MEDS: Atorvastatin Calcium 20 MG TABLET PO (20:00)
[2022-09-26] MEDS: QUEtiapine Fumarate 200 MG TABLET PO (20:00)
[2022-09-27 08:00] VITALS: BP 124/58; PULSE 89; RESP 18; TEMP 36.1; O2SAT 93
[2022-09-27] MEDS: ARIPiprazole 10 MG TABLET PO (09:14)
[2022-09-27] MEDS: QUEtiapine Fumarate 50 MG TABLET PO ×2 (09:14→20:24)
[2022-09-27] MEDS: amLODIPine Besylate 10 MG TABLET PO (09:14)
[2022-09-27] MEDS: cloNIDine HCL 0.1 MG TABLET PO ×3 (09:15→20:24)
[2022-09-27] MEDS: Fluticasone/Vilanterol 200/25 BLST.W.DEV 1 PUFF INHALE (09:15)
--- NOTE | 2022-09-27 11:04 | P.PNPSI_ITS ---
Subjective Subjective Date of Service: 09/27/22 Reason For Visit: Schizophrenia,Dementia Interim History: seen with al[place]ian-speaking staff. pt asks about leaving for [place], does not seem to appreciate his circumstance. denies any physical problems or pains, no questions for MD. per staff, better. clonidine held for BP 95/51. slept 8 hours. isolative. Mental Status Exam Mental Status Exam Patient Appearance: Well Grooomed Patient Orientation: Person Level of Consciousness: Awake Patient Behavior: Cooperative Mood Description: Withdrawn Affect Description: Constricted Patient Cognition Impaired: Yes Ability to Follow Directions: Good Speech Pattern: Clear Hallucinations: None Delusions: Not Present Thought Process: Linear Thought Content: positive for [place] and positive for Poverty of Content Judgement: Fair Diagnostics Vital Signs (24Hr): Vital Signs - 24 hr 09/26/22 18:00 09/27/22 08:00 Temperature 97.9 F 97.0 F Pulse Rate 82 89 Respiratory Rate 16 18 Blood Pressure 133/62 124/58 L Pulse Oximetry 93 93 Oxygen Delivery Method Room Air Room Air BMI result Body Mass Index 25.4 Labs Results: 09/25/22 08:11 09/25/22 08:11 Imaging Radiology Impressions: ITS Impressions Chest X-Ray 08/08/22 16:36 IMPRESSION: 1. No acute pulmonary process. Chest X-Ray 08/10/22 10:25 IMPRESSION: New subsegmental atelectasis at the left lung base. Chest CTA 08/10/22 14:35 IMPRESSION: 1. No CT evidence of pulmonary emboli. 2. No lung mass or suspicious spiculated nodules, there are few scattered tiny nonspecific lung calcified and noncalcified nodular densities measuring up to 3 mm or less. 3. Coronary calcifications. 4. Pulmonary emphysema. Various management parameters for solitary pulmonary nodules are in the literature. According to the UPDATED 2017 Fleischner Society recommendations, the advised follow-up imaging for solid nodules < 6 mm is: LOW RISK PATIENT: No routine follow-up. HIGH RISK PATIENT: Optional CT at 12 months. Reference: Guidelines for Management of Incidental Pulmonary Nodules Detected on CT Images: From the Fleischner Society 2017. Chest X-Ray 08/12/22 03:50 IMPRESSION: No focal consolidation. Chest X-Ray 08/31/22 17:28 FINDINGS/IMPRESSION: * Hazy asymmetric opacification of the right lung, unclear if this could be due to patient rotation, asymmetric parenchymal opacities or small layering pleural effusion. Consider repeat PA and lateral radiographs. * Blunting of the bilateral costophrenic angles may reflect trace pleural effusions. No pneumothorax. * Unchanged cardiomediastinal silhouette. * Incidental note of upper abdominal surgical clips. Chest X-Ray 09/01/22 16:57 IMPRESSION: Unremarkable chest examination. Chest X-Ray 09/10/22 12:21 IMPRESSION: Unremarkable examination. Medications Medications Current Medications Acetaminophen (Acetaminophen 325 Mg Tablet) 650 mg PO Q6H PRN PRN Reason: Headache/Pain Mild Scale (1-3) Last Admin: 08/31/22 15:11 Dose: 650 mg Al Hydroxide/Mg Hydroxide (Magnesium Hydrox/Alum Hydrox 30 Ml Oral.Susp) 30 ml PO Q6H PRN PRN Reason: Heartburn/Nausea Albuterol Sulfate (Albuterol Sulfate 90 Mcg 8 Gm Inhaler) 2 puff INHALE RQ4H PRN PRN Reason: COPD exacerbation Last Admin: 09/11/22 13:24 Dose: 2 puff Amlodipine Besylate (Amlodipine Besylate 10 Mg Tablet) 10 mg PO DAILY [facility]; Protocol Last Admin: 09/27/22 09:14 Dose: 10 mg Aripiprazole (Aripiprazole 10 Mg Tablet) 10 mg PO DAILY [facility] Last Admin: 09/27/22 09:14 Dose: 10 mg Atorvastatin Calcium (Atorvastatin Calcium 20 Mg Tablet) 20 mg PO BEDTIME [facility] Last Admin: 09/26/22 20:00 Dose: 20 mg Clonidine HCl (Clonidine Hcl 0.1 Mg Tablet) 0.1 mg PO TID [facility]; Protocol Last Admin: 09/27/22 09:15 Dose: 0.1 mg Fluticasone/Vilanterol (Fluticasone/Vilanterol 200/25 Blst.W.Dev) 1 puff INHALE RDAILY [facility] Last Admin: 09/27/22 09:15 Dose: 1 puff Magnesium Hydroxide (Milk Of Magnesia 30 Ml Oral.Susp) 30 ml PO DAILY PRN PRN Reason: Constipation Quetiapine Fumarate (Quetiapine Fumarate 50 Mg Tablet) 50 mg PO BID [facility] Last Admin: 09/27/22 09:14 Dose: 50 mg Quetiapine Fumarate (Quetiapine Fumarate 50 Mg Tablet) 50 mg PO Q6H PRN PRN Reason: agitation Last Admin: 08/30/22 13:12 Dose: 50 mg Quetiapine Fumarate (Quetiapine Fumarate 200 Mg Tablet) 200 mg PO BEDTIME [facility] Last Admin: 09/26/22 20:00 Dose: 200 mg Tamsulosin HCl (Tamsulosin Hcl 0.4 Mg Capsule) 0.4 mg PO BEDTIME [facility] Last Admin: 09/26/22 20:00 Dose: 0.4 mg Tiotropium [place] (Tiotropium [place] 18 Mcg Cap.W.Dev) 1 puff INHALE RDAILY [facility] Last Admin: 09/27/22 09:35 Dose: 1 puff Allergies Allergies Allergy/AdvReac Type Severity Reaction Status Date / Time Penicillins [PENICILLINS] Allergy Intermediate RASH Unverified 08/02/20 16:41 Iodinated Contrast Media Allergy Mild HIVES Unverified 08/02/20 16:41 [IV Dye, Iodine Containing Contrast ] penicillin V Allergy Unknown Verified 07/05/18 00:00 Assessment & Plan Assessment & Plan (1) COPD exacerbation: Status: Acute Code(s): J44.1 - Chronic obstructive pulmonary disease with (acute) exacerbation Plan Elderly male with a long history of schizoaffective disorder, chronically institutionalized, transferred from his long term for exacerbation of agitation when Trileptal was discontinued due to hyponatremia. We tried to rechallenge the Trileptal of he develops severe hyponatremia. Plan: Continue current treatment plan. Start on discharge planning Lower Abilify to 10 mg p.o. q.a.m. 09/27: stable. continue current mgmt. I spent ___20___ minutes with the patient and/or on the patient floor today, greater than?50% of which was spent counseling/coordinating care. Reason for contiued inpatient stay Substantial Risk for: inability to function
[2022-09-27 15:45] VITALS: BP 128/62; PULSE 71; RESP 16
[2022-09-27 18:00] VITALS: BP 136/60; PULSE 69; RESP 16; TEMP 36.7; O2SAT 92
[2022-09-27] MEDS: Tamsulosin HCL 0.4 MG CAPSULE PO (20:24)
[2022-09-27] MEDS: Atorvastatin Calcium 20 MG TABLET PO (20:24)
[2022-09-27] MEDS: QUEtiapine Fumarate 200 MG TABLET PO (20:24)
[2022-09-28 08:00] VITALS: BP 138/63; PULSE 90; RESP 18; TEMP 36.4; O2SAT 95
[2022-09-28] MEDS: amLODIPine Besylate 10 MG TABLET PO (08:24)
[2022-09-28] MEDS: cloNIDine HCL 0.1 MG TABLET PO ×3 (08:25→20:12)
[2022-09-28] MEDS: ARIPiprazole 10 MG TABLET PO (08:25)
[2022-09-28] MEDS: QUEtiapine Fumarate 50 MG TABLET PO ×2 (08:25→20:13)
[2022-09-28] MEDS: Fluticasone/Vilanterol 200/25 BLST.W.DEV 1 PUFF INHALE (08:28)
--- NOTE | 2022-09-28 11:54 | P.PNPSI_ITS ---
Subjective Subjective Date of Service: 09/28/22 Reason For Visit: Schizophrenia,Dementia Interim History: observed ambulating in the [place], calm, cooperative. verbally greeted MD. no requests or complaints to MD. per staff, no complaints, eating well. brighter, pleasant overnight. Mental Status Exam Mental Status Exam Patient Appearance: Well Grooomed Patient Orientation: Person Level of Consciousness: Awake Patient Behavior: Cooperative Mood Description: Withdrawn Affect Description: Constricted Patient Cognition Impaired: Yes Ability to Follow Directions: Good Speech Pattern: Clear Hallucinations: None Delusions: Not Present Thought Process: Linear Thought Content: positive for [place] and positive for Poverty of Content Judgement: Fair Diagnostics Vital Signs (24Hr): Vital Signs - 24 hr 09/27/22 15:45 09/27/22 18:00 09/28/22 08:00 Temperature 98.1 F 97.5 F Pulse Rate 71 69 90 Respiratory Rate 16 16 18 Blood Pressure 128/62 136/60 138/63 Pulse Oximetry 92 95 Oxygen Delivery Method Room Air Room Air BMI result Body Mass Index 25.4 Labs Results: 09/25/22 08:11 09/25/22 08:11 Imaging Radiology Impressions: ITS Impressions Chest X-Ray 08/08/22 16:36 IMPRESSION: 1. No acute pulmonary process. Chest X-Ray 08/10/22 10:25 IMPRESSION: New subsegmental atelectasis at the left lung base. Chest CTA 08/10/22 14:35 IMPRESSION: 1. No CT evidence of pulmonary emboli. 2. No lung mass or suspicious spiculated nodules, there are few scattered tiny nonspecific lung calcified and noncalcified nodular densities measuring up to 3 mm or less. 3. Coronary calcifications. 4. Pulmonary emphysema. Various management parameters for solitary pulmonary nodules are in the literature. According to the UPDATED 2017 Fleischner Society recommendations, the advised follow-up imaging for solid nodules < 6 mm is: LOW RISK PATIENT: No routine follow-up. HIGH RISK PATIENT: Optional CT at 12 months. Reference: Guidelines for Management of Incidental Pulmonary Nodules Detected on CT Images: From the Fleischner Society 2017. Chest X-Ray 08/12/22 03:50 IMPRESSION: No focal consolidation. Chest X-Ray 08/31/22 17:28 FINDINGS/IMPRESSION: * Hazy asymmetric opacification of the right lung, unclear if this could be due to patient rotation, asymmetric parenchymal opacities or small layering pleural effusion. Consider repeat PA and lateral radiographs. * Blunting of the bilateral costophrenic angles may reflect trace pleural effusions. No pneumothorax. * Unchanged cardiomediastinal silhouette. * Incidental note of upper abdominal surgical clips. Chest X-Ray 09/01/22 16:57 IMPRESSION: Unremarkable chest examination. Chest X-Ray 09/10/22 12:21 IMPRESSION: Unremarkable examination. Medications Medications Current Medications Acetaminophen (Acetaminophen 325 Mg Tablet) 650 mg PO Q6H PRN PRN Reason: Headache/Pain Mild Scale (1-3) Last Admin: 08/31/22 15:11 Dose: 650 mg Al Hydroxide/Mg Hydroxide (Magnesium Hydrox/Alum Hydrox 30 Ml Oral.Susp) 30 ml PO Q6H PRN PRN Reason: Heartburn/Nausea Albuterol Sulfate (Albuterol Sulfate 90 Mcg 8 Gm Inhaler) 2 puff INHALE RQ4H PRN PRN Reason: COPD exacerbation Last Admin: 09/11/22 13:24 Dose: 2 puff Amlodipine Besylate (Amlodipine Besylate 10 Mg Tablet) 10 mg PO DAILY [facility]; Protocol Last Admin: 09/28/22 08:24 Dose: 10 mg Aripiprazole (Aripiprazole 10 Mg Tablet) 10 mg PO DAILY [facility] Last Admin: 09/28/22 08:25 Dose: 10 mg Atorvastatin Calcium (Atorvastatin Calcium 20 Mg Tablet) 20 mg PO BEDTIME [facility] Last Admin: 09/27/22 20:24 Dose: 20 mg Clonidine HCl (Clonidine Hcl 0.1 Mg Tablet) 0.1 mg PO TID [facility]; Protocol Last Admin: 09/28/22 08:25 Dose: 0.1 mg Fluticasone/Vilanterol (Fluticasone/Vilanterol 200/25 Blst.W.Dev) 1 puff INHALE RDAILY [facility] Last Admin: 09/28/22 08:28 Dose: 1 puff Magnesium Hydroxide (Milk Of Magnesia 30 Ml Oral.Susp) 30 ml PO DAILY PRN PRN Reason: Constipation Quetiapine Fumarate (Quetiapine Fumarate 50 Mg Tablet) 50 mg PO BID [facility] Last Admin: 09/28/22 08:25 Dose: 50 mg Quetiapine Fumarate (Quetiapine Fumarate 50 Mg Tablet) 50 mg PO Q6H PRN PRN Reason: agitation Last Admin: 08/30/22 13:12 Dose: 50 mg Quetiapine Fumarate (Quetiapine Fumarate 200 Mg Tablet) 200 mg PO BEDTIME [facility] Last Admin: 09/27/22 20:24 Dose: 200 mg Tamsulosin HCl (Tamsulosin Hcl 0.4 Mg Capsule) 0.4 mg PO BEDTIME [facility] Last Admin: 09/27/22 20:24 Dose: 0.4 mg Tiotropium [place] (Tiotropium [place] 18 Mcg Cap.W.Dev) 1 puff INHALE RDAILY [facility] Last Admin: 09/28/22 08:23 Dose: 1 puff Allergies Allergies Allergy/AdvReac Type Severity Reaction Status Date / Time Penicillins [PENICILLINS] Allergy Intermediate RASH Unverified 08/02/20 16:41 Iodinated Contrast Media Allergy Mild HIVES Unverified 08/02/20 16:41 [IV Dye, Iodine Containing Contrast ] penicillin V Allergy Unknown Verified 07/05/18 00:00 Assessment & Plan Assessment & Plan (1) COPD exacerbation: Status: Acute Code(s): J44.1 - Chronic obstructive pulmonary disease with (acute) exacerbation Plan Elderly male with a long history of schizoaffective disorder, chronically institutionalized, transferred from his retirement for exacerbation of agitation when Trileptal was discontinued due to hyponatremia. We tried to rechallenge the Trileptal of he develops severe hyponatremia. Plan: Continue current treatment plan. Start on discharge planning Lower Abilify to 10 mg p.o. q.a.m. 09/27: stable. continue current mgmt. 09/28: stable. continue current mgmt. I spent ___10___ minutes with the patient and/or on the patient floor today, greater than?50% of which was spent counseling/coordinating care. Reason for contiued inpatient stay Substantial Risk for: inability to function and rapid decompensation
[2022-09-28 16:01] VITALS: BP 126/70; PULSE 104
[2022-09-28 18:00] VITALS: BP 113/56; PULSE 80; RESP 18; TEMP 36.5; O2SAT 92
[2022-09-28] MEDS: Tamsulosin HCL 0.4 MG CAPSULE PO (20:12)
[2022-09-28] MEDS: QUEtiapine Fumarate 200 MG TABLET PO (20:12)
[2022-09-28] MEDS: Atorvastatin Calcium 20 MG TABLET PO (20:13)
[2022-09-29 06:00] VITALS: BP 146/59; PULSE 97; RESP 14; TEMP 36.4; O2SAT 90
[2022-09-29] MEDS: amLODIPine Besylate 10 MG TABLET PO (09:13)
[2022-09-29] MEDS: ARIPiprazole 10 MG TABLET PO (09:13)
[2022-09-29] MEDS: cloNIDine HCL 0.1 MG TABLET PO ×3 (09:13→20:18)
[2022-09-29] MEDS: QUEtiapine Fumarate 50 MG TABLET PO ×2 (09:14→20:18)
[2022-09-29] MEDS: Fluticasone/Vilanterol 200/25 BLST.W.DEV 1 PUFF INHALE (09:44)
--- NOTE | 2022-09-29 14:54 | P.PNPSI_ITS ---
Subjective Subjective Date of Service: 09/29/22 Reason For Visit: Schizophrenia,Dementia Subjective Notes: Conditional Voluntary Interim History: The nursing staff reported the patient has been pleasant and cooperative, fully compliant with treatment oriented but superficial. The patient therapist reported that he had and made an assessment for short-term rehab. The social insurance administrator reported that we are still working on placement and [facility] interested in that. Later on, it was confirmed that he will be discharged tomorrow to that facility. On interview the patient denies new symptoms. Mental Status Exam Mental Status Exam Patient Appearance: Well Grooomed Patient Orientation: Person and Situation Level of Consciousness: Awake Patient Behavior: Cooperative Mood Description: Calm Affect Description: Constricted Patient Cognition Impaired: Yes Ability to Follow Directions: Good Speech Pattern: Clear Hallucinations: None Delusions: Not Present Thought Process: Distracted Thought Content: positive for [place] and positive for Poverty of Content Judgement: Fair Diagnostics Vital Signs (24Hr): Vital Signs - 24 hr 09/28/22 16:01 09/28/22 18:00 09/29/22 06:00 Temperature 97.7 F 97.6 F Pulse Rate 104 H 80 97 Respiratory Rate 18 14 Blood Pressure 126/70 113/56 L 146/59 H Pulse Oximetry 92 90 L Oxygen Delivery Method Room Air Room Air BMI result Body Mass Index 25.4 Labs Results: 09/25/22 08:11 09/25/22 08:11 Imaging Radiology Impressions: ITS Impressions Chest X-Ray 08/08/22 16:36 IMPRESSION: 1. No acute pulmonary process. Chest X-Ray 08/10/22 10:25 IMPRESSION: New subsegmental atelectasis at the left lung base. Chest CTA 08/10/22 14:35 IMPRESSION: 1. No CT evidence of pulmonary emboli. 2. No lung mass or suspicious spiculated nodules, there are few scattered tiny nonspecific lung calcified and noncalcified nodular densities measuring up to 3 mm or less. 3. Coronary calcifications. 4. Pulmonary emphysema. Various management parameters for solitary pulmonary nodules are in the literature. According to the UPDATED 2017 Fleischner Society recommendations, the advised follow-up imaging for solid nodules < 6 mm is: LOW RISK PATIENT: No routine follow-up. HIGH RISK PATIENT: Optional CT at 12 months. Reference: Guidelines for Management of Incidental Pulmonary Nodules Detected on CT Images: From the Fleischner Society 2017. Chest X-Ray 08/12/22 03:50 IMPRESSION: No focal consolidation. Chest X-Ray 08/31/22 17:28 FINDINGS/IMPRESSION: * Hazy asymmetric opacification of the right lung, unclear if this could be due to patient rotation, asymmetric parenchymal opacities or small layering pleural effusion. Consider repeat PA and lateral radiographs. * Blunting of the bilateral costophrenic angles may reflect trace pleural effusions. No pneumothorax. * Unchanged cardiomediastinal silhouette. * Incidental note of upper abdominal surgical clips. Chest X-Ray 09/01/22 16:57 IMPRESSION: Unremarkable chest examination. Chest X-Ray 09/10/22 12:21 IMPRESSION: Unremarkable examination. Medications Medications Current Medications Acetaminophen (Acetaminophen 325 Mg Tablet) 650 mg PO Q6H PRN PRN Reason: Headache/Pain Mild Scale (1-3) Last Admin: 08/31/22 15:11 Dose: 650 mg Al Hydroxide/Mg Hydroxide (Magnesium Hydrox/Alum Hydrox 30 Ml Oral.Susp) 30 ml PO Q6H PRN PRN Reason: Heartburn/Nausea Albuterol Sulfate (Albuterol Sulfate 90 Mcg 8 Gm Inhaler) 2 puff INHALE RQ4H PRN PRN Reason: COPD exacerbation Last Admin: 09/11/22 13:24 Dose: 2 puff Amlodipine Besylate (Amlodipine Besylate 10 Mg Tablet) 10 mg PO DAILY [facility]; Protocol Last Admin: 09/29/22 09:13 Dose: 10 mg Aripiprazole (Aripiprazole 10 Mg Tablet) 10 mg PO DAILY [facility] Last Admin: 09/29/22 09:13 Dose: 10 mg Atorvastatin Calcium (Atorvastatin Calcium 20 Mg Tablet) 20 mg PO BEDTIME [facility] Last Admin: 09/28/22 20:13 Dose: 20 mg Clonidine HCl (Clonidine Hcl 0.1 Mg Tablet) 0.1 mg PO TID [facility]; Protocol Last Admin: 09/29/22 09:13 Dose: 0.1 mg Fluticasone/Vilanterol (Fluticasone/Vilanterol 200/25 Blst.W.Dev) 1 puff INHALE RDAILY [facility] Last Admin: 09/29/22 09:44 Dose: 1 puff Magnesium Hydroxide (Milk Of Magnesia 30 Ml Oral.Susp) 30 ml PO DAILY PRN PRN Reason: Constipation Quetiapine Fumarate (Quetiapine Fumarate 50 Mg Tablet) 50 mg PO BID [facility] Last Admin: 09/29/22 09:14 Dose: 50 mg Quetiapine Fumarate (Quetiapine Fumarate 50 Mg Tablet) 50 mg PO Q6H PRN PRN Reason: agitation Last Admin: 08/30/22 13:12 Dose: 50 mg Quetiapine Fumarate (Quetiapine Fumarate 200 Mg Tablet) 200 mg PO BEDTIME [facility] Last Admin: 09/28/22 20:12 Dose: 200 mg Tamsulosin HCl (Tamsulosin Hcl 0.4 Mg Capsule) 0.4 mg PO BEDTIME [facility] Last Admin: 09/28/22 20:12 Dose: 0.4 mg Tiotropium [place] (Tiotropium [place] 18 Mcg Cap.W.Dev) 1 puff INHALE RDAILY [facility] Last Admin: 09/29/22 09:44 Dose: 1 puff Allergies Allergies Allergy/AdvReac Type Severity Reaction Status Date / Time Penicillins [PENICILLINS] Allergy Intermediate RASH Unverified 08/02/20 16:41 Iodinated Contrast Media Allergy Mild HIVES Unverified 08/02/20 16:41 [IV Dye, Iodine Containing Contrast ] penicillin V Allergy Unknown Verified 07/05/18 00:00 Assessment & Plan Assessment & Plan (1) COPD exacerbation: Status: Acute Code(s): J44.1 - Chronic obstructive pulmonary disease with (acute) exacerbation Plan Elderly male with a long history of schizoaffective disorder, chronically institutionalized, transferred from his custodial for exacerbation of agitation when Trileptal was discontinued due to hyponatremia. We tried to rechallenge the Trileptal of he develops severe hyponatremia. Plan: Continue current treatment plan. Start on discharge planning Lower Abilify to 10 mg p.o. q.a.m. Discharged to [place] residential facility tomorrow I spent __20____ minutes with the patient and/or on the patient floor today, greater than?50% of which was spent counseling/coordinating care. Reason for contiued inpatient stay Substantial Risk for: inability to function, rapid decompensation and med/psych decompensation
[2022-09-29 16:09] VITALS: BP 114/57; PULSE 83; RESP 16; TEMP 36.9; O2SAT 93
[2022-09-29 19:00] VITALS: BP 125/59; PULSE 92; RESP 16; TEMP 36.8; O2SAT 92
[2022-09-29] MEDS: QUEtiapine Fumarate 200 MG TABLET PO (20:18)
[2022-09-29] MEDS: Atorvastatin Calcium 20 MG TABLET PO (20:18)
[2022-09-29] MEDS: Tamsulosin HCL 0.4 MG CAPSULE PO (20:18)
[2022-09-30 06:00] VITALS: BP 113/75; PULSE 86; RESP 16; TEMP 36.8; O2SAT 92
--- NOTE | 2022-09-30 08:13 | HO.PSYCHPN ---
Subjective Subjective Date of Service: 09/30/22 Reason For Visit: Schizophrenia,Dementia Subjective Notes: Conditional Voluntary Diagnostics Vital Signs (24Hr): Vital Signs - 24 hr 09/29/22 16:09 09/29/22 19:00 Temperature 98.4 F 98.3 F Pulse Rate 83 92 Respiratory Rate 16 16 Blood Pressure 114/57 L 125/59 L Pulse Oximetry 93 92 Oxygen Delivery Method Room Air Room Air BMI result Body Mass Index 25.4 Labs Results: 09/25/22 08:11 09/25/22 08:11 Imaging Radiology Impressions: ITS Impressions Chest X-Ray 08/08/22 16:36 IMPRESSION: 1. No acute pulmonary process. Chest X-Ray 08/10/22 10:25 IMPRESSION: New subsegmental atelectasis at the left lung base. Chest CTA 08/10/22 14:35 IMPRESSION: 1. No CT evidence of pulmonary emboli. 2. No lung mass or suspicious spiculated nodules, there are few scattered tiny nonspecific lung calcified and noncalcified nodular densities measuring up to 3 mm or less. 3. Coronary calcifications. 4. Pulmonary emphysema. Various management parameters for solitary pulmonary nodules are in the literature. According to the UPDATED 2017 Fleischner Society recommendations, the advised follow-up imaging for solid nodules < 6 mm is: LOW RISK PATIENT: No routine follow-up. HIGH RISK PATIENT: Optional CT at 12 months. Reference: Guidelines for Management of Incidental Pulmonary Nodules Detected on CT Images: From the Fleischner Society 2017. Chest X-Ray 08/12/22 03:50 IMPRESSION: No focal consolidation. Chest X-Ray 08/31/22 17:28 FINDINGS/IMPRESSION: * Hazy asymmetric opacification of the right lung, unclear if this could be due to patient rotation, asymmetric parenchymal opacities or small layering pleural effusion. Consider repeat PA and lateral radiographs. * Blunting of the bilateral costophrenic angles may reflect trace pleural effusions. No pneumothorax. * Unchanged cardiomediastinal silhouette. * Incidental note of upper abdominal surgical clips. Chest X-Ray 09/01/22 16:57 IMPRESSION: Unremarkable chest examination. Chest X-Ray 09/10/22 12:21 IMPRESSION: Unremarkable examination. Medications Medications Current Medications Acetaminophen (Acetaminophen 325 Mg Tablet) 650 mg PO Q6H PRN PRN Reason: Headache/Pain Mild Scale (1-3) Last Admin: 08/31/22 15:11 Dose: 650 mg Al Hydroxide/Mg Hydroxide (Magnesium Hydrox/Alum Hydrox 30 Ml Oral.Susp) 30 ml PO Q6H PRN PRN Reason: Heartburn/Nausea Albuterol Sulfate (Albuterol Sulfate 90 Mcg 8 Gm Inhaler) 2 puff INHALE RQ4H PRN PRN Reason: COPD exacerbation Last Admin: 09/11/22 13:24 Dose: 2 puff Amlodipine Besylate (Amlodipine Besylate 10 Mg Tablet) 10 mg PO DAILY [facility]; Protocol Last Admin: 09/29/22 09:13 Dose: 10 mg Aripiprazole (Aripiprazole 10 Mg Tablet) 10 mg PO DAILY [facility] Last Admin: 09/29/22 09:13 Dose: 10 mg Atorvastatin Calcium (Atorvastatin Calcium 20 Mg Tablet) 20 mg PO BEDTIME [facility] Last Admin: 09/29/22 20:18 Dose: 20 mg Clonidine HCl (Clonidine Hcl 0.1 Mg Tablet) 0.1 mg PO TID [facility]; Protocol Last Admin: 09/29/22 20:18 Dose: 0.1 mg Fluticasone/Vilanterol (Fluticasone/Vilanterol 200/25 Blst.W.Dev) 1 puff INHALE RDAILY [facility] Last Admin: 09/29/22 09:44 Dose: 1 puff Magnesium Hydroxide (Milk Of Magnesia 30 Ml Oral.Susp) 30 ml PO DAILY PRN PRN Reason: Constipation Quetiapine Fumarate (Quetiapine Fumarate 50 Mg Tablet) 50 mg PO BID [facility] Last Admin: 09/29/22 20:18 Dose: 50 mg Quetiapine Fumarate (Quetiapine Fumarate 50 Mg Tablet) 50 mg PO Q6H PRN PRN Reason: agitation Last Admin: 08/30/22 13:12 Dose: 50 mg Quetiapine Fumarate (Quetiapine Fumarate 200 Mg Tablet) 200 mg PO BEDTIME [facility] Last Admin: 09/29/22 20:18 Dose: 200 mg Tamsulosin HCl (Tamsulosin Hcl 0.4 Mg Capsule) 0.4 mg PO BEDTIME [facility] Last Admin: 09/29/22 20:18 Dose: 0.4 mg Tiotropium [place] (Tiotropium [place] 18 Mcg Cap.W.Dev) 1 puff INHALE RDAILY [facility] Last Admin: 09/29/22 09:44 Dose: 1 puff Allergies Allergies Allergy/AdvReac Type Severity Reaction Status Date / Time Penicillins [PENICILLINS] Allergy Intermediate RASH Unverified 08/02/20 16:41 Iodinated Contrast Media Allergy Mild HIVES Unverified 08/02/20 16:41 [IV Dye, Iodine Containing Contrast ] penicillin V Allergy Unknown Verified 07/05/18 00:00 Assessment & Plan Assessment & Plan (1) COPD exacerbation: Status: Acute Code(s): J44.1 - Chronic obstructive pulmonary disease with (acute) exacerbation Plan Elderly male with a long history of schizoaffective disorder, chronically institutionalized, transferred from his [facility] for exacerbation of agitation when Trileptal was discontinued due to hyponatremia. We tried to rechallenge the Trileptal of he develops severe hyponatremia. Plan: Continue current treatment plan. Start on discharge planning Lower Abilify to 10 mg p.o. q.a.m. Discharged to [place] [facility] facility tomorrow I spent minutes with the patient and/or on the patient floor today, greater than?50% of which was spent counseling/coordinating care.
--- NOTE | 2022-09-30 08:21 | P.DS_ITS ---
DS: Providers Provider Date of Service: 09/30/22 Date of admission: 08/11/22 19:05 Date of discharge: 09/30/22 Primary care physician: Unknown Physician Consults: 08/11/22 21:53 Consult to Hospitalist Stat Consulting Provider: Hospitalist Reason For Exam: HTN, O2 Sat 89-91%, SOB O2 Sat with amb 86-88% 08/12/22 10:58 Consult to Hospitalist Routine Consulting Provider: Hospitalist Reason For Exam: F/U skin integrity, cellulitis? 08/31/22 12:00 Consult to Hospitalist Routine Consulting Provider: Hospitalist Reason For Exam: hypo-Na, refusing labs. more SOB, coughing now. Attending physician on discharge: Todd Aparicio DS: Diagnosis Discharge Diagnosis (1) Schizophrenia: Status: Acute (2) Dementia: Status: Acute (3) COPD exacerbation: Status: Acute DS: Medications Discharge Medications Home Medications: Home Medications Medication Instructions Recorded Confirmed amlodipine 5 mg tablet 1 tab PO DAILY 08/09/22 08/09/22 aripiprazole 20 mg tablet 1 tab PO DAILY 08/09/22 08/09/22 atorvastatin 20 mg tablet 1 tab PO BEDTIME 08/09/22 08/09/22 clonidine HCl 0.1 mg tablet 1 tab PO TID 08/09/22 08/09/22 fluticasone fur. 200 mcg-umeclid 1 puff inhalation DAILY 08/09/22 08/09/22 62.5 mcg-vilant 25 mcg inhalat.powder (Trelegy Ellipta) lisinopril 10 mg tablet 1 tab PO DAILY 08/09/22 08/09/22 oxcarbazepine 300 mg tablet 1 tab PO BID 08/09/22 08/09/22 quetiapine 50 mg tablet 1 tab PO BID 08/09/22 08/09/22 tamsulosin 0.4 mg capsule 1 cap PO BEDTIME 08/09/22 08/09/22 Vitamin D3 50,000 unit PO QMONTH 08/12/22 08/12/22 acetaminophen 650 mg PO Q6H PRN Pain 08/12/22 08/12/22 Previous Rx's Medication Instructions Recorded aripiprazole 400 mg intramuscular 400 mg IM QMONTH #1 ea 09/05/22 suspension,extended release (Abilify Maintena) Mental Status Exam Mental Status Exam Patient Appearance: Well Grooomed and Appropriate Patient Orientation: Person and Situation Level of Consciousness: Awake Patient Behavior: Cooperative Mood Description: Calm Affect Description: Constricted Patient Cognition Impaired: Yes Ability to Follow Directions: Good Speech Pattern: Clear Hallucinations: None Delusions: Not Present Thought Process: Distracted and Slowed Thinking Thought Content: positive for [place], positive for Circumstantial and positive for Poverty of Content Judgement: Fair Data Data Completed and Pending Completed studies during hospitalization [Text1]: 09/25/22 09/25/22 09/25/22 08:11 08:11 08:11 WBC 12.6 H RBC 4.14 L Hgb 13.4 L Hct 39.5 L MCV 95.4 MCH 32.4 MCHC 33.9 RDW 13.0 Plt Count 202 MPV 9.9 Immature Gran % (Auto) 4.8 H Neut % (Auto) 66.6 Lymph % (Auto) 20.3 Webb % (Auto) 6.5 Eos % (Auto) 1.3 Baso % (Auto) 0.5 Lymph # (Auto) 2.6 Webb # (Auto) 0.8 Eos # (Auto) 0.2 Baso # (Auto) 0.1 Abs Immat Gran (auto) 0.61 H Absolute Neuts (auto) 8.4 H Absolute Nucleated RBC 0.000 Nucleated RBC % (auto) 0.0 Sodium 136 Potassium 5.0 Chloride 104 Carbon Dioxide 22 Anion Gap 15 BUN 21 H Creatinine 1.10 Estim Creat Clear Calc 48.1 Estimated GFR > 60 Random Glucose 124 H Estimat Average Glucose 120 Hemoglobin A1c % 5.8 Calcium 8.5 Total Bilirubin 0.6 Direct Bilirubin 0.2 AST 15 ALT 19 Alkaline Phosphatase 104 Total Protein 6.3 L Albumin 3.7 Imaging Diagnostic Imaging Impressions Chest X-Ray 08/08/22 16:36 IMPRESSION: 1. No acute pulmonary process. Chest X-Ray 08/10/22 10:25 IMPRESSION: New subsegmental atelectasis at the left lung base. Chest CTA 08/10/22 14:35 IMPRESSION: 1. No CT evidence of pulmonary emboli. 2. No lung mass or suspicious spiculated nodules, there are few scattered tiny nonspecific lung calcified and noncalcified nodular densities measuring up to 3 mm or less. 3. Coronary calcifications. 4. Pulmonary emphysema. Various management parameters for solitary pulmonary nodules are in the literature. According to the UPDATED 2017 Fleischner Society recommendations, the advised follow-up imaging for solid nodules < 6 mm is: LOW RISK PATIENT: No routine follow-up. HIGH RISK PATIENT: Optional CT at 12 months. Reference: Guidelines for Management of Incidental Pulmonary Nodules Detected on CT Images: From the Fleischner Society 2017. Chest X-Ray 08/12/22 03:50 IMPRESSION: No focal consolidation. Chest X-Ray 08/31/22 17:28 FINDINGS/IMPRESSION: * Hazy asymmetric opacification of the right lung, unclear if this could be due to patient rotation, asymmetric parenchymal opacities or small layering pleural effusion. Consider repeat PA and lateral radiographs. * Blunting of the bilateral costophrenic angles may reflect trace pleural effusions. No pneumothorax. * Unchanged cardiomediastinal silhouette. * Incidental note of upper abdominal surgical clips. Chest X-Ray 09/01/22 16:57 IMPRESSION: Unremarkable chest examination. Chest X-Ray 09/10/22 12:21 IMPRESSION: Unremarkable examination. DS: Summary Hospital Course Hospital Course: The patient was brought to the emergency room from a detention since he was more disorganized and irritable. Recently, he had hyponatremia and he is Trileptal needed to be discontinued. Please see the HPI of the admission note for further details. The patient has a long history of schizophrenia and he had been with antipsychotics and mood stabilizers for quite long time. He has history of institutionalization and he had been on previews halfway facilities and group homes. On admission we gather collateral information, the staff from the detention and his healthcare proxy. We discussed at length risks, benefits, side-effects and alternatives and he agreed to rechallenge with Trileptal but unfortunately he relapsed and severe hyponatremia that we needed to put on fluid restriction. We tried to change to Depakote but the patient become more disorganized and he started refusing medications. At certain point, on top of his psychiatric problems, he had COPD exacerbation and his functionality deteriorated pretty fast. We discussed with her healthcare proxy treatment options and the patient agreed to start Abilify Maintena to assure compliance.. We start a taper of p.o. Abilify from 20-10 mg. The patient improved remarkably only with Abilify Maintena and no need of antiseizure medications. At baseline, the patient is seclusive, mostly due to his language barrier because he is only [place]onese-speaking. He improved and he was at baseline but his detention refused to take him since he had a condition at. We discussed with the healthcare proxy in the patient and he agreed to go back to halfway facility that he was a few years ago and he did very well. Since there were no safety concerns discharge planning was discussed. Time spent discussing smoking cessation with patient: 3 to 10 minutes Status at Discharge Functional status at discharge: independent ambulation Overall status at discharge: patient is back to baseline Time Spent with Patient Time attestation: Total time spent providing and/or coordinating discharge services: Time spent: Less than 30 minutes Discharge Plan Discharge Patient Disposition: er LT Discharge Diagnosis: Schizophrenia. Dementia COPD exacerbation. Referrals: [facility] [Other] - 09/30/22 10:00 am (Patient to transfer to [facility] at [facility]. Will be reevaluated by [facility] program once at [facility] for appropriateness to return to [facility] detention following rehab. ) Discharge Medications: New Abilify Maintena 400 mg suspension,extended rel recon 400 mg IM QMONTH Qty: 1 0RF albuterol sulfate [Ventolin HFA] 90 mcg/actuation Hfa Aerosol Inhaler 2 puff inhalation RQ4H PRN (Reason: COPD exacerbation) Qty: 1 0RF Spiriva with HandiHaler 18 mcg Capsule, W/Inhalation Device 18 mcg inhalation RDAILY Qty: 30 0RF amlodipine 10 mg Tablet 10 mg PO DAILY Qty: 30 0RF Protocol: Hold for SBP< HOLD for SBP < : 90 aripiprazole 10 mg Tablet 10 mg PO DAILY Qty: 30 0RF quetiapine 200 mg Tablet 200 mg PO BEDTIME Qty: 30 0RF Abilify Maintena 400 mg suspension,extended rel recon 400 mg IM QMONTH Qty: 1 0RF Rx Instructions: Next dose Oct 06, 2022 Continued clonidine HCl 0.1 mg tablet 1 tab PO TID 30 Days Qty: 90 0RF atorvastatin 20 mg tablet 1 tab PO BEDTIME Qty: 30 0RF tamsulosin 0.4 mg capsule 1 cap PO BEDTIME Qty: 30 0RF lisinopril 10 mg tablet 1 tab PO DAILY 30 Days Qty: 30 0RF Trelegy Ellipta 200-62.5-25 mcg blister with device 1 puff inhalation DAILY 30 Days Qty: 1 0RF Changed quetiapine 50 mg tablet 50 mg PO BID Qty: 60 0RF Discontinued oxcarbazepine 300 mg tablet 1 tab PO BID Rx Instructions: detention states discontinued on 08/07/22 amlodipine 5 mg tablet 1 tab PO DAILY aripiprazole 20 mg tablet 1 tab PO DAILY Vitamin D3 50,000 unit PO QMONTH acetaminophen 650 mg PO Q6H PRN (Reason: Pain) Discharge Orders: Discharge Order (Routine); Ordered 09/30/22 Ordered By: Todd Aparicio Diet: Advance to usual diet Activity on Discharge: As tolerated Stand Alone Forms: Patient Portal Discharge page Care Plan Goals: Care plan goals achieved in this admission Health Concerns: Continue treatment by primary care physician Plan of Treatment: Continue medication management as an outpatient Assessment: Elderly male with a long history of schizophrenia who was admitted for exacerbation of agitation in the context of discontinuation of Trileptal due to hyponatremia. We change his medications and started on Abilify Maintena to assure compliance with for improvement currently at baseline no safety concerns at this moment.
[2022-09-30] MEDS: Fluticasone/Vilanterol 200/25 BLST.W.DEV 1 PUFF INHALE (09:46)
[2022-09-30] MEDS: amLODIPine Besylate 10 MG TABLET PO (09:47)
[2022-09-30] MEDS: QUEtiapine Fumarate 50 MG TABLET PO ×2 (09:47→20:25)
[2022-09-30] MEDS: cloNIDine HCL 0.1 MG TABLET PO ×3 (09:47→20:25)
[2022-09-30] MEDS: ARIPiprazole 10 MG TABLET PO (09:47)
--- NOTE | 2022-09-30 13:26 | P.PNPSI_ITS ---
Subjective Subjective Date of Service: 09/30/22 Reason For Visit: Schizophrenia,Dementia Subjective Notes: Conditional Voluntary Interim History: The nursing staff reported the patient had been fully compliant with treatment, he ate well and he had been in the common areas. Today he was scheduled to be discharged but the [facility] reported some problems and it has to be delayed. On interview the patient was disappointed that he was not discharged today but he was optimistic that he will be pretty soon. No new symptoms. No psychosis at this moment. Mental Status Exam Mental Status Exam Patient Appearance: Well Grooomed Patient Orientation: Person and Situation Level of Consciousness: Appropriate and Alert Patient Behavior: Guarded and Cooperative Mood Description: Withdrawn Affect Description: Constricted Patient Cognition Impaired: Yes Ability to Follow Directions: Fair Speech Pattern: Clear Hallucinations: None Delusions: Not Present Thought Process: Distracted Thought Content: positive for [place], positive for Circumstantial and positive for Poverty of Content Judgement: Fair Diagnostics Vital Signs (24Hr): Vital Signs - 24 hr 09/29/22 16:09 09/29/22 19:00 09/30/22 06:00 Temperature 98.4 F 98.3 F 98.3 F Pulse Rate 83 92 86 Respiratory Rate 16 16 16 Blood Pressure 114/57 L 125/59 L 113/75 Pulse Oximetry 93 92 92 Oxygen Delivery Method Room Air Room Air Room Air BMI result Body Mass Index 25.4 Labs Results: 09/25/22 08:11 09/25/22 08:11 Imaging Radiology Impressions: ITS Impressions Chest X-Ray 08/08/22 16:36 IMPRESSION: 1. No acute pulmonary process. Chest X-Ray 08/10/22 10:25 IMPRESSION: New subsegmental atelectasis at the left lung base. Chest CTA 08/10/22 14:35 IMPRESSION: 1. No CT evidence of pulmonary emboli. 2. No lung mass or suspicious spiculated nodules, there are few scattered tiny nonspecific lung calcified and noncalcified nodular densities measuring up to 3 mm or less. 3. Coronary calcifications. 4. Pulmonary emphysema. Various management parameters for solitary pulmonary nodules are in the literature. According to the UPDATED 2017 Fleischner Society recommendations, the advised follow-up imaging for solid nodules < 6 mm is: LOW RISK PATIENT: No routine follow-up. HIGH RISK PATIENT: Optional CT at 12 months. Reference: Guidelines for Management of Incidental Pulmonary Nodules Detected on CT Images: From the Fleischner Society 2017. Chest X-Ray 08/12/22 03:50 IMPRESSION: No focal consolidation. Chest X-Ray 08/31/22 17:28 FINDINGS/IMPRESSION: * Hazy asymmetric opacification of the right lung, unclear if this could be due to patient rotation, asymmetric parenchymal opacities or small layering pleural effusion. Consider repeat PA and lateral radiographs. * Blunting of the bilateral costophrenic angles may reflect trace pleural effusions. No pneumothorax. * Unchanged cardiomediastinal silhouette. * Incidental note of upper abdominal surgical clips. Chest X-Ray 09/01/22 16:57 IMPRESSION: Unremarkable chest examination. Chest X-Ray 09/10/22 12:21 IMPRESSION: Unremarkable examination. Medications Medications Current Medications Acetaminophen (Acetaminophen 325 Mg Tablet) 650 mg PO Q6H PRN PRN Reason: Headache/Pain Mild Scale (1-3) Last Admin: 08/31/22 15:11 Dose: 650 mg Al Hydroxide/Mg Hydroxide (Magnesium Hydrox/Alum Hydrox 30 Ml Oral.Susp) 30 ml PO Q6H PRN PRN Reason: Heartburn/Nausea Albuterol Sulfate (Albuterol Sulfate 90 Mcg 8 Gm Inhaler) 2 puff INHALE RQ4H PRN PRN Reason: COPD exacerbation Last Admin: 09/11/22 13:24 Dose: 2 puff Amlodipine Besylate (Amlodipine Besylate 10 Mg Tablet) 10 mg PO DAILY ALONDRA; Protocol Last Admin: 09/30/22 09:47 Dose: 10 mg Aripiprazole (Aripiprazole 10 Mg Tablet) 10 mg PO DAILY ALONDRA Last Admin: 09/30/22 09:47 Dose: 10 mg Atorvastatin Calcium (Atorvastatin Calcium 20 Mg Tablet) 20 mg PO BEDTIME ALONDRA Last Admin: 09/29/22 20:18 Dose: 20 mg Clonidine HCl (Clonidine Hcl 0.1 Mg Tablet) 0.1 mg PO TID ALONDRA; Protocol Last Admin: 09/30/22 09:47 Dose: 0.1 mg Fluticasone/Vilanterol (Fluticasone/Vilanterol 200/25 Blst.W.Dev) 1 puff INHALE RDAILY ALONDRA Last Admin: 09/30/22 09:46 Dose: 1 puff Magnesium Hydroxide (Milk Of Magnesia 30 Ml Oral.Susp) 30 ml PO DAILY PRN PRN Reason: Constipation Quetiapine Fumarate (Quetiapine Fumarate 50 Mg Tablet) 50 mg PO BID [facility] Last Admin: 09/30/22 09:47 Dose: 50 mg Quetiapine Fumarate (Quetiapine Fumarate 50 Mg Tablet) 50 mg PO Q6H PRN PRN Reason: agitation Last Admin: 08/30/22 13:12 Dose: 50 mg Quetiapine Fumarate (Quetiapine Fumarate 200 Mg Tablet) 200 mg PO BEDTIME [facility] Last Admin: 09/29/22 20:18 Dose: 200 mg Tamsulosin HCl (Tamsulosin Hcl 0.4 Mg Capsule) 0.4 mg PO BEDTIME [facility] Last Admin: 09/29/22 20:18 Dose: 0.4 mg Tiotropium [place] (Tiotropium [place] 18 Mcg Cap.W.Dev) 1 puff INHALE RDAILY [facility] Last Admin: 09/30/22 09:46 Dose: 1 puff Allergies Allergies Allergy/AdvReac Type Severity Reaction Status Date / Time Penicillins [PENICILLINS] Allergy Intermediate RASH Unverified 08/02/20 16:41 Iodinated Contrast Media Allergy Mild HIVES Unverified 08/02/20 16:41 [IV Dye, Iodine Containing Contrast ] penicillin V Allergy Unknown Verified 07/05/18 00:00 Assessment & Plan Assessment & Plan (1) Schizophrenia: Status: Acute Code(s): F20.9 - Schizophrenia, unspecified (2) Dementia: Status: Acute Code(s): F03.90 - Unspecified dementia, unspecified severity, without behavioral disturbance, psychotic disturbance, mood disturbance, and anxiety (3) COPD exacerbation: Status: Acute Code(s): J44.1 - Chronic obstructive pulmonary disease with (acute) exacerbation Plan Elderly male with a history of schizophrenia referred from his group ho me for excessive agitation in the context of discontinuation of Trileptal due to hyponatremia. We tried rechallenge it but it was not tolerated due to hyponatremia. Eventually we added Abilify min 10 on top his Abilify to assure compliance is when he is psychotic he does not take medications. At this moment stable at baseline ready for discharge. Plan 1. Discharge to long-term facility, we are waiting for the clearance. The discharge was suspended today I spent ____20__ minutes with the patient and/or on the patient floor today, greater than?50% of which was spent counseling/coordinating care. Reason for contiued inpatient stay Substantial Risk for: inability to function, rapid decompensation and med/psych decompensation
[2022-09-30 18:00] VITALS: BP 153/69; PULSE 73; RESP 16; TEMP 36.6; O2SAT 95
[2022-09-30] MEDS: QUEtiapine Fumarate 200 MG TABLET PO (20:25)
[2022-09-30] MEDS: Atorvastatin Calcium 20 MG TABLET PO (20:25)
[2022-09-30] MEDS: Tamsulosin HCL 0.4 MG CAPSULE PO (20:25)
[2022-10-01 06:00] VITALS: BP 165/72; PULSE 71; RESP 18; TEMP 35.8; O2SAT 96
[2022-10-01] MEDS: QUEtiapine Fumarate 50 MG TABLET PO ×2 (10:16→20:20)
[2022-10-01] MEDS: amLODIPine Besylate 10 MG TABLET PO (10:16)
[2022-10-01] MEDS: cloNIDine HCL 0.1 MG TABLET PO ×3 (10:16→20:20)
[2022-10-01] MEDS: ARIPiprazole 10 MG TABLET PO (10:16)
--- NOTE | 2022-10-01 15:15 | HO.PSYCHPN ---
Subjective Subjective Date of Service: 10/01/22 Reason For Visit: Schizophrenia,Dementia Subjective Notes: Conditional Voluntary Interim History: The nursing staff reported the patient had been compliant with treatment, no new changes in his mental status. On interview the patient reported that he wants to be discharged as soon as possible. The social services reported that [facility] needs to come and authorized at discharge. Mental Status Exam Mental Status Exam Patient Appearance: Well Grooomed Patient Orientation: Person and Situation Level of Consciousness: Appropriate Patient Behavior: Cooperative Mood Description: Calm Affect Description: Constricted Patient Cognition Impaired: Yes Ability to Follow Directions: Good Speech Pattern: Clear Hallucinations: None Delusions: Not Present Thought Process: Linear Thought Content: positive for [place] and positive for Circumstantial Judgement: Fair Diagnostics Vital Signs (24Hr): Vital Signs - 24 hr 09/30/22 18:00 10/01/22 06:00 Temperature 97.8 F 96.4 F L Pulse Rate 73 71 Respiratory Rate 16 18 Blood Pressure 153/69 H 165/72 H Pulse Oximetry 95 96 Oxygen Delivery Method Room Air Room Air BMI result Body Mass Index 25.4 Labs Results: 09/25/22 08:11 09/25/22 08:11 Imaging Radiology Impressions: ITS Impressions Chest X-Ray 08/08/22 16:36 IMPRESSION: 1. No acute pulmonary process. Chest X-Ray 08/10/22 10:25 IMPRESSION: New subsegmental atelectasis at the left lung base. Chest CTA 08/10/22 14:35 IMPRESSION: 1. No CT evidence of pulmonary emboli. 2. No lung mass or suspicious spiculated nodules, there are few scattered tiny nonspecific lung calcified and noncalcified nodular densities measuring up to 3 mm or less. 3. Coronary calcifications. 4. Pulmonary emphysema. Various management parameters for solitary pulmonary nodules are in the literature. According to the UPDATED 2017 Fleischner Society recommendations, the advised follow-up imaging for solid nodules < 6 mm is: LOW RISK PATIENT: No routine follow-up. HIGH RISK PATIENT: Optional CT at 12 months. Reference: Guidelines for Management of Incidental Pulmonary Nodules Detected on CT Images: From the Fleischner Society 2017. Chest X-Ray 08/12/22 03:50 IMPRESSION: No focal consolidation. Chest X-Ray 08/31/22 17:28 FINDINGS/IMPRESSION: * Hazy asymmetric opacification of the right lung, unclear if this could be due to patient rotation, asymmetric parenchymal opacities or small layering pleural effusion. Consider repeat PA and lateral radiographs. * Blunting of the bilateral costophrenic angles may reflect trace pleural effusions. No pneumothorax. * Unchanged cardiomediastinal silhouette. * Incidental note of upper abdominal surgical clips. Chest X-Ray 09/01/22 16:57 IMPRESSION: Unremarkable chest examination. Chest X-Ray 09/10/22 12:21 IMPRESSION: Unremarkable examination. Medications Medications Current Medications Acetaminophen (Acetaminophen 325 Mg Tablet) 650 mg PO Q6H PRN PRN Reason: Headache/Pain Mild Scale (1-3) Last Admin: 08/31/22 15:11 Dose: 650 mg Al Hydroxide/Mg Hydroxide (Magnesium Hydrox/Alum Hydrox 30 Ml Oral.Susp) 30 ml PO Q6H PRN PRN Reason: Heartburn/Nausea Albuterol Sulfate (Albuterol Sulfate 90 Mcg 8 Gm Inhaler) 2 puff INHALE RQ4H PRN PRN Reason: COPD exacerbation Last Admin: 09/11/22 13:24 Dose: 2 puff Amlodipine Besylate (Amlodipine Besylate 10 Mg Tablet) 10 mg PO DAILY [facility]; Protocol Last Admin: 10/01/22 10:16 Dose: 10 mg Aripiprazole (Aripiprazole 10 Mg Tablet) 10 mg PO DAILY [facility] Last Admin: 10/01/22 10:16 Dose: 10 mg Atorvastatin Calcium (Atorvastatin Calcium 20 Mg Tablet) 20 mg PO BEDTIME ALONDRA Last Admin: 09/30/22 20:25 Dose: 20 mg Clonidine HCl (Clonidine Hcl 0.1 Mg Tablet) 0.1 mg PO TID ALONDRA; Protocol Last Admin: 10/01/22 10:16 Dose: 0.1 mg Fluticasone/Vilanterol (Fluticasone/Vilanterol 200/25 Blst.W.Dev) 1 puff INHALE RDAILY [facility] Last Admin: 09/30/22 09:46 Dose: 1 puff Magnesium Hydroxide (Milk Of Magnesia 30 Ml Oral.Susp) 30 ml PO DAILY PRN PRN Reason: Constipation Quetiapine Fumarate (Quetiapine Fumarate 50 Mg Tablet) 50 mg PO BID [facility] Last Admin: 10/01/22 10:16 Dose: 50 mg Quetiapine Fumarate (Quetiapine Fumarate 50 Mg Tablet) 50 mg PO Q6H PRN PRN Reason: agitation Last Admin: 08/30/22 13:12 Dose: 50 mg Quetiapine Fumarate (Quetiapine Fumarate 200 Mg Tablet) 200 mg PO BEDTIME [facility] Last Admin: 09/30/22 20:25 Dose: 200 mg Tamsulosin HCl (Tamsulosin Hcl 0.4 Mg Capsule) 0.4 mg PO BEDTIME [facility] Last Admin: 09/30/22 20:25 Dose: 0.4 mg Tiotropium [place] (Tiotropium [place] 18 Mcg Cap.W.Dev) 1 puff INHALE RDAILY [facility] Last Admin: 09/30/22 09:46 Dose: 1 puff Allergies Allergies Allergy/AdvReac Type Severity Reaction Status Date / Time Penicillins [PENICILLINS] Allergy Intermediate RASH Unverified 08/02/20 16:41 Iodinated Contrast Media Allergy Mild HIVES Unverified 08/02/20 16:41 [IV Dye, Iodine Containing Contrast ] penicillin V Allergy Unknown Verified 07/05/18 00:00 Assessment & Plan Assessment & Plan (1) Schizophrenia: Status: Acute Code(s): F20.9 - Schizophrenia, unspecified (2) Dementia: Status: Acute Code(s): F03.90 - Unspecified dementia, unspecified severity, without behavioral disturbance, psychotic disturbance, mood disturbance, and anxiety (3) COPD exacerbation: Status: Acute Code(s): J44.1 - Chronic obstructive pulmonary disease with (acute) exacerbation Plan Elderly splenic male with a long history of schizophrenia admitted for exacerbation of symptoms after Trileptal was discontinued due to hyponatremia. We try to rechallenge Trileptal but unfortunately he developed severe hyponatremia. The patient became more psychotic and refuse medications so we changed to Frannie Nuñez with for improvement. Currently ready for discharge. Plan 1. Discharged to longterm facility I spent __20____ minutes with the patient and/or on the patient floor today, greater than?50% of which was spent counseling/coordinating care. Reason for contiued inpatient stay Substantial Risk for: inability to function, rapid decompensation and med/psych decompensation
[2022-10-01] MEDS: Fluticasone/Vilanterol 200/25 BLST.W.DEV 1 PUFF INHALE (16:42)
[2022-10-01] MEDS: QUEtiapine Fumarate 200 MG TABLET PO (20:20)
[2022-10-01] MEDS: Tamsulosin HCL 0.4 MG CAPSULE PO (20:20)
[2022-10-01] MEDS: Atorvastatin Calcium 20 MG TABLET PO (20:20)
[2022-10-02 06:00] VITALS: BP 146/61; PULSE 99; RESP 16; TEMP 36; O2SAT 96
[2022-10-02 07:00] VITALS: BMI 25.8
[2022-10-02] MEDS: QUEtiapine Fumarate 50 MG TABLET PO ×2 (09:36→21:11)
[2022-10-02] MEDS: amLODIPine Besylate 10 MG TABLET PO (09:36)
[2022-10-02] MEDS: cloNIDine HCL 0.1 MG TABLET PO ×3 (09:36→21:10)
[2022-10-02] MEDS: ARIPiprazole 10 MG TABLET PO (09:36)
--- NOTE | 2022-10-02 13:53 | HO.PSYCHPN ---
Subjective Subjective Date of Service: 10/02/22 Reason For Visit: Schizophrenia,Dementia Interim History: Patient lying in bed awake. Says he is fine and that he will be discharging to a shelter tomorrow. No other questions or complaints. Mental Status Exam Mental Status Exam Patient Appearance: Well Grooomed Patient Orientation: Person and Situation Level of Consciousness: Appropriate Patient Behavior: Cooperative Mood Description: Calm Affect Description: Constricted Patient Cognition Impaired: Yes Ability to Follow Directions: Good Speech Pattern: Clear Hallucinations: None Delusions: Not Present Thought Process: Linear Thought Content: positive for [place] and positive for Circumstantial Judgement: Fair Diagnostics Vital Signs (24Hr): Vital Signs - 24 hr 10/02/22 06:00 Temperature 96.8 F Pulse Rate 99 Respiratory Rate 16 Blood Pressure 146/61 H Pulse Oximetry 96 Oxygen Delivery Method Room Air BMI result Body Mass Index 25.8 Labs Results: 09/25/22 08:11 09/25/22 08:11 Imaging Radiology Impressions: ITS Impressions Chest X-Ray 08/08/22 16:36 IMPRESSION: 1. No acute pulmonary process. Chest X-Ray 08/10/22 10:25 IMPRESSION: New subsegmental atelectasis at the left lung base. Chest CTA 08/10/22 14:35 IMPRESSION: 1. No CT evidence of pulmonary emboli. 2. No lung mass or suspicious spiculated nodules, there are few scattered tiny nonspecific lung calcified and noncalcified nodular densities measuring up to 3 mm or less. 3. Coronary calcifications. 4. Pulmonary emphysema. Various management parameters for solitary pulmonary nodules are in the literature. According to the UPDATED 2017 Fleischner Society recommendations, the advised follow-up imaging for solid nodules < 6 mm is: LOW RISK PATIENT: No routine follow-up. HIGH RISK PATIENT: Optional CT at 12 months. Reference: Guidelines for Management of Incidental Pulmonary Nodules Detected on CT Images: From the Fleischner Society 2017. Chest X-Ray 08/12/22 03:50 IMPRESSION: No focal consolidation. Chest X-Ray 08/31/22 17:28 FINDINGS/IMPRESSION: * Hazy asymmetric opacification of the right lung, unclear if this could be due to patient rotation, asymmetric parenchymal opacities or small layering pleural effusion. Consider repeat PA and lateral radiographs. * Blunting of the bilateral costophrenic angles may reflect trace pleural effusions. No pneumothorax. * Unchanged cardiomediastinal silhouette. * Incidental note of upper abdominal surgical clips. Chest X-Ray 09/01/22 16:57 IMPRESSION: Unremarkable chest examination. Chest X-Ray 09/10/22 12:21 IMPRESSION: Unremarkable examination. Medications Medications Current Medications Acetaminophen (Acetaminophen 325 Mg Tablet) 650 mg PO Q6H PRN PRN Reason: Headache/Pain Mild Scale (1-3) Last Admin: 08/31/22 15:11 Dose: 650 mg Al Hydroxide/Mg Hydroxide (Magnesium Hydrox/Alum Hydrox 30 Ml Oral.Susp) 30 ml PO Q6H PRN PRN Reason: Heartburn/Nausea Albuterol Sulfate (Albuterol Sulfate 90 Mcg 8 Gm Inhaler) 2 puff INHALE RQ4H PRN PRN Reason: COPD exacerbation Last Admin: 09/11/22 13:24 Dose: 2 puff Amlodipine Besylate (Amlodipine Besylate 10 Mg Tablet) 10 mg PO DAILY [facility]; Protocol Last Admin: 10/02/22 09:36 Dose: 10 mg Aripiprazole (Aripiprazole 10 Mg Tablet) 10 mg PO DAILY [facility] Last Admin: 10/02/22 09:36 Dose: 10 mg Atorvastatin Calcium (Atorvastatin Calcium 20 Mg Tablet) 20 mg PO BEDTIME ALONDRA Last Admin: 10/01/22 20:20 Dose: 20 mg Clonidine HCl (Clonidine Hcl 0.1 Mg Tablet) 0.1 mg PO TID ALONDRA; Protocol Last Admin: 10/02/22 09:36 Dose: 0.1 mg Fluticasone/Vilanterol (Fluticasone/Vilanterol 200/25 Blst.W.Dev) 1 puff INHALE RDAILY [facility] Last Admin: 10/01/22 16:42 Dose: 1 puff Magnesium Hydroxide (Milk Of Magnesia 30 Ml Oral.Susp) 30 ml PO DAILY PRN PRN Reason: Constipation Quetiapine Fumarate (Quetiapine Fumarate 50 Mg Tablet) 50 mg PO BID [facility] Last Admin: 10/02/22 09:36 Dose: 50 mg Quetiapine Fumarate (Quetiapine Fumarate 50 Mg Tablet) 50 mg PO Q6H PRN PRN Reason: agitation Last Admin: 08/30/22 13:12 Dose: 50 mg Quetiapine Fumarate (Quetiapine Fumarate 200 Mg Tablet) 200 mg PO BEDTIME ALONDRA Last Admin: 10/01/22 20:20 Dose: 200 mg Tamsulosin HCl (Tamsulosin Hcl 0.4 Mg Capsule) 0.4 mg PO BEDTIME [facility] Last Admin: 10/01/22 20:20 Dose: 0.4 mg Tiotropium [place] (Tiotropium [place] 18 Mcg Cap.W.Dev) 1 puff INHALE RDAILY [facility] Last Admin: 10/01/22 16:42 Dose: 1 puff Allergies Allergies Allergy/AdvReac Type Severity Reaction Status Date / Time Penicillins [PENICILLINS] Allergy Intermediate RASH Unverified 08/02/20 16:41 Iodinated Contrast Media Allergy Mild HIVES Unverified 08/02/20 16:41 [IV Dye, Iodine Containing Contrast ] penicillin V Allergy Unknown Verified 07/05/18 00:00 Assessment & Plan Assessment & Plan (1) Schizophrenia: Status: Acute Code(s): F20.9 - Schizophrenia, unspecified (2) Dementia: Status: Acute Code(s): F03.90 - Unspecified dementia, unspecified severity, without behavioral disturbance, psychotic disturbance, mood disturbance, and anxiety (3) COPD exacerbation: Status: Acute Code(s): J44.1 - Chronic obstructive pulmonary disease with (acute) exacerbation Plan Elderly splenic male with a long history of schizophrenia admitted for exacerbation of symptoms after Trileptal was discontinued due to hyponatremia. We try to rechallenge Trileptal but unfortunately he developed severe hyponatremia. The patient became more psychotic and refuse medications so we changed to Frannie Nuñez with for improvement. Currently ready for discharge. Plan 1. [facility] I spent minutes with the patient and/or on the patient floor today, greater than?50% of which was spent counseling/coordinating care. Patient educated on: therapeutic strategies Informed Consent: understands Reason for contiued inpatient stay Substantial Risk for: other (planning for DC)
[2022-10-02] MEDS: Fluticasone/Vilanterol 200/25 BLST.W.DEV 1 PUFF INHALE (17:01)
[2022-10-02 18:00] VITALS: BP 132/63; PULSE 66; RESP 18; TEMP 36.8; O2SAT 92
[2022-10-02] MEDS: QUEtiapine Fumarate 200 MG TABLET PO (21:10)
[2022-10-02] MEDS: Atorvastatin Calcium 20 MG TABLET PO (21:11)
[2022-10-02] MEDS: Tamsulosin HCL 0.4 MG CAPSULE PO (21:11)
[2022-10-03 09:00] VITALS: BP 116/61; PULSE 91; RESP 18; TEMP 36.2; O2SAT 94
[2022-10-03] MEDS: Fluticasone/Vilanterol 200/25 BLST.W.DEV 1 PUFF INHALE (09:27)
[2022-10-03] MEDS: ARIPiprazole 10 MG TABLET PO (09:29)
[2022-10-03] MEDS: QUEtiapine Fumarate 50 MG TABLET PO (09:29)
[2022-10-03] MEDS: cloNIDine HCL 0.1 MG TABLET PO (09:30)
[2022-10-03] MEDS: amLODIPine Besylate 10 MG TABLET PO (09:30)
--- NOTE | 2022-10-03 10:43 | MHC.CLN ---
F/U DIET=REGULAR, NDD3. CONTINUES WITH USUALLY GOOD INTAKE AND IS OUT OF ROOM FOR MEALS. SHOWS FAVORABLE WEIGHT GAIN OF +5.8% SINCE LOWEST WEIGHT ON 09/04. DISCONTINUE ENSURE SUPPLEMENT DUE TO USUALLY GOOD INTAKE AND FAVORABLE WEIGHT GAIN. RD TO FOLLOW WEEKLY.
[2022-10-03 12:29] LABS: COVID-19 Test Negative (Negative); IDNOW Serial# 55D5AD1C
== END 2022-10-03 14:30 | DRG 885 ==
LOC: HO.ED 08-10 16:03 → HO.PGERI 08-11 19:32
PROVIDERS: Physician Assistant; Physician Assistant Medical; Psychiatry & Neurology Psychiatry; Social Worker; Admitting Provider Clinical Nurse Specialist Psychiatric/Mental Health, Adult; Emergency Provider Student in an Organized Health Care Education/Training Program; Visit Provider Psychiatry & Neurology Psychiatry
DX: F20.9 Schizophrenia, unspecified (principal); N17.9 Acute kidney failure, unspecified; J43.9 Emphysema, unspecified; R00.0 Tachycardia, unspecified; E86.0 Dehydration; E87.5 Hyperkalemia; E78.1 Pure hyperglyceridemia; F03.90 Unspecified dementia, unspecified severity, without behavioral disturbance, psychotic disturbance, mood disturbance, and anxiety; F17.210 Nicotine dependence, cigarettes, uncomplicated; Z20.822 Contact with and (suspected) exposure to COVID-19; Z23 Encounter for immunization; Z71.6 Tobacco abuse counseling; Z91.041 Radiographic dye allergy status; Z88.0 Allergy status to penicillin; Z79.899 Other long term (current) drug therapy
CPT/HCPCS: 0241U; 36415; 71045; 71275; 80048; 80051; 80053; 80061; 80076; 80307; 81001; 82140; 82550; 82565; 82607; 82746; 83036; 83690; 83880; 83930; 83935; 84300; 84439; 84443; 84520; 85025; 85379; 87635; 90686; 92610; 93005; 97161; 99285; J0692; J1200; J2930; Q0163; Q9967